=== PATIENT | female | born 1980 | race Caucasian/White ===

== ENCOUNTER 2020-05-09 15:05 | Emergency (ER) | payer OTHER, MEDICAID, SELFPAY ==
[2020-05-09 15:58] VITALS: BP 114/49; PULSE 85; RESP 16; TEMP 36.7; O2SAT 98; BMI 26.4
--- NOTE | 2020-05-09 16:41 | ED.EYEPROB ---
HPI - Eye Problem General Chief complaint: Eye Problems Stated complaint: Stye in Eye Time Seen by Provider: 05/09/20 16:41 Source: patient Mode of arrival: ambulatory Limitations: no limitations History of Present Illness HPI Narrative: 39 y/o female with history of complicated stye infection leading to periorbital cellulitis requiring IV antibiotics 3 years ago now presenting with a lower eyelid stye. She noticed lid swelling and pain starting 2 days ago and now the redness is slightly below her eyelid. She is concerned about worsening infection. She denies vision changes. She has been using warm soaks with worsening pain and swelling. chief complaint: eye pain Onset (ago): day(s) (2) Onset description: gradual Duration: constant Location: left eye Eye Symptoms: redness and pain Place: home Mechanism: none Severity: moderate If Pain, Quality: aching Associated symptoms: none Treatments Prior to Arrival: none Related Data Previous Rx's Medication Instructions Recorded leuprolide 11.25 mg(3 month) IM 11.25 ea IM .q3 mos 90 Days #1 ea 05/04/20 syringe-norethindrone 5 mg (90)tablets leuprolide 11.25 mg(3 month) IM 11.75 ea IM .90 days 90 Days #1 ea 05/05/20 syringe-norethindrone 5 mg (90)tablets amoxicillin 875 mg PO Q12H #14 tab 05/09/20 clindamycin HCl 300 mg PO Q8H 7 Days #21 cap 05/09/20 erythromycin 0.5 inch OPHTHALMIC (EYE) QID #3.5 05/09/20 g Allergies Allergy/AdvReac Type Severity Reaction Status Date / Time No Known Allergies Allergy Verified 05/09/20 16:24 Review of Systems Review of Systems: Constitutional: No Fever, No Chills ENT/Mouth: No sore throat, No Rhinorrhea, No Swallowing Difficulty Eyes: + Eye Pain, + Swelling, + Redness, No discharge Cardiovascular: No Chest Pain, No SOB, Respiratory: No Cough, No Sputum, No Wheezing, No dyspnea Musculoskeletal: No joint pain, No Myalgias Skin: No Skin Lesions, No rash Neuro: No Headache PMFSH Past Medical History Attestation statement: The following information was validated with the patient. Medical History Asthma Endometriosis Seasonal allergies Social History Social History Smoking Status: Never smoker Use of substances other than those prescribed or required for medical reasons: No Advance Directives: No Advance Directives Information Provided: Yes Physical Exam Vital Signs: Vital Signs: Last Vital Signs Temp 98.1 F 05/09/20 15:58 Pulse 85 05/09/20 15:58 Resp 16 05/09/20 15:58 BP 114/49 L 05/09/20 15:58 Pulse Ox 98 05/09/20 15:58 Body Mass Index 26.4 Appearance: Alert. Oriented X3. No acute distress. HEENT: left lower eyelid swelling with erythema extending beyond lower lid. eversion shows pustule inside lower lid. no conjunctival injection, PERRLA. EOMI. No periorbital tenderness Respiratory: No respiratory distress. Skin: Skin warm and dry. Normal skin color. Normal skin turgor. No rashes. Extremities: no LE edema. Neuro: Oriented X 3. No motor deficit. No sensory deficit. Course Course Course Narrative: 39 y/o presenting with left eye stye with slight erythema beyond the lower lid. No systemic signs of infection. Will empirically treat for evolving periorbital cellulitis given her history. Will give topical ointment as well. Patient instructed to return if facial redness worsens despite abx or if she develops vision changes. Stable for discharge. MDM - Eye Problem MDM Narrative Medical decision making narrative: internal or external hordeolum Differential Diagnosis Differential diagnosis: Likely corneal abrasion, conjunctivitis and periorbital cellulitis Critical Care Time Critical Care Time Critical Care Time: No Discharge Plan Discharge Clinical Impression: Internal hordeolum of left eye Qualifiers: Eyelid: lower Qualified Code(s): H00.025 - Hordeolum internum left lower eyelid Patient Disposition: Home, Self-Care Instructions: Stye (ED) Additional Instructions: Use warm compresses to the eye several times per day for 10-15 minutes at a time. Use the topical ointment 4-6 x per day. If the redness and swelling continues start on the two oral antibiotics right away and follow up with your doctor. If the redness spreads to your face, if you have fevers, chills, changes in vision or other signs of systemic infection call 911 or come back to the ER for further evaluation. Prescriptions: New erythromycin 5 mg/gram (0.5 %) ointment 0.5 inch ophthalmic (eye) QID Qty: 3.5 RF: 0 clindamycin HCl 300 mg capsule 300 mg PO Q8H 7 Days Qty: 21 RF: 0 amoxicillin 875 mg tablet 875 mg PO Q12H Qty: 14 RF: 0 No Action [place] Pack (3 month) 11.25 mg -5 mg (90) kit. syringe and tablet 11.25 ea IM .q3 mos 90 Days Qty: 1 RF: 2 [place] Pack (3 month) 11.25 mg -5 mg (90) kit. syringe and tablet 11.75 ea IM .90 days 90 Days Qty: 1 RF: 3 Discharge Date/Time: 05/09/20 17:03
== END 2020-05-09 17:03 | disposition home or self-care (01) ==
PROVIDERS: Emergency Provider Emergency Medicine; PCP Family Medicine
DX: H00.025 Hordeolum internum left lower eyelid (principal); H57.12 Ocular pain, left eye; Z79.899 Other long term (current) drug therapy
CPT/HCPCS: 99283

== ENCOUNTER → 2020-06-07 13:50 | Outpatient (BNVA) | payer OTHER, MEDICAID, SELFPAY | PROVIDERS: Visit Provider Obstetrics & Gynecology | DX: Z76.89 Persons encountering health services in other specified circumstances (principal) ==

== ENCOUNTER 2020-06-08 14:00 | Outpatient (RCR) | payer OTHER, MEDICAID, SELFPAY | END 2020-09-03 09:00 | disposition other institution (70) | LOC: HO.PT 14:00 | PROVIDERS: Visit Provider Family Medicine | DX: M54.2 Cervicalgia (principal); S09.90XS Unspecified injury of head, sequela | CPT/HCPCS: 97012; 97110; 97112; 97140; 97162 ==

== ENCOUNTER → 2020-07-13 15:33 | Outpatient (BNVA) | payer OTHER, MEDICAID, SELFPAY | PROVIDERS: PCP Family Medicine; Visit Provider Obstetrics & Gynecology ==

== ENCOUNTER 2020-07-13 15:45 | Emergency (ER) | payer OTHER, MEDICAID, SELFPAY ==
[2020-07-13 16:35] VITALS: BP 120/64; PULSE 65; RESP 18; TEMP 37.3; O2SAT 99; BMI 26.6
--- NOTE | 2020-07-13 17:53 | ED.GENADULT ---
HPI - General Adult General Chief complaint: General Medical Stated complaint: fever,neck pain Time Seen by Provider: 07/13/20 17:53 Source: patient Mode of arrival: ambulatory Limitations: no limitations History of Present Illness HPI narrative: 40-year-old female who presents to the emergency department for evaluation chest pain, fever and neck pain. Patient states that she had slight right-sided lateral rib pain on Sunday, 5 days prior to evaluation, which got worse last night. She states that around 9:00 p.m., she was sitting at her computer and she developed severe cramping of her right lateral chest. The pain traveled to her mid sternum into her right neck. She states that the right neck feels swollen. She states that the pain has been constant and is 7 to 8/10 at its worst. She had a fever at home of 100.8? F. She felt slightly short of breath. She complains of a headache, intermittent blurred vision, lightheadedness. She denied difficulty swallowing or cough. She denied dyspnea on exertion. She states that her abdomen feels bloated and she had 1 soft stool today. She had nausea with no vomiting. She denied myalgias, arthralgias, loss of sense of taste or smell. She states that she has been working at home and does not believe that she has had any primary COVID-19 exposures. Related Data Previous Rx's Medication Instructions Recorded amoxicillin 875 mg PO Q12H #14 tab 05/09/20 clindamycin HCl 300 mg PO Q8H 7 Days #21 cap 05/09/20 erythromycin 0.5 inch OPHTHALMIC (EYE) QID #3.5 05/09/20 g leuprolide 11.25 mg(3 month) IM 11.25 ea IM .q3 mos 90 Days #1 ea 05/31/20 syringe-norethindrone 5 mg (90)tablets leuprolide 11.25 mg(3 month) IM 11.75 ea IM .90 days 90 Days #1 ea 05/31/20 syringe-norethindrone 5 mg (90)tablets cyclobenzaprine 20 mg PO Q8H PRN #15 tab 07/13/20 Allergies Allergy/AdvReac Type Severity Reaction Status Date / Time No Known Allergies Allergy Verified 07/13/20 15:34 Review of Systems Review of Systems: Yes all other systems are reviewed and are negative Neurologic: Reports Abnormal speech present [facility] Past Medical History [facility] Narrative: The patient denies tobacco, alcohol and drug use. Medical History Asthma Endometriosis Seasonal allergies Social History Social History Smoking Status: Never smoker Advance Directives: No Advance Directives Information Provided: Yes Physical Exam Vital Signs: Vital Signs: Last Vital Signs Temp 98.6 F 07/13/20 18:25 Pulse 61 07/13/20 18:25 Resp 16 07/13/20 18:25 BP 128/73 07/13/20 18:25 Pulse Ox 98 07/13/20 18:25 Body Mass Index 26.6 Const: General: cooperative and healthy appearing Orientation/consciousness: oriented to person and oriented to place Limitations: no limitations HENMT: Head: Yes normal to inspection, Yes normocephalic and Yes atraumatic Ears: external ears normal General nose exam: Normal external nose present Face and sinus: Yes normal facial exam Mouth: Normal oral and palatal mucosa present Throat: Yes posterior oropharynx normal Eyes: Periorbital: periorbital findings normal Eyelids: Yes eyelids normal Conjunctivae: conjunctivae normal Sclerae: sclerae normal Corneas: corneas normal Pupils: Equal, round and reactive pupils present Direct Ophthalmoscopy: normal light reflex Neck: Neck: Yes full ROM, Yes no lymphadenopathy, Yes no meningeal signs, Yes trachea midline, Yes supple and No anterior neck swelling (No crepitus, tenderness right trapezius/sternocleidomastoid) Chest: Chest palpation & inspection: normal inspection of the chest, no crepitus, tenderness (Right lateral and right anterior) and No rash Resp: Effort & Inspection: normal respiratory effort and able to speak in complete sentences Auscultation: clear to auscultation bilaterally Cardio: Rate: regular rate Rhythm: regular rhythm Heart sounds: S1 normal heart sound present, S2 normal heart sound present and no murmurs GI: Inspection: Yes normal to inspection Palpation (GI): Soft to palpation, nontender, no guarding, not rigid and No hepatosplenomegaly present : General: Yes no CVA tenderness Back/Spine/Pelvis: Back: no CVA tenderness Cervical Spine: normal cervical lordosis Thoracic/Lumbar Spine: thoracic and lumbar spine normal to inspection Skin: Lesions: no lesions Rashes: no rashes Wounds: no wounds Neuro: General: oriented to person, oriented to place and no meningeal signs Cranial nerves: Yes CN's II-XII intact bilaterally and Yes Equal, round and reactive pupils present Cognition (Neuro): normal cognition Speech: Abnormal speech present Motor exam (neuro): 5/5 motor strength present throughout Extrem: General: Yes normal to inspection and Yes full ROM Psych: Appearance: well kempt Mental Status: mental status grossly normal Speech and movement: Normal speech and movement present Affect: normal affect Attitude: cooperative Thought process: Normal thought process present Thought content: Normal thought content present Course Course Course Narrative: 40-year-old female who presents emergency department for evaluation of right lateral chest pain x5 days with increased chest pain starting last night at 9:00 p.m., pain radiates to her right neck and associated with shortness of breath and nausea. Chills reported a fever at home of 100.8, headache, occasional blurred vision and lightheadedness. Physical examination did reveal right neck muscle tenderness but no crepitus, right-sided chest wall tenderness with no crepitus, rashes or lesions noted, normal breath sounds vital signs in the emergency department revealed a temperature of 99.1?, respiratory rate 18 and pulse of 65 with an O2 saturation of 99%. The differential includes but not limited to costochondritis, coronary disease, PE, pneumothorax, pneumonia, COVID-19. I did order a laboratory workup, EKG and chest x-ray. The patient will be tested for COVID-19 as well. She was ordered to get Toradol 30 mg IV, Zofran 4 mg IV normal saline x1 L. 2002: The patient's laboratory evaluation was unremarkable including non elevated troponin and non elevated D-dimer. Chest x-ray revealed no evidence of pneumonia or pneumothorax. COVID-19 was negative. EKG was unremarkable. The patient did get some slight improvement with the IV Toradol. The patient's presentation is most likely secondary to chest wall inflammation. I did discuss the possibility of shingles with the patient as well. 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 She was advised to take Tylenol and she was given a prescription for Flexeril as well. Medical Decision Making Lab Data Result diagrams: 07/13/20 18:40 07/13/20 18:40 Labs: Lab Results 07/13/20 07/13/20 07/13/20 Range/Units 18:32 18:35 18:40 WBC 12.6 H (4.8-10.8) X10*3/uL RBC 4.82 (4.20-5.50) X10*6/uL Hgb 13.9 (12.0-16.0) g/dl Hct 41.5 (37-47) % MCV 86.1 (80-98) fL MCH 28.8 (27.0-33.0) pg MCHC 33.5 (31.0-35.0) g/dl RDW 12.5 (11.0-16.0) % Plt Count 226 (160-400) X10*3/uL MPV 9.4 (9.4-12.3) fL Immature Gran % (Auto) 0.2 (0.0-0.4) % Neut % (Auto) 63.9 (45-73) % Lymph % (Auto) 24.6 (20-40) % [place] % (Auto) 6.7 (2-11) % Eos % (Auto) 4.3 H (0-4) % Baso % (Auto) 0.3 (0-2) % Lymph # (Auto) 3.1 (1.2-4.9) X10*3/uL [place] # (Auto) 0.8 (0.1-1.2) X10*3/uL Eos # (Auto) 0.5 H (0.0-0.4) X10*3/uL Baso # (Auto) 0.0 (0.0-0.2) X10*3/uL Abs Immat Gran (auto) 0.03 (0.00-0.03) X10*3/uL Absolute Neuts (auto) 8.1 (2.0-8.3) X10*3/uL Absolute Nucleated RBC 0.000 (0.0-0.012) X10*3/uL Nucleated RBC % (auto) 0.0 (0.0-0.2) /100WBC PT (10.8-13.0) SEC INR (0.9-1.1) APTT (24.1-38.0) SEC D-Dimer NG/ML Sodium (135-145) mmol/L Potassium (3.3-5.1) mmol/l Chloride (96-108) mmol/L Carbon Dioxide (22-29) mmol/L Anion Gap (12-20) BUN (9-16) mg/dL Creatinine (0.5-1.4) mg/dL Estim Creat Clear Calc Estimated GFR Random Glucose (60-115) mg/dL Calcium (8.4-10.2) mg/dL Total Bilirubin (0.0-1.0) mg/dL AST (5-31) U/L ALT (0-31) U/L Alkaline Phosphatase (39-117) U/L Troponin I High Sens (<3.5-17.0) ng/L Total Protein (6.5-8.0) g/dL Albumin (3.5-5.0) g/dL Urine Color YELLOW Urine Appearance CLEAR Urine pH 7.0 (5.0-8.0) Ur Specific [place] 1.020 (1.005-1.025) Urine Protein NEG (NEG-TRACE) MG/DL Urine Glucose (UA) NEG (NEG) MG/DL Urine Ketones NEG (NEG) MG/DL Urine Blood NEG (NEG) Urine Nitrite NEG (NEG) Ur Leukocyte Esterase NEG (NEG) Urine Test NEGATIVE (NEGATIVE) COVID-19 ([facility]) Negative (Negative) COVID-19 Clin Com See Note 07/13/20 07/13/20 07/13/20 Range/Units 18:40 18:40 18:40 WBC (4.8-10.8) X10*3/uL RBC (4.20-5.50) X10*6/uL Hgb (12.0-16.0) g/dl Hct (37-47) % MCV (80-98) fL MCH (27.0-33.0) pg MCHC (31.0-35.0) g/dl RDW (11.0-16.0) % Plt Count (160-400) X10*3/uL MPV (9.4-12.3) fL Immature Gran % (Auto) (0.0-0.4) % Neut % (Auto) (45-73) % Lymph % (Auto) (20-40) % [place] % (Auto) (2-11) % Eos % (Auto) (0-4) % Baso % (Auto) (0-2) % Lymph # (Auto) (1.2-4.9) X10*3/uL [place] # (Auto) (0.1-1.2) X10*3/uL Eos # (Auto) (0.0-0.4) X10*3/uL Baso # (Auto) (0.0-0.2) X10*3/uL Abs Immat Gran (auto) (0.00-0.03) X10*3/uL Absolute Neuts (auto) (2.0-8.3) X10*3/uL Absolute Nucleated RBC (0.0-0.012) X10*3/uL Nucleated RBC % (auto) (0.0-0.2) /100WBC PT 11.7 (10.8-13.0) SEC INR 1.0 (0.9-1.1) APTT 40.3 H (24.1-38.0) SEC D-Dimer < 200 NG/ML Sodium 140 (135-145) mmol/L Potassium 4.2 (3.3-5.1) mmol/l Chloride 101 (96-108) mmol/L Carbon Dioxide 29 (22-29) mmol/L Anion Gap 14 (12-20) BUN 16 (9-16) mg/dL Creatinine 0.80 (0.5-1.4) mg/dL Estim Creat Clear Calc 88.1 Estimated GFR > 60 Random Glucose 92 (60-115) mg/dL Calcium 9.0 (8.4-10.2) mg/dL Total Bilirubin 0.3 (0.0-1.0) mg/dL AST 17 (5-31) U/L ALT 18 (0-31) U/L Alkaline Phosphatase 78 (39-117) U/L Troponin I High Sens < 3.5 (<3.5-17.0) ng/L Total Protein 7.5 (6.5-8.0) g/dL Albumin 4.7 (3.5-5.0) g/dL Urine Color Urine Appearance Urine pH (5.0-8.0) Ur Specific [place] (1.005-1.025) Urine Protein (NEG-TRACE) MG/DL Urine Glucose (UA) (NEG) MG/DL Urine Ketones (NEG) MG/DL Urine Blood (NEG) Urine Nitrite (NEG) Ur Leukocyte Esterase (NEG) Urine Test (NEGATIVE) COVID-19 ([facility]) (Negative) COVID-19 Clin Com ECG Data Attestation: I personally reviewed and interpreted this ECG as follows: Interpretation: 1823: Normal sinus rhythm with sinus arrhythmia, normal [place], QRS and QTC intervals, inverted T-wave in V1, no ST segment elevation, no ST segment depression, this is a normal EKG. There is no old EKG for comparison. Discharge Plan Discharge Clinical Impression: Acute neck pain Chest pain Qualifiers: Chest pain type: other chest pain Qualified Code(s): R07.89 - Other chest pain Patient Disposition: Home, Self-Care Instructions: Chest Pain (ED) Additional Instructions: Your chest x-ray was normal, with no evidence for pneumonia or a popped lung (pneumothorax). Your blood work was all normal suggesting that this is not your heart for a blood clot causing your pain. Your EKG was normal. Your COVID-19 test was negative. At this time, I suspect that your pain is due to inflammation of your chest wall and neck. As discussed you should consider shingles as the cause of your pain if you develop a rash on the right side of your body. If you think this is shingles, call your doctor or return to the emergency department for evaluation. Take Tylenol (acetaminophen) 500 mg pills, 2 pills every 4 to 6 hours as needed for pain. Take Flexeril (cyclobenzaprine) 10 mg pills, 1 pill every 8 hours as needed for pain or spasm. Follow-up with your doctor in 2 days. Please return to the emergency department if your symptoms get worse or if you develop any symptoms that are concerning to you. Prescriptions: New cyclobenzaprine 10 mg tablet 20 mg PO Q8H PRN (Reason: muscle pain or spasm) Qty: 15 RF: 0 No Action [place] Pack (3 month) 11.25 mg -5 mg (90) kit. syringe and tablet 11.25 ea IM .q3 mos 90 Days Qty: 1 RF: 2 [place] Pack (3 month) 11.25 mg -5 mg (90) kit. syringe and tablet 11.75 ea IM .90 days 90 Days Qty: 1 RF: 3 erythromycin 5 mg/gram (0.5 %) ointment 0.5 inch ophthalmic (eye) QID Qty: 3.5 RF: 0 clindamycin HCl 300 mg capsule 300 mg PO Q8H 7 Days Qty: 21 RF: 0 amoxicillin 875 mg tablet 875 mg PO Q12H Qty: 14 RF: 0
--- NOTE | 2020-07-13 18:13 | XR_ITS ---
EXAMINATION: XR CHEST CLINICAL INFORMATION: Fever and shortness of breath. Neck pain. COMPARISON: 11/14/2019 TECHNIQUE: Frontal view of the chest was obtained. FINDINGS: Cardiac leads overlie the chest. The lungs are well expanded. There is no focal consolidation, edema, or effusion. No pneumothorax. The cardiomediastinal silhouette is within normal limits. No acute osseous abnormality. XR/XR chest 1V IMPRESSION: Clear lungs.
--- NOTE | 2020-07-13 18:13 | ECG_ITS ---
Test Reason : CHEST PAIN Blood Pressure : / mmHG Vent. Rate : 067 BPM Atrial Rate : 067 BPM P-R Int : 170 ms QRS Dur : 088 ms QT Int : 426 ms P-R-T Axes : 054 065 032 degrees QTc Int : 450 ms Normal sinus rhythm with sinus arrhythmia Normal ECG When compared with ECG of 05-JUN-2019 17:03, No significant change was found Referred By: Erik Champion Electronically Signed By:BART OSPINA
[2020-07-13 18:25] VITALS: BP 128/73; PULSE 61; RESP 16; TEMP 37; O2SAT 98
[2020-07-13] MEDS: 0.9 % Sodium Chloride 1,000 ML 999 ML IV (18:41)
[2020-07-13] MEDS: Ketorolac Tromethamine 30 MG/ML VIAL IVPUSH (18:42)
[2020-07-13] MEDS: ondansetron HCL 4 MG/2 ML VIAL IVPUSH (18:42)
[2020-07-13 18:45] LABS: MANUAL DIFF FLAG NO
[2020-07-13 18:46] LABS: Basophils Percent Auto 0.3 % (0-2); Eosinophils Absolute Auto 0.5 X10*3/uL (0.0-0.4); Eosinophils Percent Auto 4.3 % (0-4); Hematocrit 41.5 % (37-47); Hemoglobin 13.9 g/dl (12.0-16.0); Imm Gran Abs Auto 0.03 X10*3/uL (0.00-0.03); Imm Gran Pct Auto 0.2 % (0.0-0.4); Lymphocytes Absolute Auto 3.1 X10*3/uL (1.2-4.9); Lymphocytes Percent Auto 24.6 % (20-40); Mean Corpuscular HGB Conc 33.5 g/dl (31.0-35.0); Mean Corpuscular Hemoglobin 28.8 pg (27.0-33.0); Mean Corpuscular Volume 86.1 fL (80-98); Mean Platelet Volume 9.4 fL (9.4-12.3); Monocytes Absolute Auto 0.8 X10*3/uL (0.1-1.2); Monocytes Percent Auto 6.7 % (2-11); Neutrophils Absolute Auto 8.1 X10*3/uL (2.0-8.3); Neutrophils Percent Auto 63.9 % (45-73); Platelet Count 226 X10*3/uL (160-400); Red Blood Count 4.82 X10*6/uL (4.20-5.50); Red Cell Distribution Width 12.5 % (11.0-16.0); White Blood Count 12.6 X10*3/uL (4.8-10.8)
[2020-07-13 18:49] LABS: Appearance Urine CLEAR; Color Urine YELLOW; Glucose Urine UA NEG (NEG); Leukocyte Esterase Urine NEG (NEG); Nitrite Urine NEG (NEG); Urine Blood NEG (NEG); Urine Ketones NEG (NEG); Urine Protein NEG (NEG-TRACE)
[2020-07-13 18:51] LABS: UPreg QC Valid YES; Urine Pregnancy NEGATIVE (NEGATIVE)
[2020-07-13 18:55] LABS: Prothrombin Time 11.7 SEC (10.8-13.0)
[2020-07-13 18:57] LABS: Partial Thromboplastin Time 40.3 SEC (24.1-38.0)
[2020-07-13 19:01] LABS: D Dimer < 200 NG/ML
[2020-07-13 19:03] LABS: COVID-19 Test Negative (Negative); IDNOW Serial# 9DD0AD1C
[2020-07-13 19:16] LABS: Alanine Aminotransferase 18 U/L (0-31); Albumin Level 4.7 g/dL (3.5-5.0); Alkaline Phosphatase 78 U/L (39-117); Anion Gap 14 (12-20); Aspartate Amino Transferase 17 U/L (5-31); Bilirubin Total 0.3 mg/dL (0.0-1.0); Blood Urea Nitrogen 16 mg/dL (9-16); Carbon Dioxide 29 mmol/L (22-29); Chloride 101 mmol/L (96-108); Creatinine Clr Calc Pharmacy 88.1; Estimated Glomerular Filt Rate > 60; Glucose Random 92 mg/dL (60-115); Potassium 4.2 mmol/l (3.3-5.1); Sodium 140 mmol/L (135-145); Total Protein 7.5 g/dL (6.5-8.0)
[2020-07-13 19:22] LABS: Troponin-I High Sensitivity < 3.5 ng/L (<3.5-17.0)
[2020-07-13 20:24] VITALS: BP 125/69; PULSE 84; RESP 20; O2SAT 95
== END 2020-07-13 20:26 | disposition home or self-care (01) ==
PROVIDERS: Emergency Provider Emergency Medicine Emergency Medical Services
DX: R07.89 Other chest pain (principal); M54.2 Cervicalgia; Z20.822 Contact with and (suspected) exposure to COVID-19
CPT/HCPCS: 36415; 71045; 80053; 81003; 81025; 84484; 85025; 85379; 85610; 85730; 87635; 93005; 96361; 96374; 96375; 99284; J1885; J2405

== ENCOUNTER 2020-07-14 12:20 | Outpatient (REF) | payer OTHER, MEDICAID, SELFPAY ==
--- NOTE | 2020-07-14 12:25 | XR_ITS ---
EXAMINATION: XR CERVICAL SPINE CLINICAL INFORMATION: Neck pain. COMPARISON: None TECHNIQUE: 6 views of the cervical spine, inclusive of flexion and extension views, were obtained. FINDINGS: There is mild straightening of cervical lordosis. The vertebral heights, alignment and disc heights are normal. The neural foramina are patent bilaterally. No acute fracture, dislocation or subluxation seen. The prevertebral soft tissues are normal. XR/XR cervical spine 5V IMPRESSION: Moderate straightening of cervical lordosis likely spasm. No visible acute fracture or dislocation seen.
== END 2020-07-14 12:21 | disposition home or self-care (01) ==
LOC: HO.XRAY 12:20
PROVIDERS: Visit Provider Family Medicine
DX: M54.2 Cervicalgia (principal)
CPT/HCPCS: 72050

== ENCOUNTER → 2020-07-29 14:58 | Outpatient (BNVA) | payer OTHER, MEDICAID, SELFPAY | PROVIDERS: Visit Provider Advanced Practice Midwife ==

== ENCOUNTER 2020-08-06 15:25 | Outpatient (REF) | payer OTHER, MEDICAID, SELFPAY ==
--- NOTE | ~2020-08-06 | MM_ITS ---
EXAMINATION: MM SCREENING DIGITAL BREAST TOMOSYNTHESIS, BILATERAL CLINICAL INFORMATION: Screening. Asymptomatic. The lifetime risk of breast cancer based on the Tyrer-Cuzick Model is 10%. COMPARISON: Mammography: 06/22/2018 (baseline) TECHNIQUE: Digital breast tomosynthesis is performed in both the craniocaudal and mediolateral oblique views along with computer-aided detection (CAD). Synthesized 2D images are generated from the tomosynthesis. FINDINGS: There are scattered areas of fibroglandular density (ACR BI-RADS breast composition Category b). There are no significant masses, abnormal calcifications, or other abnormalities. Parenchymal pattern is similar to prior studies. The axilla are unremarkable. No significant changes. MM/MM tomosynthesis screening BI IMPRESSION: No mammographic evidence of malignancy. ASSESSMENT: BI-RADS 1: Negative RECOMMENDATION: Routine annual mammography screening. This patient's information was entered into a reminder system with a target due date for their next mammogram.
== END 2020-08-06 15:26 | disposition home or self-care (01) ==
LOC: HO.MAMMO 15:25
PROVIDERS: PCP Family Medicine; Visit Provider Family Medicine
DX: Z12.31 Encounter for screening mammogram for malignant neoplasm of breast (principal)
CPT/HCPCS: 77063; 77067

== ENCOUNTER → 2020-08-24 14:48 | Outpatient (BNVA) | payer OTHER, MEDICAID, SELFPAY | PROVIDERS: Visit Provider Obstetrics & Gynecology ==

== ENCOUNTER → 2020-09-01 14:10 | Outpatient (BNVA) | payer OTHER, MEDICAID, SELFPAY | PROVIDERS: Visit Provider Internal Medicine Gastroenterology ==

== ENCOUNTER → 2020-10-04 08:08 | Outpatient (BNVA) | payer OTHER, MEDICAID, SELFPAY | PROVIDERS: PCP Family Medicine; Visit Provider Internal Medicine Gastroenterology ==

== ENCOUNTER 2020-10-17 10:08 | Emergency (ER) | payer OTHER, MEDICAID, SELFPAY ==
[2020-10-17 10:18] VITALS: BP 111/77; PULSE 90; RESP 16; TEMP 36.8; O2SAT 98; BMI 25.7
--- NOTE | 2020-10-17 11:09 | ED.EYEPROB ---
HPI - Eye Problem General Chief complaint: Eye Problems Stated complaint: eye issues Time Seen by Provider: 10/17/20 11:04 Source: patient Mode of arrival: ambulatory Limitations: no limitations History of Present Illness HPI Narrative: Patient presents to ED for left upper eyelid swelling and redness. Patient states this has been occurring for the past 3 days. Patient denies any blurry vision, watery discharge, green/pus collection from the eyelids, headache, dizziness, fever, or chills. Patient states history of stye and recently has been on topical antibiotic ointment as treatment with no improvment. Patient denies any recent trauma to the eye. Patient states history of stye. Related Data Previous Rx's Medication Instructions Recorded erythromycin 0.5 inch OPHTHALMIC (EYE) QID #3.5 05/09/20 g leuprolide 11.25 mg(3 month) IM 11.25 ea IM .q3 mos 90 Days #1 ea 05/31/20 syringe-norethindrone 5 mg (90)tablets leuprolide 11.25 mg(3 month) IM 11.75 ea IM .90 days 90 Days #1 ea 05/31/20 syringe-norethindrone 5 mg (90)tablets cyclobenzaprine 20 mg PO Q8H PRN #15 tab 07/13/20 leuprolide (3 month) 11.25 mg (3 11.25 mg IM [id number] 90 Days #1 ea 07/14/20 month) intramuscular syringe kit cefpodoxime 400 mg PO Q12H 7 Days #28 tab 10/17/20 doxycycline hyclate 100 mg PO BID #20 tab 10/17/20 Allergies Allergy/AdvReac Type Severity Reaction Status Date / Time Seasonal Allergies Allergy Mild unknown Verified 10/04/20 08:17 Review of Systems Review of Systems: Yes all other systems are reviewed and are negative Constitutional: Constitutional: Reports as per HPI and Reports no additional constitutional complaints Eyes: Eyes: Reports as per HPI and Reports no additional eye complaints Comments: Left upper eyelid is swollen and tender ENT: Reports system reviewed and no additional complaints, except as documented and Reports as per HPI Cardiovascular: Cardiovascular: Reports as per HPI and Reports no additional cardiovascular complaints Respiratory: Respiratory: Reports as per HPI and Reports no additional respiratory complaints Gastrointestinal: Gastrointestinal: Reports as per HPI and Reports no additional gastrointestinal complaints Genitourinary: Genitourinary: Reports no additional female genitourinary complaints and Reports as per HPI Musculoskeletal: Musculoskeletal: Reports no additional musculoskeletal complaints and Reports as per HPI Neurologic: Reports system reviewed and no additional complaints, except as documented and Reports as per HPI Psychiatric: Psychiatric: Reports no additional psychiatric complaints and Reports as per HPI [facility] Past Medical History Medical History (Updated 10/17/20 @ 11:32 by TATI Narvaez) Abdominal pain Asthma Carpal tunnel syndrome Endometriosis GERD (gastroesophageal reflux disease) Seasonal allergies Surgical History H/O eye surgery H/O gastric bypass H/O tubal ligation History of esophagogastroduodenoscopy (EGD) Hx of cholecystectomy Social History Social History Household Members: Spouse and Children Alcohol intake: never Smoking Status: Never smoker Smoked in Last 30 Days: No Use of substances other than those prescribed or required for medical reasons: No Advance Directives: No Advance Directives Information Provided: No Physical Exam Vital Signs: Vital Signs: Last Vital Signs Temp 98.3 F 10/17/20 10:18 Pulse 90 10/17/20 10:18 Resp 16 10/17/20 10:18 BP 111/77 10/17/20 10:18 Pulse Ox 98 10/17/20 10:18 Body Mass Index 25.7 Const: General: cooperative, healthy appearing, comfortable, no acute distress, well developed, alert and awake Orientation/consciousness: patient oriented x3 HENMT: Head: Yes normal to inspection, Yes No palpable skull fracture present, Yes normocephalic, Yes atraumatic, No abrasion, No Tompkins's sign, No contusion, No hematoma, No laceration, No occipital foramen tenderness, No palpable skull fracture, No raccoon eyes, No scalp lesion, No scalp tenderness, No Temporal artery tenderness present and No periorbital ecchymosis Eyes: Other: Left eye: Left upper eyelid swollen and slightly erythematous. Negative for any external stye or obvious internal stye. Neck: Neck: Yes normal visual inspection, Yes full ROM, Yes no lymphadenopathy, Yes no meningeal signs, Yes trachea midline, Yes supple and No tender Chest: Chest palpation & inspection: normal inspection of the chest and normal palpation of entire chest wall Resp: Effort & Inspection: normal respiratory effort and able to speak in complete sentences Cardio: Jugular venous distension: no JVD Heart sounds: S1 normal heart sound present and S2 normal heart sound present GI: Inspection: Yes normal to inspection and No abdominal wall ecchymosis Palpation (GI): Soft to palpation, not firm, nontender, no guarding and not rigid : General: No CVA tenderness and Yes no CVA tenderness Back/Spine/Pelvis: Back: no CVA tenderness, No CVA tenderness and No back tenderness Skin: General skin exam: no rashes or lesions noted and elasticity normal Neuro: General: patient oriented x3 and no meningeal signs Cranial nerves: Yes CN's II-XII intact bilaterally Extrem: General: Yes normal to inspection and Yes full ROM Psych: Appearance: grossly normal, well kempt and not disheveled Course Course Course Narrative: Differenital prespetal cellulitis vs stye Patient may have small developing internal stye that is not obvious on visual inspection Reevaluation(s) Reevaluation #1: Discharged with oral antibiotics. Patient given number of loin trimmer for outpatient follow-up. Discharge Plan Discharge Clinical Impression: Hordeolum, Periorbital cellulitis Patient Disposition: Home, Self-Care Instructions: Stye (ED), Periorbital Cellulitis in Adults (ED) Additional Instructions: Return to the ED for worsening eye pain, eye swelling, yellow discharge, redness of conjunctiva, fever, chills, change in vision, headache, dizziness, or any other concerning symptoms. Recommend warm compress 4 times a day for 15 minutes. Prescriptions: New cefpodoxime 200 mg tablet 400 mg PO Q12H 7 Days Qty: 28 RF: 0 doxycycline hyclate 100 mg tablet 100 mg PO BID Qty: 20 RF: 0 No Action [place] Pack (3 month) 11.25 mg -5 mg (90) kit. syringe and tablet 11.25 ea IM .q3 mos 90 Days Qty: 1 RF: 2 [place] Pack (3 month) 11.25 mg -5 mg (90) kit. syringe and tablet 11.75 ea IM .90 days 90 Days Qty: 1 RF: 3 erythromycin 5 mg/gram (0.5 %) ointment 0.5 inch ophthalmic (eye) QID Qty: 3.5 RF: 0 cyclobenzaprine 10 mg tablet 20 mg PO Q8H PRN (Reason: muscle pain or spasm) Qty: 15 RF: 0 Lupron Depot (3 month) 11.25 mg syringe kit 11.25 mg IM [id number] 90 Days Qty: 1 RF: 2 Referrals: Red Alexander [Physician] - 2 days (Chronic stye vs periorbital cellulitis.) Stand Alone Forms: Work/School Release Interventions: ED Discharge Assessment Last Done: 10/17/20 11:48 Discharge Date/Time: 10/17/20 11:48 Print Language: [place]ican
== END 2020-10-17 11:48 | disposition home or self-care (01) ==
PROVIDERS: Emergency Provider Emergency Medicine; PCP Family Medicine
DX: H00.024 Hordeolum internum left upper eyelid (principal); L03.213 Periorbital cellulitis
CPT/HCPCS: 99283; 99284

== ENCOUNTER → 2020-10-27 08:51 | Outpatient (BNVA) | payer OTHER, MEDICAID, SELFPAY | PROVIDERS: PCP Family Medicine; Visit Provider Obstetrics & Gynecology ==

== ENCOUNTER 2020-12-11 00:07 | Emergency (ER) | payer OTHER, MEDICAID, SELFPAY ==
--- NOTE | ~2020-12-11 | XR_ITS ---
EXAMINATION: XR CHEST CLINICAL INFORMATION: Cough COMPARISON: 07/13/2020 TECHNIQUE: 2 views of the chest were obtained. FINDINGS: No significant abnormality is noted involving the heart, lungs, mediastinum, bony thorax or soft tissues. XR/XR chest 2V IMPRESSION: Unremarkable examination.
[2020-12-11 00:11] VITALS: BP 133/68; PULSE 61; RESP 18; TEMP 36.7; O2SAT 99; BMI 26.4
--- NOTE | 2020-12-11 01:47 | ED_ITS ---
HPI - General Adult General Chief complaint: General Medical Stated complaint: abdominal pain Time Seen by Provider: 12/11/20 01:47 Source: patient Mode of arrival: ambulatory History of Present Illness HPI narrative: Patient with history of asthma presents with complaints of right- sided, atraumatic, chest ?fullness? without associated fever, chills, shortness of breath, chest pain/palpitations, nausea, vomiting, diarrhea. In addition, patient denies any recent travel or calf swelling/pain. She reports increase mucus production. Related Data Home Medications Medication Instructions Recorded Confirmed Zyrtec 10 mg PO DAILY 12/11/20 12/11/20 fluticasone propionate [Flonase] INTRANASAL 12/11/20 Previous Rx's Medication Instructions Recorded leuprolide (3 month) 11.25 mg (3 11.25 mg IM [id number] 90 Days #1 ea 07/14/20 month) intramuscular syringe kit Allergies Allergy/AdvReac Type Severity Reaction Status Date / Time Seasonal Allergies Allergy Mild unknown Verified 10/04/20 08:17 Review of Systems Review of Systems: Pertinent positives and negatives as stated in HPI 10 point review of systems is otherwise negative. PMFSH Past Medical History Source: nursing notes reviewed Medical History Abdominal pain Asthma Carpal tunnel syndrome Endometriosis GERD (gastroesophageal reflux disease) Seasonal allergies Surgical History H/O eye surgery H/O gastric bypass H/O tubal ligation History of esophagogastroduodenoscopy (EGD) Hx of cholecystectomy Social History Social History Household Members: Spouse and Children Alcohol intake: never Advance Directives: No Advance Directives Information Provided: No Patient : No Physical Exam Vital Signs: Vital Signs: Last Vital Signs Temp 98.0 F 12/11/20 02:19 Pulse 57 12/11/20 02:19 Resp 17 12/11/20 02:19 BP 153/81 H 12/11/20 02:19 Pulse Ox 100 12/11/20 02:19 Body Mass Index 26.4 VITAL SIGNS: Reviewed. GENERAL: Well developed, well nourished, in no acute distress. HEAD: Normocephalic/atraumatic EYES: PERRLA, EOMI OROPHARYNX: no oral lesions noted, posterior pharynx clear NECK: Supple, no adenopathy LUNGS: Normal breath sounds. No adventitious sounds or accessory muscle use. SpO2<99> CARDIOVASCULAR: Regular rate and rhythm without noted murmurs, no JVD or lower extremity edema. ABDOMEN: Soft, non-tender, non-distended with bowel sounds. Course Course Course Narrative: 40-year-old female with history and clinical presentation suggestive of possible bronchitis and seasonal allergies as there is no evidence of infection without fever, chills, nausea, vomiting. Low clinical suspicion for hepatobiliary etiologies or gastritis and doubt PE. Will obtain urinalysis but review of chest x-ray is negative for any acute findings. Review of urinalysis is negative for any acute findings and presentation is inconsistent with gallbladder or pancreatic etiologies. Medical Decision Making Lab Data Labs: Lab Results 12/11/20 12/11/20 Range/Units 02:22 02:22 Urine Color YELLOW Urine Appearance CLEAR Urine pH 5.5 (5.0-8.0) Ur Specific [place] >= 1.030 H (1.005-1.025) Urine Protein NEG (NEG-TRACE) MG/DL Urine Glucose (UA) NEG (NEG) MG/DL Urine Ketones NEG (NEG) MG/DL Urine Blood NEG (NEG) Urine Nitrite NEG (NEG) Ur Leukocyte Esterase NEG (NEG) Urine Test NEGATIVE (NEGATIVE) Discharge Plan Discharge Clinical Impression: Bronchitis Patient Disposition: Home, Self-Care Instructions: Allergies (ED), Acute Bronchitis (ED) Additional Instructions: 1. Resume all home medications as prescribed. 2. Recommend consistent use of allergy medication as well as use of your albuterol inhaler (would recommend that you increase the use of your albuterol inhaler for the next 24 hours). 3. Please follow-up with your primary care provider in the next 2-3 days for re- evaluation and further outpatient management. Return to the ER for any acute worsening of your symptoms. Prescriptions: No Action Zyrtec 10 mg PO DAILY RF: 0 fluticasone propionate [Flonase] 50 mcg/actuation [place],Suspension INTRANASAL RF: 0 Lupron Depot (3 month) 11.25 mg syringe kit 11.25 mg IM [id number] 90 Days Qty: 1 RF: 2 Referrals: Clementine Cobos MD [Primary Care Provider] - 2 days (Re-evaluation)
[2020-12-11 02:19] VITALS: BP 153/81; PULSE 57; RESP 17; TEMP 36.7; O2SAT 100
[2020-12-11 02:30] LABS: Glucose Urine UA NEG (NEG); Leukocyte Esterase Urine NEG (NEG); Nitrite Urine NEG (NEG); PH 5.5 (5.0-8.0); Specific Gravity - Urine >= 1.030 (1.005-1.025); Urine Blood NEG (NEG); Urine Ketones NEG (NEG); Urine Protein NEG (NEG-TRACE)
[2020-12-11 02:36] LABS: Appearance Urine CLEAR; Color Urine YELLOW
[2020-12-11 02:37] LABS: UPreg QC Valid YES; Urine Pregnancy NEGATIVE (NEGATIVE)
== END 2020-12-11 03:01 | disposition home or self-care (01) ==
PROVIDERS: Emergency Provider Student in an Organized Health Care Education/Training Program; PCP Family Medicine
DX: J40 Bronchitis, not specified as acute or chronic (principal); J45.909 Unspecified asthma, uncomplicated; Z79.899 Other long term (current) drug therapy
CPT/HCPCS: 71046; 81003; 81025; 99283; 99284

== ENCOUNTER 2021-01-26 08:30 | Outpatient (REF) | payer OTHER, MEDICAID, SELFPAY ==
--- NOTE | ~2021-01-26 | US_ITS ---
EXAMINATION: US ABDOMEN COMPLETE CLINICAL INFORMATION: Unspecified abdominal pain. COMPARISON: CT abdomen and pelvis with intravenous contrast only dated 01/21/2017 TECHNIQUE: Real-time imaging of the abdominal viscera. FINDINGS: PANCREAS: Normal. ABDOMINAL AORTA: The proximal, mid, and distal segments are normal in caliber. INFERIOR VENA CAVA: Visualized portions are normal. LIVER: Normal. The liver is normal in size. The liver contour is normal. Parenchymal echogenicity is normal. No focal hepatic lesion. There is no intrahepatic biliary duct dilatation seen. GALLBLADDER: Surgically absent. COMMON BILE DUCT: Normal in caliber measuring 0.49 cm in diameter. RIGHT KIDNEY: Normal. No hydronephrosis. No renal calculi or focal parenchymal lesions. The kidney measures 11.1 cm in maximum dimension. LEFT KIDNEY: There is mild hydronephrosis. No echogenic renal calculi or focal parenchymal lesions. The kidney measures 11.2 cm in maximum dimension. SPLEEN: 10.0 The spleen measures 10.0 cm in maximum dimension. There is a small accessory splenule measuring 2.2 x 1.9 x 2.1 cm. FREE FLUID: No free fluid seen. US/US abdomen complete IMPRESSION: Mild left hydronephrosis. No echogenic renal calculi. The rest of the abdominal ultrasound is unremarkable.
== END 2021-01-26 08:31 | disposition home or self-care (01) ==
LOC: HO.HMGCX 08:30
PROVIDERS: Visit Provider Internal Medicine Gastroenterology
DX: R10.9 Unspecified abdominal pain (principal)
CPT/HCPCS: 76700

== ENCOUNTER → 2021-02-03 08:40 | Outpatient (BNVA) | payer OTHER, SELFPAY | PROVIDERS: PCP Family Medicine; Visit Provider Internal Medicine | DX: M25.511 Pain in right shoulder (principal) | CPT/HCPCS: 99214 ==

== ENCOUNTER → 2021-02-08 13:02 | Outpatient (BNVA) | payer OTHER, SELFPAY | PROVIDERS: PCP Family Medicine; Visit Provider Internal Medicine | DX: M54.9 Dorsalgia, unspecified (principal); M25.511 Pain in right shoulder; M54.2 Cervicalgia | CPT/HCPCS: 99213 ==

== ENCOUNTER 2021-02-17 12:35 | Outpatient (REF) | payer OTHER, MEDICAID, SELFPAY ==
--- NOTE | ~2021-02-17 | XR_ITS ---
EXAMINATION: XR THORACIC SPINE CLINICAL INFORMATION: Back pain COMPARISON: None TECHNIQUE: 3 views of the thoracic spine were obtained. FINDINGS: Bone alignment is normal. No fracture or dislocation is seen. There is mild degenerative spondylosis and disc space narrowing of the mid thoracic spine. Paraspinal soft tissues are normal. XR/XR thoracic spine 3V IMPRESSION: No fracture seen. Mild degenerative changes.
--- NOTE | ~2021-02-17 | XR_ITS ---
EXAMINATION: XR CERVICAL SPINE CLINICAL INFORMATION: Neck pain COMPARISON: Previous cervical spine x-rays most recent June 2020 TECHNIQUE: 6 views of the cervical spine, inclusive of bilateral oblique views, were obtained. FINDINGS: Bone alignment is normal. No fracture or dislocation is seen. There is degenerative spondylosis at C5-C6. There is mild bilateral neuroforaminal narrowing from bony osteophyte at C3-C4, C4-C5 and C5-C6. Prevertebral soft tissues are normal. XR/XR cervical spine min 6V IMPRESSION: Degenerative changes.
== END 2021-02-17 12:36 | disposition home or self-care (01) ==
LOC: HO.XRAY 12:35
PROVIDERS: PCP Family Medicine; Visit Provider Family Medicine
DX: M54.2 Cervicalgia (principal); M54.6 Pain in thoracic spine
CPT/HCPCS: 72052; 72072

== ENCOUNTER → 2021-02-22 08:22 | Outpatient (BNVA) | payer OTHER, SELFPAY | PROVIDERS: PCP Family Medicine; Visit Provider Internal Medicine | DX: M79.601 Pain in right arm (principal); M54.2 Cervicalgia; R07.9 Chest pain, unspecified | CPT/HCPCS: 99213 ==

== ENCOUNTER 2021-02-24 07:55 | Day surgery (SDC) | payer OTHER, SELFPAY ==
[2021-02-18 13:01] VITALS: BMI 26.6
--- NOTE | 2021-02-23 09:48 | HO.ANESPROP2 ---
Documented by User: Stephie Jean NP 02/23/21 09:50 HPI - Anesthesia Eval Consult details Narrative: 40yo F for Upper Endoscopy PONV with GA PMFSH Active Problems Active Problems: All Active Problems (Updated 02/18/21 @ 13:00 by Luann Brito RN) Endometriosis (Acute) Well woman exam (Acute) Abdominal pain (Acute) GERD (gastroesophageal reflux disease) (Acute) Past Medical History Medical History Abdominal pain Asthma Carpal tunnel syndrome Endometriosis GERD (gastroesophageal reflux disease) Pain PONV (postoperative nausea and vomiting) Seasonal allergies Surgical History Surgical History H/O eye surgery H/O gastric bypass H/O tubal ligation History of carpal tunnel surgery of right wrist History of esophagogastroduodenoscopy (EGD) Hx of cholecystectomy Social History Social History Household Members: Spouse and Children Alcohol intake: never Patient Tobacco Use Status: Never used Tobacco Use of substances other than those prescribed or required for medical reasons: No Are you DNR?: No Advance Directives: No Advance Directives Information Provided: No Advance Directives on File: No Patient : No FDLMP: 08/2020 : No Poor oral hygiene: No Meds Allergies Allergy/AdvReac Type Severity Reaction Status Date / Time Seasonal Allergies Allergy Intermediate Nasal Verified 02/18/21 12:55 congestion, asthma Home Medications Medication Instructions Recorded Confirmed Last Taken Type fluticasone propionate 50 1 spray INTRANASAL DAILY 12/11/20 02/18/21 Unknown History mcg/actuation nasal spray,suspension cetirizine 10 mg tablet 10 mg PO DAILY PRN 02/18/21 02/18/21 Unknown History omeprazole magnesium 20 mg 20 mg PO DAILY 02/18/21 02/18/21 Unknown History tablet,delayed release (Prilosec OTC) tramadol 50 mg tablet 50 mg PO BEDTIME PRN 02/18/21 02/18/21 Unknown History Exam Exam Date and Time: February 23, 2021 0949 Height,Weight and Vital Signs: Height 5 ft 4 in Weight 70.307 kg Narrative Narrative: EKG 06/2020 Vent. Rate : 067 BPM ? ? Atrial Rate : 067 BPM ?? P-R Int : 170 ms? QRS Dur : 088 ms ? ? QT Int : 426 ms ? ? ? P-R-T Axes : 054 065 032 degrees ?? QTc Int : 450 ms ? Normal sinus rhythm with sinus arrhythmia Normal ECG When compared with ECG of 05-JUN-2019 17:03, No significant change was found Assessment and Plan Assessment Anesthesia Assessment: Chart Reviewed Documented by User: Kell Nobles MD 02/24/21 08:40 PMFSH Past Medical History Medical History Abdominal pain Asthma Carpal tunnel syndrome Endometriosis GERD (gastroesophageal reflux disease) Pain PONV (postoperative nausea and vomiting) Seasonal allergies Surgical History Surgical History H/O eye surgery H/O gastric bypass H/O tubal ligation History of carpal tunnel surgery of right wrist History of esophagogastroduodenoscopy (EGD) Hx of cholecystectomy History of Problems with Anesthesia: No Social History Social History Household Members: Spouse and Children Alcohol intake: never Patient Tobacco Use Status: Never used Tobacco Use of substances other than those prescribed or required for medical reasons: No Are you DNR?: No Advance Directives: No Advance Directives Information Provided: No Advance Directives on File: No Patient : No FDLMP: 08/2020 : No Poor oral hygiene: No Meds Allergies Allergy/AdvReac Type Severity Reaction Status Date / Time Seasonal Allergies Allergy Intermediate Nasal Verified 02/18/21 12:55 congestion, asthma Home Medications Medication Instructions Recorded Confirmed Last Taken Type fluticasone propionate 50 1 spray INTRANASAL DAILY 12/11/20 02/18/21 Unknown History mcg/actuation nasal spray,suspension cetirizine 10 mg tablet 10 mg PO DAILY PRN 02/18/21 02/18/21 Unknown History omeprazole magnesium 20 mg 20 mg PO DAILY 02/18/21 02/18/21 Unknown History tablet,delayed release (Prilosec OTC) tramadol 50 mg tablet 50 mg PO BEDTIME PRN 02/18/21 02/18/21 Unknown History Exam Airway Mallampati Class: I TM Dist: >3cm Neck ROM: Full Loose/Missing/Broken Teeth: No Heart: RRR Lungs: CTA Assessment and Plan Assessment Anesthesia Assessment: Anesthesia Plan Discussed Final Anesthetic Review History of Problems with Anesthesia: No NPO: Yes ASA Class: II Final Preanesthetic Review: Meds/Allgs Chart Reviewed, Consent Obtained/Reviewed and Anes Risks/Benef Reviewed Patient Risk: Low Procedure Risk: Intermediate Anesthetic Plan Anesthetic Plan: MAC: Disposition: Standard PACU
[2021-02-24 08:14] VITALS: BP 104/61; PULSE 56; RESP 16; TEMP 35.9; O2SAT 97
[2021-02-24] MEDS: Lactated Ringers 1,000 ML 100 ML IVCONT (08:22)
--- NOTE | 2021-02-24 09:37 | MHC.SHP ---
Pre-Procedural Eval Section A Date of Service: 02/24/21 Section B Chief Complaint: Abdominal Pain Relevant Family History (Specify if Yes): No Relevant Social History: None Present Medications: see Short Stay Collaborative assessment Medical History: Significant History (Abdominal pain Asthma Carpal tunnel syndrome Endometriosis GERD (gastroesophageal reflux disease) Pain PONV (postoperative nausea and vomiting) Seasonal allergies) History of Previous Operations: Relevant previous surgery/procedure and date(s) (H/O eye surgery H/O gastric bypass H/O tubal ligation History of carpal tunnel surgery of right wrist History of esophagogastroduodenoscopy (EGD) Hx of cholecystectomy) Allergies: Allergies Allergy/AdvReac Type Severity Reaction Status Date / Time Seasonal Allergies Allergy Intermediate Nasal Verified 02/18/21 12:55 congestion, asthma Review of Systems Sugical H&P ROS: Negative: Constitution, Cardiovascular, Respiratory, Neurological, Psychiatric, Hem-Onc, Allergic/Immunologic, Gastrointestinal, Genitourinary, Musculoskeletal, Integumentary, Endocrine and Eyes/Ears/Nose/Throat Exam Surgical H&P Exam: Normal: HEENT, Normal: Heart, Normal: Lungs, Normal: Extremities, Normal: Abdomen, Normal: Skin and Normal: Neurological Plan Diagnosis/Plan: Unchanged I have reviewed the history and physical and performed a pertinent physical examination on my patient. No changes have occurred unless specified.
--- NOTE | 2021-02-24 09:45 | P.BOP_ITS ---
Brief Operative Note Date of Service: 02/24/21 Pre-op diagnosis: abdominal pain Post-op diagnosis: same Procedure: see op note Surgeon: Xavi Villafuerte MD Anesthesia: MAC Was an Network Security Consultant used for this Procedure?: No Estimated blood loss (mL): 0 Condition: stable Disposition: PACU
--- NOTE | 2021-02-24 09:45 | W.PM.OPN ---
Operative Note Operative Note Date of Service: 02/24/21 Narrative: Procedure Description: EGD FLEXIBLE TRANSORAL UPPER GASTROINTESTINAL ENDOSCOPY UPPER ENDOSCOPY Consent: Indications for the procedure and potential complications of bleeding, perforation, reaction to medications and missed diagnosis were discussed with the patient and informed consent was obtained. Instrument: Olympus GIF H 190 J mid size upper endoscope Monitoring: Vital signs and clinical assessment, continuous EKG monitoring, Pulse oximetry, Carbon Dioxide monitoring and blood pressure monitoring were done throughout the procedure. Procedure: The patient was placed in the left lateral decubitis position and pre-procedure medications were administered and a bite block was placed. The endoscope was inserted into the mouth and advanced under direct vision to the third part of duodenum. A careful inspection was made as the upper endoscope was withdrawn including a retroflexed examination of the proximal stomach; Findings and interventions are described below. Hx of sleeve gastrectomy, post surgical changes noted Findings: Larynx:normal Esophagus: GE junction at 37 cm, diaphragm hiatus at 37 cm, LA grade C esophagitis-bx taken from GEJ and random esophagus Stomach: Patchy nodularity sami distal stomach. Biopsies were obtained. Grade 2 flap valve on retroflexed examination of the cardia. Duodenum: Normal bulb and descending duodenum, bx taken Intervention: Biopsies as noted above Impression/Findings: erosive esophagitis PLAN: await bx change PPI to pantoprazole 40 mg BID for 3 months then titrate down thereafter may need repeat EGDt o document healing and exclude underlying barretts
[2021-02-24 10:05] VITALS: BP 99/53; PULSE 62; RESP 16; TEMP 36.2; O2SAT 100
[2021-02-24 10:20] VITALS: BP 121/58; PULSE 70; RESP 18; O2SAT 98
[2021-02-24 10:46] VITALS: BP 119/53; PULSE 57; RESP 18; TEMP 36.1; O2SAT 99
== END 2021-02-24 11:20 | disposition home or self-care (01) ==
PROVIDERS: PCP Family Medicine; Visit Provider Internal Medicine Gastroenterology
PROC: 0DJ08ZZ Inspection of Upper Intestinal Tract, Via Natural or Artificial Opening Endoscopic (ICD-10-PCS; CPT 43235; principal; 2021-02-24 09:20)
DX: R10.9 Unspecified abdominal pain (principal); K21.00 Gastro-esophageal reflux disease with esophagitis, without bleeding; A04.8 Other specified bacterial intestinal infections; Z98.84 Bariatric surgery status
CPT/HCPCS: 43239; 88305; 88342

== ENCOUNTER 2021-03-03 07:47 | Outpatient (REF) | payer OTHER, SELFPAY ==
--- NOTE | ~2021-03-03 | MM_ITS ---
EXAMINATION: MM DIAGNOSTIC DIGITAL BREAST TOMOSYNTHESIS, RIGHT US DIAGNOSTIC ULTRASOUND BREAST, RIGHT CLINICAL INFORMATION: Right retroareolar pain and palpable areas noted by patient upper posterior right breast for approximately 2 weeks. No discharge. No known family history breast cancer. TC score 9%. COMPARISON: Mammography: 06/13/2021, 06/22/2018 (baseline). TECHNIQUE: Digital breast tomosynthesis is performed in both the craniocaudal and mediolateral oblique views along with computer-aided detection (CAD). Synthesized 2D images are generated from the tomosynthesis. Additional right CC view is provided. Ultrasound right breast is targeted to the areas of clinical concern. Patient is able to point to the areas of concern at time of imaging. Grayscale imaging and color Doppler are performed without and with harmonics. FINDINGS: There are scattered areas of fibroglandular density (ACR BI-RADS breast composition Category b). There are no significant masses, abnormal calcifications, or other abnormalities. There is no developing density or interval mass or architectural abnormality. No interval duct ectasia or skin thickening or coarsening of the Matt's ligaments. The axilla is unremarkable. No significant changes from prior studies. Ultrasound demonstrates no cystic or solid mass, architectural abnormality, or focal duct ectasia. There is no skin thickening or edema tracking in soft tissue planes. Results are discussed with the patient at time of visit. MM/MM tomosynthesis diagnostic RT IMPRESSION: No mammographic evidence of malignancy or inflammatory changes. Unremarkable targeted right breast ultrasound. ASSESSMENT: BI-RADS 1: Negative RECOMMENDATION: 1. Patient should be managed based on the clinical impression. If clinically indicated, further evaluation may be considered with surgical consult. Decision to proceed with biopsy should be based on clinical grounds and degree of clinical concern. 2. Otherwise, routine annual screening mammography This patient's information was entered into a reminder system with a target due date for their next mammogram.
== END 2021-03-03 07:48 | disposition home or self-care (01) ==
LOC: HO.MAMMO 07:47
PROVIDERS: Visit Provider Family Medicine
DX: N64.4 Mastodynia (principal); N63.11 Unspecified lump in the right breast, upper outer quadrant
CPT/HCPCS: 76642; 77061; 77065

== ENCOUNTER → 2021-04-01 13:58 | Outpatient (BNVA) | payer OTHER, SELFPAY | PROVIDERS: PCP Family Medicine; Visit Provider Internal Medicine | DX: M25.511 Pain in right shoulder (principal); M54.2 Cervicalgia | CPT/HCPCS: 99213 ==

== ENCOUNTER → 2021-04-06 14:12 | Outpatient (BNVA) | payer OTHER, SELFPAY | PROVIDERS: PCP Family Medicine; Visit Provider Obstetrics & Gynecology ==

== ENCOUNTER 2021-04-15 11:21 | Outpatient (REF) | payer OTHER, MEDICAID, SELFPAY ==
--- NOTE | ~2021-04-15 | XR_ITS ---
EXAMINATION: XR KNEE, LEFT CLINICAL INFORMATION: Pain COMPARISON: Previous x-ray July 2011 TECHNIQUE: Four views of the left knee. FINDINGS: Bone alignment is normal. No fracture or dislocation is seen. The femoral tibial joints are normal. There are small osteophytes at the patellofemoral joint. There are small osteophytes at the quadriceps tendon insertion to the patella and patellar tendon origin. There is no joint effusion. There are small soft tissue ossifications seen projecting over the posterior knee joint/posterior tibial plateau. XR/XR knee LT 4V IMPRESSION: Mild degenerative changes.
== END 2021-04-15 11:22 | disposition home or self-care (01) ==
LOC: HO.XRAY 11:21
PROVIDERS: Absent Provider Family Medicine; PCP Family Medicine; Visit Provider General Practice
DX: M25.562 Pain in left knee (principal)
CPT/HCPCS: 73564

== ENCOUNTER → 2021-05-17 15:14 | Outpatient (BNVA) | payer OTHER, SELFPAY | PROVIDERS: PCP Family Medicine; Visit Provider Internal Medicine | DX: M25.511 Pain in right shoulder (principal); M54.2 Cervicalgia | CPT/HCPCS: 99213 ==

== ENCOUNTER → 2021-07-01 13:33 | Outpatient (BNVA) | payer OTHER, SELFPAY | PROVIDERS: PCP Family Medicine; Visit Provider Internal Medicine | DX: M54.2 Cervicalgia (principal); M25.511 Pain in right shoulder | CPT/HCPCS: 99213 ==

== ENCOUNTER 2021-08-08 09:01 | Outpatient (REF) | payer OTHER, SELFPAY | END 2021-08-08 09:02 | disposition home or self-care (01) | LOC: HO.LAB 09:01 | PROVIDERS: PCP Family Medicine | DX: N39.0 Urinary tract infection, site not specified (principal) | CPT/HCPCS: 51798; 87086 ==

== ENCOUNTER → 2021-08-11 14:11 | Outpatient (BNVA) | payer OTHER, SELFPAY | PROVIDERS: PCP Family Medicine; Visit Provider Internal Medicine | DX: M54.2 Cervicalgia (principal); R51.9 Headache, unspecified | CPT/HCPCS: 99213 ==

== ENCOUNTER → 2021-08-30 14:07 | Outpatient (BNVA) | payer OTHER, SELFPAY | PROVIDERS: PCP Family Medicine; Visit Provider Internal Medicine | DX: M79.18 Myalgia, other site (principal) | CPT/HCPCS: 99213 ==

== ENCOUNTER 2021-08-30 15:00 | Outpatient (RCR) | payer OTHER, SELFPAY ==
--- NOTE | 2021-07-05 14:02 | MHC.PT.EP ---
[facility] [place] Office [place] [address] Rohan Parra [address] [phone] F: [phone] F: [phone] F: [phone] F: [phone] Physical Therapy Plan of Care Date of Evaluation: Date of Surgery: Diagnosis: Neck pain RTC tendonosis Assessment: 41 y/o RHD female referred to PT with neck pain and RTC tendonosis. 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 Her injury was gradual but she attributes it to the computer work. She had a R shoulder cortisone injection that has helped ease her shoulder pain, but her neck still hurts. 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 Currently reports pain and difficulty with carrying things with R hand, looking down for long periods, lifting, rotating neck to the R, computer work, and sleeping Examination shows decreased cervical AROM, decreased R shoulder AROM, decreased scapular strength, and impaired postural awareness. Recommend PT 2x/week for 4 weeks to address impairments, implement HEP, and optimize functional mobility. Frequency and Duration: The patient will be seen 2x/week for 4 weeks Short Term Goals: 2 weeks 1. I with HEP 2. Improve R cervical rotation to 70 degrees with pain < 3/10 to faciliate driving 3. I with use of lumbar roll Mcc Goals: 4 weeks 1. I with HEP and self management of sx 2. Pt will be able to sit at desk and perform computer work with appropriate posture and pain < 3/10 3. Improve R scapular strength by one MMT grade to faciliate prolonged sitting. Treatment Plan: Modalities to reduce pain, spasms and effusion. Manual therapy to restore motion and function. Therapeutic exercise to improve strength and flexibility. Neuromuscular re-education for posture and balance. Therapeutic activities to return to functional activities of daily living. Electronically signed by: Saige Vela PT Please sign and return to therapist. Thank you for your referral.
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
== END 2021-09-15 13:56 | disposition home or self-care (01) ==
LOC: HO.PT 15:00
PROVIDERS: PCP Family Medicine; Visit Provider Internal Medicine
DX: M75.101 Unspecified rotator cuff tear or rupture of right shoulder, not specified as traumatic (principal)
CPT/HCPCS: 97012; 97110; 97140; 97161

== ENCOUNTER 2021-09-16 08:44 | Emergency (ER) | payer OTHER, SELFPAY ==
[2021-09-16 09:04] VITALS: BP 116/62; PULSE 55; RESP 16; TEMP 36.1; O2SAT 99; BMI 27.4
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
--- NOTE | 2021-09-16 10:13 | PC.NURSE ---
PT AWAKE, ALERT AND ORIENTED X 3. SKIN WARM AND DRY. RESP UNLABORED. NEUROS INTACT. BILLY FREELY. PT EVALUATED BY PROVIDER.
== END 2021-09-16 10:25 | disposition home or self-care (01) ==
PROVIDERS: Emergency Provider Emergency Medicine; PCP Family Medicine
DX: S16.1XXA Strain of muscle, fascia and tendon at neck level, initial encounter (principal); S29.012A Strain of muscle and tendon of back wall of thorax, initial encounter; S39.012A Strain of muscle, fascia and tendon of lower back, initial encounter; S46.912A Strain of unspecified muscle, fascia and tendon at shoulder and upper arm level, left arm, initial encounter; S46.911A Strain of unspecified muscle, fascia and tendon at shoulder and upper arm level, right arm, initial encounter; V43.52XA Car driver injured in collision with other type car in traffic accident, initial encounter; Y93.89 Activity, other specified; Y92.411 Interstate highway as the place of occurrence of the external cause; Y99.9 Unspecified external cause status
CPT/HCPCS: 99283

== ENCOUNTER → 2021-09-30 14:56 | Outpatient (BNVA) | payer OTHER, SELFPAY | PROVIDERS: PCP Family Medicine; Visit Provider Internal Medicine | DX: M54.2 Cervicalgia (principal) | CPT/HCPCS: 99213 ==

== ENCOUNTER 2021-10-11 15:20 | Outpatient (REF) | payer OTHER, MEDICAID, SELFPAY ==
--- NOTE | ~2021-10-11 | US_ITS ---
EXAMINATION: US RETROPERITONEAL LIMITED (RENAL ONLY) CLINICAL INFORMATION: Urinary tract infection, site not specified. COMPARISON: CT abdomen and pelvis 07/12/2021. Ultrasound abdomen complete 01/26/2021. TECHNIQUE: Real-time imaging of the kidneys. FINDINGS: RIGHT KIDNEY: 10.4 x 5.8 x 6.7 cm (SAG x AP x TRV). The kidney is normal in size, contour, and echogenicity. Renal cortical thickness is normal. No calculi or focal parenchymal lesions. No hydronephrosis. LEFT KIDNEY: 11.5 x 5.9 x 5.4 cm (SAG x AP x TRV). The kidney is normal in size, contour, and echogenicity. Renal cortical thickness is normal. There is mild left hydronephrosis. This is similar to previous exams. No calculi or focal parenchymal lesions. US/US renal BI IMPRESSION: Mild hydronephrosis similar to previous exams. Normal right kidney.
== END 2021-10-11 15:21 | disposition home or self-care (01) ==
LOC: HO.US 15:20
PROVIDERS: PCP Family Medicine
DX: N39.0 Urinary tract infection, site not specified (principal)
CPT/HCPCS: 76775

== ENCOUNTER 2021-10-24 13:41 | Outpatient (REF) | payer OTHER, MEDICAID, SELFPAY ==
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
== END 2021-10-24 13:42 | disposition home or self-care (01) ==
LOC: HO.XRAY 13:41
PROVIDERS: Absent Provider Family Medicine; PCP Family Medicine; Visit Provider Internal Medicine
DX: S13.9XXD Sprain of joints and ligaments of unspecified parts of neck, subsequent encounter (principal)
CPT/HCPCS: 72052

== ENCOUNTER → 2021-10-31 09:11 | Outpatient (BNVA) | payer OTHER, SELFPAY | PROVIDERS: PCP Family Medicine | DX: R32 Unspecified urinary incontinence (principal); N20.0 Calculus of kidney | CPT/HCPCS: 51798 ==

== ENCOUNTER 2022-03-10 07:55 | Outpatient (REF) | payer OTHER, SELFPAY ==
--- NOTE | ~2022-03-10 | MM_ITS ---
EXAMINATION: MM SCREENING DIGITAL BREAST TOMOSYNTHESIS, BILATERAL CLINICAL INFORMATION: Screening. Asymptomatic. The lifetime risk of breast cancer based on the Tyrer-Cuzick Model is 9%. COMPARISON: Mammography: 03/03/2021, 08/06/2020, 06/22/2018 (baseline). TECHNIQUE: Digital breast tomosynthesis is performed in both the craniocaudal and mediolateral oblique views along with computer-aided detection (CAD). Synthesized 2D images are generated from the tomosynthesis. FINDINGS: There are scattered areas of fibroglandular density (ACR BI-RADS breast composition Category b). There are no significant masses, abnormal calcifications, or other abnormalities. Parenchymal pattern is similar to prior studies. There is no developing density or architectural abnormality. The axilla and skin contours are unremarkable. No significant changes. MM/MM tomosynthesis screening BI IMPRESSION: No mammographic evidence of malignancy. ASSESSMENT: BI-RADS 1: Negative RECOMMENDATION: Routine annual mammography screening. This patient's information was entered into a reminder system with a target due date for their next mammogram.
== END 2022-03-10 07:56 | disposition home or self-care (01) ==
LOC: HO.MAMMO 07:55
PROVIDERS: PCP Family Medicine; Visit Provider Family Medicine
DX: Z12.31 Encounter for screening mammogram for malignant neoplasm of breast (principal)
CPT/HCPCS: 77063; 77067

== ENCOUNTER 2022-06-09 10:59 | Outpatient (REF) | payer OTHER, SELFPAY ==
--- NOTE | ~2022-06-09 | US_ITS ---
EXAMINATION: US RETROPERITONEAL LIMITED (RENAL ONLY) CLINICAL INFORMATION: Calculus of kidney. COMPARISON: Renal ultrasound 10/11/2021. CT abdomen and pelvis 07/12/2021. Ultrasound abdomen complete 01/26/2021. TECHNIQUE: Real-time imaging of the kidneys. Limited visualization due to bowel gas and body habitus. FINDINGS: RIGHT KIDNEY: 11.1 x 5.8 x 4.5 cm (SAG x AP x TRV). Tiny punctate echogenic foci characteristic of nonobstructive calculi. No hydronephrosis. LEFT KIDNEY: 11.5 x 5.5 x 4.4 cm (SAG x AP x TRV). Redemonstration of mild left hydronephrosis. No obstructing renal calculi identified. US/US renal BI IMPRESSION: Redemonstration of mild left hydronephrosis. No obstructing renal calculi identified.
== END 2022-06-09 11:00 | disposition home or self-care (01) ==
LOC: HO.US 10:59
DX: N20.0 Calculus of kidney (principal)
CPT/HCPCS: 76775

== ENCOUNTER → 2022-06-21 11:36 | Outpatient (BNVA) | payer OTHER, SELFPAY | PROVIDERS: PCP Family Medicine; Visit Provider Urology | DX: N13.30 Unspecified hydronephrosis (principal); N39.3 Stress incontinence (female) (male); R33.9 Retention of urine, unspecified; R10.9 Unspecified abdominal pain | CPT/HCPCS: 51798 ==

== ENCOUNTER 2022-06-27 07:50 | Emergency (ER) | payer OTHER, MEDICAID, SELFPAY ==
[2022-06-27 08:25] VITALS: BP 117/58; PULSE 57; RESP 18; TEMP 36.3; O2SAT 100; BMI 28.8
--- NOTE | 2022-06-27 08:29 | ECG_ITS ---
Test Reason : Dizziness Blood Pressure : / mmHG Vent. Rate : 048 BPM Atrial Rate : 048 BPM P-R Int : 160 ms QRS Dur : 088 ms QT Int : 478 ms P-R-T Axes : 057 062 037 degrees QTc Int : 427 ms Sinus bradycardia Otherwise normal ECG When compared with ECG of 13-JUL-2020 18:23, No significant change was found Referred By: Generic ED Physician Electronically Signed By:BART OSPINA
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
[2022-06-27] MEDS: Lactated Ringers 1,000 ML 999 ML IV (09:31)
[2022-06-27] MEDS: ondansetron HCL 4 MG/2 ML VIAL IVPUSH (09:32)
[2022-06-27 09:35] LABS: MANUAL DIFF FLAG NO
--- NOTE | 2022-06-27 09:35 | PC.NURSE ---
pt a&ox3, denies pain, iv inserted, labs drawn, ekg performed, vss, pt aware we need urine, call horner within reach, will continue to monitor
[2022-06-27 09:36] VITALS: BP 104/59; PULSE 51; RESP 16; TEMP 36.9; O2SAT 99
[2022-06-27 09:38] LABS: Basophils Percent Auto 0.5 % (0-2); Eosinophils Absolute Auto 0.1 X10*3/uL (0.0-0.4); Eosinophils Percent Auto 1.7 % (0-4); Hematocrit 40.5 % (37.0-47.0); Hemoglobin 13.3 g/dl (12.0-16.0); Imm Gran Abs Auto 0.03 X10*3/uL (0.00-0.03); Imm Gran Pct Auto 0.4 % (0.0-0.4); Lymphocytes Absolute Auto 1.7 X10*3/uL (1.2-4.9); Mean Corpuscular HGB Conc 32.8 g/dl (31.0-35.0); Mean Corpuscular Hemoglobin 27.4 pg (27.0-33.0); Mean Corpuscular Volume 83.5 fL (80.0-98.0); Mean Platelet Volume 9.5 fL (9.4-12.3); Monocytes Absolute Auto 0.5 X10*3/uL (0.1-1.2); Monocytes Percent Auto 6.5 % (2-11); Neutrophils Absolute Auto 5.8 x10*3/uL (2.0-8.3); Neutrophils Percent Auto 69.9 % (45-73); Platelet Count 241 X10*3/uL (160-400); Red Blood Count 4.85 X10*6/uL (4.20-5.50); Red Cell Distribution Width 13.1 % (11.0-16.0); White Blood Count 8.2 X10*3/uL (4.8-10.8)
[2022-06-27 09:56] LABS: Appearance Urine Clear; Color Urine Yellow; Glucose Urine UA Negative (Negative); Leukocyte Esterase Urine Negative (Negative); Nitrite Urine Negative (Negative); UPreg QC Valid YES; Urine Blood Negative (Negative); Urine Ketones Negative (Negative); Urine Pregnancy NEGATIVE (NEGATIVE); Urine Protein Negative (Neg-Trace)
[2022-06-27 10:08] LABS: Alanine Aminotransferase 20 U/L (0-31); Albumin Level 4.4 g/dL (3.5-5.0); Alkaline Phosphatase 52 U/L (39-117); Anion Gap 12 (12-20); Aspartate Amino Transferase 21 U/L (5-31); Bilirubin Direct 0.2 mg/dL (0.0-0.5); Bilirubin Total 0.4 mg/dL (0.0-1.0); Blood Urea Nitrogen 18 mg/dL (9-16); Calcium 9.2 mg/dL (8.4-10.2); Carbon Dioxide 27 mmol/L (22-29); Chloride 103 mmol/L (96-108); Creatinine Clr Calc Pharmacy 88.6; Estimated Glomerular Filt Rate > 60; Glucose Random 88 mg/dL (60-115); Lipase 45 U/L (8-78); Potassium 4.4 mmol/L (3.3-5.1); Sodium 138 mmol/L (135-145); Total Protein 7.1 g/dL (6.5-8.0)
[2022-06-27 10:17] LABS: Influenza A PCR NEGATIVE (Negative); Influenza B PCR NEGATIVE (Negative); Resp Syncy Virus RNA Qual PCR NEGATIVE (Negative); SARS COV2 PCR INHOUSE NEGATIVE (Negative)
[2022-06-27 11:17] VITALS: BP 102/54; PULSE 47; RESP 10; O2SAT 99
== END 2022-06-27 11:42 | disposition home or self-care (01) ==
PROVIDERS: Emergency Provider Emergency Medicine; PCP Family Medicine
DX: R55 Syncope and collapse (principal); Z20.828 Contact with and (suspected) exposure to other viral communicable diseases
CPT/HCPCS: 0241U; 80048; 80076; 81003; 81025; 83690; 85025; 93005; 96361; 96374; 99284; 99285; J2405

== ENCOUNTER 2022-06-28 12:24 | Outpatient (REF) | payer OTHER, MEDICAID, SELFPAY ==
[2022-06-28 13:38] LABS: Blood Urea Nitrogen 17 mg/dL (9-16); Estimated Glomerular Filt Rate > 60
== END 2022-06-28 12:25 | disposition home or self-care (01) ==
LOC: HO.LAB 12:24
PROVIDERS: PCP Family Medicine; Visit Provider Urology
DX: N13.30 Unspecified hydronephrosis (principal)
CPT/HCPCS: 36415; 82565; 84520

== ENCOUNTER 2022-06-29 07:46 | Outpatient (REF) | payer OTHER, MEDICAID, SELFPAY ==
--- NOTE | ~2022-06-29 | CT_ITS ---
EXAMINATION: CT ABDOMEN AND PELVIS WITHOUT AND WITH CONTRAST CLINICAL INFORMATION: Abdominal pain. COMPARISON: None. TECHNIQUE: Noncontrast CT of the abdomen and pelvis is performed followed by split bolus contrast-enhanced images using 85 mL Omnipaque 350 contrast.? Postcontrast imaging is performed during the combined nephrogram and excretion phase. Sagittal and coronal reformatted images were obtained on the technologist's workstation for both the precontrast and postcontrast phases. This CT examination was performed using dose optimization techniques as appropriate, variously including the following: *Automated exposure control *Adjustment of mA and/or kV according to patient size (this includes techniques or standardized protocols for targeted exams where dose is matched to indication/reason for exam; i.e. extremities or head) *Use of iterative reconstruction technique DLP: 595 mGy-cm FINDINGS: LUNG BASES: The visualized lung bases are unremarkable. LIVER, GALLBLADDER, AND BILIARY TREE: The liver is normal in size, shape, and and decreased hypoattenuation. No focal hepatic lesion or biliary ductal dilatation is present. The gallbladder has been surgically removed. PANCREAS: Unremarkable. SPLEEN: Unremarkable. ADRENAL GLANDS: Unremarkable. KIDNEYS AND URETERS: The kidneys are normal in size, shape, and attenuation. There are no radiopaque renal calculi. Postcontrast there is normal bilateral symmetrical nephrograms without enhancing lesion or cyst. There is peripelvic left renal cyst. The right kidney measures 10.1 cm in length and the left kidney measures 10.0 cm. There is opacifying bilateral kidney pelvises and ureters which are normal caliber. BLADDER: Unremarkable. GASTROINTESTINAL TRACT: There is scattered stool and gas seen throughout the colon without distention. The small bowel loops are normal caliber. Appendix is not visualized. There is gastric sleeve surgical changes visualized. ABDOMINAL WALL: No significant hernia is appreciated. LYMPH NODES: Normal. VASCULAR: Unremarkable. PELVIC VISCERA: The uterus is anteverted and appears unremarkable. OSSEUS STRUCTURES: No aggressive lytic or sclerotic process seen. CT/CT urogram IMPRESSION: No radiopaque urolith or hydroureteronephrosis. Left peripelvic renal cyst. Mild constipation.
[2022-06-29] MEDS: iohexoL 350 MG/ML 100 ML INFUS..BTL 85 ML IV (08:21)
== END 2022-06-29 07:47 | disposition home or self-care (01) ==
LOC: HO.CT 07:46
PROVIDERS: Visit Provider Urology
DX: R10.9 Unspecified abdominal pain (principal); N13.30 Unspecified hydronephrosis
CPT/HCPCS: 74178; Q9967

== ENCOUNTER 2022-07-08 10:55 | Emergency (ER) | payer OTHER, MEDICAID, SELFPAY ==
--- NOTE | ~2022-07-08 | XR_ITS ---
EXAMINATION: XR CHEST CLINICAL INFORMATION: SOB COMPARISON: None TECHNIQUE: Frontal view of the chest was obtained. FINDINGS: No significant abnormality is noted involving the heart, lungs, mediastinum, bony thorax or soft tissues. XR/XR chest 1V IMPRESSION: Unremarkable chest examination.
[2022-07-08 10:56] VITALS: BP 119/47; PULSE 66; RESP 18; TEMP 36.1; O2SAT 99; BMI 27.1
--- NOTE | 2022-07-08 11:11 | ED.GENADULT ---
HPI - General Adult General Chief complaint: Headache Stated complaint: difficulty breathing, out of inhaler Time Seen by Provider: 07/08/22 11:11 Source: patient Mode of arrival: ambulatory History of Present Illness HPI narrative: 42-year-old female with a past medical history of asthma, GERD, renal stones, presenting to the ED complaining nonproductive myalgias, body aches, sore throat x x3 days. Reports tested positive for COVID-19 two weeks ago. Reports mild SOB. States drainage over inhalers years ago. Denies chest pain, ear pain, pedal edema, recent travel, abdominal pain Onset (ago): day(s) Related Data Home Medications Medication Instructions Recorded Confirmed fluticasone propionate 50 1 spray intranasal DAILY 12/11/20 06/21/22 mcg/actuation nasal spray,suspension cetirizine 10 mg tablet 10 mg PO DAILY PRN Allergy Symptoms 02/18/21 06/21/22 tramadol 50 mg tablet 50 mg PO BEDTIME PRN Pain 02/18/21 06/21/22 polyethylene glycol 3350 17 g PO 08/08/21 06/21/22 gram/dose oral powder (Purelax) Previous Rx's Medication Instructions Recorded pantoprazole 40 mg tablet,delayed 40 mg PO BID #90 tabs 02/24/21 release cyclobenzaprine 5 mg tablet 5 mg PO TID PRN muscle spasm #14 09/16/21 tabs ondansetron 4 mg disintegrating 4 mg PO Q8H PRN nausea and 06/27/22 tablet vomiting #20 tabs Allergies Allergy/AdvReac Type Severity Reaction Status Date / Time Seasonal Allergies Allergy Intermediate Nasal Verified 06/21/22 11:38 congestion, asthma Review of Systems Review of Systems: Constitutional: No Weight loss, No Fever, No Chills ENT/Mouth: No Ear Pain, + Nasal Congestion, No Sinus Pain, No Hoarseness, No sore throat, + Rhinorrhea, No Swallowing Difficulty Cardiovascular: No Chest Pain, + SOB Respiratory: +Cough, No Sputum, No Wheezing Gastrointestinal: No Nausea, No Vomiting, No Diarrhea, No Constipation, No Abdominal pain Genitourinary: No Dysuria, No Urinary Frequency, No Hematuria, No Flank Pain Musculoskeletal: No joint pain, No Myalgias, No Joint Swelling Skin: No Skin Lesions, No rash Neuro: No Weakness, No Numbness Yes all other systems are reviewed and are negative Constitutional: Constitutional: Reports as per [facility] Past Medical History Attestation statement: The following information was validated with the patient. Medical History Abdominal pain Asthma Carpal tunnel syndrome Endometriosis GERD (gastroesophageal reflux disease) Pain PONV (postoperative nausea and vomiting) Renal calculi Seasonal allergies Urinary incontinence UTI (urinary tract infection) Surgical History H/O eye surgery H/O gastric bypass H/O tubal ligation History of carpal tunnel surgery of right wrist History of esophagogastroduodenoscopy (EGD) Hx of cholecystectomy Social History Social History Household Members: Spouse and Children Alcohol intake: current Alcohol intake frequency: holidays/special occasions only Patient Tobacco Use Status: Never used Tobacco Advance Directives: No Advance Directives Information Provided: Yes Physical Exam ED Vital Signs: Vital Signs - 24 hr 07/08/22 10:56 Temperature 97.0 F Pulse Rate 66 Respiratory Rate 18 Blood Pressure 119/47 L Pulse Oximetry 99 Oxygen Delivery Method Room Air BMI result Body Mass Index 27.1 Const General: cooperative, healthy appearing, comfortable and no acute distress Orientation/consciousness: patient oriented x3 Limitations: no limitations HENMT Head: Yes normal to inspection and Yes atraumatic Ears: hearing grossly normal bilaterally, external ears normal, TM's normal bilaterally and mastoids normal General nose exam: Normal external nose present Face and sinus: Yes normal facial exam Mouth: Normal oral and palatal mucosa present Throat: Yes posterior oropharynx normal, Yes tonsils normal, Yes uvula midline, No peritonsillar mass, No uvula laterally displaced and No uvular edema Eyes General: appearance normal, both eyes and all related structures EOM: EOMs intact bilaterally Neck Neck: Yes normal visual inspection, Yes no meningeal signs and No anterior neck swelling Resp Effort & Inspection: normal respiratory effort, no respiratory distress and no stridor Auscultation: clear to auscultation bilaterally, no crackles, no rales, no rhonchi and no wheezes Cardio Rate: regular rate Heart sounds: S1 normal heart sound present and S2 normal heart sound present Skin Rashes: no rashes Wounds: no wounds Neuro General: patient oriented x3, tone normal and no meningeal signs Gait exam (Neuro): Normal gait present Extrem General: Yes normal to inspection Course Course Course Narrative: -COVID-19 positive -pt was supplied with albuterol inhaler in the ED Results discussed with patient including worrisome signs and symptoms and strict return precautions, and when to return to the emergency department. They verbalized understanding and feel safe for discharge at this time. Medications Administered Discontinued Medications Generic Name Dose Route Start Last Admin Trade Name Judie PRN Reason Stop Dose Admin Albuterol Sulfate 2 puff 07/08/22 11:29 07/08/22 12:12 Albuterol Sulfate 90 Mcg 8 Gm Inhaler INHALE 07/08/22 11:30 2 puff ONCE ONE Administration Medical Decision Making Medical Decision Making [facility] Narrative: 42-year-old female with a past medical history of asthma, GERD, renal stones, presenting to the ED complaining nonproductive myalgias, body aches, sore throat x x3 days. On exam VSS, NAD, nontoxic appearing, lungs CTA, exam otherwise nonfocal. Concern for viral illness vs bronchitis vs asthma exacerbation. Low suspicion for pneumonia/ACS or PE Plan: COVID-19/influenza/RSV, rapid strep, CXR, albuterol inhaler Please refer to course for remaining clinical decision making, interpretation of labs/imaging results, and discussions with consultants and/or family members. Differential Diagnosis Differential Diagnoses: The differential diagnosis associated with the presentation includes as above Lab Data Labs: Lab Results 07/08/22 07/08/22 Range/Units 11:03 11:17 Influenza Type A (PCR) NEGATIVE (Negative) Influenza Type B (PCR) NEGATIVE (Negative) RSV RNA Qual (PCR) NEGATIVE (Negative) SARS-CoV-2 RNA (RT-PCR) POSITIVE A (Negative) S. pyogenes GrpA COURTNEY Negative (Negative) Independent Interpretation I performed an independent interpretation of an: Plain X-Ray Interpretation: My interpreted of the chest x-ray is unremarkable, no appreciable pneumonia Radiology Impression Discussion of test interpretation with radiology: I have reviewed the radiologist's reading. External Record Review External record reviewed: Office record and Outpatient record Prescription Management I considered prescription management with: Antiviral and Antibiotic Discharge Plan Discharge Clinical Impression: COVID-19 Patient Disposition: Home, Self-Care Instructions: COVID-19 (Coronavirus Disease 2019) (ED) Additional Instructions: At this time you will be okay for discharge. Please self isolate for 5-10 days. Do not expose yourself to others. You may not go to work or school. Please continue to follow cold instructions and wash your hands frequently. You may take Tylenol / Motrin as directed on the bottle for pain or fever. If you have constant or persistent shortness of breath, fever unresolved with medications, chest pain, or your unable to eat or drink please return to the ED CDC Guidelines for home isolation: - Stay away from others - WEAR A MASK if you are sick AND STAY HOME - Cover your mouth and nose with a tissue when you cough or sneeze. Dispose of tissues in a lined trash can and wash your hands immediately with soap and water for at least 20 seconds. 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 - Clean your hands often with soap and water for at least 20 seconds - Avoid touching your eyes, nose and mouth with unwashed hands - Do not share dishes, drinking glasses, cups, eating utensils, towels, or bedding with other people in your home. After using these items, wash them thoroughly with soap and water or put in the mold closer helper. - Clean high-touch surfaces in your isolation area ( sick room and bathroom) every day; let a caregiver clean and disinfect high-touch surfaces in other areas of the home. Clean the area or item with soap and water or another detergent if it is dirty. Then, use a household disinfectant. - Limit contact with pets and animals: If you must care for a pet, wash your hands before and after interacting with them) Prescriptions: No Action fluticasone propionate [Flonase] 50 mcg/actuation [place],Suspension 1 spray INTRANASAL DAILY cetirizine 10 mg Tablet 10 mg PO DAILY PRN (Reason: Allergy Symptoms) tramadol 50 mg Tablet 50 mg PO BEDTIME PRN (Reason: Pain) pantoprazole 40 mg tablet,delayed release (DR/EC) 40 mg PO BID Qty: 90 1RF cyclobenzaprine 5 mg tablet 5 mg PO TID PRN (Reason: muscle spasm) Qty: 14 0RF Rx Instructions: This medication may cause drowsiness no driving for 8 hours after taking ondansetron 4 mg tablet,disintegrating 4 mg PO Q8H PRN (Reason: nausea and vomiting) Qty: 20 0RF polyethylene glycol 3350 [Purelax] 17 gram/dose powder PO Referrals: Clementine Cobos MD [Primary Care Provider] - 5 days
[2022-07-08 11:41] LABS: Strep A Nucleic Acid Negative (Negative)
[2022-07-08 11:50] LABS: Influenza A PCR NEGATIVE (Negative); Influenza B PCR NEGATIVE (Negative); Resp Syncy Virus RNA Qual PCR NEGATIVE (Negative); SARS COV2 PCR INHOUSE POSITIVE (Negative)
[2022-07-08] MEDS: Albuterol Sulfate 90 MCG 8 GM INHALER 2 PUFF INHALE (12:12)
--- NOTE | 2022-07-08 12:13 | PC.NURSE ---
pt a&ox3, swab performed, pt medicated per order, pt awaiting cxr, call horner within reach, will continue to monitor
[2022-07-08 12:46] VITALS: BP 121/52; PULSE 68; RESP 18; TEMP 36.2; O2SAT 99
== END 2022-07-08 12:48 | disposition home or self-care (01) ==
PROVIDERS: Physician Assistant; Emergency Provider Emergency Medicine; PCP Family Medicine
DX: U07.1 COVID-19 (principal); J45.909 Unspecified asthma, uncomplicated
CPT/HCPCS: 0241U; 36415; 71045; 87651; 99284

== ENCOUNTER → 2022-08-16 11:08 | Outpatient (BNVA) | payer OTHER, MEDICAID, SELFPAY | PROVIDERS: PCP Family Medicine; Visit Provider Urology | DX: Z13.89 Encounter for screening for other disorder (principal) ==

== ENCOUNTER 2023-01-10 18:23 | Emergency (ER) | payer OTHER, MEDICAID, SELFPAY ==
--- NOTE | ~2023-01-10 | XR_ITS ---
EXAMINATION: XR CHEST CLINICAL INFORMATION: Right-sided pain. COMPARISON: Chest radiograph 07/08/2022. TECHNIQUE: Frontal view of the chest was obtained. FINDINGS: Normal appearance of the cardiomediastinal silhouette. Stable mild asymmetric elevation of the right hemidiaphragm. No focal airspace opacity, pleural effusion or pneumothorax. Right upper quadrant surgical clips. No acute osseous findings. XR/XR chest 1V IMPRESSION: No acute cardiopulmonary findings.
[2023-01-10 18:51] VITALS: BP 126/80; PULSE 69; RESP 19; TEMP 36.9; O2SAT 98; BMI 25.7
--- NOTE | 2023-01-10 18:53 | ED_ITS ---
HPI - Abdominal Pain General Chief Complaint: Abdominal Pain Stated Complaint: t-1 upper back pain wrapping to front Time Seen by Provider: 01/10/23 22:48 Related Data Home Medications Medication Instructions Recorded Confirmed fluticasone propionate 50 1 spray intranasal DAILY 12/11/20 08/16/22 mcg/actuation nasal spray,suspension cetirizine 10 mg tablet 10 mg PO DAILY PRN Allergy Symptoms 02/18/21 08/16/22 albuterol sulfate 90 mcg/actuation 0 mcg inhalation 08/16/22 08/16/22 aerosol inhaler cyclobenzaprine 10 mg tablet 10 mg PO BEDTIME 08/16/22 08/16/22 montelukast 10 mg tablet 10 mg PO DAILY 08/16/22 08/16/22 prednisone 20 mg tablet 20 mg PO BID 08/16/22 08/16/22 Previous Rx's Medication Instructions Recorded pantoprazole 40 mg tablet,delayed 40 mg PO BID #90 tabs 02/24/21 release ondansetron 4 mg disintegrating 4 mg PO Q8H PRN nausea and 06/27/22 tablet vomiting #20 tabs omeprazole 40 mg capsule,delayed 40 mg PO DAILY #90 caps 01/11/23 release sucralfate 1 gram tablet 1 g PO TID #90 tabs 01/11/23 Allergies Allergy/AdvReac Type Severity Reaction Status Date / Time Seasonal Allergies Allergy Intermediate Nasal Verified 08/16/22 11:09 congestion, asthma PMFSH Past Medical History Medical History Abdominal pain Asthma Carpal tunnel syndrome Endometriosis GERD (gastroesophageal reflux disease) Pain PONV (postoperative nausea and vomiting) Renal calculi Seasonal allergies Urinary incontinence UTI (urinary tract infection) Surgical History H/O eye surgery H/O gastric bypass H/O tubal ligation History of carpal tunnel surgery of right wrist History of esophagogastroduodenoscopy (EGD) Hx of cholecystectomy Social History Social History Household Members: Spouse and Children Alcohol intake: current Alcohol intake frequency: holidays/special occasions only Patient Tobacco Use Status: Never used Tobacco Smoked in Last 30 Days: No Use of substances other than those prescribed or required for medical reasons: No Advance Directives: No Advance Directives Information Provided: Yes Physical Exam ED Vital Signs: BMI result Body Mass Index 25.7 Course Course Course Narrative: RME - 42 yo female s/p cholecystectomy, kidney stones, GERD who presents to the ER for evaluation of constant, 8/10 RUQ pain radiating to her back that started last night and has gotten worse. +RUQ tenderness on exam. Plan: lab workup, assess for abnormal LFTs Reevaluation(s) Reevaluation #1: see Dr. Niño's note for full assessment and plan Medical Decision Making Lab Data 01/10/23 20:03 01/10/23 20:03 Labs: Lab Results 01/10/23 01/10/23 01/10/23 Range/Units 20:03 20:03 20:03 WBC 7.9 (4.8-10.8) X10*3/uL RBC 4.63 (4.20-5.50) X10*6/uL Hgb 12.6 (12.0-16.0) g/dl Hct 39.3 (37.0-47.0) % MCV 84.9 (80.0-98.0) fL MCH 27.2 (27.0-33.0) pg MCHC 32.1 (31.0-35.0) g/dl RDW 13.2 (11.0-16.0) % Plt Count 273 (160-400) X10*3/uL MPV 9.5 (9.4-12.3) fL Immature Gran % (Auto) 0.1 (0.0-0.4) % Neut % (Auto) 52.2 (45-73) % Lymph % (Auto) 36.3 (20-40) % [place] % (Auto) 7.1 (2-11) % Eos % (Auto) 3.7 (0-4) % Baso % (Auto) 0.6 (0-2) % Lymph # (Auto) 2.9 (1.2-4.9) X10*3/uL [place] # (Auto) 0.6 (0.1-1.2) X10*3/uL Eos # (Auto) 0.3 (0.0-0.4) X10*3/uL Baso # (Auto) 0.1 (0.0-0.2) X10*3/uL Abs Immat Gran (auto) 0.01 (0.00-0.03) X10*3/uL Absolute Neuts (auto) 4.2 (2.0-8.3) x10*3/uL Absolute Nucleated RBC 0.000 (0.0-0.012) X10*3/uL Nucleated RBC % (auto) 0.0 (0.0-0.2) /100WBC Sodium 141 (135-145) mmol/L Potassium 4.3 (3.3-5.1) mmol/L Chloride 108 (96-108) mmol/L Carbon Dioxide 24 (22-29) mmol/L Anion Gap TNP BUN 22 H (9-16) mg/dL Creatinine 0.76 (0.5-1.4) mg/dL Estim Creat Clear Calc 89.5 Estimated GFR > 60 Random Glucose 76 (60-115) mg/dL Calcium 8.9 (8.4-10.2) mg/dL Magnesium 2.2 (1.6-2.6) mg/dL Total Bilirubin 0.2 (0.0-1.0) mg/dL Direct Bilirubin < 0.2 (0.0-0.5) mg/dL AST 17 (5-31) U/L ALT 16 (0-31) U/L Alkaline Phosphatase 54 (39-117) U/L Total Protein 7.1 (6.5-8.0) g/dL Albumin 4.1 (3.5-5.0) g/dL Lipase 49 (8-78) U/L Urine Color Yellow Urine Appearance Clear Urine pH 5.5 (5.0-9.0) Ur Specific [place] 1.025 (1.005-1.025) Urine Protein Negative (Neg-Trace) mg/dL Urine Glucose (UA) Negative (Negative) mg/dL Urine Ketones Trace (Negative) mg/dL Urine Blood Negative (Negative) Urine Nitrite Negative (Negative) Ur Leukocyte Esterase Negative (Negative) Medications Administered Discontinued Medications Generic Name Dose Route Start Last Admin Trade Name Freq PRN Reason Stop Dose Admin Al Hydroxide/Mg Hydroxide 30 ml 01/10/23 23:10 01/10/23 23:45 Magnesium Hydrox/Alum Hydrox 30 Ml Oral.Susp PO 01/10/23 23:11 30 ml ONCE ONE Administration Omeprazole 40 mg 01/10/23 23:10 01/10/23 23:45 Omeprazole 40 Mg Capsule.Dr PO 01/10/23 23:11 40 mg ONCE ONE Administration Discharge Plan Discharge Clinical Impression: Acute gastritis Patient Disposition: Home, Self-Care Instructions: Gastritis (ED) Additional Instructions: Avoid fried and spicy food Take Prilosec and start taking sucralfate and 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 Prescriptions: New omeprazole 40 mg capsule,delayed release(DR/EC) 40 mg PO DAILY Qty: 90 0RF sucralfate 1 gram tablet 1 g PO TID Qty: 90 0RF No Action fluticasone propionate [Flonase] 50 mcg/actuation [place],Suspension 1 spray INTRANASAL DAILY cetirizine 10 mg Tablet 10 mg PO DAILY PRN (Reason: Allergy Symptoms) pantoprazole 40 mg tablet,delayed release (DR/EC) 40 mg PO BID Qty: 90 1RF ondansetron 4 mg tablet,disintegrating 4 mg PO Q8H PRN (Reason: nausea and vomiting) Qty: 20 0RF montelukast 10 mg tablet 10 mg PO DAILY cyclobenzaprine 10 mg tablet 10 mg PO BEDTIME albuterol sulfate 90 mcg/actuation HFA aerosol inhaler 0 mcg inhalation prednisone 20 mg tablet 20 mg PO BID Referrals: Xavi Villafuerte MD [Physician] - 2 weeks Interventions: ED Discharge Assessment Last Done: 01/11/23 01:23 Discharge Date/Time: 01/11/23 01:23
--- NOTE | 2023-01-10 20:04 | MHC.EDTECH ---
Patient was brought into triage are,labs and urine obtained and sent to lab.
[2023-01-10 20:16] LABS: MANUAL DIFF FLAG NO
[2023-01-10 20:18] LABS: Appearance Urine Clear; Basophils Absolute Auto 0.1 X10*3/uL (0.0-0.2); Basophils Percent Auto 0.6 % (0-2); Color Urine Yellow; Eosinophils Absolute Auto 0.3 X10*3/uL (0.0-0.4); Eosinophils Percent Auto 3.7 % (0-4); Glucose Urine UA Negative (Negative); Hematocrit 39.3 % (37.0-47.0); Hemoglobin 12.6 g/dl (12.0-16.0); Imm Gran Abs Auto 0.01 X10*3/uL (0.00-0.03); Imm Gran Pct Auto 0.1 % (0.0-0.4); Leukocyte Esterase Urine Negative (Negative); Lymphocytes Absolute Auto 2.9 X10*3/uL (1.2-4.9); Lymphocytes Percent Auto 36.3 % (20-40); Mean Corpuscular HGB Conc 32.1 g/dl (31.0-35.0); Mean Corpuscular Hemoglobin 27.2 pg (27.0-33.0); Mean Corpuscular Volume 84.9 fL (80.0-98.0); Mean Platelet Volume 9.5 fL (9.4-12.3); Monocytes Absolute Auto 0.6 X10*3/uL (0.1-1.2); Monocytes Percent Auto 7.1 % (2-11); Neutrophils Absolute Auto 4.2 x10*3/uL (2.0-8.3); Neutrophils Percent Auto 52.2 % (45-73); Nitrite Urine Negative (Negative); PH 5.5 (5.0-9.0); Platelet Count 273 X10*3/uL (160-400); Red Blood Count 4.63 X10*6/uL (4.20-5.50); Red Cell Distribution Width 13.2 % (11.0-16.0); Specific Gravity - Urine 1.025 (1.005-1.025); Urine Blood Negative (Negative); Urine Ketones Trace mg/dL (Negative); Urine Protein Negative (Neg-Trace); White Blood Count 7.9 X10*3/uL (4.8-10.8)
[2023-01-10 20:58] LABS: Alanine Aminotransferase 16 U/L (0-31); Albumin Level 4.1 g/dL (3.5-5.0); Alkaline Phosphatase 54 U/L (39-117); Aspartate Amino Transferase 17 U/L (5-31); Bilirubin Direct < 0.2 mg/dL (0.0-0.5); Bilirubin Total 0.2 mg/dL (0.0-1.0); Blood Urea Nitrogen 22 mg/dL (9-16); Calcium 8.9 mg/dL (8.4-10.2); Chloride 108 mmol/L (96-108); Creatinine Clr Calc Pharmacy 89.5; Estimated Glomerular Filt Rate > 60; Glucose Random 76 mg/dL (60-115); Lipase 49 U/L (8-78); Magnesium 2.2 mg/dL (1.6-2.6); Potassium 4.3 mmol/L (3.3-5.1); Sodium 141 mmol/L (135-145); Total Protein 7.1 g/dL (6.5-8.0)
[2023-01-10 21:41] LABS: Carbon Dioxide 24 mmol/L (22-29)
[2023-01-10 21:51] VITALS: BP 122/71; PULSE 52; RESP 18; TEMP 36.7; O2SAT 100
[2023-01-10 23:00] VITALS: BP 127/80; PULSE 49; RESP 16; TEMP 36.7; O2SAT 100
[2023-01-10 23:43] VITALS: BP 126/71; PULSE 48; RESP 16; TEMP 36.7; O2SAT 98
[2023-01-10] MEDS: Omeprazole 40 MG CAPSULE.DR PO (23:45)
[2023-01-10] MEDS: Magnesium Hydrox/Alum Hydrox 30 ML ORAL.SUSP PO (23:45)
--- NOTE | 2023-01-11 00:56 | ED.ABDPAIN ---
HPI - Abdominal Pain General Chief Complaint: Abdominal Pain Stated Complaint: t-1 upper back pain wrapping to front Time Seen by Provider: 01/10/23 22:48 Source: patient Mode of arrival: ambulatory Limitations: no limitations History of Present Illness HPI narrative: Patient status post cholecystectomy complaining of pain in the right upper abdomen since yesterday with nausea no vomiting no fever no chills no urine symptoms pain radiates to the back to the right flank area patient does have a history of gastritis used to be on Protonix which she is not taking for some time no nausea no vomiting Related Data Home Medications Medication Instructions Recorded Confirmed fluticasone propionate 50 1 spray intranasal DAILY 12/11/20 08/16/22 mcg/actuation nasal spray,suspension cetirizine 10 mg tablet 10 mg PO DAILY PRN Allergy Symptoms 02/18/21 08/16/22 albuterol sulfate 90 mcg/actuation 0 mcg inhalation 08/16/22 08/16/22 aerosol inhaler cyclobenzaprine 10 mg tablet 10 mg PO BEDTIME 08/16/22 08/16/22 montelukast 10 mg tablet 10 mg PO DAILY 08/16/22 08/16/22 prednisone 20 mg tablet 20 mg PO BID 08/16/22 08/16/22 Previous Rx's Medication Instructions Recorded pantoprazole 40 mg tablet,delayed 40 mg PO BID #90 tabs 02/24/21 release ondansetron 4 mg disintegrating 4 mg PO Q8H PRN nausea and 06/27/22 tablet vomiting #20 tabs omeprazole 40 mg capsule,delayed 40 mg PO DAILY #90 caps 01/11/23 release sucralfate 1 gram tablet 1 g PO TID #90 tabs 01/11/23 Allergies Allergy/AdvReac Type Severity Reaction Status Date / Time Seasonal Allergies Allergy Intermediate Nasal Verified 08/16/22 11:09 congestion, asthma Review of Systems Review of Systems Yes all other systems are reviewed and are negative [facility] Past Medical History Medical History Abdominal pain Asthma Carpal tunnel syndrome Endometriosis GERD (gastroesophageal reflux disease) Pain PONV (postoperative nausea and vomiting) Renal calculi Seasonal allergies Urinary incontinence UTI (urinary tract infection) Surgical History H/O eye surgery H/O gastric bypass H/O tubal ligation History of carpal tunnel surgery of right wrist History of esophagogastroduodenoscopy (EGD) Hx of cholecystectomy Social History Social History Household Members: Spouse and Children Alcohol intake: current Alcohol intake frequency: holidays/special occasions only Patient Tobacco Use Status: Never used Tobacco Smoked in Last 30 Days: No Use of substances other than those prescribed or required for medical reasons: No Advance Directives: No Advance Directives Information Provided: Yes Physical Exam ED Vital Signs: Vital Signs - 24 hr 01/10/23 18:51 01/10/23 21:51 01/10/23 23:00 Temperature 98.4 F 98.1 F 98.1 F Pulse Rate 69 52 49 L Respiratory Rate 19 18 16 Blood Pressure 126/80 122/71 127/80 Pulse Oximetry 98 100 100 Oxygen Delivery Method Room Air Room Air Room Air 01/10/23 23:43 Temperature 98.0 F Pulse Rate 48 L Respiratory Rate 16 Blood Pressure 126/71 Pulse Oximetry 98 Oxygen Delivery Method Room Air BMI result Body Mass Index 25.7 Appearance: Alert. Oriented X3. No acute distress. Eyes: No pallor or icterus ENT: Pharynx normal. Oral Mucosa moist Neck: Normal inspection. Neck supple. CVS: Normal heart rate and rhythm. Pulses normal. Respiratory: No respiratory distress. Equal air entry bilateral, no wheezing/rales/rhonchi Abdomen: Soft tender in epigastric area no rebound tenderness or guarding Bowel sounds are present, no mass palpable, no CVA tenderness Skin: Skin warm and dry. Normal skin color. Normal skin turgor. Extremities: No lower extremity edema. No calf tenderness Neuro: Oriented X 3. No motor deficit. Medical Decision Making Medical Decision Making MDM Narrative: Patient with epigastric right upper quadrant pain with workup negative likely gastritis with history of same will discharge patient home on sucralfate and Prilosec Differential Diagnosis Differential Diagnoses: The differential diagnosis associated with the presentation includes Gastritis/CBD stone/musculoskeletal Lab Data [facility] Lab Attestation statement: I reviewed the patient's lab results. 01/10/23 20:03 01/10/23 20:03 Labs: Lab Results 01/10/23 01/10/23 01/10/23 Range/Units 20:03 20:03 20:03 WBC 7.9 (4.8-10.8) X10*3/uL RBC 4.63 (4.20-5.50) X10*6/uL Hgb 12.6 (12.0-16.0) g/dl Hct 39.3 (37.0-47.0) % MCV 84.9 (80.0-98.0) fL MCH 27.2 (27.0-33.0) pg MCHC 32.1 (31.0-35.0) g/dl RDW 13.2 (11.0-16.0) % Plt Count 273 (160-400) X10*3/uL MPV 9.5 (9.4-12.3) fL Immature Gran % (Auto) 0.1 (0.0-0.4) % Neut % (Auto) 52.2 (45-73) % Lymph % (Auto) 36.3 (20-40) % [place] % (Auto) 7.1 (2-11) % Eos % (Auto) 3.7 (0-4) % Baso % (Auto) 0.6 (0-2) % Lymph # (Auto) 2.9 (1.2-4.9) X10*3/uL [place] # (Auto) 0.6 (0.1-1.2) X10*3/uL Eos # (Auto) 0.3 (0.0-0.4) X10*3/uL Baso # (Auto) 0.1 (0.0-0.2) X10*3/uL Abs Immat Gran (auto) 0.01 (0.00-0.03) X10*3/uL Absolute Neuts (auto) 4.2 (2.0-8.3) x10*3/uL Absolute Nucleated RBC 0.000 (0.0-0.012) X10*3/uL Nucleated RBC % (auto) 0.0 (0.0-0.2) /100WBC Sodium 141 (135-145) mmol/L Potassium 4.3 (3.3-5.1) mmol/L Chloride 108 (96-108) mmol/L Carbon Dioxide 24 (22-29) mmol/L Anion Gap TNP BUN 22 H (9-16) mg/dL Creatinine 0.76 (0.5-1.4) mg/dL Estim Creat Clear Calc 89.5 Estimated GFR > 60 Random Glucose 76 (60-115) mg/dL Calcium 8.9 (8.4-10.2) mg/dL Magnesium 2.2 (1.6-2.6) mg/dL Total Bilirubin 0.2 (0.0-1.0) mg/dL Direct Bilirubin < 0.2 (0.0-0.5) mg/dL AST 17 (5-31) U/L ALT 16 (0-31) U/L Alkaline Phosphatase 54 (39-117) U/L Total Protein 7.1 (6.5-8.0) g/dL Albumin 4.1 (3.5-5.0) g/dL Lipase 49 (8-78) U/L Urine Color Yellow Urine Appearance Clear Urine pH 5.5 (5.0-9.0) Ur Specific [place] 1.025 (1.005-1.025) Urine Protein Negative (Neg-Trace) mg/dL Urine Glucose (UA) Negative (Negative) mg/dL Urine Ketones Trace (Negative) mg/dL Urine Blood Negative (Negative) Urine Nitrite Negative (Negative) Ur Leukocyte Esterase Negative (Negative) Medications Administered Discontinued Medications Generic Name Dose Route Start Last Admin Trade Name Judie PRN Reason Stop Dose Admin Al Hydroxide/Mg Hydroxide 30 ml 01/10/23 23:10 01/10/23 23:45 Magnesium Hydrox/Alum Hydrox 30 Ml Oral.Susp PO 01/10/23 23:11 30 ml ONCE ONE Administration Omeprazole 40 mg 01/10/23 23:10 01/10/23 23:45 Omeprazole 40 Mg Capsule.Dr PO 01/10/23 23:11 40 mg ONCE ONE Administration Discharge Plan Discharge Clinical Impression: Acute gastritis Patient Disposition: Home, Self-Care Instructions: Gastritis (ED) Additional Instructions: Avoid fried and spicy food Take Prilosec and start taking sucralfate and 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 Prescriptions: New omeprazole 40 mg capsule,delayed release(DR/EC) 40 mg PO DAILY Qty: 90 0RF sucralfate 1 gram tablet 1 g PO TID Qty: 90 0RF No Action fluticasone propionate [Flonase] 50 mcg/actuation [place],Suspension 1 spray INTRANASAL DAILY cetirizine 10 mg Tablet 10 mg PO DAILY PRN (Reason: Allergy Symptoms) pantoprazole 40 mg tablet,delayed release (DR/EC) 40 mg PO BID Qty: 90 1RF ondansetron 4 mg tablet,disintegrating 4 mg PO Q8H PRN (Reason: nausea and vomiting) Qty: 20 0RF montelukast 10 mg tablet 10 mg PO DAILY cyclobenzaprine 10 mg tablet 10 mg PO BEDTIME albuterol sulfate 90 mcg/actuation HFA aerosol inhaler 0 mcg inhalation prednisone 20 mg tablet 20 mg PO BID Referrals: Xavi Villafuerte MD [Physician] - 2 weeks Interventions: ED Discharge Assessment Last Done: 01/11/23 01:23 Discharge Date/Time: 01/11/23 01:23
== END 2023-01-11 01:23 | disposition home or self-care (01) ==
PROVIDERS: Physician Assistant; Emergency Provider Internal Medicine; PCP Family Medicine
DX: K29.00 Acute gastritis without bleeding (principal); R10.11 Right upper quadrant pain
CPT/HCPCS: 36415; 71045; 80048; 80076; 81003; 83690; 83735; 85025; 99283; 99284

== ENCOUNTER 2023-02-15 11:03 | Outpatient (REF) | payer OTHER, MEDICAID, SELFPAY ==
--- NOTE | ~2023-02-15 | XR_ITS ---
EXAMINATION: XR RIBS, RIGHT CLINICAL INFORMATION: Pleura tiny, pain right ribs COMPARISON: Chest 01/10/2019 TECHNIQUE: 4 views of the right ribs. FINDINGS: There is no gross pneumothorax. Heart size is normal. Surgical clips in the upper abdomen. No significant pleural effusion appreciated. No displaced right rib fracture identified. Degenerative changes in the thoracic spine. XR/XR ribs RT min 3V w CXR1V IMPRESSION: No displaced right rib fracture identified.
== END 2023-02-15 11:04 | disposition home or self-care (01) ==
LOC: HO.XRAY 11:03
PROVIDERS: PCP Family Medicine; Visit Provider Nurse Practitioner Family
DX: R07.81 Pleurodynia (principal); G58.8 Other specified mononeuropathies; Z86.16 Personal history of COVID-19; Z79.899 Other long term (current) drug therapy
CPT/HCPCS: 71101

== ENCOUNTER 2023-02-15 11:03 | Outpatient (AMB) | payer OTHER, MEDICAID, SELFPAY ==
--- NOTE | 2023-02-15 11:06 | MHC.OFFVIS ---
Intake Vital Signs 02/15/23 11:12 Height 5 ft 4 in Weight 153 lb 6 oz BMI 26.3 BP 120/83 Blood Pressure Location Lt brachial Position Sitting Respiration 16 Pulse 54 Pulse Source Pulse Oximeter Pulse Oximetry (%) 99 Oxygen Delivery Method Room Air Intake Visit Reasons: Rib pain on right side Allergies Seasonal Allergies Allergy (Intermediate, Verified 02/15/23 11:08) Nasal congestion, asthma Medication List - Last Reconciled 02/15/23 by ESVIN Justice albuterol sulfate 90 mcg/actuation 0 mcg inhalation cetirizine 10 mg PO DAILY PRN cyclobenzaprine 10 mg PO BEDTIME fluticasone propionate 50 mcg/actuation 1 spray intranasal DAILY montelukast 10 mg PO DAILY ondansetron 4 mg PO Q8H PRN pantoprazole 40 mg PO BID HPI Rib pain on right side HPI Details Patient is a pleasant 42 years old female with history of cholecystecomy, GERD, gastric bypass, asthma, seasonal allergies, recent gastritis symptoms with ER visit on 12/2022 presents today with right upper quadrant under the rib pain with radiations to her mid back. Pain started since COVID illness in October 2021. Patient denies abdominal pain and states it is her rib radiating to her back which increases with inspiration or expiration but cleaning her throat will slightly alleviate her symptoms. She has yet to follow up with GI provider. Pain is constant and rated 6-7/10 on average for the past month. There is a localized tenderness to palpation along the ribs in the T4-T5 distribution. 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 Patient denies any fever, malaise, unintentional weight loss, dizziness, hemoptysis, shortness of breath, chest pain, chest wall pain, abdominal or low back pain, weakness, bowel or bladder incontinence or saddle anesthesia. Location RUQ under the rib radiating to the back Duration Pain since COVID illness 10/2019 Characteristics of symptom or complaint Numbness (back), dull,stabbing, sharp, tingling Aggravating or associated factors Stress, turning, lifting right arm, breathing Relieving factors Massage (helpful), Biofreeze, Flexeril, Tylenol, lidocaine patches Treatment PT for rib cage pain 2021-no improvement [facility] Medical History Abdominal pain Asthma Carpal tunnel syndrome Endometriosis GERD (gastroesophageal reflux disease) Pain PONV (postoperative nausea and vomiting) Renal calculi Seasonal allergies Urinary incontinence UTI (urinary tract infection) Surgical History H/O eye surgery H/O gastric bypass H/O tubal ligation History of carpal tunnel surgery of right wrist History of esophagogastroduodenoscopy (EGD) Hx of cholecystectomy Social History Household Members: Spouse and Children Alcohol intake: current Alcohol intake frequency: holidays/special occasions only Patient Tobacco Use Status: Never used Tobacco Review of Systems Const All systems reviewed & are unremarkable except as noted in HPI and below Card Reports as per HPI, Denies chest pain, Denies chest pain with activity, Denies palpitations and Denies dyspnea on exertion Resp Reports as per HPI, Denies change in phlegm color, Denies cough, Denies hemoptysis, Reports pain on inspiration, Denies dyspnea on exertion, Denies stridor and Denies wheezing Endo Denies palpitations Aller/Immun Denies wheezing Physical Exam Vital Signs: Last Vital Signs Pulse 54 02/15/23 11:12 Resp 16 02/15/23 11:12 BP 120/83 02/15/23 11:12 Pulse Ox 99 02/15/23 11:12 Oxygen Delivery Method Room Air 02/15/23 11:12 BMI result Body Mass Index 26.3 General: Appears afebrile. Alert and oriented. Mood and affect appropriate. Follows and participates in conversation appropriately. Respiratory effort is unlabored. No cough. No nasal discharge. Able to transition from sit to stand unassisted. Ambulates with bilaterally normal heel strike and toe off. Chest Chest palpation & inspection: normal inspection of the chest, normal palpation of entire chest wall, no crepitus, tenderness (TTP with numbness and tingling in mid axillary to mid back in T4-T5 ) rib mid-axillary, posterior-axillary line and costal cartilage mid-axillary line involving the 4th-5th rib and No rash Chest/axillae images: 1. Anterior rib pain radiates to mid back Resp Other: Patient states intermittent forceful coughing with expiration alleviates symptoms for short term Effort & Inspection: normal respiratory effort, able to speak in complete sentences, no audible wheezes, no cough, no retractions and symmetric chest movement GI Inspection: Yes normal to inspection, No abdominal wall ecchymosis, No distended and Yes obesity Palpation (GI): Soft to palpation, nontender and no guarding Back/Spine/Pelvis Back/spine/pelvis image: 1. Radiating pain Results Reviewed Results Reviewed: XR CHEST 01/10/23 CLINICAL INFORMATION: Right-sided pain. COMPARISON: Chest radiograph 07/08/2022. FINDINGS: Normal appearance of the cardiomediastinal silhouette. Stable mild asymmetric elevation of the right hemidiaphragm. No focal airspace opacity, pleural effusion or pneumothorax. Right upper quadrant surgical clips. No acute osseous findings. IMPRESSION: No acute cardiopulmonary findings. XR THORACIC SPINE 02/17/21 CLINICAL INFORMATION: Back pain FINDINGS: Bone alignment is normal. No fracture or dislocation is seen. There is mild degenerative spondylosis and disc space narrowing of the mid thoracic spine. Paraspinal soft tissues are normal. IMPRESSION: No fracture seen. Mild degenerative changes. 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 Will obtain right ribs xray with one view chest xray to follow up on localized tenderness in distribution of T4-T5. 2. Continue Biofreeze or lidocaine patches to the sensitive areas of the skin. Will start on low dose gabapentin at bedtime. Side effects and precautions were discussed with patient. 3. Schedule for Right Diagnostic T4-T5 Intercostal Nerve Block with local and fluoroscopy. Expectations, risks and benefits were reviewed. Patient is aware he will be contacted to schedule this procedure. All questions were answered and the patient is in agreement of plan. Follow-up after injections and sooner as needed. Orders: Orders XR ribs RT min 3V w CXR1V 02/15/23 G58.8 - Other specified mononeuropathies, R07.81 - Pleurodynia, Z86.16 - Personal history of COVID-19 Medications: New gabapentin 300 mg PO BEDTIME 30 days 30 caps 0RF pain G58.8 - Other specified mononeuropathies Coding Level of Care Code New Pt Level 4 (55097) Diagnoses Rib pain on right side R07.81 History of COVID-19 Z86.16 Intercostal neuralgia G58.8
[2023-02-15 11:12] VITALS: BP 120/83; PULSE 54; RESP 16; O2SAT 99; BMI 26.3
== END 2023-02-15 11:34 | disposition home or self-care (01) ==
PROVIDERS: PCP Family Medicine; Visit Provider Nurse Practitioner Family
DX: R07.81 Pleurodynia (principal); Z86.16 Personal history of COVID-19; G58.8 Other specified mononeuropathies
CPT/HCPCS: 99204

== ENCOUNTER 2023-03-17 07:23 | Outpatient (REF) | payer OTHER, MEDICAID, SELFPAY | END 2023-03-17 07:24 | disposition home or self-care (01) | LOC: HO.MAMMO 07:23 | PROVIDERS: PCP Family Medicine; Visit Provider Family Medicine | DX: Z12.31 Encounter for screening mammogram for malignant neoplasm of breast (principal) | CPT/HCPCS: 77063; 77067 ==

== ENCOUNTER → 2023-03-17 07:30 | Outpatient (BNV) | payer OTHER, MEDICAID, SELFPAY | PROVIDERS: PCP Family Medicine; Visit Provider Radiology Diagnostic Radiology | DX: Z12.31 Encounter for screening mammogram for malignant neoplasm of breast (principal) | CPT/HCPCS: 77063; 77067 ==

== ENCOUNTER 2023-04-20 10:12 | Outpatient (AMB) | payer OTHER, MEDICAID, SELFPAY ==
[2023-04-20 10:22] VITALS: PULSE 61; RESP 12; O2SAT 99; BMI 26.8
--- NOTE | 2023-04-20 10:22 | MHC.OFFVIS ---
Intake Vital Signs 04/20/23 10:22 Height 5 ft 4 in Weight 156 lb BMI 26.8 Blood Pressure Location Lt brachial Position Sitting Respiration 12 Pulse 61 Pulse Source Pulse Oximeter Pulse Oximetry (%) 99 Oxygen Delivery Method Room Air Intake Visit Reasons: Right Dx T4-T5 intercostal NB/confirmed Allergies Seasonal Allergies Allergy (Intermediate, Verified 04/20/23 10:23) Nasal congestion, asthma Medication List - Last Reconciled 04/20/23 by Kathy Hopkins LPN albuterol sulfate 90 mcg/actuation 0 mcg inhalation amoxicillin 500 mg PO BID cetirizine 10 mg PO DAILY PRN cyclobenzaprine 10 mg PO BEDTIME fluticasone propionate 50 mcg/actuation 1 spray intranasal DAILY gabapentin 300 mg PO BEDTIME 30 days montelukast 10 mg PO DAILY neomycin-polymyxin B-dexameth 3.5mg/mL-10,000 unit/mL-0.1 % drps ophthalmic (eye) ondansetron 4 mg PO Q8H PRN pantoprazole 40 mg PO BID HPI Right Dx T4-T5 intercostal NB/confirmed HPI Details 42-year-old female who presents today to the office for a right diagnostic T4-T5 intercostal nerve block. Denies any recent cough, cold, infection, fever or other significant changes in medical history since last office visit. She has ongoing right upper quadrant under the rib pain with radiations to her mid back. She states that her pain started since COVID-19 illness in 10/2019. 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 FOR[facility]LY [facility], [facility] Medical History Abdominal pain Asthma Carpal tunnel syndrome Endometriosis GERD (gastroesophageal reflux disease) Pain PONV (postoperative nausea and vomiting) Renal calculi Seasonal allergies Urinary incontinence UTI (urinary tract infection) Surgical History H/O eye surgery H/O gastric bypass H/O tubal ligation History of carpal tunnel surgery of right wrist History of esophagogastroduodenoscopy (EGD) Hx of cholecystectomy Social History Household Members: Spouse and Children Alcohol intake: current Alcohol intake frequency: holidays/special occasions only Patient Tobacco Use Status: Never used Tobacco Review of Systems Const All systems reviewed & are unremarkable except as noted in HPI and below Physical Exam Vital Signs: Last Vital Signs Pulse 61 04/20/23 10:22 Resp 12 04/20/23 10:22 Pulse Ox 99 04/20/23 10:22 Oxygen Delivery Method Room Air 04/20/23 10:22 BMI result Body Mass Index 26.8 General: Appears afebrile. Alert and oriented. Mood and affect appropriate. Follows and participates in conversation appropriately. Respiratory effort is unlabored. Able to transition from sit to stand unassisted. Ambulates with bilaterally normal heel strike and toe off. Office Procedures Nerve Block Details: Right T4-T5 intercostal nerve blocks, US guided. After obtaining written consent, pre-procedure time-out was completed. The patient was placed in prone position. The relevant levels of the intercostal nerves were physically palpated corresponding to the patient's pain and marked. Using ultrasound, the appropriate landmarks including the rib, intercostal muscles and pleura were identified. The skin was anesthetized with 1% lidocaine. A 21-gauge 80 mm echostim needle was advanced under sonographic guidance in proximity to each of the intercostal nerves. Aspiration was negative for heme and air. 2 cc of ropivacaine 0.5% mixed with 20 mg Kenalog was injected around each of the targeted nerves. The needle was removed, skin cleansed and a sterile bandage was applied. The patient tolerated the procedure well and no complications were encountered. Following the procedure, the patient's vital signs and respiration were stable. The patient was discharged home in good condition with post-procedural instructions. Time Out: Immediately prior to the procedure, the following was verbally confirmed that there is a signed consent form and that the correct patient, planned procedure, site and side are consistent with documentation and that necessary equipment and/or blood products are available prior to the start of the case. Complications: none EBL: <1 cc Note: An ultrasound image of the injection was taken and stored in the permanent record. Procedure code (CPT) selection complete Results Reviewed Results Reviewed: No imaging is available for review. 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 Patient tolerated procedure well and was discharged home in stable condition with discharge instructions. All questions were answered. We will follow-up in two weeks via telephone or in clinic to assess response to therapy. A follow-up appointment was made during today's visit. Scribed for Dr. Brown by Donald Worley, medical superintendent, on 04/20/2023. I, Dr. Brown, have personally reviewed and agree with the information entered by the scribe. Coding Level of Care Code Procedure Only Diagnoses Intercostal neuralgia G58.8
== END 2023-04-20 11:23 | disposition home or self-care (01) ==
PROVIDERS: PCP Family Medicine; Visit Provider Internal Medicine
DX: G58.8 Other specified mononeuropathies (principal)
CPT/HCPCS: 64420; 76942

== ENCOUNTER → 2023-04-20 10:12 | Outpatient (BNVA) | payer OTHER, MEDICAID, SELFPAY | PROVIDERS: PCP Family Medicine; Visit Provider Internal Medicine | DX: G58.8 Other specified mononeuropathies (principal) | CPT/HCPCS: 64420; J3301 ==

== ENCOUNTER 2023-04-25 08:11 | Outpatient (REF) | payer OTHER, MEDICAID, SELFPAY ==
[2023-04-25 11:42] LABS: MANUAL DIFF FLAG NO
[2023-04-25 11:47] LABS: Basophils Absolute Auto 0.1 X10*3/uL (0.0-0.2); Basophils Percent Auto 0.7 % (0-2); Eosinophils Absolute Auto 0.1 X10*3/uL (0.0-0.4); Eosinophils Percent Auto 0.8 % (0-4); Hematocrit 42.6 % (37.0-47.0); Hemoglobin 13.6 g/dl (12.0-16.0); Imm Gran Abs Auto 0.03 X10*3/uL (0.00-0.03); Imm Gran Pct Auto 0.3 % (0.0-0.4); Lymphocytes Absolute Auto 2.9 X10*3/uL (1.2-4.9); Lymphocytes Percent Auto 33.4 % (20-40); Mean Corpuscular HGB Conc 31.9 g/dl (31.0-35.0); Mean Corpuscular Hemoglobin 26.5 pg (27.0-33.0); Monocytes Absolute Auto 0.8 X10*3/uL (0.1-1.2); Monocytes Percent Auto 8.6 % (2-11); Neutrophils Absolute Auto 4.9 x10*3/uL (2.0-8.3); Neutrophils Percent Auto 56.2 % (45-73); Platelet Count 290 X10*3/uL (160-400); Red Blood Count 5.13 X10*6/uL (4.20-5.50); Red Cell Distribution Width 13.4 % (11.0-16.0); White Blood Count 8.8 X10*3/uL (4.8-10.8)
[2023-04-25 12:03] LABS: Alanine Aminotransferase 17 U/L (0-31); Albumin Level 4.7 g/dL (3.5-5.0); Alkaline Phosphatase 57 U/L (39-117); Anion Gap 14 (12-20); Aspartate Amino Transferase 18 U/L (5-31); Bilirubin Direct 0.2 mg/dL (0.0-0.5); Bilirubin Total 0.5 mg/dL (0.0-1.0); Blood Urea Nitrogen 14 mg/dL (9-16); Calcium 9.7 mg/dL (8.4-10.2); Carbon Dioxide 26 mmol/L (22-29); Chloride 105 mmol/L (96-108); Cholesterol 252 mg/dL (<200); Estimated Glomerular Filt Rate > 60; Glucose Random 73 mg/dL (60-115); HDL Cholesterol 72 mg/dL (>40); LDL Cholesterol Calculated 156 mg/dL (<100); Magnesium 2.5 mg/dL (1.6-2.6); Potassium 4.4 mmol/L (3.3-5.1); Sodium 141 mmol/L (135-145); Total Protein 8.1 g/dL (6.5-8.0); Triglycerides 122 mg/dL (<150)
[2023-04-25 12:21] LABS: HIV AB/AG Nonreactive (Nonreactive); HIV Num 1 0.13 S/CO (0.00-0.99); ~HepC Num1 0.08 S/CO (0.00-0.79); ~Hepatitis C Antibody Nonreactive (Nonreactive)
[2023-04-25 12:22] LABS: Vitamin B12 1176 pg/mL (200-900)
[2023-04-25 12:23] LABS: Vitamin D 25-OH Total 74.9 ng/mL (>30)
[2023-04-25 14:07] LABS: CT PCR NOT DETECTED (Not Detect.); NG PCR NOT DETECTED (Not Detect.)
[2023-04-27 08:47] LABS: RPR Rapid Plasma Reagin NON-REACTIVE (NON-REACTIVE)
== END 2023-04-25 08:12 | disposition home or self-care (01) ==
LOC: HO.HHCL 08:11
PROVIDERS: Visit Provider Family Medicine
DX: Z11.4 Encounter for screening for human immunodeficiency virus [HIV] (principal); E55.9 Vitamin D deficiency, unspecified; R74.8 Abnormal levels of other serum enzymes; Z98.84 Bariatric surgery status; Z20.2 Contact with and (suspected) exposure to infections with a predominantly sexual mode of transmission; Z13.29 Encounter for screening for other suspected endocrine disorder
CPT/HCPCS: 0353U; 80048; 80061; 80076; 82306; 82607; 83735; 84443; 85025; 86592; 86803; 87389

== ENCOUNTER 2023-04-26 10:05 | Outpatient (AMB) | payer OTHER, MEDICAID, SELFPAY ==
--- NOTE | 2023-04-26 10:09 | MHC.OFFVIS ---
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 Brown for intercostal neuralgia. Patient reports 100% ongoing pain relief of anterior right upper abdomen and posterior right mid back pain, but continues to have sharp, stabbing pain in small area in the projection of right posterior axillary and scapular line. Pain is rated at 5/10 and can be easily aggravated in higher intensities with inspiration, lifting, pulling or turning. Massaging area helps. She has not tried gabapentin as she recalls significant depression with gabapentin use in the past. Flexeril at bedtime for moderate to severe pain and spasms has been helpful. Patient is interested to undergo chiropractic adjustment and baclofen trial. If no relief, we will consider trigger point injection in the next follow up visit as patient recently received steroid injection last week. Denies any recent cough, cold, infection, fever, shortness of breath, dyspnea, chest pain, abdominal pain or other significant changes in medical history since last office visit. Past Procedures: 04/20/23: Right diagnostic/therapeutic T4-T5 intercostal nerve blocks, US guided-100% pain relief, except as noted above PRIOR: Patient is a pleasant 42 years old female with history of cholecystecomy, GERD, gastric bypass, asthma, seasonal allergies, recent gastritis symptoms with ER visit on 12/2022 presents today with right upper quadrant under the rib pain with radiations to her mid back. Pain started since COVID illness in October 2021. Patient denies abdominal pain and states it is her rib radiating to her back which increases with inspiration or expiration but cleaning her throat will slightly alleviate her symptoms. She has yet to follow up with GI provider. Pain is constant and rated 6-7/10 on average for the past month. There is a localized tenderness to palpation along the ribs in the T4-T5 distribution. 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 Patient denies any fever, malaise, unintentional weight loss, dizziness, hemoptysis, shortness of breath, chest pain, chest wall pain, abdominal or low back pain, weakness, bowel or bladder incontinence or saddle anesthesia. Location RUQ under the rib radiating to the back Duration Pain since COVID illness 10/2019 Characteristics of symptom or complaint Numbness (back), dull,stabbing, sharp, tingling Aggravating or associated factors Stress, turning, lifting right arm, breathing Relieving factors Massage (helpful), Biofreeze, Flexeril, Tylenol, lidocaine patches Treatment PT for rib cage pain 2021-no improvement PFSH Medical History Renal calculi Urinary incontinence UTI (urinary tract infection) Pain PONV (postoperative nausea and vomiting) Abdominal pain GERD (gastroesophageal reflux disease) Carpal tunnel syndrome Endometriosis Seasonal allergies Asthma Surgical History History of carpal tunnel surgery of right wrist History of esophagogastroduodenoscopy (EGD) H/O gastric bypass Hx of cholecystectomy H/O tubal ligation H/O eye surgery Social History Household Members: Spouse and Children Alcohol intake: current Alcohol intake frequency: holidays/special occasions only Patient Tobacco Use Status: Never used Tobacco Review of Systems Const All systems reviewed & are unremarkable except as noted in HPI and below Physical Exam Vital Signs: Last Vital Signs Pulse 61 04/26/23 10:13 BP 143/67 H 04/26/23 10:13 Pulse Ox 99 04/26/23 10:13 Oxygen Delivery Method Room Air 04/26/23 10:13 BMI result Body Mass Index 26.1 General: Appears afebrile. Alert and oriented. Mood and affect appropriate. Follows and participates in conversation appropriately. Respiratory effort is unlabored. Able to transition from sit to stand unassisted. Ambulates with bilaterally normal heel strike and toe off. Chest Chest palpation & inspection: normal inspection of the chest, normal palpation of entire chest wall, no crepitus and tenderness rib right posterior-axillary line involving the 4th rib and involving the 5th rib Resp Effort & Inspection: normal respiratory effort, no audible wheezes, no cough, no respiratory distress, no retractions and symmetric chest movement Results Reviewed Results Reviewed: XR CHEST 01/10/23 CLINICAL INFORMATION: Right-sided pain. COMPARISON: Chest radiograph 07/08/2022. FINDINGS: Normal appearance of the cardiomediastinal silhouette. Stable mild asymmetric elevation of the right hemidiaphragm. No focal airspace opacity, pleural effusion or pneumothorax. Right upper quadrant surgical clips. No acute osseous findings. IMPRESSION: No acute cardiopulmonary findings. XR THORACIC SPINE 02/17/21 CLINICAL INFORMATION: Back pain FINDINGS: Bone alignment is normal. No fracture or dislocation is seen. There is mild degenerative spondylosis and disc space narrowing of the mid thoracic spine. Paraspinal soft tissues are normal. IMPRESSION: No fracture seen. Mild degenerative changes. 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 However, she continues to experience sharp, stabbing with occasional spasming sensation in the projection of right posterior axillary and mid scapular lines. We will proceed with Baclofen trial and chiropractic adjustments. Side effects were discussed with the patient and instruction provided to avoid taking Baclofen and Flexeril simultaneously. Patient counseled about side effects of abrupt cessation of Baclofen and advised to always have a script on hand during traveling. All questions were answered and the patient is in agreement of plan. Follow-up after chiropractic therapy/medication review and sooner as needed. Orders: Referrals Chiropractic Referral G58.8 - Other specified mononeuropathies, R07.81 - Pleurodynia Medications: New baclofen 10 mg PO TID 30 days 90 tabs 0RF muscle spasms G58.8 - Other specified mononeuropathies, R07.81 - Pleurodynia Discontinued gabapentin Discontinued Reason: Patient no longer taking 300 mg PO BEDTIME 30 days 30 caps 0RF pain G58.8 - Other specified mononeuropathies Coding Level of Care Code Est Pt Level 3 (33423) Diagnoses Intercostal neuralgia G58.8 Rib pain on right side R07.81
[2023-04-26 10:13] VITALS: BP 143/67; PULSE 61; O2SAT 99; BMI 26.1
== END 2023-04-26 10:26 | disposition home or self-care (01) ==
PROVIDERS: PCP Family Medicine; Visit Provider Nurse Practitioner Family
DX: G58.8 Other specified mononeuropathies (principal); R07.81 Pleurodynia
CPT/HCPCS: 99213

== ENCOUNTER → 2023-04-26 10:05 | Outpatient (BNVA) | payer OTHER, MEDICAID, SELFPAY | PROVIDERS: PCP Family Medicine; Visit Provider Nurse Practitioner Family ==

== ENCOUNTER 2023-06-15 10:54 | Outpatient (REF) | payer OTHER, MEDICAID, SELFPAY ==
--- NOTE | ~2023-06-15 | US_ITS ---
EXAMINATION: US PELVIS CLINICAL INFORMATION: Abnormal uterine and vaginal bleeding. LMP 05/13/2023. COMPARISON: 08/18/2019 TECHNIQUE: Ultrasound of the pelvis is performed using both transabdominal and transvaginal transducers along with Doppler. Transvaginal imaging is performed due to inadequate visualization transabdominally. FINDINGS: Uterus: The uterus is anteverted. The uterus measures 7.8 x 4.1 x 4.9 cm. Uterine echotexture is heterogeneous. Endometrial stripe measures 0.8 cm in thickness. Fundal fibroid measures 1.2 x 1.3 x 1.5 cm. Fundal fibroid measures 1.1 x 1.1 x 1.1 cm. Cervical nabothian cysts. Adnexa: Both ovaries are visualized. There is normal color flow to the adnexa. Right ovary measures 3.5 x 1.8 x 1.6 cm. Left ovary measures 2.6 x 1.3 x 1.9 cm. US/US pelvic and transvaginal IMPRESSION: Uterine fibroids.
== END 2023-06-15 10:55 | disposition home or self-care (01) ==
LOC: HO.US 10:54
PROVIDERS: PCP Family Medicine; Visit Provider Advanced Practice Midwife
DX: N93.9 Abnormal uterine and vaginal bleeding, unspecified (principal)
CPT/HCPCS: 76830; 76856

== ENCOUNTER 2023-06-21 08:31 | Outpatient (REF) | payer OTHER, MEDICAID, SELFPAY ==
[2023-06-21 11:20] LABS: MANUAL DIFF FLAG NO
[2023-06-21 11:34] LABS: Basophils Percent Auto 0.5 % (0-2); Eosinophils Absolute Auto 0.3 X10*3/uL (0.0-0.4); Eosinophils Percent Auto 3.5 % (0-4); Hemoglobin 12.4 g/dl (12.0-16.0); Imm Gran Abs Auto 0.02 X10*3/uL (0.00-0.03); Imm Gran Pct Auto 0.3 % (0.0-0.4); Lymphocytes Percent Auto 27.2 % (20-40); Mean Corpuscular HGB Conc 32.6 g/dl (31.0-35.0); Mean Corpuscular Hemoglobin 26.8 pg (27.0-33.0); Mean Corpuscular Volume 82.1 fL (80.0-98.0); Mean Platelet Volume 9.6 fL (9.4-12.3); Monocytes Absolute Auto 0.5 X10*3/uL (0.1-1.2); Monocytes Percent Auto 6.6 % (2-11); Neutrophils Absolute Auto 4.6 x10*3/uL (2.0-8.3); Neutrophils Percent Auto 61.9 % (45-73); Platelet Count 250 X10*3/uL (160-400); Red Blood Count 4.63 X10*6/uL (4.20-5.50); Red Cell Distribution Width 13.7 % (11.0-16.0); White Blood Count 7.4 X10*3/uL (4.8-10.8)
[2023-06-21 12:12] LABS: Alanine Aminotransferase 20 U/L (0-31); Alkaline Phosphatase 54 U/L (39-117); Anion Gap 11 (12-20); Aspartate Amino Transferase 23 U/L (5-31); Bilirubin Direct 0.1 mg/dL (0.0-0.5); Bilirubin Total 0.5 mg/dL (0.0-1.0); Blood Urea Nitrogen 10 mg/dL (9-16); Calcium 9.1 mg/dL (8.4-10.2); Carbon Dioxide 25 mmol/L (22-29); Chloride 107 mmol/L (96-108); Estimated Glomerular Filt Rate > 60; Glucose Random 78 mg/dL (60-115); Iron 74 mcg/dL (30-160); Percent Iron Saturation 20 % (15-50); Potassium 4.2 mmol/L (3.3-5.1); Sodium 139 mmol/L (135-145); Total Iron Binding Capacity 361 mcg/dL (228-428); Unsaturated Iron Binding 287 ug/dL
[2023-06-21 12:22] LABS: Folate 9.9 ng/mL (> or = 4.0)
[2023-06-21 12:28] LABS: Ferritin 12 ng/mL (10-250); TSH reflex Free T4 1.17 uIU/mL (0.32-4.0)
[2023-06-21 12:41] LABS: Creatinine Urine 298.91 mg/dL
[2023-06-21 15:01] LABS: Vitamin B12 902 pg/mL (200-900)
== END 2023-06-21 08:32 | disposition home or self-care (01) ==
LOC: HO.HHCL 08:31
PROVIDERS: Visit Provider Family Medicine
DX: R60.1 Generalized edema (principal); N93.9 Abnormal uterine and vaginal bleeding, unspecified
CPT/HCPCS: 36415; 80048; 80076; 82043; 82570; 82607; 82728; 82746; 83540; 84443; 85025

== ENCOUNTER 2023-08-15 08:52 | Outpatient (AMB) | payer OTHER, MEDICAID, SELFPAY ==
--- NOTE | 2023-08-15 09:00 | A.OFFVIS_ITS ---
Intake Intake Visit Reasons: urodynamics Intake Note: Patient presents today for a URODYNAMIC Procedure: Meds: None Allergies to Antibiotic: No Known Allergies Blood Thinner: None Loan Specialist Required: No Accompanied by: Self / Same As Patient Allergies Seasonal Allergies Allergy (Intermediate, Verified 08/15/23 09:12) Nasal congestion, asthma HPI HPI Comments History of Present Illness Details Carmine is a 43 year old female with h/o of 5 vaginal births She states that she has a sensation of urgency and if she has to hold the urine in her bladder longer she will have a crampy sensation and when she voids she does feel like she empties all of the urine and will push to get more urine out. CMG parameters detailed below. Interpretation: During the filling phase sensory urgency was noted, strong desire was noted at 196 mL without significant detrusor contractions noted bladder capacity was less than average, the patient felt that she was at capacity at 200 mL and voided 312 mL. Leakage was not observed during cough or valsalva. Findings consistent with less than average functional bladder capacity, detrusor overactivity was not objectively seen on graph during the test. There was an intermittent stream during the voiding phase. EMG- Appropriate changes in the waveforms were noted through out the study. I have discussed treatment options to include anticholinergic therapy, Botox bladder injection and neuromodulation. I have discussed neuromodulation - Medtronic interstim therapy- 27 minutes in discussion regarding stage I lead placement into the sacral 3 foramen with a trial period to monitor urinary symptoms and if greater than 50% improvement she would be a candidate for stage II pacemaker placement. She was informed that the Medtronic InterStim system is now MRI compatible. I have discussed risks of Botox bladder injection to include but not limited to hematuria, UTI, urinary retention, need to repeat procedure for sustained efficacy. The patient wants to hold on any procedures for now and is agreeable to trial medication. 25 minutes in discussion regarding plan of care. Detrol LA 4 mg daily sent to pharm/ FU in 6 weeks [facility] Medical History Renal calculi Urinary incontinence UTI (urinary tract infection) Pain PONV (postoperative nausea and vomiting) Abdominal pain GERD (gastroesophageal reflux disease) Carpal tunnel syndrome Endometriosis Seasonal allergies Asthma Surgical History History of carpal tunnel surgery of right wrist History of esophagogastroduodenoscopy (EGD) H/O gastric bypass Hx of cholecystectomy H/O tubal ligation H/O eye surgery Social History Household Members: Spouse and Children Alcohol intake: current Alcohol intake frequency: holidays/special occasions only Patient Tobacco Use Status: Never used Tobacco Review of Systems Const All systems reviewed & are unremarkable except as noted in HPI and below Reports no additional complaints Eyes Reports no additional complaints ENT Reports no additional complaints Card Denies dyspnea Resp Denies cough and Denies dyspnea GI Reports no additional complaints Reports no additional complaints Musc Reports no additional complaints Skin/Breast Denies rash and Denies unusual bruising Neuro Reports no additional complaints Psych Reports no additional complaints Endo Reports no additional complaints Moisés/Lymph Reports no additional complaints Aller/Immun Reports no additional complaints Office Procedures Urodynamic Studies Consent Discussed risk and benefit or proposed procedure with the patient. Information consent for procedure given to the patient. Discussed technical aspects, risks, benefits and alternatives in full. Addressed all of the patient's questions and concerns regarding the procedure. The patient demonstrated knowledge and understanding. They wish to proceed with this procedure. Preparation The patient was prepped in the usual manner. A application integrator was present and in the room. Genitalia was prepped with betadine solution in a sterile manner. Procedure Complex Uroflow Complex uroflow performed by: Alison Frederick Maximum urinary flow rate (mL/second): 15 mL/s Voiding time (seconds): 7.0 s Voided volume (mL): 75 mL Residual urine (mL): 100 mL Cystometrogram Void Pressure Vaginal/rectal catheter type: rectal First sensation at (mL): 29 mL First desire at (mL): 75 mL Strong desire to void occured at (mL): 196 mL Strong desire detrussor pressure (cm H2O): 18 Maximum fill (mL): 201 mL Voided with max detrussor pressure of (cm H2O): 119 Maximum flow rate (mL/second): 11 mL/s 27977-Cxqbktleadpjah w/ PERSONNEL GENERALIST MANAGER 27256-Ewufhro-Lukzgqnhjuzz First 68109-Qmdh/Urinary Muscle Study 19671-Tmlep-Dacaxnvqn Pressure Test Procedure code (CPT) selection complete Office Meds nitrofurantoin monohydrate/macrocrystals 100 mg capsule Performing Provider: Alison Frederick MD [facility] Administered by: Samuel Barone LPN on 08/15/23 11:38 Dose Route Admin Location Dispensed Lot Number Expiration Date NDC International Operations Manager 100 mg PO 1 cap Assessment & Plan Assessment & Plan (1) Urinary urgency: Code(s): R39.15 - Urgency of urination (2) Voiding dysfunction: Code(s): N39.8 - Other specified disorders of urinary system Plan Detrol 4 mg LA daily Orders: Orders AMB Urodynamics Studies 08/15/23 N39.3 - Stress incontinence (female) (male), R32 - Unspecified urinary incontinence, R33.9 - Retention of urine, unspecified Medications: New tolterodine ER 4 mg PO DAILY 30 caps 1RF Coding Level of Care Code Est Pt Level 3 (77685) Diagnoses Urinary urgency R39.15 Voiding dysfunction N39.8 CPT Codes Urodynamic Studies - CPT: 44580-Rxbdiuu-Vllvulmtnufs First ([id number]) Urodynamic Studies - CPT: 44728-Uzkc/Urinary Muscle Study ([id number]) Urodynamic Studies - CPT: 27920-Vmdfr-Hfyydjvgo Pressure Test ([id number]) Urodynamic Studies - CPT: 01490-Qubkpyognaoaqv w/ PERSONNEL GENERALIST MANAGER ([id number]) Time Spent (min) 25 Comment Time spent in discussion regarding plan of care
== END 2023-08-15 10:19 | disposition home or self-care (01) ==
PROVIDERS: PCP Family Medicine; Visit Provider Urology
DX: R33.9 Retention of urine, unspecified (principal); N39.3 Stress incontinence (female) (male)
CPT/HCPCS: 51728; 51741; 51784; 51797; 99213

== ENCOUNTER → 2023-08-15 08:52 | Outpatient (BNVA) | payer OTHER, MEDICAID, SELFPAY | PROVIDERS: PCP Family Medicine; Visit Provider Urology | DX: R39.15 Urgency of urination (principal); N39.8 Other specified disorders of urinary system; N39.3 Stress incontinence (female) (male); R33.9 Retention of urine, unspecified | CPT/HCPCS: 51728; 51741; 51784; 51797 ==

== ENCOUNTER 2023-08-23 13:12 | Outpatient (REF) | payer OTHER, MEDICAID, SELFPAY | END 2023-08-23 13:13 | disposition home or self-care (01) | LOC: HO.LNP 13:12 | PROVIDERS: PCP Family Medicine; Visit Provider Obstetrics & Gynecology | DX: N93.9 Abnormal uterine and vaginal bleeding, unspecified (principal); D25.9 Leiomyoma of uterus, unspecified | CPT/HCPCS: 58100; 81025; 88305 ==

== ENCOUNTER 2023-08-23 13:12 | Outpatient (AMB) | payer OTHER, MEDICAID, SELFPAY ==
[2023-08-23 13:21] VITALS: BP 115/68; BMI 27.5
--- NOTE | 2023-08-23 13:21 | MHC.OFFVIS ---
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 it started few months ago and is getting worse no other associated symptoms. The following workup has been done so far: H&H 12., TSH within normal GC/CT negative 03/17 mammogram BI-RADS 1 07/14 Pap smear= ascus/ HPV negative 06/16 pelvic ultrasound showed the following: Uterus: The uterus is anteverted. The uterus measures 7.8 x 4.1 x 4.9 cm. Uterine echotexture is heterogeneous. Endometrial stripe measures 0.8 cm in thickness. Fundal fibroid measures 1.2 x 1.3 x 1.5 cm. Fundal fibroid measures 1.1 x 1.1 x 1.1 cm. Cervical nabothian cysts. Adnexa: Both ovaries are visualized. There is normal color flow to the adnexa. Right ovary measures 3.5 x 1.8 x 1.6 cm. Left ovary measures 2.6 x 1.3 x 1.9 cm. [facility] Medical History Renal calculi Urinary incontinence UTI (urinary tract infection) Pain PONV (postoperative nausea and vomiting) Abdominal pain GERD (gastroesophageal reflux disease) Carpal tunnel syndrome Endometriosis Seasonal allergies Asthma Surgical History History of carpal tunnel surgery of right wrist History of esophagogastroduodenoscopy (EGD) H/O gastric bypass Hx of cholecystectomy H/O tubal ligation H/O eye surgery Social History Household Members: Children Alcohol intake: current Alcohol intake frequency: holidays/special occasions only Patient Tobacco Use Status: Never used Tobacco Patient : No Female Reproductive History Menstrual Age of Menarche: 8 Duration of menses: 3-5 days Date of last menstrual period: 08/07/23 Review of Systems Const All systems reviewed & are unremarkable except as noted in HPI and below Card Reports as per HPI Resp Reports as per HPI GI Reports as per HPI and Reports no additional complaints Reports as per HPI Physical Exam Vital Signs: Last Vital Signs BP 115/68 08/23/23 13:21 BMI result Body Mass Index 27.5 Const General: cooperative, healthy appearing and comfortable Chest Chest palpation & inspection: normal inspection of the chest and normal palpation of entire chest wall Breast/axilla inspection: normal inspection of the breasts and normal inspection of the axillae Breast/axilla palpation: normal palpation of the breasts, normal palpation of the axillae and no axillary lymphadenopathy Resp Effort & Inspection: normal respiratory effort Auscultation: clear to auscultation bilaterally Percussion: percussion normal Cardio Palpation: normal PMI Rate: regular rate Rhythm: regular rhythm Heart sounds: no murmurs and no rubs Peripheral pulses: Peripheral pulses 2+ throughout GI Inspection: Yes normal to inspection Palpation (GI): Soft to palpation, nontender, no guarding, not rigid and No hepatosplenomegaly present Percussion: Yes normal to percussion Auscultation: normal bowel sounds Rectal Exam - Female: deferred General: Yes bladder normal to palpation External Female Exam: No lesion Speculum Exam - Vagina: normal appearance of the vagina, normal palpation, normal vaginal discharge and not erythematous Speculum Exam - Cervix: normal appearance of the cervix and normal palpation Bimanual exam- vagina & uterus: normal bimanual exam, normal palpation, uterine size normal, bladder normal to palpation, consistency normal and normal palpation Bimanual Exam- Adnexa, other: normal adnexae, no masses and no tenderness Office Procedures Endometrial Biopsy Details: The patient was counseled regarding the indication and benefits of endometrial sampling to rule out endometrial pathology including not limited to endometrial hyperplasia or endometrial cancer and others; The alternatives (Either do nothing vs. hysteroscopy D&C) & the risks were discussed with the patient including but not limited: pain, uterine perforation, bleeding, infection, possible injury to bladder, bowel, ureter, possible need for blood transfusion with all its possible risks. The patient verbalized understanding all questions answered and signed consent. Urine test done in the office was negative The patient was placed into the dorsal lithotomy position; a speculum was inserted in the vagina. Using aseptic technique for the procedure, the cervix was cleansed with Betadine. The anterior lip of the cervix was grasped with a single tooth tenaculum. The uterus was sounded to 7 cm with a 4 mm Pipelle was used. Tissues samples were obtained and placed in formalin, in a patient labeled container and sent to the pathology department. At the end of the procedure, there was minimal bleeding noted The patient tolerated the procedure well and was discharged in good condition with the following instructions: Nothing in the vagina until the bleeding stops. No sex until the bleeding stops, to call if any of the following occurs: fever (>100.4), flu-like symptoms, abdominal pain, heavy bleeding, four smelling vaginal discharge. The patient was instructed to schedule a Follow up appointment in 2 weeks to discuss pathology results of the biopsy and treatment options. This note was generated with a voice recognition program. Some errors may have been overlooked during the review of this note. Sometimes these errors may affect the content or meaning of a given sentence. 03220-Zqmjujtqblv Biopsy Results AMB Test Urine AMB Test Urine Negative Last Edit by Lashell Thakur MA on 08/23/23 13:30 Results Reviewed Results Reviewed: Laboratory Last Values Tst Clinic Negative 08/23/23 13:30 Assessment & Plan Assessment & Plan (1) Abnormal uterine bleeding (AUB): Code(s): N93.9 - Abnormal uterine and vaginal bleeding, unspecified Plan: Discussed with the patient the different causes of abnormal bleeding including thyroid disorders, uterine and ovarian pathology, endometrial hyperplasia, carcinoma and other potential causes. Discussed with the patient the work up ordered including CBC (to r/o anemia), prolactin, TSH, pelvic Ultrasound, recommended endometrial biopsy to r/o endometrial pathology. EMB done, see procedure note. All questions answered and the patient verbalized understanding. Instructed the patient to schedule an appointment for an endometrial biopsy in 2 weeks. (2) Uterine myoma: Code(s): D25.9 - Leiomyoma of uterus, unspecified Plan: Discussed with the patient the results of the ultrasound and the size of the myomas. Discussed with the patient risk of myosarcoma and symptoms that are caused by myomas including but not limited to pelvic pain, pressure symptoms, abnormal uterine bleeding. In addition discussed with the patient options of treatment for myomas including: Serial ultrasounds periodically to follow-up on the size of the myoma while targeting the treatment against fibroids related symptoms ( control pills, Mirena IUD, progesterone treatment, GnRH agonist/antagonist, uterine artery embolization or endometrial ablation) versus surgical treatment including hysterectomy and or myomectomy. All pros and cons, risks and benefits of all options were discussed with the patient. The patient understands that delay in surgical treatment in case of myosarcoma can affect her prognosis, after further discussion, the patient decided to think about it and get back to us next visit Orders: Orders TSH reflex Free T4 Today N93.9 - Abnormal uterine and vaginal bleeding, unspecified HCG Quantitative Today N93.9 - Abnormal uterine and vaginal bleeding, unspecified Complete Blood Count no Diff Today N93.9 - Abnormal uterine and vaginal bleeding, unspecified Lutenizing Hormone Today N93.9 - Abnormal uterine and vaginal bleeding, unspecified Follicle Stimulating Hormone Today N93.9 - Abnormal uterine and vaginal bleeding, unspecified AMB Endometrial Biopsy Today N93.9 - Abnormal uterine and vaginal bleeding, unspecified AMB HCG Urine Test Today Z32.02 - Encounter for test, result negative Prolactin Today N93.9 - Abnormal uterine and vaginal bleeding, unspecified Coding Level of Care Code Est Pt Level 3 (14407) Diagnoses Abnormal uterine bleeding (AUB) N93.9 Uterine myoma D25.9 CPT Codes Endometrial Biopsy - CPT: 27222-Akqjxehpoha Biopsy ([id number])
== END 2023-08-23 13:52 | disposition home or self-care (01) ==
PROVIDERS: PCP Family Medicine; Visit Provider Obstetrics & Gynecology
DX: N93.9 Abnormal uterine and vaginal bleeding, unspecified (principal); D25.9 Leiomyoma of uterus, unspecified; Z32.02 Encounter for pregnancy test, result negative
CPT/HCPCS: 58100; 99213

== ENCOUNTER 2023-09-24 14:08 | Outpatient (REF) | payer OTHER, MEDICAID, SELFPAY ==
[2023-09-24 16:22] LABS: Hematocrit 36.8 % (37.0-47.0); Hemoglobin 11.9 g/dl (12.0-16.0); Mean Corpuscular HGB Conc 32.3 g/dl (31.0-35.0); Mean Corpuscular Hemoglobin 25.9 pg (27.0-33.0); Mean Platelet Volume 10.2 fL (9.4-12.3); Platelet Count 242 X10*3/uL (160-400); Red Cell Distribution Width 13.6 % (11.0-16.0); White Blood Count 7.7 X10*3/uL (4.8-10.8)
[2023-09-24 16:57] LABS: HCG Quantitative < 2 mIU/mL; TSH reflex Free T4 1.14 uIU/mL (0.32-4.0)
[2023-09-25 21:53] LABS: Follicle Stimulating Hormone 7.8 mIU/mL; Lutenizing Hormone 7.3 mIU/mL; Prolactin 6.6 ng/mL
== END 2023-09-24 14:09 | disposition home or self-care (01) ==
LOC: HO.HHCL 14:08
PROVIDERS: Visit Provider Obstetrics & Gynecology
DX: N93.9 Abnormal uterine and vaginal bleeding, unspecified (principal)
CPT/HCPCS: 36415; 83001; 83002; 84146; 84443; 84702; 85027

== ENCOUNTER 2023-09-24 14:17 | Outpatient (REF) | payer OTHER, MEDICAID, SELFPAY ==
[2023-09-24 16:59] LABS: Appearance Urine Clear; Color Urine Yellow; Glucose Urine UA Negative (Negative); Leukocyte Esterase Urine Negative (Negative); Nitrite Urine Negative (Negative); Specific Gravity - Urine 1.015 (1.005-1.025); Urine Blood Negative (Negative); Urine Ketones Negative (Negative); Urine Protein Negative (Neg-Trace)
[2023-09-24 17:03] LABS: Bacteria Urine None Seen (None Seen); Hyaline Casts Urine 0-2 /LPF (0-2); RBC Urine 0-2 /HPF (0-2); Squamous Epithelial Cell Urine 0-2 /HPF (0-2); WBC Urine 0-5 /HPF (0-5)
== END 2023-09-24 14:18 | disposition home or self-care (01) ==
LOC: HO.HHCL 14:17
PROVIDERS: Visit Provider Urology
DX: R33.9 Retention of urine, unspecified (principal); N39.0 Urinary tract infection, site not specified
CPT/HCPCS: 81001; 87086

== ENCOUNTER 2023-09-27 13:47 | Outpatient (AMB) | payer OTHER, MEDICAID, SELFPAY ==
[2023-09-27 13:55] VITALS: BP 102/60; BMI 27.5
--- NOTE | 2023-09-27 13:55 | MHC.OFFVIS ---
Intake Vital Signs 09/27/23 13:55 Height 5 ft 4 in Weight 160 lb BMI 27.5 BP 102/60 Blood Pressure Location Lt brachial Position Sitting Intake Visit Reasons: EMB results Information Clerk Cashier Required: No Information Interpreted: non-clinical & clinical Manager Transport: Manager Transport Present Accompanied by: Self / Same As Patient Allergies Seasonal Allergies Allergy (Intermediate, Verified 09/27/23 13:56) Nasal congestion, asthma HPI HPI Comments History of Present Illness Details The patient is presenting for follow-up to discuss the results of her abnormal uterine bleeding workup and options of treatment. The following workup was done.: H&H= 11.9/36.8 TSH, prolactin, hCG, GC and chlamydia were negative. FSH/LH in the premenopausal range Endometrial biopsy pathology showed benign proliferative endometrium with no evidence of hyperplasia and/or malignancy. Co testing was done in 07/14 was ascus/HPV negative Mammogram in 03/17 was BI-RADS 1 Pelvic ultrasound showed the following: Uterus: The uterus is anteverted. The uterus measures 7.8 x 4.1 x 4.9 cm. Uterine echotexture is heterogeneous. Endometrial stripe measures 0.8 cm in thickness. Fundal fibroid measures 1.2 x 1.3 x 1.5 cm. Fundal fibroid measures 1.1 x 1.1 x 1.1 cm. Cervical nabothian cysts. Adnexa: Both ovaries are visualized. There is normal color flow to the adnexa. Right ovary measures 3.5 x 1.8 x 1.6 cm. Left ovary measures 2.6 x 1.3 x 1.9 cm. [facility] Medical History Renal calculi Urinary incontinence UTI (urinary tract infection) Pain PONV (postoperative nausea and vomiting) Abdominal pain GERD (gastroesophageal reflux disease) Carpal tunnel syndrome Endometriosis Seasonal allergies Asthma Surgical History History of carpal tunnel surgery of right wrist History of esophagogastroduodenoscopy (EGD) H/O gastric bypass Hx of cholecystectomy H/O tubal ligation H/O eye surgery Social History Household Members: Children Alcohol intake: current Alcohol intake frequency: holidays/special occasions only Patient Tobacco Use Status: Never used Tobacco Female Reproductive History Menstrual Age of Menarche: 8 Review of Systems Const All systems reviewed & are unremarkable except as noted in HPI and below Reports as per HPI and Reports no additional complaints GI Reports no additional complaints Reports no additional complaints Physical Exam Vital Signs: Last Vital Signs BP 102/60 09/27/23 13:55 BMI result Body Mass Index 27.5 Assessment & Plan Assessment & Plan (1) Abnormal uterine bleeding (AUB): Code(s): N93.9 - Abnormal uterine and vaginal bleeding, unspecified Plan: Discussed with the patient the results of the work up done and options of treatment including Lysteda, control pills, Mirena IUD, endometrial ablation and hysterectomy. All pros, cons, risks and benefits if each option was discussed with the patient and the patient decided to go ahead with Mirena IUD so a more detailed discussion about it was conducted including mechanism of action, risks (uterine perforation, infection, injury to bladder, bowel, displacement, and others) benefits (hypo menorrhea, amenorrhea, ...). GC/CT were taken and the patient was instructed to schedule Mirena IUD insertion on day 1-5 of next cycle . All questions answered, the patient verbalized understanding (2) Uterine myoma: Code(s): D25.9 - Leiomyoma of uterus, unspecified Plan: Discussed with the patient the findings on pelvic ultrasound & the risk of myosarcoma; discussed with the patient the options of treatment including expectant management versus hysterectomy; the pros and cons, risks benefits of each approach were discussed with the patient including the fact that in cases of myosarcoma, surgical treatment can lead to early diagnosis and positively affects the prognosis; after further discussion, the patient decided to proceed with expectant management. Will repeat pelvic ultrasound periodically. Instructions given to patient to call in case any of the following occurs: pressure symptoms, abnormal uterine bleeding, pelvic pain; and to schedule a six-month Ana ultrasound and a follow-up appointment. All questions answered, the patient verbalized understanding and agreed with the plan . Coding Level of Care Code Est Pt Level 3 (48685) Diagnoses Abnormal uterine bleeding (AUB) N93.9 Uterine myoma D25.9
== END 2023-09-27 14:21 | disposition home or self-care (01) ==
PROVIDERS: PCP Family Medicine; Visit Provider Obstetrics & Gynecology
DX: N93.9 Abnormal uterine and vaginal bleeding, unspecified (principal); D25.9 Leiomyoma of uterus, unspecified
CPT/HCPCS: 99213

== ENCOUNTER → 2023-09-27 13:47 | Outpatient (BNVA) | payer OTHER, MEDICAID, SELFPAY | PROVIDERS: PCP Family Medicine; Visit Provider Obstetrics & Gynecology ==

== ENCOUNTER 2023-12-24 11:37 | Outpatient (REF) | payer OTHER, MEDICAID, SELFPAY ==
[2023-12-24 13:16] LABS: MANUAL DIFF FLAG NO
[2023-12-24 13:50] LABS: Basophils Absolute Auto 0.1 X10*3/uL (0.0-0.2); Basophils Percent Auto 0.7 % (0-2); Eosinophils Absolute Auto 0.4 X10*3/uL (0.0-0.4); Eosinophils Percent Auto 5.2 % (0-4); Hemoglobin 12.1 g/dl (12.0-16.0); Imm Gran Abs Auto 0.02 X10*3/uL (0.00-0.03); Imm Gran Pct Auto 0.3 % (0.0-0.4); Lymphocytes Absolute Auto 2.6 X10*3/uL (1.2-4.9); Lymphocytes Percent Auto 37.8 % (20-40); Mean Corpuscular Hemoglobin 24.7 pg (27.0-33.0); Mean Corpuscular Volume 79.6 fL (80.0-98.0); Mean Platelet Volume 9.7 fL (9.4-12.3); Monocytes Absolute Auto 0.6 X10*3/uL (0.1-1.2); Monocytes Percent Auto 8.3 % (2-11); Neutrophils Absolute Auto 3.3 x10*3/uL (2.0-8.3); Neutrophils Percent Auto 47.7 % (45-73); Platelet Count 282 X10*3/uL (160-400); Red Cell Distribution Width 14.7 % (11.0-16.0)
[2023-12-24 14:09] LABS: Rheumatoid Factor < 13.0 IU/mL (<15.0)
[2023-12-24 14:21] LABS: C Reactive Protein 0.23 mg/dL (< or = 0.50); Cholesterol 252 mg/dL (<200); Ferritin 9 ng/mL (10-250); HDL Cholesterol 76 mg/dL (>40); Iron 40 mcg/dL (30-160); LDL Cholesterol Calculated 144 mg/dL (<100); Percent Iron Saturation 10 % (15-50); Total Iron Binding Capacity 417 mcg/dL (228-428); Triglycerides 160 mg/dL (<150); Unsaturated Iron Binding 377 ug/dL; Vitamin D 25-OH Total 41.2 ng/mL (>30)
[2023-12-24 14:33] LABS: Erythrocyte Sedimentation Rate 12 MM/HR (0-20)
[2023-12-24 14:39] LABS: Folate 13.7 ng/mL (> or = 4.0); Vitamin B12 1100 pg/mL (200-900)
[2023-12-25 21:09] LABS: Anti DNA DS Antibody 1 IU/mL
[2023-12-31 15:12] LABS: Anti Nuclear Antibody Screen NEGATIVE (NEGATIVE)
== END 2023-12-24 11:38 | disposition home or self-care (01) ==
LOC: HO.HHCL 11:37
PROVIDERS: Visit Provider Family Medicine
DX: E55.9 Vitamin D deficiency, unspecified (principal); R52 Pain, unspecified; D64.9 Anemia, unspecified; Z98.84 Bariatric surgery status; E66.9 Obesity, unspecified
CPT/HCPCS: 36415; 80061; 82306; 82607; 82728; 82746; 83540; 84443; 85025; 85652; 86038; 86140; 86225; 86431

== ENCOUNTER 2024-01-01 10:56 | Outpatient (AMB) | payer OTHER, MEDICAID, SELFPAY ==
--- NOTE | 2024-01-01 10:57 | A.OFFVIS_ITS ---
Vital Signs 01/01/24 11:04 Height 5 ft 4 in Weight 160 lb BMI 27.5 BP 148/64 H Blood Pressure Location Rt brachial Position Sitting Pulse 70 Intake Visit Reasons: Ventral hernia Intake Note: Patient referred by PCP Dr. Cobos for ventral hernia. First noticed about 1m ago after experienced pain 1m ago. Patient c/o: pain when bending and when pressing down on it. 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 She did not recall any specific incident that brought this on. She has had several prior surgeries but this is not near any of her incisions. Patient has had bariatric laparoscopic surgery as well as laparoscopic cholecystectomy. Patient is otherwise tolerating her diet, she is regular bowel habits. No other GI issues or complaints. Hernia becomes symptomatic with strenuous activities and excessive bending. Chart was reviewed and patient evaluated [facility] Medical History Renal calculi Urinary incontinence UTI (urinary tract infection) Pain PONV (postoperative nausea and vomiting) Abdominal pain GERD (gastroesophageal reflux disease) Carpal tunnel syndrome Endometriosis Seasonal allergies Asthma Surgical History History of carpal tunnel surgery of right wrist History of esophagogastroduodenoscopy (EGD) H/O gastric bypass Hx of cholecystectomy H/O tubal ligation H/O eye surgery Social History Household Members: Children Alcohol intake: current Alcohol intake frequency: holidays/special occasions only Patient Tobacco Use Status: Never used Tobacco Female Reproductive History Menstrual Age of Menarche: 8 Physical Exam Vital Signs: Last Vital Signs Pulse 70 01/01/24 11:04 BP 148/64 H 01/01/24 11:04 BMI result Body Mass Index 27.5 Chest Other: Chest breath sounds bilaterally, HS 1 in 2 GI Other: Patient was examined both supine and standing with Valsalva. Several cm above the umbilicus is a reducible roughly 3 cm ventral hernia. Assessment & Plan Assessment & Plan (1) Ventral hernia: Code(s): K43.9 - Ventral hernia without obstruction or gangrene Category: Surgical Plan Risks, benefits, alternatives of supraumbilical ventral hernia repair with mesh were reviewed with the patient included but not limited to bleeding, infection, recurrence, numbness, pain, scarring and the patient wishes to proceed. All questions answered. I also stressed the patient needs 4-6 weeks post procedure for convalescence. All questions answered. Coding Level of Care Code New Pt Level 5 (00406) Diagnoses Ventral hernia K43.9
[2024-01-01 11:04] VITALS: BP 148/64; PULSE 70; BMI 27.5
== END 2024-01-01 11:17 | disposition home or self-care (01) ==
PROVIDERS: PCP Family Medicine; Referring Provider Family Medicine; Visit Provider Surgery
DX: K43.9 Ventral hernia without obstruction or gangrene (principal)
CPT/HCPCS: 99204

== ENCOUNTER → 2024-01-01 10:56 | Outpatient (BNVA) | payer OTHER, MEDICAID, SELFPAY | PROVIDERS: PCP Family Medicine; Referring Provider Family Medicine; Visit Provider Surgery ==

== ENCOUNTER 2024-02-29 11:29 | Outpatient (REF) | payer OTHER, MEDICAID, SELFPAY ==
--- NOTE | ~2024-02-29 | US_ITS ---
EXAMINATION: US PELVIS CLINICAL INFORMATION: Uterine fibroid COMPARISON: Pelvic ultrasound June 15, 2023 TECHNIQUE: Ultrasound of the pelvis is performed using both transabdominal and transvaginal transducers along with Doppler. Transvaginal imaging is performed due to inadequate visualization transabdominally. FINDINGS: Uterus: The uterus is anteverted and measures 9.6 x 4 x 4.6 cm. The double wall endometrial thickness is 11 mm. The uterus is smooth in contour and has normal myometrial echogenicity. No visible fibroid. Adnexa: Both ovaries are visualized. There is normal color flow to the adnexa. There is no ovarian torsion. There is no pelvic ascites or fluid collection. Right ovary measures 2.8 x 2 x 2.5 cm. Volume is 7.2 cm. Simple cyst measuring 1.6 x 1.3 x 1.6 cm, almost certainly benign. Left ovary measures 2.4 x 0.7 x 1 cm. Volume is 0.8 mL. US/US pelvic and transvaginal IMPRESSION: Uterine fibroid measuring 1.3 x 0.8 x 1.1 cm, previously 1.2 x 1.3 x 1.5 cm. The previously noted second fibroid was not appreciated on today's exam. Electronically signed by: Alejandro Conde MD 03/06/2024 11:24 AM EDT
== END 2024-02-29 11:30 | disposition home or self-care (01) ==
LOC: HO.US 11:29
PROVIDERS: PCP Family Medicine; Visit Provider Obstetrics & Gynecology
DX: D25.9 Leiomyoma of uterus, unspecified (principal)
CPT/HCPCS: 76830; 76856

== ENCOUNTER 2024-03-06 08:08 | Day surgery (SDC) | payer OTHER, MEDICAID, SELFPAY ==
[2024-03-04 10:01] VITALS: BMI 27.5
--- NOTE | 2024-03-05 10:13 | HO.ANESPROP2 ---
HPI - Anesthesia Eval Consult details Narrative: 43yo F for Hernia SupraUmbilical ventral Reducible with mesh PMFSH Active Problems Active Problems: All Active Problems Ventral hernia (Acute) Uterine myoma (Acute) Abnormal uterine bleeding (AUB) (Acute) Voiding dysfunction (Acute) Urinary urgency (Acute) Intercostal neuralgia (Acute) History of COVID-19 (Acute) Rib pain on right side (Acute) COVID-19 (Acute) Hydronephrosis (Acute) Flank pain (Acute) BETZY (stress urinary incontinence, female) (Acute) Incomplete bladder emptying (Acute) Renal calculi (Acute) Urinary incontinence (Acute) UTI (urinary tract infection) (Acute) Endometriosis (Acute) Well woman exam (Acute) Abdominal pain (Acute) GERD (gastroesophageal reflux disease) (Acute) Past Medical History Medical History Renal calculi Urinary incontinence UTI (urinary tract infection) Pain PONV (postoperative nausea and vomiting) Abdominal pain GERD (gastroesophageal reflux disease) Carpal tunnel syndrome Endometriosis Seasonal allergies Asthma Surgical History Surgical History History of carpal tunnel surgery of right wrist History of esophagogastroduodenoscopy (EGD) H/O gastric bypass Hx of cholecystectomy H/O tubal ligation H/O eye surgery History of Problems with Anesthesia: No Social History Social History Household Members: Children Alcohol intake: current Alcohol intake frequency: holidays/special occasions only Patient Tobacco Use Status: Never used Tobacco Meds Allergies Allergy/AdvReac Type Severity Reaction Status Date / Time Seasonal Allergies Allergy Intermediate Nasal Verified 01/01/24 11:02 congestion, asthma Home Medications ?Medication ?Instructions ?Recorded ?Confirmed ?Last Taken ?Type fluticasone propionate 50 1 spray intranasal DAILY 12/11/20 01/01/24 Unknown History mcg/actuation nasal spray,suspension cetirizine 10 mg tablet 10 mg PO DAILY PRN Allergy Symptoms 02/18/21 01/01/24 Unknown History albuterol sulfate 90 mcg/actuation 0 mcg inhalation 08/16/22 01/01/24 Unknown History aerosol inhaler montelukast 10 mg tablet 10 mg PO DAILY 08/16/22 01/01/24 Unknown History Exam Height,Weight and Vital Signs: Height 5 ft 4 in Weight 72.575 kg Pertinent Lab Results Pertinent Lab Results: Laboratory Tests 12/24/23 11:40 WBC 7.0 Hgb 12.1 Hct 39.0 Plt Count 282 Assessment and Plan Assessment Anesthesia Assessment: Chart Reviewed Final Anesthetic Review History of Problems with Anesthesia: No
--- NOTE | 2024-03-05 20:21 | P.HPSUR_ITS ---
Pre-Procedural Eval Section A - 24 Hr Update-Section A only Date of Service: 03/06/24 The patient is an INPATIENT: No Changes since office visit: No Cold of Flu in the past 2 weeks, No New Medical Problems, No Changes in Medication and No Patient answered all questions Section B - Complete if H&P > 30 days Chief Complaint: Ventral hernia without obstruction or gangrene Allergies: Allergies Allergy/AdvReac Type Severity Reaction Status Date / Time Seasonal Allergies Allergy Intermediate Nasal Verified 01/01/24 11:02 congestion, asthma Review of Systems Sugical H&P ROS: Negative: Constitution, Cardiovascular, Respiratory, Neurological, Psychiatric, Hem-Onc, Allergic/Immunologic, Gastrointestinal, Genitourinary, Musculoskeletal, Integumentary, Endocrine and Eyes/Ears/Nose/Throat Exam Surgical H&P Exam: Normal: HEENT, Normal: Heart, Normal: Lungs, Normal: Extremit ies, Normal: Abdomen, Normal: Skin and Normal: Neurological Plan I have reviewed the history and physical and performed a pertinent physical examination on my patient. No changes have occurred unless specified. Time Spent With Patient Time: Total time managing care of this patient today ____ minutes.
[2024-03-06] VITALS (8 sets, daily range): BP systolic 102–131; BP diastolic 51–67; PULSE 43–67; RESP 16; TEMP 36.1–36.4; O2SAT 96–100; BMI 28.0
[2024-03-06] MEDS: Scopolamine 1.5 MG PATCH.TD.3 TRANSDERMA (09:41)
[2024-03-06] MEDS: Lactated Ringers 1,000 ML 100 ML IVCONT (10:12)
--- NOTE | 2024-03-06 11:09 | P.CONAN_ITS ---
[facility] Active Problems Active Problems: All Active Problems Ventral hernia (Acute) Uterine myoma (Acute) Abnormal uterine bleeding (AUB) (Acute) Voiding dysfunction (Acute) Urinary urgency (Acute) Intercostal neuralgia (Acute) History of COVID-19 (Acute) Rib pain on right side (Acute) COVID-19 (Acute) Hydronephrosis (Acute) Flank pain (Acute) BETZY (stress urinary incontinence, female) (Acute) Incomplete bladder emptying (Acute) Well woman exam (Acute) Endometriosis (Acute) Renal calculi (Acute) Urinary incontinence (Acute) UTI (urinary tract infection) (Acute) Abdominal pain (Acute) GERD (gastroesophageal reflux disease) (Acute) Past Medical History Medical History Renal calculi Urinary incontinence UTI (urinary tract infection) Pain PONV (postoperative nausea and vomiting) Abdominal pain GERD (gastroesophageal reflux disease) Carpal tunnel syndrome Endometriosis Seasonal allergies Asthma Functional capacity: independent ambulation Patient : No Family History Family history of problems with anesthesia: No Surgical History Surgical History H/O abdominal surgery History of carpal tunnel surgery of right wrist History of esophagogastroduodenoscopy (EGD) H/O gastric bypass Hx of cholecystectomy H/O tubal ligation H/O eye surgery History of Problems with Anesthesia: No Social History Social History Household Members: Children Are you a primary child care specialist to a significant other at home: No Do you presently have visiting nurse or other home services: No Alcohol intake: current Alcohol intake frequency: does not drink Patient Tobacco Use Status: Never used Tobacco Use of substances other than those prescribed or required for medical reasons: No Have you been hit, kicked, punched, or otherwise hurt by someone within the past year? If so, by whom?: No Are you DNR?: No Advance Directives: No Advance Directives Information Provided: Yes Recently lost weight without trying: No How much weight loss: Not applicable Eating poorly because of decreased appetite: No Nutrition screen score: 0 Nutrition Risks: No Nutritional Risk Patient : No : No Poor oral hygiene: No Meds Allergies Allergy/AdvReac Type Severity Reaction Status Date / Time No Known Allergies Allergy Verified 03/06/24 09:16 Active Medications: Current Medications Albuterol Sulfate (Albuterol Sulfate (0.083%) 2.5 Mg/3 Ml Vial.Neb) 2.5 mg INHALE ONCE PRN PRN Reason: Shortness of Breath/Wheezing Lactated Ringer's (Lr) 1,000 mls @ 100 mls/hr IVCONT .Q10H KRISHAN Last Admin: 03/06/24 10:12 Dose: 100 mls/hr Home Medications ?Medication ?Instructions ?Recorded ?Confirmed ?Last Taken ?Type fluticasone propionate 50 1 spray intranasal DAILY 12/11/20 03/06/24 Unknown History mcg/actuation nasal spray,suspension cetirizine 10 mg tablet 10 mg PO DAILY PRN Allergy Symptoms 02/18/21 03/06/24 Unknown History albuterol sulfate 90 mcg/actuation 0 mcg inhalation NEEDED PRN 08/16/22 03/06/24 Unknown History aerosol inhaler asthma montelukast 10 mg tablet 10 mg PO DAILY 08/16/22 03/06/24 Unknown History Exam Height,Weight and Vital Signs: Height 5 ft 4 in Weight 74.026 kg Last Vital Signs Temp 97.3 F 03/06/24 09:22 Pulse 46 L 03/06/24 09:22 Resp 16 03/06/24 09:22 BP 131/67 03/06/24 09:22 Pulse Ox 100 03/06/24 09:22 O2 Del Method Room Air 03/06/24 09:22 Airway Mallampati Class: II TM Dist: >3cm Neck ROM: Full Heart: RRR Lungs: CTA Assessment and Plan Assessment Anesthesia Assessment: Anesthesia Plan Discussed and Chart Reviewed Final Anesthetic Review Family History of Problems with Anesthesia: No History of Problems with Anesthesia: No NPO: Yes ASA Class: II Final Preanesthetic Review: Meds/Allgs Chart Reviewed, Consent Obtained/Reviewed and Anes Risks/Benef Reviewed Patient Risk: Intermediate Procedure Risk: Low Anesthetic Plan Anesthetic Plan: GA Disposition: Standard PACU
--- NOTE | 2024-03-06 13:09 | PC.NURSE ---
Patient in preop. SB on monitor. At rest, mid 40's. Last EKG also SB. Per patient I see cardiology yearly for bradycardia, nothing else is wrong with my heart, we just monitor it . Dr. Motley at bedside and made aware.
--- NOTE | 2024-03-06 13:48 | P.OP_ITS ---
Operative Note Operative Note Date of Service: 03/06/24 Narrative: Preoperative diagnosis: [] Supraumbilical ventral hernia Postop diagnosis: [] Supraumbilical large lipoma Procedure [] excision supraumbilical abdominal wall lipoma Surgeon: [] [employer] Specialist: [] Juan Diego Type of Anesthesia: [] General Indication for surgery: [] Very corpulent abdomen. Supraumbilical mass clinically felt to be a ventral hernia. Intraoperative findings demonstrated a large lipomatous mass measuring approximately 5 x 3 cm. Findings: [] Patient brought to the operating room, placed on operative table supine position, after an adequate level of general anesthesia was induced, the patient's abdomen was prepped and draped in usual sterile fashion using a transverse incision over the mass in question, this carried down through skin, subcutaneous tissue, were large lobulated lipoma was identified uneventfully excised. Exploration of the fascia demonstrated no hernia defects. Specimen sent to pathology. Wound was irrigated, secured hemostasis, and closed using interrupted inverted dermal 3-0 Vicryl sutures followed by Steri-Strips and sterile dressings. Wound was infiltrated at the beginning at the end with 0.5% Marcaine. Sponge, needle, and instrument counts reported correct. Patient tolerated the procedure well and emerged from anesthesia stable condition. EBL minimal
--- NOTE | 2024-03-06 14:07 | HO.POSTANES ---
Post Anesthesia Evaluation Post Anesthesia Evaluation Date of Service: 03/06/24 Vital Signs: Vital Signs Temp Pulse Resp BP Pulse Ox O2 Del Method 03/06/24 09:22 97.3 F 46 L 16 131/67 100 Room Air Anesthesia: General LMA Mental Status: Awake Pain Control: Satisfactory Nausea/Vomiting: None Hydration: Adequate Anesthesia-Related Issues: No Anes. Related Issues
[2024-03-06] MEDS: Acetaminophen 1,000 MG/100 ML PIGGYBACK 400 MG IV (14:33)
== END 2024-03-06 15:27 | disposition home or self-care (01) ==
PROVIDERS: PCP Family Medicine; Visit Provider Surgery
PROC: (CPT 22903; principal; 2024-03-06 12:00)
DX: D17.5 Benign lipomatous neoplasm of intra-abdominal organs (principal); E65 Localized adiposity; Z98.84 Bariatric surgery status; J45.909 Unspecified asthma, uncomplicated; K21.9 Gastro-esophageal reflux disease without esophagitis; N20.0 Calculus of kidney; N80.9 Endometriosis, unspecified; Z79.51 Long term (current) use of inhaled steroids; Z79.899 Other long term (current) drug therapy; Z98.890 Other specified postprocedural states
CPT/HCPCS: 22903; 88304; J0131; J0690; J1100; J2250; J2405; J2704; J2795; J3010

== ENCOUNTER → 2024-03-06 08:08 | Outpatient (BNV) | payer OTHER, MEDICAID, SELFPAY | PROVIDERS: PCP Family Medicine; Visit Provider Surgery | DX: D17.1 Benign lipomatous neoplasm of skin and subcutaneous tissue of trunk (principal) | CPT/HCPCS: 22903 ==

== ENCOUNTER 2024-03-17 10:03 | Outpatient (AMB) | payer OTHER, MEDICAID, SELFPAY ==
--- NOTE | 2024-03-17 10:05 | MHC.OFFVIS ---
Intake Visit Reasons: S/P repair supraumbilical ventral hernia w/mesh Intake Note: Patient c/o: Patient here s/p repair supraumbilical ventral hernia w/mesh. Reports incisions healing well. Patient c/o: tender to touch along incision on abdomen. Never took rx pain meds. 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 He is doing quite well. Starting a diet. Having regular bowel habits. She has minimal incisional discomfort. Pathology was consistent with a large lipoma. [facility] Medical History Renal calculi Urinary incontinence UTI (urinary tract infection) Pain PONV (postoperative nausea and vomiting) Abdominal pain GERD (gastroesophageal reflux disease) Carpal tunnel syndrome Endometriosis Seasonal allergies Asthma Surgical History (Updated 03/17/24 @ 10:19 by Eric Benjamin MD) Ventral hernia (03/06/24) H/O abdominal surgery History of carpal tunnel surgery of right wrist History of esophagogastroduodenoscopy (EGD) H/O gastric bypass Hx of cholecystectomy H/O tubal ligation H/O eye surgery Social History Household Members: Children Are you a primary progressive care nurse to a significant other at home: No Do you presently have visiting nurse or other home services: No Alcohol intake: current Alcohol intake frequency: does not drink Patient Tobacco Use Status: Never used Tobacco Female Reproductive History Menstrual Age of Menarche: 8 Physical Exam GI Other: Abdomen is soft. Wound clean dry and intact. Assessment & Plan Assessment & Plan (1) Lipoma of abdominal wall: Code(s): D17.1 - Benign lipomatous neoplasm of skin and subcutaneous tissue of trunk Category: Surgical (2) Postop check: Code(s): Z09 - Encounter for follow-up examination after completed treatment for conditions other than malignant neoplasm Category: Surgical Plan Patient was given local instructions, and will otherwise follow-up p.r.n.. All questions answered. Coding Level of Care Code Global (29663) Diagnoses Lipoma of abdominal wall D17.1 Postop check Z09
== END 2024-03-17 10:21 | disposition home or self-care (01) ==
PROVIDERS: PCP Family Medicine; Visit Provider Surgery
DX: D17.1 Benign lipomatous neoplasm of skin and subcutaneous tissue of trunk (principal); Z09 Encounter for follow-up examination after completed treatment for conditions other than malignant neoplasm
CPT/HCPCS: 99024

== ENCOUNTER → 2024-03-17 10:03 | Outpatient (BNVA) | payer OTHER, MEDICAID, SELFPAY | PROVIDERS: PCP Family Medicine; Visit Provider Surgery ==

== ENCOUNTER 2024-03-19 18:40 | Emergency (ER) | payer OTHER, MEDICAID, SELFPAY ==
[2024-03-19 19:11] VITALS: BP 130/68; PULSE 62; RESP 16; TEMP 36.2; O2SAT 98; BMI 27.5
--- NOTE | 2024-03-19 19:17 | ED_ITS ---
HPI - Skin/Abscess/Foreign Bdy General Chief complaint: Skin/Abscess/Foreign Body Stated complaint: ?incision site infected Time Seen by Provider: 03/19/24 22:11 Source: patient and old records reviewed Mode of arrival: ambulatory Limitations: no limitations History of Present Illness ED Provider: GALINA MARY narrative: 43 yo female with PMH of GERD and asthma here with c/o redness and drainage to incision site of lipoma s/p treatment on 03/06 at this time possible subjective fevers. She states she saw some yellow drainage. She denies prior infection. She notes no new dressings or any other issues to cause infection it has been doing well. MD complaint: rash Onset (ago): day(s) (1) Tetanus up to date: yes Location: generalized (abdominal incision) Severity: mild Quality: aching Pain Consistency: intermittent Relieving factors: none Exacerbating factors: palpation Context: other (recent surgery ) Associated symptoms: fever (unsure subjective) Related Data Home Medications ?Medication ?Instructions ?Recorded ?Confirmed fluticasone propionate 50 1 spray intranasal DAILY 12/11/20 03/17/24 mcg/actuation nasal spray,suspension cetirizine 10 mg tablet 10 mg PO DAILY PRN Allergy Symptoms 02/18/21 03/17/24 albuterol sulfate 90 mcg/actuation 0 mcg inhalation NEEDED PRN 08/16/22 03/17/24 aerosol inhaler asthma montelukast 10 mg tablet 10 mg PO DAILY 08/16/22 03/17/24 Previous Rx's ?Medication ?Instructions ?Recorded baclofen 10 mg tablet 10 mg PO TID PRN for muscle spasm 06/28/23 #90 tabs ibuprofen 800 mg tablet 800 mg PO Q8H PRN pain #30 tabs 03/06/24 cephalexin 500 mg capsule 500 mg PO QID 7 days #28 caps 03/19/24 doxycycline hyclate 100 mg capsule 100 mg PO BID 7 days #14 caps 03/19/24 Allergies Allergy/AdvReac Type Severity Reaction Status Date / Time No Known Allergies Allergy Verified 03/19/24 19:20 Review of Systems 2 Review of Systems: Constitutional : No Fever, No Chills ENT/Mouth : No sore throat, No Rhinorrhea Eyes: No Eye Pain, No Swelling, No Redness Cardiovascular : No Chest Pain, No SOB Respiratory : No Cough, No Sputum Gastrointestinal : No Nausea, No Vomiting, No Diarrhea, No abdominal Pain Genitourinary : No Dysuria, No Hematuria Musculoskeletal : No joint pain, No Myalgias, No Joint Swelling Skin : No Skin Lesions, positive skin rash Neuro : No Weakness, No Numbness, No Headache Psych : No Anxiety, No Depression Heme/Lymph: No Bruising, No Bleeding,No Lymphadenopathy Endocrine : No Polyuria, No Polydipsia All other systems reviewed and are negative [facility] Past Medical History Attestation statement: The following information was validated with the patient. Source: old records reviewed Medical History Renal calculi Urinary incontinence UTI (urinary tract infection) Pain PONV (postoperative nausea and vomiting) Abdominal pain GERD (gastroesophageal reflux disease) Carpal tunnel syndrome Endometriosis Seasonal allergies Asthma Surgical History Ventral hernia (03/06/24) H/O abdominal surgery History of carpal tunnel surgery of right wrist History of esophagogastroduodenoscopy (EGD) H/O gastric bypass Hx of cholecystectomy H/O tubal ligation H/O eye surgery Social History Social History Household Members: Children Are you a primary career specialist to a significant other at home: No Do you presently have visiting nurse or other home services: No Alcohol intake: current Alcohol intake frequency: does not drink Patient Tobacco Use Status: Never used Tobacco Advance Directives: No Advance Directives Information Provided: No Do you have a plan to hurt others: No Plan Physical Exam 2 Vital Signs: Vital Signs: Last Vital Signs Temp 98.7 F 03/19/24 22:07 Pulse 66 03/19/24 22:07 Resp 18 03/19/24 22:07 BP 142/56 H 03/19/24 22:07 Pulse Ox 100 03/19/24 22:07 O2 Del Method Room Air 03/19/24 22:07 BMI result Body Mass Index 27.5 Appearance: Alert. Oriented X3. No acute distress. Eyes: Pupils equal, round and reactive to light. ENT: Pharynx normal. Neck: Normal inspection. Neck supple. CVS: Normal heart rate and rhythm. Pulses normal. Respiratory: No respiratory distress. Breath sounds normal. Abdomen: Soft and incision is mildly red with surrounding area of pink and heat around it I did squeeze the incision but no purulence came out. mildly tender no fluctuance Skin: Skin warm and dry. Normal skin color. Normal skin turgor. Extremities: No lower extremity edema. No calf ttp Neuro: Oriented X 3. No motor deficit. No sensory deficit. Course Course Course Narrative: This is a Rapid Medical Exam performed in triage by Agnieszka Brothers PA-C. Full HPI, ROS and PE to be performed by primary ED provider. 43 yo F w/PMHx asthma, GERD, Endometriosis, renal calculi, S/P repair supraumbilical ventral hernia w/mesh by Dr. Benjamin on 03/06 presenting to the ED c/o surgical site erythema, pain, and pus drainage x yesterday PE: +surgical site with surrounding erythema/warmth and crusting. No induration or active drainage appreciated Plan: Labs, CT Medical Decision Making Medical Decision Making [facility] Narrative: 43 yo female with PMH of GERD here with c/o redness to incision site that started yesterday possible subjective fevers - at this time no obvious abscess it is mild I cannot express purulence but there is cellulitis will start on dual antibiotics I did discuss imaging but she declines wants oral abx and to follow up with surgeon in office in the AM Differential Diagnosis Differential Diagnoses: The differential diagnosis associated with the presentation includes cellulitis, seroma Admission/Observation Consideration of admission/observation: Escalation of care including admission/observation considered labs reassuring, VS stable, able to tolerate PO patient asking to go home declines imagins wants to try oral abx and call surgeon in AM Lab Data [facility] Lab Attestation statement: I reviewed the patient's lab results. 03/19/24 19:49 03/19/24 19:49 Labs: Lab Results 03/19/24 Range/Units 19:49 WBC 9.8 (4.8-10.8) X10*3/uL RBC 4.57 (4.20-5.50) X10*6/uL Hgb 11.6 L (12.0-16.0) g/dl Hct 35.6 L (37.0-47.0) % MCV 77.9 L (80.0-98.0) fL MCH 25.4 L (27.0-33.0) pg MCHC 32.6 (31.0-35.0) g/dl RDW 15.4 (11.0-16.0) % Plt Count 307 (160-400) X10*3/uL MPV 9.4 (9.4-12.3) fL Immature Gran % (Auto) 0.2 (0.0-0.4) % Neut % (Auto) 61.9 (45-73) % Lymph % (Auto) 25.6 (20-40) % [place] % (Auto) 5.6 (2-11) % Eos % (Auto) 5.8 H (0-4) % Baso % (Auto) 0.9 (0-2) % Lymph # (Auto) 2.5 (1.2-4.9) X10*3/uL [place] # (Auto) 0.6 (0.1-1.2) X10*3/uL Eos # (Auto) 0.6 H (0.0-0.4) X10*3/uL Baso # (Auto) 0.1 (0.0-0.2) X10*3/uL Abs Immat Gran (auto) 0.02 (0.00-0.03) X10*3/uL Absolute Neuts (auto) 6.1 (2.0-8.3) x10*3/uL Absolute Nucleated RBC 0.000 (0.0-0.012) X10*3/uL Nucleated RBC % (auto) 0.0 (0.0-0.2) /100WBC Sodium 142 (135-145) mmol/L Potassium 4.6 (3.3-5.1) mmol/L Chloride 107 (96-108) mmol/L Carbon Dioxide 25 (22-29) mmol/L Anion Gap 15 (12-20) BUN 12 (9-16) mg/dL Creatinine 0.95 (0.5-1.4) mg/dL Estim Creat Clear Calc 73.0 Estimated GFR > 60 Random Glucose 101 (60-115) mg/dL Calcium 8.9 (8.4-10.2) mg/dL Magnesium 2.3 (1.6-2.6) mg/dL Total Bilirubin 0.2 (0.0-1.0) mg/dL Direct Bilirubin < 0.2 (0.0-0.5) mg/dL AST 17 (5-31) U/L ALT 17 (0-31) U/L Alkaline Phosphatase 65 (39-117) U/L Total Protein 7.5 (6.5-8.0) g/dL Albumin 4.1 (3.5-5.0) g/dL Lipase 35 (8-78) U/L Beta HCG, Quant < 2 mIU/mL External Record Review External record reviewed: Inpatient record Tests considered The following testing was considered but not selected: CT scan for abscess Prescription Management I considered prescription management with: Antibiotic Discharge Plan Discharge Clinical Impression: Cellulitis Qualifiers: Site of cellulitis: trunk Site of cellulitis of trunk: abdominal wall Qualified Code(s): L03.311 - Cellulitis of abdominal wall Patient Disposition: Home, Self-Care Instructions: Cellulitis (ED) Additional Instructions: you have to call Dr. Benjamin in the morning. please return for any worsening symptoms or concerns as we did discuss CT scan for an fluid collection return for any worsening symptoms or concerns On doxycycline, do not take pills immediately before going to bed and swallow pills with plenty of water. Avoid direct sunlight, iron, antacids, and Pepto Bismol. Call your provider if you develop new ringing in your ears, new problems hearing, dizziness, difficulty swallowing, rash, abdominal discomfort, nausea, or diarrhea.? On a cephalosporin?antibiotic, softer bowel movements are to be expected. Call your provider if you move your bowels more than 4 times a day, your bowel movements are almost all liquid, or you get a rash.?? Prescriptions: New doxycycline hyclate 100 mg capsule 100 mg PO BID 7 Days Qty: 14 0RF cephalexin 500 mg capsule 500 mg PO QID 7 Days Qty: 28 0RF No Action baclofen 10 mg tablet 10 mg PO TID PRN (Reason: for muscle spasm) Qty: 90 0RF fluticasone propionate [Flonase] 50 mcg/actuation [place],Suspension 1 spray INTRANASAL DAILY cetirizine 10 mg Tablet 10 mg PO DAILY PRN (Reason: Allergy Symptoms) ibuprofen 800 mg tablet 800 mg PO Q8H PRN (Reason: pain) Qty: 30 0RF montelukast 10 mg tablet 10 mg PO DAILY albuterol sulfate 90 mcg/actuation HFA aerosol inhaler 0 mcg inhalation NEEDED PRN (Reason: asthma) Stand Alone Forms: Work/School Release Print Language: Sammarinese
--- NOTE | 2024-03-19 19:53 | MHC.EDTECH ---
Patient brought into triage area,labs drawn and sent to lab.
[2024-03-19 19:54] LABS: MANUAL DIFF FLAG NO
[2024-03-19 19:58] LABS: Basophils Absolute Auto 0.1 X10*3/uL (0.0-0.2); Basophils Percent Auto 0.9 % (0-2); Eosinophils Absolute Auto 0.6 X10*3/uL (0.0-0.4); Eosinophils Percent Auto 5.8 % (0-4); Hematocrit 35.6 % (37.0-47.0); Hemoglobin 11.6 g/dl (12.0-16.0); Imm Gran Abs Auto 0.02 X10*3/uL (0.00-0.03); Imm Gran Pct Auto 0.2 % (0.0-0.4); Lymphocytes Absolute Auto 2.5 X10*3/uL (1.2-4.9); Lymphocytes Percent Auto 25.6 % (20-40); Mean Corpuscular HGB Conc 32.6 g/dl (31.0-35.0); Mean Corpuscular Hemoglobin 25.4 pg (27.0-33.0); Mean Corpuscular Volume 77.9 fL (80.0-98.0); Mean Platelet Volume 9.4 fL (9.4-12.3); Monocytes Absolute Auto 0.6 X10*3/uL (0.1-1.2); Monocytes Percent Auto 5.6 % (2-11); Neutrophils Absolute Auto 6.1 x10*3/uL (2.0-8.3); Neutrophils Percent Auto 61.9 % (45-73); Platelet Count 307 X10*3/uL (160-400); Red Blood Count 4.57 X10*6/uL (4.20-5.50); Red Cell Distribution Width 15.4 % (11.0-16.0); White Blood Count 9.8 X10*3/uL (4.8-10.8)
[2024-03-19 20:20] LABS: Alanine Aminotransferase 17 U/L (0-31); Albumin Level 4.1 g/dL (3.5-5.0); Alkaline Phosphatase 65 U/L (39-117); Anion Gap 15 (12-20); Aspartate Amino Transferase 17 U/L (5-31); Bilirubin Direct < 0.2 mg/dL (0.0-0.5); Bilirubin Total 0.2 mg/dL (0.0-1.0); Blood Urea Nitrogen 12 mg/dL (9-16); Calcium 8.9 mg/dL (8.4-10.2); Carbon Dioxide 25 mmol/L (22-29); Chloride 107 mmol/L (96-108); Estimated Glomerular Filt Rate > 60; Glucose Random 101 mg/dL (60-115); Lipase 35 U/L (8-78); Magnesium 2.3 mg/dL (1.6-2.6); Potassium 4.6 mmol/L (3.3-5.1); Sodium 142 mmol/L (135-145); Total Protein 7.5 g/dL (6.5-8.0)
[2024-03-19 20:25] LABS: HCG Quantitative < 2 mIU/mL
[2024-03-19 22:07] VITALS: BP 142/56; PULSE 66; RESP 18; TEMP 37.1; O2SAT 100
[2024-03-19] MEDS: Doxycycline Monohydrate 100 MG CAPSULE PO (22:42)
[2024-03-19] MEDS: cephALEXin 500 MG CAPSULE PO (22:42)
[2024-03-19 22:46] VITALS: BP 142/56; PULSE 66; RESP 18; TEMP 37.1; O2SAT 100
== END 2024-03-19 22:46 | disposition home or self-care (01) ==
PROVIDERS: Physician Assistant; Emergency Provider Emergency Medicine; PCP Family Medicine
DX: L03.311 Cellulitis of abdominal wall (principal); R21 Rash and other nonspecific skin eruption
CPT/HCPCS: 36415; 80048; 80076; 83690; 83735; 84702; 85025; 99283; 99284

== ENCOUNTER → 2024-03-20 13:30 | Outpatient (BNVA) | payer OTHER, MEDICAID, SELFPAY | PROVIDERS: PCP Family Medicine; Visit Provider Surgery | DX: Z48.89 Encounter for other specified surgical aftercare (principal) | CPT/HCPCS: 99211 ==

== ENCOUNTER 2024-04-17 13:17 | Outpatient (AMB) | payer OTHER, MEDICAID, SELFPAY ==
[2024-04-17 13:28] VITALS: BP 128/68; PULSE 72
--- NOTE | 2024-04-17 13:28 | MHC.OFFVIS ---
Vital Signs 04/17/24 13:28 Weight 160 lb BP 128/68 Blood Pressure Location Rt brachial Position Sitting Pulse 72 Intake Visit Reasons: Wound check supraumbilical hernia Intake Note: Patient here for wound check on abdomen. Hx of hernia supraumbilical ventral hernia repair on 03-06-24. Worried because will be leaving on vacation to [facility] on Sunday04-18-24. Patient c/o: redness, inflammation. Applied bacitracin ointment which helped. Clinical Data Management Director Required: No Accompanied by: Self / Same As Patient Allergies No Known Allergies Allergy (Verified 04/17/24 13:30) HPI Comments Details: Patient presents for evaluation of her incision. At the central portion of her incision she has had some drainage. She presents here were further input. [facility] Medical History Renal calculi Urinary incontinence UTI (urinary tract infection) Pain PONV (postoperative nausea and vomiting) Abdominal pain GERD (gastroesophageal reflux disease) Carpal tunnel syndrome Endometriosis Seasonal allergies Asthma Surgical History Ventral hernia (03/06/24) H/O abdominal surgery History of carpal tunnel surgery of right wrist History of esophagogastroduodenoscopy (EGD) H/O gastric bypass Hx of cholecystectomy H/O tubal ligation H/O eye surgery Social History Household Members: Children Are you a primary field care coordinator to a significant other at home: No Do you presently have visiting nurse or other home services: No Alcohol intake: never Patient Tobacco Use Status: Never used Tobacco Female Reproductive History Menstrual Age of Menarche: 8 Physical Exam Vital Signs: Last Vital Signs Pulse 72 04/17/24 13:28 BP 128/68 04/17/24 13:28 GI Other: Abdomen corpulent, soft, benign. Central part of the incision is extruding a suture. This was uneventfully removed. Bacitracin and dressing applied. Patient tolerated procedure well. Assessment & Plan Assessment & Plan (1) Postoperative stitch abscess: Code(s): T81.41XA - Infection following a procedure, superficial incisional surgical site, initial encounter Category: Surgical Plan Patient was been given local instructions including bacitracin each day after showering and a Band-Aid and will otherwise follow-up p.r.n.. Should she have any recurrence of symptoms, patient was instructed to call the office. Coding Level of Care Code Global (47752) Diagnoses Postoperative stitch abscess T81.41XA
== END 2024-04-17 14:06 | disposition home or self-care (01) ==
PROVIDERS: PCP Family Medicine; Visit Provider Surgery
DX: T81.41XA Infection following a procedure, superficial incisional surgical site, initial encounter (principal)
CPT/HCPCS: 99024

== ENCOUNTER → 2024-04-17 13:17 | Outpatient (BNVA) | payer OTHER, MEDICAID, SELFPAY | PROVIDERS: PCP Family Medicine; Visit Provider Surgery ==

== ENCOUNTER 2024-06-30 13:15 | Outpatient (REF) | payer OTHER, MEDICAID, SELFPAY | END 2024-06-30 13:16 | disposition home or self-care (01) | LOC: HO.HHCLNP 13:15 | PROVIDERS: Visit Provider Emergency Medicine | DX: Z20.818 Contact with and (suspected) exposure to other bacterial communicable diseases (principal) | CPT/HCPCS: 87070 ==

== ENCOUNTER 2024-07-02 18:14 | Emergency (ER) | payer OTHER, MEDICAID, SELFPAY ==
--- NOTE | ~2024-07-02 | XR_ITS ---
CLINICAL HISTORY: cough, sob 2 views of the chest. Comparison 01/10/2023. Findings: Heart size is normal. There is no consolidation. No pleural effusion is seen. Impression: No consolidation. This document has been electronically signed by: Jaycob Frank MD on 07/02/2024 20:17:58
[2024-07-02 19:31] VITALS: BP 135/76; PULSE 109; RESP 18; TEMP 39.3; O2SAT 98; BMI 27.5
--- NOTE | 2024-07-02 19:31 | ED_ITS ---
HPI - URI/Sore Throat General Chief Complaint: Upper Respiratory Symptoms Stated Complaint: chest congestion Time Seen by Provider: 07/02/24 22:54 Source: patient Mode of arrival: ambulatory Limitations: no limitations History of Present Illness ED Provider: DR. Bethea HPI Narrative: 44-year-old female came in for evaluation of 2 days of runny nose, congestion, coughing, generalized body ache, subjective fever. No sick contacts. Related Data Home Medications ?Medication ?Instructions ?Recorded ?Confirmed fluticasone propionate 50 1 spray intranasal DAILY 12/11/20 03/17/24 mcg/actuation nasal spray,suspension cetirizine 10 mg tablet 10 mg PO DAILY PRN Allergy Symptoms 02/18/21 03/17/24 albuterol sulfate 90 mcg/actuation 0 mcg inhalation NEEDED PRN 08/16/22 03/17/24 aerosol inhaler asthma montelukast 10 mg tablet 10 mg PO DAILY 08/16/22 03/17/24 Previous Rx's ?Medication ?Instructions ?Recorded baclofen 10 mg tablet 10 mg PO TID PRN for muscle spasm 06/28/23 #90 tabs ibuprofen 800 mg tablet 800 mg PO Q8H PRN pain #30 tabs 03/06/24 oseltamivir 75 mg capsule (Tamiflu) 75 mg PO Q12H 5 days #10 caps 07/02/24 Allergies Allergy/AdvReac Type Severity Reaction Status Date / Time No Known Allergies Allergy Verified 07/02/24 19:33 Review of Systems 2 Review of Systems: All other systems are reviewed and are negative Constitutional: Reports as per HPI and Reports no additional constitutional complaints Eyes: Reports as per HPI and Reports no additional eye complaints Reports system reviewed and no additional complaints, except as documented Cardiovascular: Reports as per HPI and Reports no additional cardiovascular complaints Respiratory: Reports as per HPI and Reports no additional respiratory complaints Gastrointestinal: Reports as per HPI and Reports no additional gastrointestinal complaints Genitourinary: Reports no additional female genitourinary complaints Musculoskeletal: Reports no additional musculoskeletal complaints Skin/Breast: Reports system reviewed and no additional complaints, except as docu Psychiatric: Reports no additional psychiatric complaints Endocrine: Reports no additional endocrine complaints Hematologic/Lymphatic: Reports no additional hematologic/lymphatic complaints Allergic/Immunologic: Reports no additional allergic/immunologic complaints Reports system reviewed and no additional complaints, except as documented and Reports Abnormal speech present [facility] Past Medical History Medical History Renal calculi Urinary incontinence UTI (urinary tract infection) Pain PONV (postoperative nausea and vomiting) Abdominal pain GERD (gastroesophageal reflux disease) Carpal tunnel syndrome Endometriosis Seasonal allergies Asthma Surgical History Ventral hernia (03/06/24) H/O abdominal surgery History of carpal tunnel surgery of right wrist History of esophagogastroduodenoscopy (EGD) H/O gastric bypass Hx of cholecystectomy H/O tubal ligation H/O eye surgery Social History Social History Household Members: Children Are you a primary care manager to a significant other at home: No Do you presently have visiting nurse or other home services: No Alcohol intake: never Patient Tobacco Use Status: Never used Tobacco Advance Directives: No Advance Directives Information Provided: No Do you have a plan to hurt others: No Plan Physical Exam 2 Vital Signs: Vital Signs: Last Vital Signs Temp 98.6 F 07/02/24 22:48 Pulse 97 07/02/24 22:48 Resp 18 07/02/24 22:48 BP 119/69 07/02/24 22:48 Pulse Ox 98 07/02/24 22:48 O2 Del Method Room Air 07/02/24 22:48 BMI result Body Mass Index 27.5 Vital signs have been reviewed and appear to be correct. Blood pressure elevated. Heart rate normal. Respiratory rate normal. Temperature normal. Oxygen saturation normal. Appearance: Alert. Oriented X3. No acute distress. Head: Normal external exam. Normocephalic. Atraumatic. No [place] signs noted. No raccoon eyes noted Eyes: PERRLA. EOMI. Conjunctiva and sclera normal. Eyelids normal. ENT: TM's Normal. Pharynx normal. Uvula midline. Moist mucous membranes. No trismus noted. No drooling noted. No muffled voice noted. Neck: Normal inspection. Neck supple. FROM. No adenopathy. Thyroid Normal. No meningeal signs. No neck mass noted. CVS: Normal heart rate and rhythm. Heart sound normal. No murmurs noted. Pulses normal throughout. Respiratory: No respiratory distress. Painless inspiration. Breath sounds normal. No wheezes/rales/rhonchi noted. Chest nontender. No accessory muscle usage noted or decreased air movement noted. Abdomen: Soft and nontender. Bowel sounds normal in all 4 quadrants. No distention noted. No organomegaly noted. No visible injury noted. Back: No CVA tenderness. Full range of motion noted. Skin: Skin warm and dry. Normal skin color. Normal skin turgor. No rashes/lesions/lacerations noted. Extremities: No lower extremity edema. Extremities exhibit normal range of motion. Extremities nontender. Neuro: Oriented X 3. Cranial nerve exam: II-XII are grossly intact No motor deficit. No sensory deficit. Reflexes normal. Course Course Course Narrative: This is a Rapid Medical Exam performed in triage by Agnieszka Brothers PA-C. Full HPI, ROS and PE to be performed by primary ED provider. 44yo F w/pmhx AUB, asthma presenting to the ED c/o N/V x 2 days, seen at yesterday & Dx w/virus (Rx Prednisone which she has not started). Admits today with fever, chills, nausea, vomiting, diarrhea, cough, SOB & R lung pain. Last took Motrin this AM (states it didnt stay down) PE: febrile 102.8, lungs CTA, dry cough appreciated Plan: EKG, labs, CXR, viral testing, rapid strep Reevaluation(s) Reevaluation #1: 44-year-old female with upper respiratory symptoms presented with cough, was body ache, patient is positive for influenza A, chest x-ray is showing no acute infiltration, VSS, O2 sat is 99% on room air. Time: 23:01 Medications Administered Discontinued Medications Generic Name Dose Route Start Last Admin Trade Name Freq PRN Reason Stop Dose Admin Acetaminophen 650 mg 07/02/24 19:34 07/02/24 19:37 Acetaminophen 325 Mg Tablet PO 07/02/24 19:35 650 mg ONCE ONE Administration Medical Decision Making Differential Diagnosis Differential Diagnoses: The differential diagnosis associated with the presentation includes (Pneumonia, pneumothorax, pleural effusion, influenza, COVID-19 infection, RSV.) Admission/Observation Consideration of admission/observation: Escalation of care including admission/observation considered Lab Data [facility] Lab Attestation statement: I reviewed the patient's lab results. 07/02/24 20:04 07/02/24 20:04 Labs: Lab Results 07/02/24 Range/Units 20:04 WBC 4.8 (4.8-10.8) X10*3/uL RBC 4.74 (4.20-5.50) X10*6/uL Hgb 11.5 L (12.0-16.0) g/dl Hct 35.8 L (37.0-47.0) % MCV 75.5 L (80.0-98.0) fL MCH 24.3 L (27.0-33.0) pg MCHC 32.1 (31.0-35.0) g/dl RDW 15.0 (11.0-16.0) % Plt Count 235 (160-400) X10*3/uL MPV 8.8 L (9.4-12.3) fL Immature Gran % (Auto) 0.2 (0.0-0.4) % Neut % (Auto) 66.3 (45-73) % Lymph % (Auto) 15.9 L (20-40) % [place] % (Auto) 15.7 H (2-11) % Eos % (Auto) 1.5 (0-4) % Baso % (Auto) 0.4 (0-2) % Lymph # (Auto) 0.8 L (1.2-4.9) X10*3/uL [place] # (Auto) 0.8 (0.1-1.2) X10*3/uL Eos # (Auto) 0.1 (0.0-0.4) X10*3/uL Baso # (Auto) 0.0 (0.0-0.2) X10*3/uL Abs Immat Gran (auto) 0.01 (0.00-0.03) X10*3/uL Absolute Neuts (auto) 3.2 (2.0-8.3) x10*3/uL Absolute Nucleated RBC 0.000 (0.0-0.012) X10*3/uL Nucleated RBC % (auto) 0.0 (0.0-0.2) /100WBC Sodium 141 (135-145) mmol/L Potassium 4.3 (3.3-5.1) mmol/L Chloride 106 (96-108) mmol/L Carbon Dioxide 24 (22-29) mmol/L Anion Gap 15 (12-20) BUN 11 (9-16) mg/dL Creatinine 0.85 (0.5-1.4) mg/dL Estim Creat Clear Calc 80.7 Estimated GFR > 60 Random Glucose 107 (60-115) mg/dL Calcium 8.9 (8.4-10.2) mg/dL Magnesium 2.1 (1.6-2.6) mg/dL Total Bilirubin 0.3 (0.0-1.0) mg/dL Direct Bilirubin 0.1 (0.0-0.5) mg/dL AST 31 (5-31) U/L ALT 26 (0-31) U/L Alkaline Phosphatase 60 (39-117) U/L Total Protein 7.6 (6.5-8.0) g/dL Albumin 4.3 (3.5-5.0) g/dL Influenza Type A (PCR) POSITIVE A (Negative) Influenza Type B (PCR) NEGATIVE (Negative) RSV RNA Qual (PCR) NEGATIVE (Negative) SARS-CoV-2 RNA (RT-PCR) NEGATIVE (Negative) S. pyogenes GrpA COURTNEY Negative (Negative) Independent Interpretation I performed an independent interpretation of an: Plain X-Ray (Chest: No acute pathology.) Radiology Impression Discussion of test interpretation with radiology: I have reviewed the radiologist's reading. Discharge Plan Discharge Clinical Impression: Influenza A Patient Disposition: Home, Self-Care Instructions: Influenza (ED) Additional Instructions: Wear a face mask at all times, frequent hand washing, keep social distancing, drink plenty of fluids. Prescriptions: New oseltamivir [Tamiflu] 75 mg capsule 75 mg PO Q12H 5 Days Qty: 10 0RF No Action baclofen 10 mg tablet 10 mg PO TID PRN (Reason: for muscle spasm) Qty: 90 0RF fluticasone propionate [Flonase] 50 mcg/actuation [place],Suspension 1 spray INTRANASAL DAILY cetirizine 10 mg Tablet 10 mg PO DAILY PRN (Reason: Allergy Symptoms) ibuprofen 800 mg tablet 800 mg PO Q8H PRN (Reason: pain) Qty: 30 0RF montelukast 10 mg tablet 10 mg PO DAILY albuterol sulfate 90 mcg/actuation HFA aerosol inhaler 0 mcg inhalation NEEDED PRN (Reason: asthma) Referrals: Clementine Cobos MD [Primary Care Provider] - Stand Alone Forms: Work/School Release Print Language: Serbian
[2024-07-02] MEDS: Acetaminophen 325 MG TABLET 650 MG PO (19:37)
[2024-07-02 20:10] LABS: Basophils Percent Auto 0.4 % (0-2); Eosinophils Absolute Auto 0.1 X10*3/uL (0.0-0.4); Eosinophils Percent Auto 1.5 % (0-4); Hematocrit 35.8 % (37.0-47.0); Hemoglobin 11.5 g/dl (12.0-16.0); Imm Gran Abs Auto 0.01 X10*3/uL (0.00-0.03); Imm Gran Pct Auto 0.2 % (0.0-0.4); Lymphocytes Absolute Auto 0.8 X10*3/uL (1.2-4.9); Lymphocytes Percent Auto 15.9 % (20-40); MANUAL DIFF FLAG NO; Mean Corpuscular HGB Conc 32.1 g/dl (31.0-35.0); Mean Corpuscular Hemoglobin 24.3 pg (27.0-33.0); Mean Corpuscular Volume 75.5 fL (80.0-98.0); Mean Platelet Volume 8.8 fL (9.4-12.3); Monocytes Absolute Auto 0.8 X10*3/uL (0.1-1.2); Monocytes Percent Auto 15.7 % (2-11); Neutrophils Absolute Auto 3.2 x10*3/uL (2.0-8.3); Neutrophils Percent Auto 66.3 % (45-73); Platelet Count 235 X10*3/uL (160-400); Red Blood Count 4.74 X10*6/uL (4.20-5.50); White Blood Count 4.8 X10*3/uL (4.8-10.8)
[2024-07-02 20:17] LABS: IDNOW Serial# 58CA691E; Strep A Nucleic Acid Negative (Negative)
[2024-07-02 20:24] LABS: Alanine Aminotransferase 26 U/L (0-31); Albumin Level 4.3 g/dL (3.5-5.0); Alkaline Phosphatase 60 U/L (39-117); Anion Gap 15 (12-20); Aspartate Amino Transferase 31 U/L (5-31); Bilirubin Direct 0.1 mg/dL (0.0-0.5); Bilirubin Total 0.3 mg/dL (0.0-1.0); Blood Urea Nitrogen 11 mg/dL (9-16); Calcium 8.9 mg/dL (8.4-10.2); Carbon Dioxide 24 mmol/L (22-29); Chloride 106 mmol/L (96-108); Creatinine Clr Calc Pharmacy 80.7; Estimated Glomerular Filt Rate > 60; Glucose Random 107 mg/dL (60-115); Magnesium 2.1 mg/dL (1.6-2.6); Potassium 4.3 mmol/L (3.3-5.1); Sodium 141 mmol/L (135-145); Total Protein 7.6 g/dL (6.5-8.0)
[2024-07-02 20:47] LABS: Influenza A PCR POSITIVE (Negative); Influenza B PCR NEGATIVE (Negative); Resp Syncy Virus RNA Qual PCR NEGATIVE (Negative); SARS COV2 PCR INHOUSE NEGATIVE (Negative)
[2024-07-02 22:48] VITALS: BP 119/69; PULSE 97; RESP 18; TEMP 37; O2SAT 98
[2024-07-02 23:15] VITALS: BP 119/69; PULSE 97; RESP 18; TEMP 37; O2SAT 98
--- NOTE | 2024-07-02 23:15 | PC.NURSE ---
Pt eval by provider in triage, cleared for dc home with script.
== END 2024-07-02 23:16 | disposition home or self-care (01) ==
PROVIDERS: Physician Assistant; Emergency Provider Emergency Medicine; PCP Family Medicine
DX: J10.1 Influenza due to other identified influenza virus with other respiratory manifestations (principal); R09.89 Other specified symptoms and signs involving the circulatory and respiratory systems; R05.9 Cough, unspecified; M79.10 Myalgia, unspecified site; R50.9 Fever, unspecified; Z03.818 Encounter for observation for suspected exposure to other biological agents ruled out
CPT/HCPCS: 0241U; 71046; 80048; 80076; 83735; 85025; 87651; 99283

== ENCOUNTER → 2024-07-02 19:34 | Outpatient (BNV) | payer OTHER, MEDICAID, SELFPAY | PROVIDERS: PCP Family Medicine; Visit Provider Radiology Diagnostic Radiology | DX: R06.02 Shortness of breath (principal); R05.9 Cough, unspecified | CPT/HCPCS: 71046 ==

== ENCOUNTER 2024-07-21 15:23 | Outpatient (AMB) | payer OTHER, MEDICAID, SELFPAY ==
--- NOTE | 2024-07-21 15:25 | MHC.OFFVIS ---
Intake Visit Reasons: US follow up/DO NOT RS Truck Dock Material Mover: Truck Dock Material Mover Present (Sangeetha) Accompanied by: Self / Same As Patient Allergies No Known Allergies Allergy (Verified 07/21/24 15:25) HPI Comments Details: Presenting for ultrasound follow-up done in 03/18. Doing well with no complaints. Pelvic ultrasound showed the following: IMPRESSION: Uterine fibroid measuring 1.3 x 0.8 x 1.1 cm, previously 1.2 x 1.3 x 1.5 cm. The previously noted second fibroid was not appreciated on today's exam. [facility] Medical History Renal calculi Urinary incontinence UTI (urinary tract infection) Pain PONV (postoperative nausea and vomiting) Abdominal pain GERD (gastroesophageal reflux disease) Carpal tunnel syndrome Endometriosis Seasonal allergies Asthma Surgical History Ventral hernia (03/06/24) H/O abdominal surgery History of carpal tunnel surgery of right wrist History of esophagogastroduodenoscopy (EGD) H/O gastric bypass Hx of cholecystectomy H/O tubal ligation H/O eye surgery Social History Household Members: Children Are you a primary reservoir caretaker to a significant other at home: No Do you presently have visiting nurse or other home services: No Alcohol intake: never Patient Tobacco Use Status: Never used Tobacco Female Reproductive History Menstrual Age of Menarche: 8 Review of Systems Const All systems reviewed & are unremarkable except as noted in HPI and below Reports as per HPI and Reports no additional complaints GI Reports no additional complaints Reports no additional complaints Assessment & Plan Assessment & Plan (1) Uterine myoma: Code(s): D25.9 - Leiomyoma of uterus, unspecified Category: Medical Plan: Discussed with the patient the findings on pelvic ultrasound & the risk of myosarcoma; discussed with the patient the options of treatment including expectant management versus hysterectomy; the pros and cons, risks benefits of each approach were discussed with the patient including the fact that in cases of myosarcoma, surgical treatment can lead to early diagnosis and positively affects the prognosis; after further discussion, the patient decided to proceed with expectant management. Will repeat pelvic ultrasound periodically. Instructions given to patient to call in case any of the following occurs: pressure symptoms, abnormal uterine bleeding, pelvic pain; and to schedule a 12 months pelvic ultrasound (order placed) and a follow-up appointment . All questions answered, the patient verbalized understanding and agreed with the plan . Orders: Orders US pelvic and transvaginal 1 Year D25.9 - Leiomyoma of uterus, unspecified Coding Level of Care Code Est Pt Level 3 (66745) Diagnoses Uterine myoma D25.9
--- OUTSIDE RECORDS SUMMARY | 2024-07-21 19:27 | XMS_ITS | Encounter Summary ---
Author Organization [employer] [facility] Address [address] 7t [place] [address] Care Team Providers Care Architect Naval Name Role Phone Clementine Cobos MD Primary Care Provider [phone]- [phone] Encounter Details Date Type Department Care Team (Latest Contact Info) Description 09/23/2018 Abstract [facility] CONVERSIONS Dental, Provider, DDS Social History Tobacco Use Types Packs/Day Years Used Date Smoking Tobacco: Never Assessed Comments Unknown Sex and Gender Information Value Date Recorded Sex Assigned at Female 04/24/2022 10:16 AM EDT Legal Sex Female 10:16 AM EDT Gender Identity Female 04/24/2022 10:16 AM EDT Sexual Orientation Straight 04/24/2022 10 :16 AM EDT documented as of this encounter Plan of Treatment Upcoming Encounters Date Type Department Care Team (Late st Contact Info) Description 09/16/2024 7:45 AM EDT Office Visit [facility] ADULT DENTAL [address] [place] [address] [address] [place] [address] documented as of this encounter Visit Diagnoses Not on filedocumented in this encounter Care Teams Architect Naval Relationship Specialty Start Date End Date Clementine Cobos MD [address] [place], [place] [phone] PCP - General Family Medicine 06/25/18 documented as of this encounter
--- OUTSIDE RECORDS SUMMARY | 2024-07-21 19:27 | XMS_ITS | Encounter Summary ---
Author Organization [employer] Address [address] [facility] 7t [place] [address] Care Team Providers Care Cable Installer Repairer Name Role Phone Clementine Cobos MD Primary Care Provider +1- [phone] Encounter Details Date Type Department Care Team (Late st Contact Info) Description 07/02/2024 Orders Only GENERIC EXTERNAL DATA DEPARTMENT Provider, Generic External Data Social History Tobacco Use Types Packs/Day Years Used Date Smoking Tobacco: Never Passive Smoke Exposure: Never Smokeless Tobacco: Never Alcohol Use Standard Drinks/Week Comments Yes 0 (1 standard drink = 0.6 oz pur e alcohol) occasional drinking Depression Answer Date Recorded Patient Health Questionnaire-9 Score 0 12/24/2023 Patient Health Questionnaire-9 Score 0 12/24/2023 Last PHQ-9: Questionnaire Data Not on file 0 12/24/2023 Housing Stability Answer Date Recorded What is your housing situation today? I have chica collins 12/24/[address] you li ve. Do you have problems with any of the following? None of the above 12/24/2023 Food Insecurity Answer Date Recorded Within the past 12 months, y ou worried that your food would run out before you got money to buy more: Never True 12/24/2023 Within the past 12 months,th e food you bought just didn't last and you didn't have enough money to get more: Never True 06/2023 Transportation Answer Date Recorded In the past 12 months, has l ack of transportation kept you from medical appts, meetings, work or from getting things needed for daily living? No 12/24/2023 Utilities Answer Date Recorded In the past 12 months, has t he electric, gas, oil or water company threatened to shut off services in your home? No 12/24/2023 Depression Answer Date Recorded Patient Health Questionnaire-2 Score 0 12/24/2023 Internet Access Answer Date Recorded Internet Access Q1 No 02/25/2024 Internet Access Q2 I do not want or need it 07/2023 Comments No Sex and Gender Information Value Date Recorded Sex Assigned at Female 04/24/2022 10:16 AM EDT Legal Sex Female 10:16 AM EDT Gender Identity Female 04/24/2022 10:16 AM EDT Sexual Orientation Straight 04/24/2022 10 :16 AM EDT documented as of this encounter Plan of Treatment Upcoming Encounters Date Type Department Care Team (Late st Contact Info) Description 09/16/2024 7:45 AM EDT Office Visit [facility] [address] [place], [place] [phone] [place], [facility] [address] [place] [address] documented as of this encounter Procedures Procedure Name Priority Date/Time Associated Diagnosis Comments XR CHEST 2 VIEWS Routine 07/02/2024 8:17 PM EST STREP A NUCLEIC ACID Routine 07/02/2024 8:04 PM EST SARS COV2/INFLUENZA A/B AND RSV RNA QL NAAT Routine 07/02/2024 8:04 PM EST CBC WITH AUTO DIFFERENTIAL Routine 07/02/2024 8:04 PM EST MAGNESIUM Routine 07/02/2024 8:04 PM EST HEPATIC FUNCTION PANEL Routine 07/02/2024 8:04 PM EST BASIC METABOLIC PANEL Routine 07/02/2024 8:04 PM EST documented in this encounter Results * XR Chest 2 Views (07/02/2024 8:17 PM EST) Anatomical Region Laterality Modality Chest Radiographic Beth ging 07/02/2024 8:17 PM EST Narrative 07/02/2024 8:20 PM EST ? [facility] ?[address] ?[place] [address] ?XRay Report ? Signed ? Patient: Herrera,Dacasty D ?MR#: [id number] ?? 11 ? : 1980 ?Acct:[id number] ? Age/Sex: 44 / F ?ADM Date: 07/02/24 ? Loc: HO.ED ? Attending Dr: ? Ordering Physician: Agnieszka Brothers ?? Date of Service: 07/02/24 ?? Procedure(s): XR chest 2V ?? Accession Number(s): [id number] ? cc: Clementine Cobos MD; Agnieszka Brothers ? CLINICAL HISTORY: cough, sob ? 2 views of the chest. ? Comparison 01/10/2023. ? Findings: ?? Heart size is normal. There is no consolidation. No pleural effusion is ?? seen. ? Impression: ?? No consolidation. ? This document has been electronically signed by: Jaycob Frank MD on ?? 07/02/2024 20:17:58 ? Dictated By: ?Triston Jonas MD ? Signed By: ?<Electronically signed by Triston Jonas MD in OV> ?07/02/24 2020 ? DD/ 2017 ? TD/TT: 07/02/24 2017 ? Medical Or Surgical Instrument Maker: ? Procedure Note Gabby, Image - 07/02/2024 [place] [address] XRay Report Signed Patient: Carmine Herrera DMR#: [id number] 11 : 1980Acct:[id number] Age/Sex: 44 / FADM Date: 07/02/24 Loc: HO.ED Attending Dr: Ordering Physician: Agnieszka Brothers Date of Service: 07/02/24 Procedure(s): XR chest 2V Accession Number(s): [id number] cc: Clementine Cobos MD; Agnieszka Brothers CLINICAL HISTORY: cough, sob 2 views of the chest. Comparison 01/10/2023. Findings: Heart size is normal. There is no consolidation. No pleural effusion is seen. Impression: No consolidation. This document has been electronically signed by: Jaycob Frank MD on 07/02/2024 20:17:58 Dictated By: Triston Jonas MD Signed By: <Electronically signed by Triston Jonas MD in OV> 07/02/242019 DD/ 16 TD/TT: 07/02/242016 Medical Or Surgical Instrument Maker: [facility] External Provider IMG XR PROCEDURES Edited Result - Final * (ABNORMAL) SARS-CoV-2 RNA, Influenza A/B, and RSV RNA, Ql NAAT (07/02/2024 8:04 PM EST) Influenza A PCR POSITIVE(A) Negative [facility] Influenza B PCR NEGATIVE Negative [facility] Resp Syncy Virus RNA Qual PCR NEGATIVE Negative [facility] SARS COV2 PCR NEGATIVE Negative [facility] Comment:All test results mus t be correlated with clinical findings.Negative results do not preclude SARS-CoV2, influenza Avirus, influenza B virus and/or RSV infectionand should not be used as the sole basis for treatment orother patient management decisions. Negative results must becombined with clinical observations, patient history, andepidemiological information.This test has not been evaluated for monitoring treatment ofinfection.This test has been authorized by the FDA under an EmergencyUse Authorization (EUA) for use by authorized laboratories.Testing performed on the [employer] GeneXpert utilizingreal-time RT-PCR.All SARS CoV2 and positive influenza A/B results arereported to [facility]. 07/02/2024 8:04 PM EST 07/02/2024 8:08 PM EST Generic External Data Provider LAB MICROBIOLOGY - GENERAL ORDERABLES Final Result [facility] [address] [place] [phone] * Magnesium (07/02/2024 8:04 PM EST) Magnesium 2.1 1.6 - 2.6 mg/dL [facility] 07/02/2024 8:04 PM EST 07/02/2024 8:08 PM EST us Generic External Data Provider LAB BLOOD ORDERAB LES Final Result Performing Organization Address City/[facility]/ZIP Co de Phone Number [facility] [address] [place] [address] [phone] * Basic Metabolic Panel (07/02/2024 8:04 PM EST) Sodium 141 135 - 145 mmol/L [facility] Potassium 4.3 3.3 - 5.1 mmol/L [facility] Chloride 106 96 - 108 mmol/L [facility] Carbon Dioxide 24 22 - 29 mmol/L [facility] Anion Gap 15 12 - 20 [facility] Urea Nitrogen (BUN) 11 9 - 16 mg/dL [facility] Creatinine, Serum 0.85 0.5 - 1.4 mg/dL [facility] Creatinine Clr Calc Pharmacy 80.7 [facility] Comment:Provided height and weight: 162.56 cm,72.575 kg.eGFR (calculated from the MDRD study equation) and eCrCl(calculated from the Cockcroft-Gault equation) are based ondifferent parameters and may not yield comparable results.If eCrCl result is absurd, please check patient'sheight/weight. Estimated Glomerular Filt Rate >60 [facility] Comment:Chronic Kidney Disea se: Estimated GFR < 60 mL/min/1.96b1Pqchtp Kidney Disease: Estimated GFR < 15 mL/min/1.73m2 Glucose 107 60 - 115 mg/dL [facility] Calcium 8.9 8.4 - 10.2 mg/dL [facility] 07/02/2024 8:04 PM EST 07/02/2024 8:08 PM EST us Generic External Data Provider LAB BLOOD ORDERAB LES Final Result Performing Organization Address City/[facility]/ZIP Co de Phone Number [facility] [address] [place] [phone] * Hepatic Function Panel (07/02/2024 8:04 PM EST) Bilirubin, Total 0.3 0.0 - 1.0 mg/dL [facility] Bilirubin, Direct 0.1 0.0 - 0.5 mg/dL [facility] Aspartate Amino Transferase 31 5 - 31 U/L [facility] Alanine Aminotransferase 26 0 - 31 U/L [facility] Total Protein 7.6 6.5 - 8.0 g/dL [facility] Albumin Level 4.3 3.5 - 5.0 g/dL [facility] Alkaline Phosphatase 60 39 - 117 U/L [facility] 07/02/2024 8:04 PM EST 07/02/2024 8:08 PM EST Generic External Data Provider LAB BLOOD ORDERAB LES Final Result Performing Organization Address [facility] de Phone Number [facility] [address] [place] [phone] * Strep A Nucleic Acid (07/02/2024 8:04 PM EST) Pathologist [facility] IDNOW SERIAL# [id number] [facility] Strep A Nucleic Acid Negative Negative [facility] Comment:All test results mus t be correlated with clinical findings.This test has not been evaluated for monitoring treatment ofinfection.Additional follow-up testing using the culture method isrequired if the result is negative and clinical symptomspersist, or in the event of an acute rheumatic feveroutbreak. 07/02/2024 8:04 PM EST 07/02/2024 8:08 PM EST us Generic External Data Provider LAB MICROBIOLOGY - GENERAL ORDERABLES Final Result Performing Organization Address [facility] de Phone Number [facility] [address] [place] [phone] * (ABNORMAL) CBC auto differential (07/02/2024 8:04 PM EST) Pathologist [facility] White Blood Count 4.8 4.8 - 10.8 X10*3/uL [facility] Red Blood Count 4.74 4.20 - 5.50 X10*6/uL [facility] Hemoglobin 11.5(L) 12.0 - 16.0 g/dl [facility] Hematocrit 35.8(L) 37.0 - 47.0 % [facility] Mean Corpuscular Volume 75.5(L) 80.0 - 98.0 fL [facility] Mean Corpuscular Hemoglobin 24.3(L) 27.0 - 33.0 pg [facility] Mean Corpuscular HGB Conc 32.1 31.0 - 35.0 g/dl [facility] Red Cell Distribution Width 15.0 11.0 - 16.0 % [facility] Platelet Count 235 160 - 400 X10*3/uL [facility] Mean Platelet Volume 8.8(L) 9.4 - 12.3 fL [facility] Neutrophils Percent Auto 66.3 45 - 73 % [facility] Imm Gran Pct Auto 0.2 0.0 - 0.4 % [facility] Lymphocytes Percent Auto 15.9(L) 20 - 40 % [facility] Monocytes Percent Auto 15.7(H) 2 - 11 % [facility] Eosinophils Percent Auto 1.5 0 - 4 % [facility] Basophils Percent Auto 0.4 0 - 2 % [facility] NRBC Pct Auto 0.0 0.0 - 0.2 /100WBC [facility] Neutrophils Absolute Auto 3.2 2.0 - 8.3 x10*3/uL [facility] Imm Gran Abs Auto 0.01 0.00 - 0.03 X10*3/uL [facility] Lymphocytes Absolute Auto 0.8(L) 1.2 - 4.9 X10*3/uL [facility] Monocytes Absolute Auto 0.8 0.1 - 1.2 X10*3/uL [facility] Eosinophils Absolute Auto 0.1 0.0 - 0.4 X10*3/uL [facility] Basophils Absolute Auto 0.0 0.0 - 0.2 X10*3/uL [facility] NRBC Abs Auto 0.000 0.0 - 0.012 X10*3/uL [facility] 07/02/2024 8:04 PM EST 07/02/2024 8:08 PM EST us Generic External Data Provider LAB BLOOD ORDERAB LES Final Result Performing Organization Address City/State/[facility] Co de Phone Number [facility] [address] [place] [phone] documented in this encounter Visit Diagnoses Not on filedocumented in this encounter Additional Health Concerns Assessment Noted Time PHQ-9 Depression Total Score: 0 12/24/19 24 11:02 AM EDT documented as of this encounter Care Teams Cable Installer Repairer Relationship Specialty Start Date End Date Clementine Cobos MD [address] [place] [phone] PCP - General Family Medicine 06/25/18 documented as of this encounter
--- OUTSIDE RECORDS SUMMARY | 2024-07-21 19:27 | XMS_ITS | Encounter Summary ---
Author Organization [email or web address] Address [address] [facility] [address]t [place] [address] Care Team Providers Care Network Security Officer Name Role Phone Clementine Cobos MD Primary Care Provider +1- [phone] Encounter Details Date Type Department Care Team (Late st Contact Info) Description 03/07/2023 Orders Only [facility] [address] [place] [address] Clementine Cobos MD [address] [place] [address] Social History Tobacco Use Types Packs/Day Years Used Date Smoking Tobacco: Never Passive Smoke Exposure: Never Smokeless Tobacco: Never Depression Answer Date Recorded Patient Health Questionnaire-9 Score 0 09/11/2022 Depression Answer Date Recorded Patient Health Questionnaire-2 Score 0 09/11/2022 Comments Unknown Sex and Gender Information Value [...] Description 09/16/2024 7:45 AM EDT Office Visit [facility] ADULT DENTAL [address] [place] [address] [address] [place] [place] [address] documented as of this encounter Procedures Procedure Name Priority Date/Time Associated Diagnosis Comments BI MAMMOGRAM SCREENING TOMOSYNTHESIS BILATERAL Routine 03/17/2023 7:45 AM EDT documented in this encounter Results * BI Mammogram Screening Tomosynthesis Bilateral (03/17/2023 7:45 AM EDT) Anatomical Region Laterality Modality Breast Bilateral Mammography 03/17/2023 7:45 AM EDT Narrative 03/24/2023 9:33 PM EDT ? [facility] ? [address] ?[place] [address] ? Mammography Report ? Signed ? Patient: Herrera,Dacasty D ?MR#: [id number] ?? 11 ? : 1980 ?Acct:[id number] ? Age/Sex: 42 / F ?ADM Date: 03/17/23 ? Loc: HO.MAMMO ? Attending Dr: Clementine Cobos MD ? Ordering Physician: Clementine Cobos MD ?Results: 1N ?? egative ? Date of Service: 03/17/23 ?Follow Up: 1 Year From Orig ?? inal Mammogram ? Procedure(s): MM tomosynthesis screening BI ?? Accession Number(s): [id number] ? cc: Clementine Cobos MD ? EXAMINATION: ?? MM SCREENING DIGITAL BREAST TOMOSYNTHESIS, BILATERAL ? CLINICAL INFORMATION: ? Screening. Asymptomatic. ? COMPARISON: ?? Mammography: This study is compared with prior exams dating back to ?? 2018. ? TECHNIQUE: ?? Digital breast tomosynthesis is performed in both the craniocaudal and ?? mediolateral oblique views along with computer-aided detection (CAD). ?? Synthesized 2D images are generated from the tomosynthesis. ? FINDINGS: ?? There are scattered areas of fibroglandular density (ACR BI-RADS breast ?? composition Category b). ? There are no significant masses, abnormal calcifications, or other ?? abnormalities. ? MM/MM tomosynthesis screening BI ?? IMPRESSION: ?? No mammographic evidence of malignancy. ? ASSESSMENT: ? BI-RADS BI-RADS 1 - Negative ? RECOMMENDATION: ?? Routine annual mammography screening. ? 1 year F/U ? This examination should not preclude the clinical evaluation of a ?? suspicious palpable abnormality. ? This patient's information was entered into a reminder system with a ?? target due date for their next mammogram. ? Dictated By: ?Sabra Castillo MD ? Signed By: ?<Electronically signed by Sabra Catsillo MD in OV> ? 03/24/232128 ? DD/ 0745 ? TD/TT: ? Continuity Director: ? Procedure Note [facility] - 03/24/2023 [facility] [address] [place] [address] Mammography Report Signed Patient: Carmine Herrera DMR#: [id number] 11 : 1980Acct:[id number] Age/Sex: 42 / FADM Date: 03/17/23 Loc: HO.MAMMO Attending Dr: Clementine Cobos MD Ordering Physician: Clementine Cobos MDResults: 1N egative Date of Service: 03/17/23Follow Up: 1 Year From Orig inal Mammogram Procedure(s): MM tomosynthesis screening BI Accession Number(s): [id number] cc: Clementine Cobos MD EXAMINATION: MM SCREENING DIGITAL BREAST TOMOSYNTHESIS, BILATERAL CLINICAL INFORMATION: Screening. Asymptomatic. COMPARISON: Mammography: This study is compared with prior exams dating back to 2018. TECHNIQUE: Digital breast tomosynthesis is performed in both the craniocaudal and mediolateral oblique views along with computer-aided detection (CAD). Synthesized 2D images are generated from the tomosynthesis. FINDINGS: There are scattered areas of fibroglandular density (ACR BI-RADS breast composition Category b). There are no significant masses, abnormal calcifications, or other abnormalities. MM/MM tomosynthesis screening BI IMPRESSION: No mammographic evidence of malignancy. ASSESSMENT: BI-RADS BI-RADS 1 - Negative RECOMMENDATION: Routine annual mammography screening. 1 year F/U This examination should not preclude the clinical evaluation of a suspicious palpable abnormality. This patient's information was entered into a reminder system with a target due date for their next mammogram. Dictated By: Sabra Castillo MD Signed By: <Electronically signed by Sabra Castillo MD in OV> 03/24/232128 DD/ TD/TT: Continuity Director: us Clementine Cobos MD IM BI PROCEDURES Edited R esult - Final documented in this encounter Visit Diagnoses Not on filedocumented in this encounter Additional Health Concerns Assessment Noted Time PHQ-9 Depression Total Score: 0 09/12/19 23 10:19 AM EDT documented as of this encounter Care Teams Network Security Officer Relationship Specialty Start Date End Date Clementine Cobos MD [address] [place] [phone] PCP - General Family Medicine 06/25/18 documented as of this encounter
--- OUTSIDE RECORDS SUMMARY | 2024-07-21 19:27 | XMS_ITS | Encounter Summary ---
Author Organization [employer] Address [address] [facility] 7[address] [place] [address] Care Team Providers Care Supervisor Anodizing Name Role Phone Clementine Cobos MD Primary Care Provider +1- [phone] Encounter Details Date Type Department Care Team ([facility] st Contact Info) Description 07/01/2024 Telephone [facility] [address] [place], [place] [phone] Rhett Alvarado MD [address] [place] [address] Social History Tobacco Use Types Packs/Day Years [...] AM EDT documented as of this encounter Miscellaneous Notes * Telephone Encounter - Rhett Alvarado MD - 07/01/2024 3:18 PM EST I notified Dacasty of neg TC results, done yesterday. States that she started having productive cough, Some SOB, no definite wheezing, using albuterol HFA q4h. I sent Rx for prednisone 40 mg every day for 5 days to her pharmacy, and advised returning toWIC if not improving. documented in this encounter Plan of Treatment Upcoming Encounters Date Type Department Care Team (Late st Contact Info) Description 09/16/2024 7:45 AM EDT Office Visit [facility] [address] [place] [address] [facility] [place] [address] [place] [address] documented as of this encounter Visit Diagnoses Not on filedocumented in this encounter Additional Health Concerns Assessment Noted Time PHQ-9 Depression Total Score: 0 12/24/19 24 11:02 AM EDT documented as of this encounter Care Teams Supervisor Anodizing Relationship Specialty Start Date End Date Clementine Cobos MD [address] [place] [address] PCP - General Family Medicine 06/25/18 documented as of this encounter
--- OUTSIDE RECORDS SUMMARY | 2024-07-21 19:27 | XMS_ITS | Encounter Summary ---
Author Organization [employer] Address 75 [facility] 7t [place] [address] Care Team Providers Care Laser Beam Color Scanner Operator Name Role Phone Clementine Cobos MD Primary Care Provider +1- [phone] Encounter Details Date Type Department Care Team (Latest Contact Info) Description 07/16/2024 Travel Social History Tobacco Use Types Packs/Day Years [...] Description 09/16/2024 7:45 AM EDT Office Visit [facility] [address] [place] [address] Magn[facility] [place] [address] [place] [address] documented as of this encounter Visit Diagnoses Not on filedocumented in this encounter Additional Health Concerns Assessment Noted Time PHQ-9 Depression Total Score: 0 12/24/19 24 11:02 AM EDT documented as of this encounter Care Teams Laser Beam Color Scanner Operator Relationship Specialty Start Date End Date Clementine Cobos MD [address] [place] [address] PCP - General Family Medicine 06/25/18 documented as of this encounter
--- OUTSIDE RECORDS SUMMARY | 2024-07-21 19:27 | XMS_ITS | Encounter Summary ---
Author Organization [employer] Address 75 [facility] 7t [place] [address] Care Team Providers Care Gravel Inspector Name Role Phone Clementine Cobos MD Primary Care Provider +1- [phone] Encounter Details Date Type Department Care Team (Late st Contact Info) Description 11/17/2022 Abstract [facility] MED[facility] [address] [place] [address] Clementine Cobos MD [address] [place], [place] [phone] Social History Tobacco Use Types Packs/Day Years Used Date Smoking Tobacco: Never Smokeless Tobacco: Never Depression Answer Date [...] Description 09/16/2024 7:45 AM EDT Office Visit [facility] [address] [place] [address] [facility] [place] [address] [place], [place] [phone] documented as of this encounter Visit Diagnoses Not on filedocumented in this encounter Additional Health Concerns Assessment Noted Time PHQ-9 Depression Total Score: 0 09/12/19 23 10:19 AM EDT documented as of this encounter Care Teams Gravel Inspector Relationship Specialty Start Date End Date Clementine Cobos MD [address] [place] [address] PCP - General Family Medicine 06/25/18 documented as of this encounter
--- OUTSIDE RECORDS SUMMARY | 2024-07-21 19:27 | XMS_ITS | Encounter Summary ---
Author Organization [employer] [facility] Address [address] [facility] 7t [place] [address] Care Team Providers Care High School Biology Teacher Name Role Phone Clementine Cobos MD Primary Care Provider +1- [phone] Encounter Details Date Type Department Care Team (Latest Contact Info) Description 11/18/2021 Abstract [facility] CONVERSIONS Dental, Provider, DDS Social History [...] Description 09/16/2024 7:45 AM EDT Office Visit [facility] ADULT D[facility] [address] [place] [address] [facility] [place] [address] [place] [address] documented as of this encounter Visit Diagnoses Not on filedocumented in this encounter Care Teams High School Biology Teacher Relationship Specialty Start Date End Date Clementine Cobos MD [address] [place] [address] PCP - General Family Medicine 06/25/18 documented as of this encounter
--- OUTSIDE RECORDS SUMMARY | 2024-07-21 19:27 | XMS_ITS | Encounter Summary ---
Author Organization [employer] Address 75 [facility] 7t [place] [address] Care Team Providers Care Government Operations Consultant Name Role Phone Clementine Cobos MD Primary Care Provider +1- [phone] Reason for Visit * Reason Comments Follow-up Encounter Details Date Type Department Care Team ([facility] Contact Info) Description 07/16/2024 3:15 PM EST Office Visit [facility] MEDICINE [address] [place] [address] Clementine Cobos MD [address] [place] [address] Vaginal nguyen (Primary Dx); Mild intermittent asthma with acute exacerbation; Colon cancer screening; Dietary counseling; Exercise counseling; Overweight Social History Tobacco Use Types Packs/Day Years [...] AM EDT documented as of this encounter Last Filed Vital Signs Vital Sign Reading Time Taken Comments Blood Pressure 130/81 07/16/2024 3:21 PM EST Pulse 83 07/16/2024 3:21 PM EST Temperature 36.6 ??C (97.8 ??F) 07/16/2024 3:21 PM ES T Respiratory Rate 20 07/16/2024 3:21 PM EST Oxygen Saturation 98% 07/16/2024 3:21 PM EST Inhaled Oxygen Concentration - - Weight 76.5 kg (168 lb 9.6 oz) 07/16/2024 3:21 P M EST Height - - Body Mass Index 28.94 01/03/2024 11:31 AM EDT documented in this encounter Progress Notes * Clementine Cobos MD - 07/16/2024 3:15 PM EST Subjective Patient ID: Carmine Herrera is a 44 y.o. female with PMHx of gastroesophageal reflux, asthma, ureteropelvic junction, and thoracic radiculopathy who presents for Follow-up. Pt reports she thinks she has a yeast infection. She reports itching and mild white discharge for acouple days. This morning she notes she noticed redness/rash around her anus. Denies being sexuallyactive or any new partners. Review of Systems Constitutional: Negative for fever and unexpected weight change. Respiratory: Negative for shortness of breath. Cardiovascular: Negative for chest pain. Gastrointestinal: Negative for abdominal pain. Genitourinary: Positive for vaginal discharge. Negative for difficulty urinating. Skin: Positive for rash. Objective Visit Vitals BP 130/81 (BP Location: Left arm, Patient Position: Sitting, BP Cuff Size: Adult) Pulse 83 Temp 97.8 ??F (36.6 ??C) (Temporal) Resp 20 Body mass index is 28.94 kg/m??. Physical Exam Constitutional: Appearance: Normal appearance. Cardiovascular: Rate and Rhythm: Normal rate. Pulmonary: Effort: Pulmonary effort is normal. Genitourinary: Comments: Mild erythema around anus Musculoskeletal: Cervical back: Normal range of motion. Neurological: Mental Status: She is alert. Mental status is at baseline. Psychiatric: Behavior: Behavior normal. Problem List Items Addressed This Visit Vaginal nguyen - Primary Vaginal itching and mild discharge. No new partners, not sexually active. -prescribed fluconazole (Diflucan) 150 MG 07/16/24 Relevant Medications fluconazole (Diflucan) 150 MG tablet Mild intermittent asthma -Well controlled Colon cancer screening -Referral done to GI 06/22/23 -Gave pt number to call 12/24/23 -Offered ColoGuard, pt declined says she wants colonoscopy, pt agrees to call to make appt 07/16/24 Follow up in about 6 months (around 01/13/2025) for annual physical. I, Brooke Nolen, am serving as a scribe to document services personally performed by Dr. Brown, based on the patient's response to questions by provider and providers statements to me. documented in this encounter Miscellaneous Notes * Assessment & Plan Note - Brooke Nolen - 07/16/2024 3:44 PM ESTAssociated Problem(s): Mild intermittent asthma -Well controlled * Assessment & Plan Note - Brooke Nolen - 07/16/2024 3:43 PM ESTAssociated Problem(s): Vaginal nguyen Vaginal itching and mild discharge. No new partners, not sexually active. -prescribed fluconazole (Diflucan) 150 MG 07/16/24 * Assessment & Plan Note - Brooke Nolen - 07/16/2024 3:39 PM ESTAssociated Problem(s): Colon cancer screening -Referral done to GI 06/22/23 -Gave pt number to call 12/24/23 -Offered ColoGuard, pt declined says she wants colonoscopy, pt agrees to call to make appt 07/16/24 documented in this encounter Plan of Treatment Upcoming Encounters Date Type Department Care Team (Late st Contact Info) Description 09/16/2024 7:45 AM EDT Office Visit [facility] ADULT DENTAL [address] [place] [address] Ferr[place], Magn[place] [address] [place] [address] documented as of this encounter Procedures Procedure Name Priority Date/Time Associated Diagnosis Comments POCT URINALYSIS DIPSTICK Routine 07/16/2024 4:10 PM EST Vaginal nguyen documented in this encounter Results * POCT urinalysis dipstick manually resulted (07/16/2024 4:10 PM EST) Color, UA Yellow Clarity, UA Cloudy Glucose, UA Negative Bilirubin, UA Negative Ketones, UA Positive Spec Grav, UA 1.025 Blood, UA Negative Negative, None Detected pH, UA 5.5 Protein, UA Negative Urobilinogen, UA 0.2 Leukocytes, UA Negative Negative, Rare, Trace Nitrite, UA Negative Negative, None Detected Appearance, UA yellow QC Media Lot # [id number] Lot# Expiration Date [id number] Urine 07/16/2024 4:10 PM EST Clementine Cobos MD POINT OF CARE TEST ENTER/E DIT ORDERABLES Final Result documented in this encounter Visit Diagnoses Diagnosis Vaginal nguyen- Primary Candidiasis of vulva and vagina Mild intermittent asthma with acute exacerbation Colon cancer screening Special screening for malignant neoplasms, colon Dietary counseling Dietary surveillance and counseling Exercise counseling Overweight documented in this encounter Additional Health Concerns Assessment Noted Time PHQ-9 Depression Total Score: 0 12/24/19 24 11:02 AM EDT documented as of this encounter Care Teams Government Operations Consultant Relationship Specialty Start Date End Date Clementine Cobos MD [address] [place] [id number] PCP - General Family Medicine 06/25/18 documented as of this encounter
--- OUTSIDE RECORDS SUMMARY | 2024-07-21 19:27 | XMS_ITS | Encounter Summary ---
Author Organization [employer] Address 75 [facility] 7t [place] [address] Care Team Providers Care Payment Poster Name Role Phone Clementine Cobos MD Primary Care Provider +1- [phone] Reason for Referral * Imaging (Routine) - Closed Specialty Diagnoses / Procedures Referred By Nancie sullivan Referred To Contact Radiology Diagnoses Pleuritic pain Thoracic radiculopathy Procedures CT Chest w/ Contrast Clementine Cobos MD [address] [place] [address] Phone: tel: fax: [facility] [address] [place] [address] Phone: tel: fax: Referral ID Status Reason Start Date Expiration Date Visits Re quested Visits Authorized [id number] Closed 06/28/2023 06/27/2024 1 1 Encounter Details Date Type Department Care Team (Late st Contact Info) Description 06/28/2023 Orders Only [facility] [address] [place] [phone] Clementine Cobos MD [address] [place], [place] [phone] Pleuritic pain (Primary Dx); Thoracic radiculopathy Social History Tobacco Use Types Packs/Day Years Used Date Smoking Tobacco: Never Passive Smoke Exposure: Never Smokeless Tobacco: Never Alcohol Use Standard Drinks/Week Comments Yes 0 (1 standard drink = 0.6 oz pur e alcohol) occasional drinking Depression Answer Date Recorded Patient Health Questionnaire-9 Score 0 09/11/2022 Housing Stability Answer Date Recorded What is your housing situation today? I have chica collins 04/16/[address] you li ve. Do you have problems with any of the following? None of the above 04/16/2023 Food Insecurity Answer Date Recorded Within the past 12 months, y ou worried that your food would run out before you got money to buy more: Never True 04/16/2023 Within the past 12 months,th e food you bought just didn't last and you didn't have enough money to get more: Never True Transportation Answer Date Recorded In the past 12 months, has l ack of transportation kept you from medical appts, meetings, work or from getting things needed for daily living? No 04/16/2023 Utilities Answer Date Recorded In the past 12 months, has t he electric, gas, oil or water company threatened to shut off services in your home? No 04/16/2023 Depression Answer Date Recorded Patient Health Questionnaire-2 Score 0 09/11/2022 Comments No Sex and Gender Information Value [...] Description 09/16/2024 7:45 AM EDT Office Visit [facility] ADULT DENT[facility] [address] [place] [address] [facility] [place] [address] [place] [address] Scheduled Orders Name Type Priority Associated Diagnoses Orde r Schedule CT Chest w/ Contrast Imaging Routine Pleuritic pain Thoracic radiculopathy Expected: 06/28/2023, Expires: 06/28/2024 documented as of this encounter Visit Diagnoses Diagnosis Pleuritic pain- Primary Painful respiration Thoracic radiculopathy Thoracic or lumbosacral neuritis or radiculitis, unspecified documented in this encounter Additional Health Concerns Assessment Noted Time PHQ-9 Depression Total Score: 0 09/12/19 10:19 AM EDT documented as of this encounter Care Teams Payment Poster Relationship Specialty Start Date End Date Clementine Cobos MD [address] [place] [id number] PCP - General Family Medicine 06/25/18 documented as of this encounter
--- OUTSIDE RECORDS SUMMARY | 2024-07-21 19:27 | XMS_ITS | Encounter Summary ---
Author Organization [employer] Address [address] [facility] [address] 7t [place] [address] Care Team Providers Care Coal Chemist Name Role Phone Clementine Cobos MD Primary Care Provider +1- [phone] Encounter Details Date Type Department Care Team ([facility] st Contact Info) Description 06/27/2023 Orders Only [facility] [address] [place], [place] [phone] Clementine Cobos MD [address] [place] [address] Social History Tobacco Use Types Packs/Day Years Used Date Smoking Tobacco: Never Passive Smoke Exposure: Never Smokeless Tobacco: Never Alcohol Use Standard Drinks/Week Comments Yes 0 (1 standard drink = 0.6 oz pur e alcohol) occasional drinking Depression Answer Date Recorded Patient Health Questionnaire-9 Score 0 09/11/2022 Housing Stability Answer Date Recorded What is your housing situation today? I have chicawai collins 04/16/[address] you [...] Description 09/16/2024 7:45 AM EDT Office Visit [facility] ADULT DENT[facility] [address] [place] [address] [facility] [place] [address] [place] [address] documented as of this encounter Visit Diagnoses Not on filedocumented in this encounter Additional Health Concerns Assessment Noted Time PHQ-9 Depression Total Score: 0 09/12/19 23 10:19 AM EDT documented as of this encounter Care Teams Coal Chemist Relationship Specialty Start Date End Date Clementine Cobos MD [address] [place] [address] PCP - General Family Medicine 06/25/18 documented as of this encounter
--- OUTSIDE RECORDS SUMMARY | 2024-07-21 19:27 | XMS_ITS | Encounter Summary ---
Author Organization [employer] Address 75 [facility] 7t [place] [address] Care Team Providers Care Certified Marine Mechanic Name Role Phone Clementine Cobos MD Primary Care Provider +1- [phone] Reason for Visit * Reason Comments Med Change Request Encounter Details Date Type Department Care Team ([facility] st Contact Info) Description 04/28/2023 Refill [facility] MED[facility] [address] [place] [address] Kaitlin Vallejo MD [address] [place] [address] Seasonal allergies (Primary Dx) Social History Tobacco Use Types Packs/Day Years [...] Description 09/16/2024 7:45 AM EDT Office Visit [facility] ADULT DENT[facility] [address] [place] [address] [facility] [place] [address] [place] [address] documented as of this encounter Visit Diagnoses Diagnosis Seasonal allergies- Primary Allergic rhinitis, cause unspecified documented in this encounter Additional Health Concerns Assessment Noted Time PHQ-9 Depression Total Score: 0 09/12/19 23 10:19 AM EDT documented as of this encounter Care Teams Certified Marine Mechanic Relationship Specialty Start Date End Date Clementine Cobos MD [address] [place] [address] PCP - General Family Medicine 06/25/18 documented as of this encounter
--- OUTSIDE RECORDS SUMMARY | 2024-07-21 19:27 | XMS_ITS | Encounter Summary ---
Author Organization [employer] Address 75 [facility] 7t [place] [address] Care Team Providers Care Binder And Wrapper Packer Name Role Phone Clementine Cobos MD Primary Care Provider +1- [phone] Reason for Visit * Reason Comments Med Change Request Encounter Details Date Type Department Care Team ([facility] st Contact Info) Description 07/27/2023 Refill [facility] [address] [place] [address] Clementine Cobos MD [address] [place] [address] Social History Tobacco Use Types Packs/Day Years [...] Description 09/16/2024 7:45 AM EDT Office Visit [facility] ADULT DENT[facility] [address] [place] [address] Magn[facility] [place] [address] [place] [address] documented as of this encounter Visit Diagnoses Not on filedocumented in this encounter Additional Health Concerns Assessment Noted Time PHQ-9 Depression Total Score: 0 09/12/19 23 10:19 AM EDT documented as of this encounter Care Teams Binder And Wrapper Packer Relationship Specialty Start Date End Date Clementine Cobos MD [address] [place] [address] PCP - General Family Medicine 06/25/18 documented as of this encounter
--- OUTSIDE RECORDS SUMMARY | 2024-07-21 19:27 | XMS_ITS | Encounter Summary ---
Author Organization [employer] Address 75 [facility] 7t [place] [address] Care Team Providers Care Advanced Solutions Architect Name Role Phone Clementine Cobos MD Primary Care Provider +1- [phone] Reason for Visit * Reason Comments Vomiting Diarrhea Abdominal Pain Encounter Details Date Type Department Care Team (Latest Contact Info) Description 06/30/2024 9:00 AM EST Office Visit [facility] [address] [place] [phone] Rhett Alvarado MD [address] [place] [address] Nausea and vomiting, unspecified vomiting type (Primary Dx); Exposure to Streptococcal pharyngitis Social History Tobacco Use Types Packs/Day Years [...] Sign Reading Time Taken Comments Blood Pressure 127/58 06/30/2024 9:05 AM EST Pulse 72 06/30/2024 9:05 AM EST Temperature 36.5 ??C (97.7 ??F) 06/30/2024 9:05 AM ES T Respiratory Rate 17 06/30/2024 9:05 AM EST Oxygen Saturation 98% 06/30/2024 9:05 AM EST Inhaled Oxygen Concentration - - Weight 75.8 kg (167 lb) 06/30/2024 9:05 AM EST Height - - Body Mass Index 28.67 01/03/2024 11:31 AM EDT documented in this encounter Progress Notes * Rhett Alvarado MD - 06/30/2024 9:00 AM EST Subjective Patient ID: Carmine Herrera is a 44 y.o. female. HPI This AM Dacasty had onset of nausea with 4 episodes of yellow liquids preceded by mucous . + chills this AM. Had soft stool with no diarrhea yesterday. Ate crackers this AM and has not vomited since. Still has mild nausea. No abd pain, sore throat, cough, wheezing. H/o cholecystectomy, c-sections, sleeve gastrectomy. Lives with 5 children; daughter is being seen in [facility] now and tested + for strep. Son had + rapid strep 3 days ago. Daughter had onset of diarrhea yesterday. LMP=now Never smoked. Patient Active Problem List Diagnosis Thoracic radiculopathy Gastroesophageal reflux disease Mild intermittent asthma Mixed stress and urge urinary incontinence Neck pain Seasonal allergies Ureteropelvic junction (UPJ) obstruction Vitamin D deficiency Postural dizziness with presyncope Hx of gastric bypass Candidiasis of skin Low back pain with radiation, unspecified laterality Preventative health care Abnormal uterine bleeding Pleuritic pain Colon cancer screening Back muscle spasm Abdominal pannus Breast ptosis H. pylori infection Heart palpitations Intestinal malabsorption following gastrectomy Over weight Rectus diastasis Dysphagia Anemia Total body pain Ventral hernia without obstruction or gangrene The following portions of the chart were reviewed this encounter and updated as appropriate: Tobacco Allergies Meds Problems Med Hx Surg Hx Fam Hx Review of Systems Constitutional: Positive for chills. Negative for fever. Respiratory: Negative for shortness of breath. Cardiovascular: Negative for chest pain. Gastrointestinal: Positive for nausea and vomiting. Negative for abdominal pain. Skin: Negative for rash. Neurological: Negative for headaches. Objective Physical Exam Vitals and nursing note reviewed. Constitutional: Appearance: Normal appearance. HENT: Head: Normocephalic and atraumatic. Nose: Nose normal. Mouth/Throat: Pharynx: Oropharynx is clear. Uvula midline. Tonsils: No tonsillar exudate or tonsillar abscesses. Eyes: Conjunctiva/sclera: Conjunctivae normal. Pupils: Pupils are equal, round, and reactive to light. Pulmonary: Effort: Pulmonary effort is normal. Abdominal: General: Abdomen is flat. Palpations: Abdomen is soft. Tenderness: There is no abdominal tenderness. Skin: General: Skin is warm and dry. Neurological: Mental Status: She is alert. Gait: Gait is intact. Psychiatric: Mood and Affect: Mood and affect normal. Behavior: Behavior normal. Procedures Assessment/Plan Diagnoses and all orders for this visit: Nausea and vomiting, unspecified vomiting type Negative rapid Covid and Influenza tests. Covid PCR and Flu tests pending. Drink lots of liquids. rtc if not improving. - POCT Rapid COVID Ag - Influenza A (ID NOW Rapid Molecular) - Influenza B (ID NOW Rapid Molecular) Exposure to Streptococcal pharyngitis Rapid Strep test negative. TC pending. Will call pt with results. - Culture, Throat documented in this encounter Plan of Treatment Upcoming Encounters Date Type Department Care Team (Late st Contact Info) Description 09/16/2024 7:45 AM EDT Office Visit [facility] [address] [place] [address] [facility] [facility] [address] [place] [address] documented as of this encounter Procedures Procedure Name Priority Date/Time Associated Diagnosis Comments CULTURE, THROAT Routine 06/30/2024 9:44 AM EST Exposure to Streptococcal pharyngitis POCT INFLUENZA B (ID NOW RAPID MOLECULAR) Routine 06/30/2024 9:40 AM EST Nausea and vomiting, unspecified vomiting type POCT INFLUENZA A (ID NOW RAPID MOLECULAR) Routine 06/30/2024 9:40 AM EST Nausea and vomiting, unspecified vomiting type POCT RAPID COVID ANTIGEN Routine 06/30/2024 9:40 AM EST Nausea and vomiting, unspecified vomiting type documented in this encounter Results * Culture, Throat (06/30/2024 9:44 AM EST) Throat Structure of anterior portion of neck / Unknown 06/30/2024 9:44 AM EST 06/30/2024 1:16 PM EST Comment:Throat Narrative [facility] - 07/02/2024 8:46 AM EST Throat Culture No Group A Beta-hemolytic Streptococci isolated. Specimen Source: Throat Rhett Alvarado MD LAB MICROBIOLOGY - GENERAL ORDER RON Final Result [facility] [address] [place] [address] [phone] * Influenza B (ID NOW Rapid Molecular) (06/30/2024 9:40 AM EST) Influenza B Negative Negative, Indeterminate [facility] Swab 06/30/2024 9:40 AM EST us Rhett Alvraado MD POINT OF CARE TEST ENTER/EDIT OR DERABLES Final Result Performing Organization Address [facility] Co de Phone Number [facility] [address] [place] [phone] * Influenza A (ID NOW Rapid Molecular) (06/30/2024 9:40 AM EST) Influenza A Negative Negative, Indeterminate [facility] Swab 06/30/2024 9:40 AM EST us Rhett Alvarado MD POINT OF CARE TEST ENTER/EDIT OR DERABLES Final Result Performing Organization Address [facility] Co de Phone Number [facility] [address] [place] [phone] * POCT Rapid COVID Ag (06/30/2024 9:40 AM EST) Rapid COVID Ag Negative [facility] Swab 06/30/2024 9:40 AM EST us Rhett Alvarado MD POINT OF CARE TEST ENTER/EDIT OR DERABLES Final Result Performing Organization Address [facility] de Phone Number [facility] [address] [place] [phone] documented in this encounter Visit Diagnoses Diagnosis Nausea and vomiting, unspecified vomiting type- Primary Exposure to Streptococcal pharyngitis documented in this encounter Additional Health Concerns Assessment Noted Time PHQ-9 Depression Total Score: 0 12/24/19 24 11:02 AM EDT documented as of this encounter Care Teams Advanced Solutions Architect Relationship Specialty Start Date End Date Clementine Cobos MD [address] [place] [id number] PCP - General Family Medicine 06/25/18 documented as of this encounter
--- OUTSIDE RECORDS SUMMARY | 2024-07-21 19:27 | XMS_ITS | Clinical Summary ---
Author Organization [facility] Address [address] [place] [address] Care Team Providers Care Lighting Equipment Operator Name Role Phone Clementine Cobos MD Primary Care Provider [phone]- [phone] Surgical History Surgery Date Site/Laterality Comments CHOLECYSTECTOMY PROCEDURE: LAPAROSCOPY, CHOLECYSTECTOMY OTHER SURGICAL HISTORY PROCEDURE: HISTORICAL ESSURE (BILATERAL OCCLUSION FALLOPIAN TUBES-PERMA) Medical History Medical History Date Comments Heart palpitations 07/16/2012 DX:Heart palp itations Endometriosis DX:Endometriosis Family History Relation Name Status Comments Father Alive Mother Alive Social History Tobacco Use Types Packs/Day Years Used Date Smoking Tobacco: Never Smokeless Tobacco: Never Alcohol Use Standard Drinks/Week Comments Yes 0 (1 standard drink = 0.6 oz pur e alcohol) Sex and Gender Information Value Date Recorded Sex Assigned at Not on file Gender Identity Not on file Sexual Orientation Not on file Obstetrics History Last Filed Vital Signs Vital Sign Reading Time Taken Comments Blood Pressure 136/71 01/31/2023 1:08 PM EDT Pulse 57 01/31/2023 1:08 PM EDT Temperature - - Respiratory Rate - - Oxygen Saturation - - Inhaled Oxygen Concentration - - Weight 69.7 kg (153 lb 9.6 oz) 01/31/2023 1:08 P M EDT Height 161.3 cm (5' 3.5 ) 01/31/2023 1:08 PM EDT Body Mass Index 26.78 01/31/2023 1:08 PM EDT Plan of Treatment Health Maintenance Due Date Last Done Comments Breast Cancer Screening 1978 DTaP,Tdap,and Td Vaccines (1 - Tdap) 1997 Hepatitis B Vaccines (1 of 3 - 19+ 3-dose series) 1997 Cervical Cancer Screening: P ap Smear 1999 Colorectal Cancer Screening: Colonoscopy 06/03/2022 Depression Screening 06/03/2022 HIV Screening 06/03/2022 Hepatitis C Screening 06/03/2022 Social Influencers of Health Screening 06/03/2022 COVID-19 Vaccine ( - 2023-2 5 season) 2024 Influenza Vaccine (#1) 2024 HIB Vaccines Aged Out No longer eligi ble based on patient's age to complete this topic HPV Vaccines Aged Out No longer eligi ble based on patient's age to complete this topic Hepatitis A Vaccines Aged Out No long er eligible based on patient's age to complete this topic IPV Vaccines Aged Out No longer eligi ble based on patient's age to complete this topic MMR Vaccines Aged Out No longer eligi ble based on patient's age to complete this topic Meningococcal ACWY Vaccine Aged Out N o longer eligible based on patient's age to complete this topic Pneumococcal Vaccine: Pediat rics (0 to 5 Years) and At-Risk Patients (6 to 64 Years) Aged Out No longer eligible b ased on patient's age to complete this topic RSV Immunization Patients Un ching 20 months Aged Out No longer eligible b ased on patient's age to complete this topic Varicella Vaccines Aged Out No longer eligible based on patient's age to complete this topic Care Teams Lighting Equipment Operator Relationship Specialty Start Date End Date Clementine Cobos MD [address] [place] [phone] PCP - General Internal Medicine 12/18/12
--- OUTSIDE RECORDS SUMMARY | 2024-07-21 19:27 | XMS_ITS | Encounter Summary ---
Author Organization [facility] Address [address] [facility] [address] [place] [address] Care Team Providers Care Coater Carbon Paper Name Role Phone Clementine Cobos MD Primary Care Provider +1- [phone] Reason for Visit * Reason Comments Med Change Request Encounter Details Date Type Department Care Team ([facility] st Contact Info) Description 07/27/[address] [facility] [address] [place] [address] Clementine Cobos MD [address] [place] [address] Social History Tobacco Use Types Packs/Day Years [...] AM EDT Office Visit [facility] AD[facility] [address] [place] [address] [place] [address] [place] [address] documented as of this encounter Visit Diagnoses Not on filedocumented in this encounter Additional Health Concerns Assessment Noted Time PHQ-9 Depression Total Score: 0 09/12/19 23 10:19 AM EDT documented as of this encounter Care Teams Coater Carbon Paper Relationship Specialty Start Date End Date Clementine Cobos MD [address] [place] [address] PCP - General Family Medicine 06/25/18 documented as of this encounter
--- OUTSIDE RECORDS SUMMARY | 2024-07-21 19:27 | XMS_ITS | Encounter Summary ---
Author Organization [facility] [employer] Address [address] [address] [place] [address] Care Team Providers Care Agricultural Extension Specialist Name Role Phone Clementine Cobos MD Primary Care Provider +1- [phone] Encounter Details Date Type Department Care Team (Late st Contact Info) Description 07/01/2024 Orders Only [facility] [address] [place], [place] [phone] Rhett Alvarado MD [address] [place], [place] [phone] Social History Tobacco Use Types Packs/Day Years [...] Description 09/16/2024 7:45 AM EDT Office Visit [facility] [address] [place] [address] [place] [address] [place] [address] documented as of this encounter Visit Diagnoses Not on filedocumented in this encounter Additional Health Concerns Assessment Noted Time PHQ-9 Depression Total Score: 0 12/24/19 24 11:02 AM EDT documented as of this encounter Care Teams Agricultural Extension Specialist Relationship Specialty Start Date End Date Clementine Cobos MD [address] [place] [address] PCP - General Family Medicine 06/25/18 documented as of this encounter
--- OUTSIDE RECORDS SUMMARY | 2024-07-21 19:27 | XMS_ITS | Clinical Summary ---
Author Organization [employer] Address [address] [place] [address] Care Team Providers Care Tieing Machine Operator Name Role Phone Clementine Cobos MD Primary Care Provider [phone] Allergies Active Allergy Reactions Criticality Noted Date Comments Levonorgest-Eth Estrad -Day 2022 Medications albuterol 108 (90 Base) MCG/ACT inhaler Inhale 2 puffs every 6 (six) hours if needed for wheezing. 18 g 11 4 06/03/20 25 Active Mometasone Furoate (Asmanex HFA) 100 MCG/ACT aerosol Inhale 1 Act (100 mcg) Once daily. 30 Act 4 Active predniSONE (Deltasone) 20 MG tabletIndicatio ns:Viral upper respiratory tract infection with cough 2 tabs po daily for 5 days 10 tablet 5 Active benzonatate (Tessalon Perles) 100 MG capsuleIndicati ons:Viral upper respiratory tract infection with cough Take 1 capsule (100 mg) by mouth if needed in the morning, at noon, and at bedtime for cough. Do not crush or chew. 20 capsule 5 07/10/19 26 Active fluconazole (Diflucan) 150 MG tabletIndicatio ns:Vulvovaginal Candidiasis Take 1 pill po once, may repeat 1 time after 72 hours is symptomatic 2 tablet 5 Active predniSONE (Deltasone) 20 MG tablet Take 2 tablets (40 mg) by mouth Once per day for 5 days. 10 tablet 5 07/06/19 25 guaiFENesin-cod eine (Guaiatussin AC) 100-10 MG/5ML syrupIndication s:Viral upper respiratory tract infection with cough Take 5 mL by mouth if needed in the morning, at noon, in the evening, and at bedtime for cough for up to 5 days. 150 mL 5 07/15/19 25 azithromycin (Zithromax) 250 MG tabletIndicatio ns:Viral upper respiratory tract infection with cough Take 2 tablets (500 mg) by mouth Once per day for 1 day, THEN 1 tablet (250 mg) Once per day for 4 days. 6 tablet 5 07/14/19 25 Active Problems Problem Noted Date Diagnosed Date Vaginal itching 07/16/2024 Vaginal nguyen 07/16/2024 Overview (07/16/2024): Vaginal itching and mild discharge. No new partners, not sexually active. -prescribed fluconazole (Diflucan) 150 MG 07/16/24 Assessment & Plan (07/16/2024 3:43 PM EST): Vaginal itching and mild discharge. No new partners, not sexually active. -prescribed fluconazole (Diflucan) 150 MG 07/16/24 Viral upper respiratory tract infection with cou gh 07/10/2024 Assessment & Plan (07/10/2024 3:19 PM EST): Cough >1 week. Tested positive for Flu last week. Tx with TamaFlu. COVID and Flu negative today. -No evidence of respiratory distress. Symptoms mild. -No evidence of dehydration. -Prescribed Tessalon perls, Azithromycin, Prednisone and Guaifenesin-codeine syrup. -Supportive care advised. -Isolation recommendations discussed. -ER precautions discussed. -Seek medical attention for worsening symptoms. Dysphagia 12/24/2023 Overview (12/24/2023): -Episodes of dryness and trouble swallowing certain foods. -Had Barium Swallow Study done, will request records 12/24/23 -Placed ENT referral 12/24/23 Assessment & Plan (12/24/2023 11:19 AM EDT): -Episodes of dryness and trouble swallowing certain foods. -Had Barium Swallow Study done, will request records 12/24/23 -Placed ENT referral 12/24/23 Anemia 12/24/2023 Overview (12/24/2023): -Hx of decreasing HGB over 3 months starting from Jan 2023 -Ordered labs to reevaluate 12/24/23 Assessment & Plan (12/24/2023 11:23 AM EDT): -Hx of decreasing HGB over 3 months starting from Jan 2023 -Ordered labs to reevaluate 12/24/23 Total body pain 12/24/2023 Overview (12/24/2023): -Likely correlated to john paul-menopausal sxs -Ordered labs 12/24/23 -Discussed starting Estrogen supplementation after appt. with [employer] W[employer] Grower for Lindy placement. Assessment & Plan (12/24/2023 11:21 AM EDT): -Likely correlated to john paul-menopausal sxs -Ordered labs 12/24/23 -Discussed starting Estrogen supplementation after appt. with [employer] W[employer]er for Lindy placement. Ventral hernia without obstruction or gangrene 0 12/24/2023 Overview (01/01/2024): -Pt reports umbilical pain and feeling her hernia move when she bends down -Seen by Eric Benjamin MD 01/01/24, scheduled for surgery Assessment & Plan (12/24/2023 11:18 AM EDT): -Pt reports umbilical pain and feeling her hernia move when she bends down -Placed referral to [facility] 12/24/23 Back muscle spasm 10/24/2023 Overview (10/24/2023): Likely musculoskeletal. Non-focal, normal motor exam without neurological deficits. No back pain red-flags: bowel/bladder incontinence, IVDU, urinary retention, saddle anesthesia, and significant motor deficits. -Recommend ibuprofen and muscle relaxer prn. Physical therapy referral offered. -Acupuncture clinic offered. -Lifting precaution sand stretching reviewed. -ER precaution discussed. -Agree with request patient will benefit with standing desk. Refer patient to medical records to get letter. 10/24/2023 Assessment & Plan (10/24/2023 10:15 AM EDT): Likely musculoskeletal. Non-focal, normal motor exam without neurological deficits. No back pain red-flags: bowel/bladder incontinence, IVDU, urinary retention, saddle anesthesia, and significant motor deficits. -Recommend ibuprofen and muscle relaxer prn. Physical therapy referral offered. -Acupuncture clinic offered. -Lifting precaution sand stretching reviewed. -ER precaution discussed. -Agree with request patient will benefit with standing desk. Refer patient to medical records to get letter. 10/24/2023 Colon cancer screening 06/29/2023 Overview (07/16/2024): -Referral done to GI 06/22/23 -Gave pt number to call 12/24/23 -Offered ColoGuard, pt declined says she wants colonoscopy, pt agrees to call to make appt 07/16/24 Assessment & Plan (07/16/2024 3:39 PM EST): -Referral done to GI 06/22/23 -Gave pt number to call 12/24/23 -Offered ColoGuard, pt declined says she wants colonoscopy, pt agrees to call to make appt 07/16/24 Assessment & Plan (12/24/2023 11:24 AM EDT): -Referral done to GI 06/22/23 -Gave pt number to call 12/24/23 Assessment & Plan (06/29/2023 9:30 AM EST): Referral done to GI 06/22/23 Abnormal uterine bleeding 06/20/2023 Overview (03/07/2024): Acute on chronic with worsening hemoglobin over past 3 months. Hemodynamically stable. Current episode 48 hours but has been bleeding daily since Jan 2023. -US done 06/15/2023 showed small fibroids. Ordering provider advised In light of her abnormal bleeding,endometrial biopsy but pt declined due to wanting hysterectomy. -Trial of Provera 10mg TID for 10 days. Pt understands this is short term solution to active bleeding 07/05/23. -EMB with Dr. Garcia 08/24/23 Benign proliferative endometrium with focal ectatic vessels; no atypia or carcinoma. -US 03/06/[address] Garcia Uterine fibroid measuring 1.3 x 0.8 x 1.1 cm, previously 1.2 x 1.3 x 1.5 cm. The previously noted second fibroid was not appreciated on today's exam. Assessment & Plan (12/24/2023 11:17 AM EDT): Acute on chronic with worsening hemoglobin over past 3 months. Hemodynamically stable. Current episode 48 hours but has been bleeding daily since Jan 2023. -US done 06/15/2023 showed small fibroids. Ordering provider advised In light of her abnormal bleeding,endometrial biopsy but pt declined due to wanting hysterectomy. -Trial of Provera 10mg TID for 10 days. Pt understands this is short term solution to active bleeding 07/05/23. -EMB with Dr. Garcia 08/24/23 Benign proliferative endometrium with focal ectatic vessels; no atypia or carcinoma. Assessment & Plan (07/05/2023 3:10 PM EST): Acute on chronic with worsening hemoglobin over past 3 months. Hemodynamically stable. Current episode 48 hours but has been bleeding daily since Jan 2023. -US done 06/15/2023 showed small fibroids. Ordering provider advised In light of her abnormal bleeding,endometrial biopsy but pt declined due to wanting hysterectomy. -Trial of Provera 10mg TID for 10 days. Pt understands this is short term solution to active bleeding 07/05/23. -pt needs new pt appointment with Dr. Garcia as she has not been seen in several years. Referral placed. Assessment & Plan (06/28/2023 9:34 AM EST): -current present since Jan 2023, previously controlled by Lupron but discontinued by councilor due to length of use. -Referred to another councilor by Dr. Garcia but that Construction Administrative Assistant did not do hysterectomies -US done 06/15/2023 at [facility], results pending as of 06/20/23 -pt to call Dr. Garcia for referral for hysterectomy Assessment & Plan (06/20/2023 4:29 PM EST): -current present since Jan 2023, previously controlled by Lupron but discontinued by councilor due to length of use. -Referred to another councilor by Dr. Garcia but that Construction Administrative Assistant did not do hysterectomies -US done 06/15/2023 at [facility], results pending as of 06/20/23 -pt to call Dr. Garcia for referral for hysterectomy Pleuritic pain 06/20/2023 Overview (06/20/2023): -present since right after her covid infection in 2019, getting worse in 2022. Given new symptoms of waking with facial swelling, concerning for venenous congestion. -No improvement after 2 rounds of Pt. -CXR normal -Patient has have greater than 6 weeks of provider directed treatment without response. Supported treatments completed with the past three months include drugs for pain, physical therapy, and injected steroids. Despite this, upon revaluation, there is no improved symptoms. -CT chest ordered 06/20/23 Assessment & Plan (06/28/2023 9:34 AM EST): -present since right after her covid infection in 2019, getting worse in 2022. Given new symptoms of waking with facial swelling, concerning for venenous congestion. -No improvement after 2 rounds of Pt. -CXR normal -Patient has have greater than 6 weeks of provider directed treatment without response. Supported treatments completed with the past three months include drugs for pain, physical therapy, and injected steroids. Despite this, upon revaluation, there is no improved symptoms. -CT chest ordered 06/20/23 Assessment & Plan (06/20/2023 4:34 PM EST): -present since right after her covid infection in 2019, getting worse in 2022. Given new symptoms of waking with facial swelling, concerning for venenous congestion. -No improvement after 2 rounds of Pt. -CXR normal -Patient has have greater than 6 weeks of provider directed treatment without response. Supported treatments completed with the past three months include drugs for pain, physical therapy, and injected steroids. Despite this, upon revaluation, there is no improved symptoms. -CT chest ordered 06/20/23 Other specified health status 01/31/2023 Overview (07/16/2024): -next comprehensive annual evaluation due after 04/23/2024 -eye care facilitated by every 2 years -dental home is [facility] -health care proxy filed 08/18/2023 Assessment & Plan (06/28/2023 9:35 AM EST): -next physical exam due after 04/23/2024 -eye care facilitated by every 2 years -dental home is [facility] Assessment & Plan (04/23/2023 9:18 AM EDT): -next physical exam due after 04/23/2024 -eye care facilitated by every 2 years -dental home is [facility] Candidiasis of skin 09/11/2022 Assessment & Plan (09/11/2022 9:41 AM EDT): Recurrent. Being evaluated for panniculectomy. Low back pain with radiation, unspecified latera lity 09/11/2022 Overview (06/20/2023): Assessment & Plan (06/20/2023 9:53 AM EST): -No improvement after 2 rounds of Pt. -Abdominal and pelvic CT scan was normal -She has pain management scheduled in the future -Will check MRI due to radiculopathy in right leg. Assessment & Plan (04/23/2023 9:02 AM EDT): -No improvement after 2 rounds of Pt. -Abdominal and pelvic CT scan was normal -She has pain management scheduled in the future -Will check MRI due to radiculopathy in right leg. Assessment & Plan (02/01/2023 11:05 AM EDT): -No improvement after 2 rounds of Pt. -Abdominal and pelvic CT scan was normal -She has pain management scheduled in the future -Will check MRI due to radiculopathy in right leg. Assessment & Plan (09/11/2022 9:37 AM EDT): Referral to PT 09/11/22. Hx of gastric bypass 09/06/2022 Gastroesophageal reflux disease 06/29/2022 Mixed stress and urge urinary incontinence 06/29 Postural dizziness with presyncope 06/29/2022 Assessment & Plan (06/29/2022 4:02 PM EST): One episode in setting of diarrhea. Likely vaso vagal. Labs and vitals normal. Continue hydration and return prn if symptoms return. Thoracic radiculopathy 08/04/2021 Overview (06/29/2023): -present since right after her covid infection in 2019, getting worse in 2022 -No improvement after 2 rounds of Pt. -Abdominal and pelvic CT scan was normal -She has injection with pain management pain management 03/2023 that improved the pain under the breast, but not towards the back. -Patient has have greater than 6 weeks of provider directed treatment without response. Supported treatments completed with the past three months include drugs for pain, physical therapy, and injected steroids. Despite this, upon revaluation, there is no improved symptoms. -Ct scan of the chest ordered 06/20/2023 -MRI of thoracic spine ordered 06/22/23 Assessment & Plan (06/29/2023 9:29 AM EST): -present since right after her covid infection in 2019, getting worse in 2022 -No improvement after 2 rounds of Pt. -Abdominal and pelvic CT scan was normal -She has injection with pain management pain management 03/2023 that improved the pain under the breast, but not towards the back. -Patient has have greater than 6 weeks of provider directed treatment without response. Supported treatments completed with the past three months include drugs for pain, physical therapy, and injected steroids. Despite this, upon revaluation, there is no improved symptoms. -Ct scan of the chest ordered 06/20/2023 -MRI of thoracic spine ordered 06/22/23 Assessment & Plan (06/20/2023 4:27 PM EST): -present since right after her covid infection in 2019, getting worse in 2022 -No improvement after 2 rounds of Pt. -Abdominal and pelvic CT scan was normal -She has injection with pain management pain management 03/2023 that improved the pain under the breast, but not towards the back. -Patient has have greater than 6 weeks of provider directed treatment without response. Supported treatments completed with the past three months include drugs for pain, physical therapy, and injected steroids. Despite this, upon revaluation, there is no improved symptoms. Assessment & Plan (04/23/2023 10:53 AM EDT): -followed by pain mgnt for RUQ pain that radiates to the mid back, present since covid illness on 10/2021 -resolved with injection from pain management 03/2023 Assessment & Plan (06/29/2022 4:02 PM EST): Presents since covid diagnosis. Controlled with occasional cyclobenzaprine. Seasonal allergies 08/04/2021 Ureteropelvic junction (UPJ) obstruction 022 Vitamin D deficiency 08/04/2021 Abdominal pannus 04/13/2020 Breast ptosis 04/13/2020 Rectus diastasis 04/13/2020 Intestinal malabsorption following gastrectomy 0 10/17/2018 Over weight 10/17/2018 Mild intermittent asthma 09/05/2018 Overview (04/23/2023): -Well controlled Assessment & Plan (07/16/2024 3:44 PM EST): -Well controlled Assessment & Plan (12/24/2023 8:44 AM EDT): -Well controlled Assessment & Plan (06/20/2023 9:53 AM EST): -Well controlled Assessment & Plan (04/23/2023 9:09 AM EDT): -Well controlled H. pylori infection 12/19/2017 Neck pain 04/30/2013 Heart palpitations 07/16/2012 Overview (07/16/2024): 06/04 echo revealed mild LVH, normal LVSF with EF 65-70%, possible presence of intracardiac shunt which needs to be evaluated after her 06/04 Holter monitor revealed baseline NSR with no pauses, frequent isolated PAC's occasional PVC's no pt reported events Resolved Problems Problem Noted Date Diagnosed Date Resolved Date Asthma 06/29/2022 09/06/2022 Chronic pelvic pain in female 06/29/2022 04/23/2023 Dysesthesia 06/29/2022 09/06/2022 Dyspareunia in female 06/29/20222022 Increased frequency of urination 06/29/2022 09/06/2022 Rotator cuff syndrome 06/29/20222022 Urinary urgency 06/29/2022 04/23/2023 Encounters Date Type Department Care Team Description 07/16/2024 3:15 PM EST Office Visit [facility] [address] [place] [phone] Clementine Cobos MD Vaginal nguyen (Primary Dx); Mild intermittent asthma with acute exacerbation; Colon cancer screening; Dietary counseling; Exercise counseling; Overweight 07/16/2024 Travel 07/10/2024 2:20 PM EST Office Visit [facility] [address] [place] [phone] Clementine Cobos MD Viral upper respiratory tract infection with cough 07/02/2024 Orders Only GENERIC EXTERNAL DATA DEPARTMENT Provider, Generic External Data 07/01/2024 Telephone [facility] [address] [place] [phone] Rhett Alvarado MD 07/01/2024 Orders Only [facility] [address] [place] [phone] Rhett Alvarado MD 06/30/2024 9:00 AM EST Office Visit [facility] [address] [place] [phone] Rhett Alvarado MD Nausea and vomiting, unspecified vomiting type (Primary Dx); Exposure to Streptococcal pharyngitis 06/05/2024 Telephone [facility] [address] [place] [phone] Bird Love MD 06/04/2024 Telephone [facility] [address] [place] [phone] Lizet Kong RNgas booster engineer 06/03/2024 3:20 PM EST Office Visit [facility] [address] [place] [phone] Bird Love MD COVID-19 (Primary Dx); Cough in adult patient; Sore throat; Acute nonintractable headache, unspecified headache type; Mild intermittent asthma with acute exacerbation from Last 3 Months Immunizations Name Administration Dates Next Due Hep B, adult 03/10/2019, 9,11/29/1998,10/29 Influenza Injectable Quadriv alant Preservative Free IIV4 MDCK 03/15/2023,03/09/2022,03/10/2021,03/10 Influenza injectable quadriv alent preservative free 03/07/2019,05/24/2018,03/11/2015 Influenza, IIV3, injectable 03/06/2012, 1 Influenza, seasonal, injecta ble, preservative free 03/21/2024 MMR 05/08/1990,10/03/1979 Moderna Covid-19 Vaccine 12+ 05/06/2021,10/22/19 21,09/23/2020 Moderna Covid-19 Vaccine 6+ Bivalent 07/03/2022 Pneumococcal Conjugate PCV 20 02/01/2023 Pneumococcal Polysaccharide PPSV23 06/06/2014 Tdap 08/29/2022,04/08/2014,08/07/2012 Family History Medical History Relation Name Comments Diabetes Maternal Grandmother dyslipidemia Mother Relation Name Status Comments Maternal Grandmother Mother Social History Tobacco Use Types Packs/Day Years Used Date Smoking Tobacco: Never Passive Smoke Exposure: Never Smokeless Tobacco: Never Tobacco Cessation:Counseling Given: Not Answered Alcohol Use Standard Drinks/Week Comments Yes 0 [...] Orientation Straight 04/24/2022 10 :16 AM EDT Last Filed Vital Signs Vital Sign Reading [...] oz) 07/16/2024 3:21 P M EST Height 162.6 cm (5' 4 ) 01/03/2024 11:31 AM EDT Body Mass Index 28.94 01/03/2024 11:31 AM EDT Plan of Treatment Upcoming Encounters Date Type Department Care Team (Late st Contact Info) Description 09/16/2024 7:45 AM EDT Office Visit [facility] [address] [place] [phone] Ferrshantali [place] [address] [place] [address] Health Maintenance Due Date Last Done Comments CT Colonography 1978 Colonoscopy 1978 Colorectal Cancer Screening 1978 FIT DNA/Cologuard 1978 FIT 1978 FOBT 1978 Sigmoidoscopy 1978 Alcohol/Substance Use Screening 1990 Dental Oral Exam 09/11/2024 03/13/2024, 01/03/2023 Dental Prophylaxis 09/11/2024 03/13/2024, 01/03/2023 Depression Screening 12/23/2024 12/24/2023, 12/24/19 24 SDOH Screening 12/23/2024 12/24/2023 Dental X-Ray: Bitewings 03/14/2025 03/13/2024, 01/03 Mammogram 03/17/2025 03/17/2023, 02/23, 03/10/2022, Additional history exists Tobacco Screening 06/30/2025 06/30/2024 COVID-19 Vaccine ( season) 2025 07/03/2022, 05/06/2021, 10/21/2020, Additional history exists Postponed from 02/24/2024 (Patient Refused) Family Planning (PISQ) 07/16/2025 07/16/2024 Dental X-Ray: Full Mouth 01/04/2026 01/03/2023 Cervical Cancer Screening 09/09/2026 HPV/Cotest 09/09/2026 09/09/2021, 08/23, 06/26/2019 Pap Smear 09/09/2026 09/09/2021, 09/09/2021 Zoster Vaccines (1 of 2) 2028 Lipid Panel 12/23/2028 12/24/2023, 11/0 06/2022, 08/05/2021 DTaP/Tdap/Td Vaccines (4 - Td or Tdap) 08/29/2032 08/29/2022, 04/08/2014, 08/07/2012 RSV Patients and Patients Aged 60 years or older (1 - 1-dose 75+ series) 2053 Hepatitis B Vaccines Completed 03/10/2019, 04/29/1999, 11/29/1998, Additional history exists Pneumococcal Vaccine: Pediatrics (0 to 5 Years) and At-Risk Patients (6 to 64 Years) Completed 02/01/2023, 06/06/2014 HIV Screening Completed 04/25/2023, 07/26, 06/26/2019 Hepatitis C Screening Completed 04/25/2023 , 06/26/2019, 06/26/2019 Influenza Vaccine Completed 03/21/2024, , 03/09/2022, Additional history exists HIB Vaccines Aged Out No longer eligi [...] patient's age to complete this topic Meningococcal Vaccine Aged Out No edilia karely eligible based on patient's age to complete this topic RSV under 20 months Aged Out No longe r eligible based on patient's age to complete this topic Rotavirus Vaccines Aged Out No longer eligible based on patient's age to complete this topic Procedures Procedure Name Priority Date/Time Associated Diagnosis Comments POCT URINALYSIS DIPSTICK Routine 07/16/2024 4:10 PM EST Vaginal nguyen POCT INFLUENZA B (ID NOW RAPID MOLECULAR) Routine 07/10/2024 2:52 PM EST Viral upper respiratory tract infection with cough POCT INFLUENZA A (ID NOW RAPID MOLECULAR) Routine 07/10/2024 2:52 PM EST Viral upper respiratory tract infection with cough POCT RAPID COVID ANTIGEN Routine 07/10/2024 2:52 PM EST Viral upper respiratory tract infection with cough XR CHEST 2 VIEWS Routine 07/02/2024 8:17 PM EST MAGNESIUM Routine 07/02/2024 8:04 PM EST BASIC METABOLIC PANEL Routine 07/02/2024 8:04 PM EST HEPATIC FUNCTION PANEL Routine 07/02/2024 8:04 PM EST CBC WITH AUTO DIFFERENTIAL Routine 07/02/2024 8:04 PM EST SARS COV2/INFLUENZA A/B AND RSV RNA QL NAAT Routine 07/02/2024 8:04 PM EST STREP A NUCLEIC ACID Routine 07/02/2024 8:04 PM EST CULTURE, THROAT Routine 06/30/2024 9:44 AM EST [...] and vomiting, unspecified vomiting type POCT INFLUENZA B (ID NOW RAPID MOLECULAR) Routine 06/03/2024 3:21 PM EST Cough in adult patient POCT INFLUENZA A (ID NOW RAPID MOLECULAR) Routine 06/03/2024 3:20 PM EST Cough in adult patient POCT RAPID COVID ANTIGEN Routine 06/03/2024 3:20 PM EST Cough in adult patient Full PROPHYLAXIS - ADULT Routine 03/13/2024 8:00 AM EDT BITEWINGS - 4 RADIOGRAPHIC IMAGES Routine 03/13/2024 8:00 AM EDT PERIODIC ORAL EVALUATION - ESTABLISHED PATIENT Routine 03/13/2024 8:00 AM EDT LIPID PANEL, STANDARD Routine 12/24/2023 11:40 AM EDT Hx of gastric bypass Obesity, unspecified classification, unspecified obesity type, unspecified whether serious comorbidity present HEPATITIS C AB W/REFL TO HCV RNA, QN, PCR Routine 04/25/2023 8:18 AM EDT Routine screening for STI (sexually transmitted infection) HIV 1/2 ANTIGEN/ANTIBODY, FOURTH GENERATION W/RFL Routine 04/25/2023 8:18 AM EDT Routine screening for STI (sexually transmitted infection) BI MAMMOGRAM SCREENING TOMOSYNTHESIS BILATERAL Routine 03/17/2023 7:45 AM EDT DIAGNOSTIC - DIAGNOSTIC IMAGING - INTRAORAL - COMPREHENSIVE SERIES OF RADIOGRAPHIC IMAGES Routine 01/03/2023 8:00 AM EDT HPV HIGH RISK PCR Routine 09/09/2021 PAP SMEAR Routine 09/09/2021 from Last 3 Months or Most Recently Relevant to Health Maintenance Results * POCT urinalysis dipstick manually resulted [...] Media Lot # [id number] Lot# Expiration Date [id number] Urine 07/16/2024 4:10 PM EST Clementine Cobos MD POINT OF CARE TEST ENTER/E DIT ORDERABLES Final Result * Influenza B (ID NOW Rapid Molecular) (07/10/2024 2:52 PM EST) Only the most recent of3 resultswithin the time period is included. Influenza B Negative Negative, Indeterminate [facility] Swab 07/10/2024 2:52 PM EST Clementine Cobos MD POINT OF CARE TEST ENTER/E DIT ORDERABLES Final Result Performing Organization Address [facility] Co de Phone Number [facility] [address] [place] [address] [phone] * Influenza A (ID NOW Rapid Molecular) (07/10/2024 2:52 PM EST) Only the most recent of3 resultswithin the time period is included. Influenza A Negative Negative, Indeterminate [facility] Swab 07/10/2024 2:52 PM EST Clementine Cobos MD POINT OF CARE TEST ENTER/E DIT ORDERABLES Final Result Performing Organization Address [facility] de Phone Number [facility] [address] [place] [address] [phone] * POCT Rapid COVID Ag (07/10/2024 2:52 PM EST) Only the most recent of3 resultswithin the time period is included. Rapid COVID Ag Negative [facility] Swab 07/10/2024 2:52 PM EST Clementine Cobos MD POINT OF CARE TEST ENTER/E DIT ORDERABLES Final Result Performing Organization Address [facility] de Phone Number [facility] [address] [place] [address] [phone] * XR Chest 2 Views (07/02/2024 8:17 PM EST) Anatomical Region Laterality Modality Chest Radiographic Beth ging 07/02/2024 8:17 PM EST Narrative 07/02/2024 8:20 PM EST ? [facility] ?[address] ?[place] [address] ?XRay Report ? Signed ? Patient: Herrera,Dacasty D ?MR#: [id number] ?? 11 ? : 1980 ?Acct:[id number] ? Age/Sex: 44 / F ?ADM Date: 07/02/24 ? Loc: HO.ED ? Attending Dr: ? Ordering Physician: Agnieszka Brothers ?? Date of Service: 07/02/24 ?? Procedure(s): XR chest 2V ?? Accession Number(s): [id number] ? cc: Clementine Cobos MD; Agnieszka Brothers [...] signed by Triston Jonas MD in OV> ?07/02/242019 ? DD/ 16 ? TD/TT: 07/02/242016 ? Senior Rd Engineer: ? Procedure Note Gabby, Image - 07/02/2024 [place] [address] XRay Report Signed Patient: Carmine Herrera [facility]#: [id number] 11 : 1980Acct:[id number] Age/Sex: 44 / FADM Date: 07/02/24 Loc: HO.ED Attending Dr: Ordering Physician: Agnieszka Brothers Date of Service: 07/02/24 Procedure(s): XR chest 2V Accession Number(s): [id number] cc: Clementine Cobos MD; Agnieszka Brothers CLINICAL [...] in OV> 07/02/242019 DD/ 16 TD/TT: 07/02/24[address] Engineer: [facility] External Provider IMG XR PROCEDURES Edited Result - Final * Strep A Nucleic Acid (07/02/2024 8:04 PM EST) IDNOW SERIAL# [id number] [facility] Strep A Nucleic Acid Negative Negative [facility] Comment:All test results mus t [...] LAB MICROBIOLOGY - GENERAL ORDERABLES Final Result [facility] [address] [place] [address] [phone] * (ABNORMAL) SARS-CoV-2 RNA, Influenza A/B, and RSV RNA, Ql NAAT (07/02/2024 8:04 PM EST) Influenza A PCR POSITIVE(A) Negative [facility] Influenza B PCR NEGATIVE Negative [facility] Resp Syncy Virus RNA Qual PCR NEGATIVE Negative [facility] SARS COV2 PCR NEGATIVE Negative [facility] Comment:All test results mus t be [...] use by authorized laboratories.Testing performed on the [employer] GeneXpert utilizingreal-time RT-PCR.All SARS CoV2 and positive influenza A/B results arereported to [facility]. 07/02/2024 8:04 PM EST 07/02/2024 8:08 PM EST us Generic External Data Provider LAB MICROBIOLOGY - GENERAL ORDERABLES Final Result [facility] [address] [place] [phone] * (ABNORMAL) CBC auto differential (07/02/2024 8:04 PM EST) White Blood Count 4.8 4.8 - 10.8 X10*3/uL [facility] Red Blood Count 4.74 4.20 - 5.50 X10*6/uL [facility] Hemoglobin 11.5(L) 12.0 - 16.0 g/dl [facility] Hematocrit 35.8(L) 37.0 - 47.0 % [facility] Mean Corpuscular Volume 75.5(L) 80.0 - 98.0 fL [facility] Mean Corpuscular Hemoglobin 24.3(L) 27.0 - 33.0 pg [facility] Mean Corpuscular HGB Conc 32.1 31.0 - 35.0 g/dl [facility] Red Cell Distribution Width 15.0 11.0 - 16.0 % [facility] Platelet Count 235 160 - 400 X10*3/uL [facility] Mean Platelet Volume 8.8(L) 9.4 - 12.3 fL [facility] Neutrophils Percent Auto 66.3 45 - 73 % [facility] Imm Gran Pct Auto 0.2 0.0 - 0.4 % [facility] Lymphocytes Percent Auto 15.9(L) 20 - 40 % [facility] Monocytes Percent Auto 15.7(H) 2 - 11 % [facility] Eosinophils Percent Auto 1.5 0 - 4 % [facility] Basophils Percent Auto 0.4 0 - 2 % [facility] NRBC Pct Auto 0.0 0.0 - 0.2 /100WBC [facility] Neutrophils Absolute Auto 3.2 2.0 - 8.3 x10*3/uL [facility] Imm Gran Abs Auto 0.01 0.00 - 0.03 X10*3/uL [facility] Lymphocytes Absolute Auto 0.8(L) 1.2 - 4.9 X10*3/uL [facility] Monocytes Absolute Auto 0.8 0.1 - 1.2 X10*3/uL [facility] Eosinophils Absolute Auto 0.1 0.0 - 0.4 X10*3/uL [facility] Basophils Absolute Auto 0.0 0.0 - 0.2 X10*3/uL [facility] NRBC Abs Auto 0.000 0.0 - 0.012 X10*3/uL [facility] 07/02/2024 8:04 PM EST 07/02/2024 8:08 PM EST us Generic External Data Provider LAB BLOOD ORDERAB LES Final Result Performing Organization Address City/[facility]/ZIP Co de Phone Number [facility] [address] [place] [address] [phone] * Magnesium (07/02/2024 8:04 PM EST) Magnesium 2.1 1.6 - 2.6 mg/dL [facility] 07/02/2024 8:04 PM EST 07/02/2024 8:08 PM EST Generic External Data Provider LAB BLOOD ORDERAB LES Final Result Performing Organization Address [facility] Co de Phone Number [facility] [address] [place] [address] [phone] * Hepatic Function Panel (07/02/2024 8:04 PM EST) Bilirubin, Total 0.3 0.0 - 1.0 mg/dL [facility] Bilirubin, Direct 0.1 0.0 - 0.5 mg/dL [facility] Aspartate Amino Transferase 31 5 - 31 U/L [facility] Alanine Aminotransferase 26 0 - 31 U/L [facility] Total Protein 7.6 6.5 - 8.0 g/dL [facility] Albumin Level 4.3 3.5 - 5.0 g/dL [facility] Alkaline Phosphatase 60 39 - 117 U/L [facility] 07/02/2024 8:04 PM EST 07/02/2024 8:08 PM EST us Generic External Data Provider LAB BLOOD ORDERAB LES Final Result Performing Organization Address City/State/[facility] Co de Phone Number [facility] [address] [place] [address] [phone] * Basic Metabolic Panel (07/02/2024 8:04 PM EST) Pathologist [facility] Sodium 141 135 - 145 mmol/L [facility] Potassium 4.3 3.3 - 5.1 mmol/L [facility] Chloride 106 96 - 108 mmol/L [facility] Carbon Dioxide 24 22 - 29 mmol/L [facility] Anion Gap 15 12 - 20 [facility] Urea Nitrogen (BUN) 11 9 - 16 mg/dL [facility] Creatinine, Serum 0.85 0.5 - 1.4 mg/dL [facility] Creatinine Clr Calc Pharmacy 80.7 [facility] Comment:Provided height and weight: 162.56 cm,72.575 kg.eGFR (calculated from the MDRD study equation) and eCrCl(calculated from the Cockcroft-Gault equation) are based ondifferent parameters and may not yield comparable results.If eCrCl result is absurd, please check patient'sheight/weight. Estimated Glomerular Filt Rate >60 [facility] Comment:Chronic Kidney Disea se: Estimated GFR < 60 mL/min/1.66s7Ooible Kidney Disease: Estimated GFR < 15 mL/min/1.73m2 Glucose 107 60 - 115 mg/dL [facility] Calcium 8.9 8.4 - 10.2 mg/dL [facility] 07/02/2024 8:04 PM EST 07/02/2024 8:08 PM EST us Generic External Data Provider LAB BLOOD ORDERAB LES Final Result Performing Organization Address City/[facility]/ZIP Co de Phone Number [facility] [address] [place] [address] [phone] * Culture, Throat (06/30/2024 9:44 AM EST) Throat Structure of anterior portion of neck / Unknown 06/30/2024 9:44 AM EST 06/30/2024 1:16 PM EST Comment:Throat Narrative [facility] - 07/02/2024 8:46 AM EST Throat Culture No Group A Beta-hemolytic Streptococci isolated. Specimen Source: Throat Rhett Alvarado MD LAB MICROBIOLOGY - GENERAL ORDER RON Final Result Performing Organization Address City/[facility]/ZIP Co de Phone Number [facility] [address] [place] [address] [phone] * (ABNORMAL) Lipid Panel, Standard (12/24/2023 11:40 AM EDT) Triglycerides 160(H) <150 mg/dL [facility] Comment:Desirable Triglyceri de: less than 150 mg/dLBorderline High Triglyceride 150-199 mg/dLHigh Triglyceride: 200-499 mg/dLVery High Triglyceride: greater than or equal to 5OO mg/dL Cholesterol 252(H) <200 mg/dL [facility] Comment:Desirable Cholestero l: less than 200 mg/dLBorderline High Cholesterol: 200-239 mg/dLHigh Cholesterol: greater than 239 mg/dL LDL Cholesterol Calculated 144(H) <100 mg/dL [facility] Comment:Desirable LDL: less than 100 mg/dLNear Optimal/Above Optimal LDL: 110- 129 mg/dLBorderline High LDL: 130-159 mg/dLHigh LDL: 160-189 mg/dLVery High LDL: greater than or equal to 190 mg/dL HDL Cholesterol 76 >40 mg/dL [facility] Comment:Desirable HDL: great er than 40 mg/dL Note: This HDL assay may give artificially low results in patients with liver disease. Blood Venous blood specimen / Unknown 12/24/2023 11:40 AM EDT 12/24/2023 1:16 PM EDT Clementine Cobos MD LAB BLOOD ORDERABLES Final Result Performing Organization Address [facility]/ZIP Co de Phone Number [facility] [address] [place] [address] [phone] * Hepatitis C Antibody with Reflex to HCV, RNA, Quantitative, Real-Time PCR (04/25/2023 8:18 AM EDT) Hepatitis C Antibody Nonreactive Nonreactive [facility] Comment:Antibodies to HCV no t detected; does not exclude early acuteHCV infection. Blood Venous blood specimen / Unknown 04/25/2023 8:18 AM EDT 04/25/2023 11:32 AM EDT Clementine Cobos MD LAB BLOOD ORDERABLES Final Result Performing Organization Address [facility] Co de Phone Number [facility] [address] [place] [address] [phone] * HIV-1/2 Antigen and Antibodies, Fourth Generation, with Reflexes (04/25/2023 8:18 AM EDT) HIV AB/AG Nonreactive Nonreactive [facility] Comment:HIV-1 p24 Ag and/or HIV-1/HIV-2 Ab not detected.A test result that is nonreactive does not exclude thepossibility of exposure to or infection with HIV-1 and/orHIV-2. Nonreactive results in this assay for individualswith prior exposure to HIV-1 and/or HIV-2 may be due toantigen and antibody levels that are below the limit ofdetection of this assay.The [employer] HIV Ag/Ab Combo assay result andsupplemental assay results should be interpreted inconjunction with the patient's clinical presentation,history and other laboratory results. If the results areinconsistent with clinical evidence, additional testing issuggested to confirm the result. Blood Venous blood specimen / Unknown 04/25/2023 8:18 AM EDT 04/25/2023 11:32 AM EDT us Clementine Cobos MD LAB BLOOD ORDERABLES Final Result [facility] [address] [place] [phone] * BI Mammogram Screening Tomosynthesis Bilateral (03/17/2023 7:45 AM EDT) Anatomical Region Laterality Modality Breast Bilateral Mammography 03/17/2023 7:45 AM EDT Narrative 03/24/2023 9:33 PM EDT ? [facility] ? [address] ?[place] [address] ? Mammography Report ? Signed ? Patient: Herrera,Dacasty D ?MR#: [id number] ?? 11 ? : 1980 ?Acct:[id number] ? Age/Sex: 42 / F ?ADM Date: 09/23/23 ? Loc: HO.MAMMO ? Attending Dr: Clementine Cobos MD ? Ordering Physician: Clementine Cobos MD ?Results: 1N ?? egative ? Date of Service: 03/17/23 ?Follow Up: 1 Year From Orig ?? inal Mammogram ? Procedure(s): MM tomosynthesis screening BI ?? Accession Number(s): [id number] ? cc: Clementine Cobos MD ? EXAMINATION: ?? MM SCREENING DIGITAL BREAST TOMOSYNTHESIS, BILATERAL ? CLINICAL INFORMATION: ? Screening. Asymptomatic. ? COMPARISON: ?? Mammography: This study is compared with prior exams dating back to ?? 2017. ? TECHNIQUE: ?? Digital breast tomosynthesis is [...] ? Signed By: ?<Electronically signed by Sabra Castillo MD in OV> ? 03/24/232128 ? DD/ 0745 ? TD/TT: ? Senior Rd Engineer: ? Procedure Note Gabby, Image - 03/24/2023 [facility] [address] [place] [address] [place] [address] Mammography Report Signed Patient: Carmine Herrera DMR#: [id number] 11 : 1980Acct:[id number] Age/Sex: 42 / FADM Date: 03/17/23 Loc: HO.MAMMO Attending Dr: Clementine Cobos MD Ordering Physician: Clementine Cobos MDResults: 1N egative Date of Service: 03/17/23Follow Up: 1 Year From Orig inal Mammogram Procedure(s): MM tomosynthesis screening BI Accession Number(s): [id number] cc: Clementine Cobos MD EXAMINATION: MM SCREENING [...] Sabra Castillo MD in OV> 03/24/232128 DD/ 0745 TD/TT: Senior Rd Engineer: Clementine Cobos MD IMG BI PROCEDURES Edited R esult - Final * HPV High Risk PCR (09/09/2021) Swab Cervical swab / Unknown 09/09/2021 Clementine Cobos MD LAB MICROBIOLOGY - GENERAL ORDERABLES Final Result * Pap Smear (09/09/2021) Swab 09/09/2021 Clementine Cobos MD LAB CYTOLOGY ORDERABLES Fi nal Result from Last 3 Months or Most Recently Relevant to Health Maintenance Insurance [facility] , [facility] [address] [place] [address] [facility] MEDICAID STAND ADULT Advance Directives Documents on File Type Date 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
--- OUTSIDE RECORDS SUMMARY | 2024-07-21 19:27 | XMS_ITS | Encounter Summary ---
Author Organization [employer] Address [address] [facility] [address] [place] [address] Care Team Providers Care Flight Engineer Name Role Phone Clementine Cobos MD Primary Care Provider [phone] Reason for Visit * Reason Comments Cough Chest Pain Encounter Details Date Type Department Care Team ([facility] Contact Info) Description 07/10/2024 2:20 PM EST Office Visit [facility] [address], [place] [phone] Clementine Cobos MD [address] [place] [address] Viral upper respiratory tract infection with cough Social History Tobacco Use Types Packs/Day Years [...] Sign Reading Time Taken Comments Blood Pressure 127/78 07/10/2024 2:37 PM EST Pulse 88 07/10/2024 2:37 PM EST Temperature 37.4 ??C (99.4 ??F) 07/10/2024 2:37 PM ES T Respiratory Rate 21 07/10/2024 2:37 PM EST Oxygen Saturation 98% 07/10/2024 2:37 PM EST Inhaled Oxygen Concentration - - Weight 75.5 kg (166 lb 6.4 oz) 07/10/2024 2:37 P M EST Height - - Body Mass Index 28.56 01/03/2024 11:31 AM EDT documented in this encounter Progress Notes * Brooke Nolen - 07/10/2024 2:20 PM EST Subjective Patient ID: Carmine Herrera is a 44 y.o. female with PMHx of gastroesophageal reflux, asthma, ureteropelvic junction, and thoracic radiculopathy who presents to walk in clinic for Cough and Chest Pain. Pt reports she has been coughing that has especially gotten worse at nights. Repots she has been using her asthma pump, and last used it 3hrs ago. She says she had the flu last week and seemingly gotbetter Sunday but started feeling sick again yesterday. Had received TamaFlu in the ER. Pt says herchest hurts from coughing so much. Review of Systems Constitutional: Negative for fever and unexpected weight change. Respiratory: Positive for cough and chest tightness. Negative for shortness of breath. Cardiovascular: Negative for chest pain. Gastrointestinal: Negative for abdominal pain. Genitourinary: Negative for difficulty urinating. Objective Visit Vitals BP 127/78 (BP Location: Left arm, Patient Position: Sitting, BP Cuff Size: Adult) Pulse 88 Temp 99.4 ??F (37.4 ??C) (Oral) Resp 21 Body mass index is 28.56 kg/m??. Physical Exam Constitutional: Appearance: Normal appearance. Cardiovascular: Rate and Rhythm: Normal rate and regular rhythm. Heart sounds: Normal heart sounds. Pulmonary: Effort: Pulmonary effort is normal. Breath sounds: Normal breath sounds. Comments: Coughing during exam. Musculoskeletal: Cervical back: Normal range of motion. Neurological: General: No focal deficit present. Mental Status: She is alert. Psychiatric: Behavior: Behavior normal. Problem List Items Addressed This Visit Viral upper respiratory tract infection with cough Cough >1 week. Tested positive for Flu last week. Tx with TamaFlu. COVID and Flu negative today. -No evidence of respiratory distress. Symptoms mild. -No evidence of dehydration. -Prescribed Tessalon perls, Azithromycin, Prednisone and Guaf -Supportive care advised. -Isolation recommendations discussed. -ER precautions discussed. -Seek medical attention for worsening symptoms. Relevant Medications guaiFENesin-codeine (Guaiatussin AC) 100-10 MG/5ML syrup predniSONE (Deltasone) 20 MG tablet azithromycin (Zithromax) 250 MG tablet benzonatate (Tessalon Perles) 100 MG capsule Other Relevant Orders POCT Rapid COVID Ag (Completed) Influenza A (ID NOW Rapid Molecular) (Completed) Influenza B (ID NOW Rapid Molecular) (Completed) -No evidence of acute disease process. Suspect likely viral URI after recent Flu infection. Symptoms mild. -Will treat with cough suppressants, antibiotics, and steroids. -ER precautions discussed. -Seek medical attention for worsening symptoms. I, Brooke Nolen, am serving as a scribe to document services personally performed by Dr. Brown, based on the patient's response to questions by provider and providers statements to me. documented in this encounter Miscellaneous Notes * Assessment & Plan Note - Brooke Nolen - 07/10/2024 3:15 PM ESTAssociated Problem(s): Viral upper respiratory tract infection with cough Cough >1 week. Tested positive for Flu last week. Tx with TamaFlu. COVID and Flu negative today. -No evidence of respiratory distress. Symptoms mild. -No evidence of dehydration. -Prescribed Tessalon perls, Azithromycin, Prednisone and Guaifenesin-codeine syrup. -Supportive care advised. -Isolation recommendations discussed. -ER precautions discussed. -Seek medical attention for worsening symptoms. documented in this encounter Plan of Treatment Upcoming Encounters Date Type Department Care Team (Late st Contact Info) Description 09/16/2024 7:45 AM EDT Office Visit [facility] [address] [place] [address] [facility] [address] [place] [address] documented as of this encounter Procedures Procedure Name Priority Date/Time Associated Diagnosis Comments POCT INFLUENZA B (ID NOW RAPID MOLECULAR) Routine 07/10/2024 2:52 PM EST Viral upper respiratory tract infection with cough POCT INFLUENZA A (ID NOW RAPID MOLECULAR) Routine 07/10/2024 2:52 PM EST Viral upper respiratory tract infection with cough POCT RAPID COVID ANTIGEN Routine 07/10/2024 2:52 PM EST Viral upper respiratory tract infection with cough documented in this encounter Results * Influenza B (ID NOW Rapid Molecular) (07/10/2024 2:52 PM EST) Influenza B Negative Negative, Indeterminate [facility] Swab 07/10/2024 2:52 PM EST Clementine Cobos MD POINT OF CARE TEST ENTER/E DIT ORDERABLES Final Result Performing Organization Address [facility] Co de Phone Number [facility] [address] [place] [phone] * Influenza A (ID NOW Rapid Molecular) (07/10/2024 2:52 PM EST) Influenza A Negative Negative, Indeterminate [facility] Swab 07/10/2024 2:52 PM EST Clementine Cobos MD POINT OF CARE TEST ENTER/E DIT ORDERABLES Final Result Performing Organization Address [facility] Co de Phone Number [facility] [address] [place] [address] [phone] * POCT Rapid COVID Ag (07/10/2024 2:52 PM EST) Rapid COVID Ag Negative [facility] Swab 07/10/2024 2:52 PM EST Clementine Cobos MD POINT OF CARE TEST ENTER/E DIT ORDERABLES Final Result Performing Organization Address [facility] de Phone Number [facility] [address] [place] [address] [phone] documented in this encounter Visit Diagnoses Diagnosis Viral upper respiratory tract infection with cough documented in this encounter Additional Health Concerns Assessment Noted Time PHQ-9 Depression Total Score: 0 12/24/19 24 11:02 AM EDT documented as of this encounter Care Teams Flight Engineer Relationship Specialty Start Date End Date Clementine Cobos MD [address] [place] [phone] PCP - General Family Medicine 06/25/18 documented as of this encounter
== END 2024-07-21 15:37 | disposition home or self-care (01) ==
LOC: HO.HWS 15:23
PROVIDERS: PCP Family Medicine; Visit Provider Obstetrics & Gynecology
DX: D25.9 Leiomyoma of uterus, unspecified (principal)
CPT/HCPCS: 99213

== ENCOUNTER 2024-08-29 17:17 | Outpatient (REF) | payer OTHER, MEDICAID, SELFPAY ==
--- OUTSIDE RECORDS SUMMARY | 2024-08-29 17:37 | XMS_ITS | Clinical Summary ---
Author Organization [facility] ity Address [address] [place] [address] Care Team Providers Care Preschool Director Name Role Phone Clementine Cobos MD Primary Care Provider [phone]- [phone] Surgical History Surgery Date Site/Laterality Comments CHOLECYSTECTOMY [...] drink = 0.6 oz pur e alcohol) Comments Unknown Sex and Gender Information Value Date Recorded Sex Assigned at Not on file Legal Sex Female 2:54 AM EST Gender Identity Not on file Sexual Orientation [...] patient's age to complete this topic Meningococcal B Vacine Aged Out No lo nger eligible based on patient's age to complete [...] age to complete this topic Care Teams Preschool Director Relationship Specialty Start Date End Date Clementine Cobos MD [address] [place] [phone] PCP - General Internal Medicine 12/18/12
[2024-08-31 10:42] LABS: H Pylori Breath Test Positive (Negative)
== END 2024-08-29 17:18 | disposition home or self-care (01) ==
LOC: HO.HHCLNP 17:17
PROVIDERS: Visit Provider Family Medicine
DX: K21.00 Gastro-esophageal reflux disease with esophagitis, without bleeding (principal)
CPT/HCPCS: 83013

== ENCOUNTER 2024-09-04 10:05 | Emergency (ER) | payer OTHER, MEDICAID, SELFPAY ==
--- NOTE | ~2024-09-04 | CT_ITS ---
EXAMINATION: CT ANGIOGRAM HEAD AND NECK CLINICAL INFORMATION: Dizziness. COMPARISON: None available. TECHNIQUE: Noncontrast axial imaging of the head was performed. This was followed by test bolus sequences and head and neck intravenous bolus administration 70 mL of Omnipaque 350. Helical imaging was performed in the axial plane from the aortic arch to the skull vertex. The data was processed at the nuclear cardiology technologist's workstation for generation of MIP sequences. Angled MIPs and volume rendered reformatted images were also generated at an offline 3D workstation. Stenoses are assessed in accordance with NASCET criteria unless otherwise indicated. This CT examination was performed using dose optimization techniques as appropriate, variously including the following: *Automated exposure control *Adjustment of mA and/or kV according to patient size (this includes techniques or standardized protocols for targeted exams where dose is matched to indication/reason for exam; i.e. extremities or head) *Use of iterative reconstruction technique FINDINGS: NONCONTRAST HEAD CT: There is no evidence of intracranial hemorrhage or extra-axial fluid collection. There is no mass effect, or edema. No CT evidence of acute territorial infarct. Ventricles, sulci, and cisterns are normal in size and configuration for patient age. No hydrocephalus. No midline shift. There are a few scattered foci of hemispheric white matter hypodensities in the supratentorial region, nonspecific but likely on the basis of small vessel changes. Globes and orbital contents image normally. No extracranial soft tissue abnormalities. The paranasal sinuses, mastoid air cells, and tympanic cavities are normally aerated. No suspicious bony abnormalities. NECK CTA: -AORTIC ARCH: Normal in caliber. Mild atheromatous calcification. 2-vessel branching pattern. -GREAT VESSEL ORIGINS: Widely patent. No stenosis. -RIGHT COMMON CAROTID ARTERY: Normal in course and caliber to the level of the bifurcation. -CERVICAL RIGHT INTERNAL CAROTID ARTERY: Normal opacification without focal stenosis or occlusion. -LEFT COMMON CAROTID ARTERY: Normal in course and caliber to the level of the bifurcation. -CERVICAL LEFT INTERNAL CAROTID ARTERY: Normal opacification without focal stenosis or occlusion. -CERVICAL RIGHT VERTEBRAL ARTERY: Codominant. Normal in course and caliber into the skull base. -CERVICAL LEFT VERTEBRAL ARTERY: Normal in course and caliber into the skull base. OTHER, SOFT TISSUES: -No lymphadenopathy or mass. No abnormal fluid collection or soft tissue swelling. -Normal thyroid. -Imaged superior mediastinal structures normal. -Imaged lung apices clear. CTA OF THE BRAIN: -INTRACRANIAL INTERNAL CAROTID ARTERIES: No focal stenosis or occlusion. No aneurysm. -RIGHT ANTERIOR CEREBRAL ARTERY: Normal A1 segment.. Normal arborization of the distal segments. -LEFT ANTERIOR CEREBRAL ARTERY: Normal A1 segment.. Normal arborization of the distal segments. -ANTERIOR COMMUNICATING ARTERY: Normal. -RIGHT MIDDLE CEREBRAL ARTERY: Normal M1 segment of the MCA without focal stenosis or occlusion. Normal arborization of the distal segments. -LEFT MIDDLE CEREBRAL ARTERY: Normal M1 segment of the MCA without focal stenosis or occlusion. Normal arborization of the distal segments. -RIGHT VERTEBRAL ARTERY V4: Normal in course and caliber. Normal PICA branch. -LEFT VERTEBRAL ARTERY V4: Normal in course and caliber. There is a left AICA/PICA. -BASILAR ARTERY: Normal without focal stenosis or occlusion. Normal appearance of the proximal superior cerebellar arteries. Normal basilar tip. -RIGHT POSTERIOR CEREBRAL ARTERY: Normal P1 segment. Normal opacification of the distal LATHE MACHINE OPERATOR segments. -LEFT POSTERIOR CEREBRAL ARTERY: Normal P1 segment. Normal opacification of the distal LATHE MACHINE OPERATOR segments. -POSTERIOR COMMUNICATING ARTERIES: Not well seen. Normal opacification of the superior sagittal, straight, transverse, and sigmoid sinuses. No venous thrombosis. CT/CT angio head neck IMPRESSION: NONCONTRAST HEAD CT: 1. No acute intracranial abnormality. 2. A few scattered small supratentorial deep white matter hypoattenuating foci, nonspecific but statistically most likely on the basis of mild small vessel ischemic changes. CTA NECK: 1. No evidence of significant stenosis, occlusion, or dissection involving the major cervical arterial vasculature. CTA HEAD: 1. No evidence of vascular occlusion, stenosis, aneurysm, or other abnormality. 2. Patent portal and dural venous sinuses. Electronically signed by: Fermin Campbell MD 09/04/2024 01:55 PM EDT
[2024-09-04 10:16] VITALS: BP 112/43; BP 118/96; PULSE 53; PULSE 65; RESP 18; TEMP 36.6; O2SAT 100; O2SAT 99; BMI 27.5
--- NOTE | 2024-09-04 10:54 | ECG_ITS ---
Test Reason : NAUSEA,VOMITTING,DIZZINESS Blood Pressure : */* mmHG Vent. Rate : 47 BPM Atrial Rate : 47 BPM P-R Int : 166 ms QRS Dur : 86 ms QT Int : 470 ms P-R-T Axes : 67 68 36 degrees QTcB Int : 415 ms Sinus bradycardia Otherwise normal ECG When compared with ECG of 27-Jun-2022 09:29, No significant change was found Referred By: Owen Tovar Electronically Signed By: BART OSPINA
--- NOTE | 2024-09-04 11:06 | ED.NAVMDI ---
HPI - Nausea/Vomiting/Diarrhea General Chief complaint: Nausea/Vomiting/Diarrhea Stated complaint: N/V/DIZZINESS PER EMS Time Seen by Provider: 09/04/24 10:12 Source: patient Mode of arrival: ambulatory Limitations: no limitations History of Present Illness ED Provider: Owen Tovar HPI Narrative: 44 Yold female with pmh of Asthma, anemia, ventral hernia, covid, abnormal uterine bleeding, presents to the ED for nausea and vomitting. Patient states this morning when she woke up from lying down to sitting up position at 6:00am she felt dizzy like the room was spinning. Patient states she sat down back into the bed, and when stood up again she felt like the room was spinning and she felt nauseas and started vomitting. Patient denies any slurrped speech, paralysis of extremities, or facial droop. Patient denies any syncopal episodes. patient denies ever having chest pain. Patient denies any recent long travel or recent surgery. Patient denies being on any control Related Data Home Medications ?Medication ?Instructions ?Recorded ?Confirmed fluticasone propionate 50 1 spray intranasal DAILY 12/11/20 03/17/24 mcg/actuation nasal spray,suspension cetirizine 10 mg tablet 10 mg PO DAILY PRN Allergy Symptoms 02/18/21 03/17/24 albuterol sulfate 90 mcg/actuation 0 mcg inhalation NEEDED PRN 08/16/22 03/17/24 aerosol inhaler asthma montelukast 10 mg tablet 10 mg PO DAILY 08/16/22 03/17/24 Previous Rx's ?Medication ?Instructions ?Recorded baclofen 10 mg tablet 10 mg PO TID PRN for muscle spasm 06/28/23 #90 tabs ibuprofen 800 mg tablet 800 mg PO Q8H PRN pain #30 tabs 03/06/24 oseltamivir 75 mg capsule (Tamiflu) 75 mg PO Q12H 5 days #10 caps 07/02/24 oseltamivir 75 mg capsule (Tamiflu) 75 mg PO Q12H 5 days #10 caps 07/02/24 meclizine 25 mg tablet 25 mg PO TID PRN dizziness 10 days 09/04/24 #30 tabs Allergies Allergy/AdvReac Type Severity Reaction Status Date / Time No Known Allergies Allergy Verified 09/04/24 10:17 Review of Systems Review of Systems: nuasea, vomitting, dizziness Yes all other systems are reviewed and are negative [facility] Past Medical History Medical History Renal calculi Urinary incontinence UTI (urinary tract infection) Pain PONV (postoperative nausea and vomiting) Abdominal pain GERD (gastroesophageal reflux disease) Carpal tunnel syndrome Endometriosis Seasonal allergies Asthma Surgical History Ventral hernia (03/06/24) H/O abdominal surgery History of carpal tunnel surgery of right wrist History of esophagogastroduodenoscopy (EGD) H/O gastric bypass Hx of cholecystectomy H/O tubal ligation H/O eye surgery Social History Social History Household Members: Children Are you a primary youth care specialist to a significant other at home: No Do you presently have visiting nurse or other home services: No Alcohol intake: never Patient Tobacco Use Status: Never used Tobacco Physical Exam Vital Signs: Vital Signs: Last Vital Signs Temp 98.1 F 09/04/24 16:26 Pulse 57 09/04/24 16:26 Resp 18 09/04/24 16:26 BP 132/78 09/04/24 16:26 Pulse Ox 97 09/04/24 16:26 O2 Del Method Room Air 09/04/24 16:26 BMI result Body Mass Index 27.5 Const: General: cooperative, healthy appearing, comfortable, no acute distress, well developed, alert, awake and Physically active Orientation/consciousness: patient oriented x3 HEENT: Head: Yes normal to inspection, Yes No palpable skull fracture present, Yes normocephalic and Yes atraumatic Ears: hearing grossly normal bilaterally, external ears normal, TM's normal bilaterally, TM normal on the right, TM normal on the left, EAC's normal, mastoids normal and no periauricular adenopathy Throat: Yes posterior oropharynx normal, Yes tonsils normal and Yes uvula midline Eyes: General: appearance normal, both eyes and all related structures Visual Mcdaniels: normal visual mcdaniels by confrontation Alignment and Position: alignment normal Periorbital: periorbital findings normal Eyelids: Yes eyelids normal Conjunctivae: conjunctivae normal Sclerae: sclerae normal Corneas: corneas normal Pupils: Equal, round and reactive pupils present EOM: EOMs intact bilaterally Direct Ophthalmoscopy: normal light reflex Neck: Neck: Yes normal visual inspection, Yes full ROM, Yes no lymphadenopathy, Yes no meningeal signs, Yes trachea midline, Yes supple, No anterior neck swelling and No tender Chest: Chest palpation & inspection: normal inspection of the chest and normal palpation of entire chest wall Resp: Effort & Inspection: normal respiratory effort and able to speak in complete sentences Auscultation: clear to auscultation bilaterally Cardio: Jugular venous distension: no JVD Heart sounds: S1 normal heart sound present and S2 normal heart sound present GI: Inspection: Yes normal to inspection Palpation (GI): Soft to palpation, not firm, nontender, no guarding and not rigid : General: Yes no CVA tenderness Back/Spine/Pelvis: Back: no CVA tenderness and No back tenderness Skin: General skin exam: no rashes or lesions noted, elasticity normal and turgor normal Neuro: Other: Negative pronator drift. [id number] rapid hand movement intact. Negative slurred speech. Negative facial droop. All extremities equal strength 5+. Negative Romberg. Left horizontal nystagmus General: patient oriented x3, gait normal, tone normal, moves all extremities, Normal light touch and pain sensation, no meningeal signs, no focal motor deficits, CN's II-XI intact bilaterally and normal sensation to monofilament Cranial nerves: Yes Equal, round and reactive pupils present Extrem: General: Yes normal to inspection, Yes full ROM and Yes capillary refill normal Psych: Appearance: grossly normal, well kempt and not disheveled NIH Stroke Scale Internal: Initial- Upon Arrival Level of Consciousness: Alert Level of Consciousness Questions: Answers both questions correctly Level of Consciousness Commands: Performs both tasks correctly Best Gaze: Normal Visual: No visual loss Facial Palsy: Normal Motor Arm (Right): No drift Motor Arm (Left): No drift Motor Leg (Right): No drift Motor Leg (Left): No drift Limb Ataxia: Absent Sensory: Normal Best Language: No aphasia Dysarthia: Normal Extinction and Inattention: No abnormality Score: 0 Medications Administered Discontinued Medications Generic Name Dose Route Start Last Admin Trade Name Freq PRN Reason Stop Dose Admin Sodium Chloride 1,000 mls @ 999 mls/hr 09/04/24 10:54 09/04/24 13:30 Ns IV 09/04/24 11:54 Infused .Q1H1M STA Infusion Iohexol 100 ml 03/13/25 13:26 09/04/24 13:27 Iohexol 350 Mg/Ml 100 Ml Infus..Btl IV 09/04/24 13:27 70 ml ONCE ONE Administration Meclizine HCl 50 mg 09/04/24 10:56 09/04/24 11:17 Meclizine Hcl 25 Mg Tablet PO 09/04/24 10:57 50 mg ONCE ONE Administration Medical Decision Making Medical Decision Making [facility] Narrative: 44-year-old female presents to the ED for dizziness described as the room spinning with nausea vomiting at 06:00. Patient has no neuro deficits in the ED exam. No signs for posterior cerebellar infarct. Patient denies any chest pain or shortness of breath. Cardiac workup ordered. History physical exam sounds like peripheral vertigo but was sent for CT angio of head and neck Patient has never passed out. Patient denies ever having chest pain. Orthostatics negative. Presently patient's main complaint is nause 12:20pm: Patient now states having wishing cracking sound in left ear. Ear exam negative for any signs of tympanic membrane bulging or erythema. Negative for foreign body or discharge negative for signs of mastoiditis. 3:10pm: CTA head and neck came back normal. Patient states she feels better and no longer feels dizzy. Patient walking around the room listening to music on her phone. Patient no longer has nystagmus.. Second troponin pending. Not suspecting PE. EKG shows sinus bradycardia negative for any blocks. Patient does not need any pacemaker. Not suspecting posterior cerebellar infarct. UA shows slight blood in urine but no signs of infection. Patient has no abdominal pain, or flank pain. Would not need abdominal CT scan. Not suspecting kidney stones, UTI, or pyelonephritis. Patient's Calcium is 8.0. Using Calcium Correction calculator on uptodate serum is 8.08 which is normal. Not suspecting CHF. Not suspecting posterior cerebellar stroke, stroke, or any other life-threatening etiology Differential Diagnosis Differential Diagnoses: The differential diagnosis associated with the presentation includes (Vertigo, dizziness) Lab Data 09/04/24 11:28 09/04/24 11:28 Labs: Lab Results 09/04/24 09/04/24 09/04/24 Range/Units 11:28 11:46 12:39 WBC 10.8 (4.8-10.8) X10*3/uL RBC 4.71 (4.20-5.50) X10*6/uL Hgb 11.4 L (12.0-16.0) g/dl Hct 35.5 L (37.0-47.0) % MCV 75.4 L (80.0-98.0) fL MCH 24.2 L (27.0-33.0) pg MCHC 32.1 (31.0-35.0) g/dl RDW 15.5 (11.0-16.0) % Plt Count 280 (160-400) X10*3/uL MPV 9.3 L (9.4-12.3) fL Immature Gran % (Auto) 0.5 H (0.0-0.4) % Neut % (Auto) 85.1 H (45-73) % Lymph % (Auto) 10.2 L (20-40) % Sullivan % (Auto) 3.3 (2-11) % Eos % (Auto) 0.3 (0-4) % Baso % (Auto) 0.6 (0-2) % Lymph # (Auto) 1.1 L (1.2-4.9) X10*3/uL Sullivan # (Auto) 0.4 (0.1-1.2) X10*3/uL Eos # (Auto) 0.0 (0.0-0.4) X10*3/uL Baso # (Auto) 0.1 (0.0-0.2) X10*3/uL Abs Immat Gran (auto) 0.05 H (0.00-0.03) X10*3/uL Absolute Neuts (auto) 9.2 H (2.0-8.3) x10*3/uL Absolute Nucleated RBC 0.000 (0.0-0.012) X10*3/uL Nucleated RBC % (auto) 0.0 (0.0-0.2) /100WBC PT 11.3 (10.9-12.4) SEC INR 1.0 (0.9-1.1) APTT 28.6 (26.0-36.8) SEC Sodium 138 (135-145) mmol/L Potassium 4.6 (3.3-5.1) mmol/L Chloride 110 H (96-108) mmol/L Carbon Dioxide 19 L (22-29) mmol/L Anion Gap 14 (12-20) BUN 9 (9-16) mg/dL Creatinine 0.69 (0.5-1.4) mg/dL Estim Creat Clear Calc 99.5 Estimated GFR > 60 Random Glucose 100 (60-115) mg/dL Calcium 8.0 L D (8.4-10.2) mg/dL Total Bilirubin 0.3 (0.0-1.0) mg/dL AST 33 H (5-31) U/L ALT 22 (0-31) U/L Alkaline Phosphatase 55 (39-117) U/L Troponin I High Sens < 2.7 (<3.5-17.0) ng/L Total Protein 7.4 (6.5-8.0) g/dL Albumin 3.9 (3.5-5.0) g/dL Beta HCG, Quant < 2 mIU/mL Urine Color Yellow Urine Appearance Clear Urine pH 7.5 (5.0-9.0) Ur Specific [place] <= 1.005 (1.005-1.025) Urine Protein Negative (Neg-Trace) mg/dL Urine Glucose (UA) Negative (Negative) mg/dL Urine Ketones Negative (Negative) mg/dL Urine Blood Small (1+) H (Negative) Urine Nitrite Negative (Negative) Ur Leukocyte Esterase Negative (Negative) Urine RBC 11-20 H (0-2) /HPF Urine WBC 0-5 (0-5) /HPF Ur Squamous Epith Cells 0-2 (0-2) /HPF Urine Bacteria None Seen (None Seen) Hyaline Casts 0-2 (0-2) /LPF Urine Test NEGATIVE (NEGATIVE) Influenza Type A (PCR) NEGATIVE (Negative) Influenza Type B (PCR) NEGATIVE (Negative) RSV RNA Qual (PCR) NEGATIVE (Negative) SARS-CoV-2 RNA (RT-PCR) NEGATIVE (Negative) 09/04/24 Range/Units 15:04 WBC (4.8-10.8) X10*3/uL RBC (4.20-5.50) X10*6/uL Hgb (12.0-16.0) g/dl Hct (37.0-47.0) % MCV (80.0-98.0) fL MCH (27.0-33.0) pg MCHC (31.0-35.0) g/dl RDW (11.0-16.0) % Plt Count (160-400) X10*3/uL MPV (9.4-12.3) fL Immature Gran % (Auto) (0.0-0.4) % Neut % (Auto) (45-73) % Lymph % (Auto) (20-40) % Sullivan % (Auto) (2-11) % Eos % (Auto) (0-4) % Baso % (Auto) (0-2) % Lymph # (Auto) (1.2-4.9) X10*3/uL Sullivan # (Auto) (0.1-1.2) X10*3/uL Eos # (Auto) (0.0-0.4) X10*3/uL Baso # (Auto) (0.0-0.2) X10*3/uL Abs Immat Gran (auto) (0.00-0.03) X10*3/uL Absolute Neuts (auto) (2.0-8.3) x10*3/uL Absolute Nucleated RBC (0.0-0.012) X10*3/uL Nucleated RBC % (auto) (0.0-0.2) /100WBC PT (10.9-12.4) SEC INR (0.9-1.1) APTT (26.0-36.8) SEC Sodium (135-145) mmol/L Potassium (3.3-5.1) mmol/L Chloride (96-108) mmol/L Carbon Dioxide (22-29) mmol/L Anion Gap (12-20) BUN (9-16) mg/dL Creatinine (0.5-1.4) mg/dL Estim Creat Clear Calc Estimated GFR Random Glucose (60-115) mg/dL Calcium (8.4-10.2) mg/dL Total Bilirubin (0.0-1.0) mg/dL AST (5-31) U/L ALT (0-31) U/L Alkaline Phosphatase (39-117) U/L Troponin I High Sens < 2.7 (<3.5-17.0) ng/L Total Protein (6.5-8.0) g/dL Albumin (3.5-5.0) g/dL Beta HCG, Quant mIU/mL Urine Color Urine Appearance Urine pH (5.0-9.0) Ur Specific [place] (1.005-1.025) Urine Protein (Neg-Trace) mg/dL Urine Glucose (UA) (Negative) mg/dL Urine Ketones (Negative) mg/dL Urine Blood (Negative) Urine Nitrite (Negative) Ur Leukocyte Esterase (Negative) Urine RBC (0-2) /HPF Urine WBC (0-5) /HPF Ur Squamous Epith Cells (0-2) /HPF Urine Bacteria (None Seen) Hyaline Casts (0-2) /LPF Urine Test (NEGATIVE) Influenza Type A (PCR) (Negative) Influenza Type B (PCR) (Negative) RSV RNA Qual (PCR) (Negative) SARS-CoV-2 RNA (RT-PCR) (Negative) Independent Interpretation I performed an independent interpretation of an: CT Scan Radiology Impression Discussion of test interpretation with radiology: I have reviewed the radiologist's reading. Independent Historian Clinical information obtained from an independent historian. History obtained from or confirmed by: Other Prescription Management I considered prescription management with: Other (meclizine) Discharge Plan Discharge Clinical Impression: Dizziness, Bradycardia Patient Disposition: Home, Self-Care Instructions: Vertigo (ED), Bradycardia (ED), Dizziness (ED) Additional Instructions: Your CT scan, EKG and blood work came back reassuring. Recommend follow-up with ENT specialist for your dizziness. Return to the ED immediately for any ear pain, headache, nausea, vomiting, dizziness, inability to walk, slurred speech, facial droop, paralysis of extremities, loss of vision, chest pain, shortness of breath, passing out, abdominal pain, dysuria, hematuria, flank pain, or any other concerning symptoms. FINDINGS: NONCONTRAST HEAD CT: There is no evidence of intracranial hemorrhage or extra-axial fluid collection. There is no mass effect, or edema. No CT evidence of acute territorial infarct. Ventricles, sulci, and cisterns are normal in size and configuration for patient age. No hydrocephalus. No midline shift. There are a few scattered foci of hemispheric white matter hypodensities in the supratentorial region, nonspecific but likely on the basis of small vessel changes. Globes and orbital contents image normally. No extracranial soft tissue abnormalities. The paranasal sinuses, mastoid air cells, and tympanic cavities are normally aerated. No suspicious bony abnormalities. NECK CTA: -AORTIC ARCH: Normal in caliber. Mild atheromatous calcification. 2-vessel branching pattern. -GREAT VESSEL ORIGINS: Widely patent. No stenosis. -RIGHT COMMON CAROTID ARTERY: Normal in course and caliber to the level of the bifurcation. -CERVICAL RIGHT INTERNAL CAROTID ARTERY: Normal opacification without focal stenosis or occlusion. -LEFT COMMON CAROTID ARTERY: Normal in course and caliber to the level of the bifurcation. -CERVICAL LEFT INTERNAL CAROTID ARTERY: Normal opacification without focal stenosis or occlusion. -CERVICAL RIGHT VERTEBRAL ARTERY: Codominant. Normal in course and caliber into the skull base. -CERVICAL LEFT VERTEBRAL ARTERY: Normal in course and caliber into the skull base. OTHER, SOFT TISSUES: -No lymphadenopathy or mass. No abnormal fluid collection or soft tissue swelling. -Normal thyroid. -Imaged superior mediastinal structures normal. -Imaged lung apices clear. CTA OF THE BRAIN: -INTRACRANIAL INTERNAL CAROTID ARTERIES: No focal stenosis or occlusion. No aneurysm. -RIGHT ANTERIOR CEREBRAL ARTERY: Normal A1 segment.. Normal arborization of the distal segments. -LEFT ANTERIOR CEREBRAL ARTERY: Normal A1 segment.. Normal arborization of the distal segments. -ANTERIOR COMMUNICATING ARTERY: Normal. -RIGHT MIDDLE CEREBRAL ARTERY: Normal M1 segment of the MCA without focal stenosis or occlusion. Normal arborization of the distal segments. -LEFT MIDDLE CEREBRAL ARTERY: Normal M1 segment of the MCA without focal stenosis or occlusion. Normal arborization of the distal segments. -RIGHT VERTEBRAL ARTERY V4: Normal in course and caliber. Normal PICA branch. -LEFT VERTEBRAL ARTERY V4: Normal in course and caliber. There is a left AICA/PICA. -BASILAR ARTERY: Normal without focal stenosis or occlusion. Normal appearance of the proximal superior cerebellar arteries. Normal basilar tip. -RIGHT POSTERIOR CEREBRAL ARTERY: Normal P1 segment. Normal opacification of the distal CURRICULUM SUPERVISOR segments. -LEFT POSTERIOR CEREBRAL ARTERY: Normal P1 segment. Normal opacification of the distal CURRICULUM SUPERVISOR segments. -POSTERIOR COMMUNICATING ARTERIES: Not well seen. Normal opacification of the superior sagittal, straight, transverse, and sigmoid sinuses. No venous thrombosis. CT/CT angio head neck IMPRESSION: NONCONTRAST HEAD CT: 1. No acute intracranial abnormality. 2. A few scattered small supratentorial deep white matter hypoattenuating foci, nonspecific but statistically most likely on the basis of mild small vessel ischemic changes. CTA NECK: 1. No evidence of significant stenosis, occlusion, or dissection involving the major cervical arterial vasculature. CTA HEAD: 1. No evidence of vascular occlusion, stenosis, aneurysm, or other abnormality. 2. Patent portal and dural venous sinuses. Electronically signed by: Fermin Campbell MD 09/04/2024 01:55 PM EDT Prescriptions: New meclizine 25 mg tablet 25 mg PO TID PRN (Reason: dizziness) 10 Days Qty: 30 0RF No Action baclofen 10 mg tablet 10 mg PO TID PRN (Reason: for muscle spasm) Qty: 90 0RF fluticasone propionate [Flonase] 50 mcg/actuation Sultana,Suspension 1 spray INTRANASAL DAILY cetirizine 10 mg Tablet 10 mg PO DAILY PRN (Reason: Allergy Symptoms) ibuprofen 800 mg tablet 800 mg PO Q8H PRN (Reason: pain) Qty: 30 0RF oseltamivir [Tamiflu] 75 mg capsule 75 mg PO Q12H 5 Days Qty: 10 0RF oseltamivir [Tamiflu] 75 mg capsule 75 mg PO Q12H 5 Days Qty: 10 0RF montelukast 10 mg tablet 10 mg PO DAILY albuterol sulfate 90 mcg/actuation HFA aerosol inhaler 0 mcg inhalation NEEDED PRN (Reason: asthma) Referrals: [facility] [Provider Group] (Sinus bRadycardia) Clementine Cobos MD [Primary Care Provider] - (Dizziness/vertigo) Dinora Quevedo MD [Physician] - (Dizziness) Hima Bird [Physician] - (Vertigo dizziness) Stand Alone Forms: Work/School Release Interventions: ED Discharge Assessment Last Done: 09/04/24 16:26 Discharge Date/Time: 09/04/24 16:26 Print Language: Armenian
[2024-09-04 11:17] VITALS: BP 130/70; BP 137/56; BP 139/56; PULSE 52; PULSE 55
[2024-09-04] MEDS: Meclizine HCl 25 MG TABLET 50 MG PO (11:17)
[2024-09-04] MEDS: 0.9 % Sodium Chloride 1,000 ML 999 ML IV (11:32)
[2024-09-04 11:35] LABS: MANUAL DIFF FLAG NO
[2024-09-04 11:41] LABS: Basophils Absolute Auto 0.1 X10*3/uL (0.0-0.2); Basophils Percent Auto 0.6 % (0-2); Eosinophils Percent Auto 0.3 % (0-4); Hematocrit 35.5 % (37.0-47.0); Hemoglobin 11.4 g/dl (12.0-16.0); Imm Gran Abs Auto 0.05 X10*3/uL (0.00-0.03); Imm Gran Pct Auto 0.5 % (0.0-0.4); Lymphocytes Absolute Auto 1.1 X10*3/uL (1.2-4.9); Lymphocytes Percent Auto 10.2 % (20-40); Mean Corpuscular HGB Conc 32.1 g/dl (31.0-35.0); Mean Corpuscular Hemoglobin 24.2 pg (27.0-33.0); Mean Corpuscular Volume 75.4 fL (80.0-98.0); Mean Platelet Volume 9.3 fL (9.4-12.3); Monocytes Absolute Auto 0.4 X10*3/uL (0.1-1.2); Monocytes Percent Auto 3.3 % (2-11); Neutrophils Absolute Auto 9.2 x10*3/uL (2.0-8.3); Neutrophils Percent Auto 85.1 % (45-73); Platelet Count 280 X10*3/uL (160-400); Red Blood Count 4.71 X10*6/uL (4.20-5.50); Red Cell Distribution Width 15.5 % (11.0-16.0); White Blood Count 10.8 X10*3/uL (4.8-10.8)
[2024-09-04 12:00] LABS: Alanine Aminotransferase 22 U/L (0-31); Albumin Level 3.9 g/dL (3.5-5.0); Alkaline Phosphatase 55 U/L (39-117); Anion Gap 14 (12-20); Aspartate Amino Transferase 33 U/L (5-31); Bilirubin Total 0.3 mg/dL (0.0-1.0); Blood Urea Nitrogen 9 mg/dL (9-16); Carbon Dioxide 19 mmol/L (22-29); Chloride 110 mmol/L (96-108); Creatinine Clr Calc Pharmacy 99.5; Estimated Glomerular Filt Rate > 60; Glucose Random 100 mg/dL (60-115); Potassium 4.6 mmol/L (3.3-5.1); Sodium 138 mmol/L (135-145); Total Protein 7.4 g/dL (6.5-8.0)
[2024-09-04 12:00] LABS: Prothrombin Time 11.3 SEC (10.9-12.4)
[2024-09-04 12:02] LABS: Partial Thromboplastin Time 28.6 SEC (26.0-36.8)
[2024-09-04 12:09] LABS: HCG Quantitative < 2 mIU/mL
--- NOTE | 2024-09-04 12:09 | PC.NURSE ---
pt a&ox3, iv inserted, labs drawn, pt medicated per order, ivf hung per order, call horner within reach, plan of care ongoing
[2024-09-04 12:17] LABS: Influenza A PCR NEGATIVE (Negative); Influenza B PCR NEGATIVE (Negative); Resp Syncy Virus RNA Qual PCR NEGATIVE (Negative); SARS COV2 PCR INHOUSE NEGATIVE (Negative)
[2024-09-04 12:28] LABS: Troponin-I High Sensitivity < 2.7 ng/L (<3.5-17.0)
[2024-09-04 12:49] LABS: Appearance Urine Clear; Color Urine Yellow; Glucose Urine UA Negative (Negative); Leukocyte Esterase Urine Negative (Negative); Nitrite Urine Negative (Negative); PH 7.5 (5.0-9.0); Specific Gravity - Urine <= 1.005 (1.005-1.025); UMIC TRIGGER UACC YES; Urine Blood Small (1+) (Negative); Urine Ketones Negative (Negative); Urine Protein Negative (Neg-Trace)
[2024-09-04 12:52] LABS: UPreg QC Valid YES; Urine Pregnancy NEGATIVE (NEGATIVE)
[2024-09-04 12:54] LABS: Bacteria Urine None Seen (None Seen); Hyaline Casts Urine 0-2 /LPF (0-2); Squamous Epithelial Cell Urine 0-2 /HPF (0-2); WBC Urine 0-5 /HPF (0-5)
--- OUTSIDE RECORDS SUMMARY | 2024-09-04 13:04 | XMS_ITS | Clinical Summary ---
Author Organization [facility] ity Address [address] [place] [address] Care Team Providers Care Building Energy Retrofit Technician Name Role Phone Clementine Cobos MD Primary Care Provider +1- [phone] Surgical History Surgery Date Site/Laterality Comments CHOLECYSTECTOMY [...] age to complete this topic Care Teams Building Energy Retrofit Technician Relationship Specialty Start Date End Date Clementine Cobos MD [address] [place] [phone] PCP - General Internal Medicine 12/18/12
--- OUTSIDE RECORDS SUMMARY | 2024-09-04 13:04 | XMS_ITS | Encounter Summary ---
Author Organization [email or web address] Address [address] [place] [address] 7 [place] [address] Care Team Providers Care Peeled Potato Inspector Name Role Phone Clementine Cobos MD Primary Care Provider +1- [phone] Manoj Garcia MD Unavailable Encounter Details Date Type Department Care Team (Late st Contact Info) Description 11/17/2022 Abstract [facility] [address] [place] [phone] Clementine Cobos MD [address] [place], [place] [phone] Social History Tobacco Use Types Packs/Day Years [...] Description 09/16/2024 7:45 AM EDT Office Visit [facility] [address] [place] [address] [phone] Magnolia Melton [address] [place], [place] [phone] 10/01/2024 11:30 AM EDT Office Visit [facility] [address] [place] [address] [phone] Clementine Cobos MD [address] [place] [address] documented as of this encounter Visit Diagnoses Not on filedocumented in this encounter Additional Health Concerns Assessment Noted Time PHQ-9 Depression Total Score: 0 09/12/19 23 10:19 AM EDT documented as of this encounter Care Teams Peeled Potato Inspector Relationship Specialty Start Date End Date Clementine Cobos MD [address] [place] [address] PCP - General Family Medicine 06/25/18 Manoj Garcia MD [address] [place] [phone] Obstetrics and Gynecology 07/22/24 documented as of this encounter
--- OUTSIDE RECORDS SUMMARY | 2024-09-04 13:04 | XMS_ITS | Encounter Summary ---
Author Organization [employer] Address [address] [facility] 7t [place] [address] Care Team Providers Care President & Founder Name Role Phone Chandrika, Clementine MORGAN Primary Care Provider +1- [phone] Manoj Garcia MD Unavailable Reason for Visit * Reason Comments Med Change Request Encounter Details Date Type Department Care Team ([facility] st Contact Info) Description 04/28/2023 Refill [facility] [address] [place], [place] [phone] Kaitlin Vallejo MD [address] [place], [place] [phone] Seasonal allergies (Primary Dx) Social History Tobacco [...] Description 09/16/2024 7:45 AM EDT Office Visit [facility] [address] [place] [address] Magnolia Melton [address] [place] [address] 10/01/2024 11:30 AM EDT Office Visit [facility] [address] [place] [address] Clementine Cobos MD [address] [place] [address] documented as of this encounter Visit Diagnoses Diagnosis Seasonal allergies- Primary Allergic rhinitis, cause unspecified documented in this encounter Additional Health Concerns Assessment Noted Time PHQ-9 Depression Total Score: 0 09/12/19 10:19 AM EDT documented as of this encounter Care Teams President & Founder Relationship Specialty Start Date End Date Clementine Cobos MD [address] [place] [phone] PCP - General Family Medicine 06/25/18 Manoj Garcia MD [address] [place] [address] [place] [phone] Obstetrics and Gynecology 07/22/24 documented as of this encounter
--- OUTSIDE RECORDS SUMMARY | 2024-09-04 13:04 | XMS_ITS | Encounter Summary ---
Author Organization [email or web address] Address [address] [facility] 7t [place] [address] Care Team Providers Care Quality Technician Fiberglass Name Role Phone Clementine Cobos MD Primary Care Provider +1- [phone] Manoj Garcia MD Unavailable Reason for Visit * Reason Comments Med Change Request Encounter Details Date Type Department Care Team ([facility] Contact Info) Description 09/01/2024 Refill [facility] [address] [place], [place] [phone] Clementine Cobos MD [address] [place], [place] [phone] Positive H. pylori test Social History Tobacco Use Types Packs/Day Years [...] Description 09/16/2024 7:45 AM EDT Office Visit [facility] [address] [place] [address] FerrAmando stoneler [address] [place] [address] 10/01/2024 11:30 AM EDT Office Visit [facility] [address] [place] [address] Clementine Cobos MD [address] [place] [phone] documented as of this encounter Visit Diagnoses Diagnosis Positive H. pylori test documented in this encounter Additional Health Concerns Assessment Noted Time PHQ-9 Depression Total Score: 0 12/24/19 24 11:02 AM EDT documented as of this encounter Care Teams Quality Technician Fiberglass Relationship Specialty Start Date End Date Clementine Cobos MD [address] [place] [phone] PCP - General Family Medicine 06/25/18 Manoj Garcia MD [address] [place] [phone] Obstetrics and Gynecology 07/22/24 documented as of this encounter
--- OUTSIDE RECORDS SUMMARY | 2024-09-04 13:04 | XMS_ITS | Encounter Summary ---
Author Organization [employer] Address 75 [facility] 7t [place] [address] Care Team Providers Care Work Car Operator Name Role Phone Clementine Cobos MD Primary Care Provider +1- [phone] Manoj Garcia MD Unavailable Encounter Details Date Type Department Care Team (Late st Contact Info) Description 09/01/[address] [facility] [address] [place], [place] [phone] Clementine Cobos MD [address] [place] [address] Positive H. pylori test (Primary Dx); H. pylori infection Social History Tobacco Use Types Packs/Day Years [...] Description 09/16/2024 7:45 AM EDT Office Visit [facility] [address] [place] [address] FerrAmando stoneler [address] [place] [address] 10/01/2024 11:30 AM EDT Office Visit [facility] [address] [place] [address] Clementine Cobos MD [address] [place] [address] documented as of this encounter Visit Diagnoses Diagnosis Positive H. pylori test- Primary H. pylori infection Helicobacter pylori (H. pylori) documented in this encounter Additional Health Concerns Assessment Noted Time PHQ-9 Depression Total Score: 0 12/24/19 24 11:02 AM EDT documented as of this encounter Care Teams Work Car Operator Relationship Specialty Start Date End Date Clementine Cobos MD [address] [place] [address] PCP - General Family Medicine 06/25/18 Manoj Garcia MD [address] [place] [address] [place] [phone] Obstetrics and Gynecology 07/22/24 documented as of this encounter
--- OUTSIDE RECORDS SUMMARY | 2024-09-04 13:04 | XMS_ITS | Encounter Summary ---
Author Organization [employer] Address 75 [facility] 7 [place] [address] Care Team Providers Care Ladies' Hat Trimmer Name Role Phone Clementine Cobos MD Primary Care Provider +1- [phone] Manoj Garcia MD Unavailable Reason for Referral * Imaging (Routine) - Closed Specialty Diagnoses / Procedures Referred By Contac laurie Referred To Contact Radiology Diagnoses Pleuritic pain Thoracic radiculopathy Procedures CT Chest w/ Contrast Clementine Cobos MD 230 [place] [address] Phone: tel: fax: [facility] [address] [place], [place] Phone: tel: fax: Referral ID Status Reason Start Date Expiration Date Visits Re quested Visits Authorized [id number] Closed 06/28/2023 06/27/2024 1 1 Encounter Details Date Type Department Care Team (Late st Contact Info) Description 06/28/2023 Orders Only [facility] [address] [place], [place] [phone] Clementine Cobos MD [address] [place] [address] Pleuritic pain (Primary Dx); Thoracic radiculopathy Social [...] 09/16/2024 7:45 AM EDT Office Visit [facility] [address] [place] [address] Magn[facility] Melton [address] [place] [address] 10/01/2024 11:30 AM EDT Office Visit [facility] [address] [place] [address] Clementine Cobos MD 230 [place] [address] Scheduled Orders Name Type Priority Associated Diagnoses [...] documented as of this encounter Care Teams Ladies' Hat Trimmer Relationship Specialty Start Date End Date Clementine Cobos MD [address] [place] [address] PCP - General Family Medicine 06/25/18 Manoj Garcia MD [address] [place] [phone] Obstetrics and Gynecology 07/22/24 documented as of this encounter
--- OUTSIDE RECORDS SUMMARY | 2024-09-04 13:04 | XMS_ITS | Encounter Summary ---
Author Organization [employer] Address 75 [facility] 7t [place] [address] Care Team Providers Care Truck Safety Inspector Name Role Phone Clementine Cobos MD Primary Care Provider +1- [phone] Manoj Garcia MD Unavailable Reason for Visit * Reason Comments Med Change Request Encounter Details Date Type Department Care Team ([facility] st Contact Info) Description 07/27/2023 Refill [facility] [address] [place] [address] Clementine Cobos MD [address] [place] [address] Social History Tobacco Use Types Packs/Day Years [...] Description 09/16/2024 7:45 AM EDT Office Visit [facility] [address] [place] [address] Magn[facility] Melton [address] [place] [address] 10/01/2024 11:30 AM EDT Office Visit [facility] [address] [place] [address] Clementine Cobos MD [address] [place] [address] documented as of this encounter Visit Diagnoses Not on filedocumented in this encounter Additional Health Concerns Assessment Noted Time PHQ-9 Depression Total Score: 0 09/12/19 10:19 AM EDT documented as of this encounter Care Teams Truck Safety Inspector Relationship Specialty Start Date End Date Clementine Cobos MD [address] [place] [address] PCP - General Family Medicine 06/25/18 Manoj Garcia MD [address] [place] [address] [place] [phone] Obstetrics and Gynecology 07/22/24 documented as of this encounter
--- OUTSIDE RECORDS SUMMARY | 2024-09-04 13:04 | XMS_ITS | Encounter Summary ---
Author Organization [employer] Address 75 [facility] 7t [place] [address] Care Team Providers Care Heddler Tier Name Role Phone Chandrika, Clementine MORGAN Primary Care Provider +1- [phone] Manoj Garcia MD Unavailable Encounter Details Date Type Department Care Team (Late st Contact Info) Description 09/04/2024 Orders Only GENERIC EXTERNAL DATA DEPARTMENT Provider, [...] Description 09/16/2024 7:45 AM EDT Office Visit [facility] 230 [place] [address] [facility] [place] [address] [place] [address] 10/01/2024 11:30 AM EDT Office Visit [facility] [address] [place] [address] Clementine Cobos MD [address] [place] [address] documented as of this encounter Procedures Procedure Name Priority Date/Time Associated Diagnosis Comments URINALYSIS, COMPLETE, WITH REFLEX TO CULTURE Routine 09/04/2024 12:39 PM EDT HCG, QL, URINE Routine 09/04/2024 12:39 PM EDT APTT Routine 09/04/2024 11:46 AM EDT PROTHROMBIN TIME-INR Routine 09/04/2024 11:46 AM EDT HIGH SENSITIVITY TROPONIN I Routine 09/04/2024 11:28 AM EDT SARS COV2/INFLUENZA A/B AND RSV RNA QL NAAT Routine 09/04/2024 11:28 AM EDT CBC WITH AUTO DIFFERENTIAL Routine 09/04/2024 11:28 AM EDT HCG, TOTAL, QN Routine 09/04/2024 11:28 AM EDT COMPREHENSIVE METABOLIC PANEL Routine 09/04/2024 11:28 AM EDT documented in this encounter Results * HCG, Qualitative, Urine (09/04/2024 12:39 PM EDT) Urine NEGATIVE NEGATIVE [facility] Comment:This test was develo ped to detect early . Falsenegative results may occur after the 5th - 7th week ofpregnancy when using this test method. If clinicallyindicated, consider a serum hCG. 09/04/2024 12:3 9 PM EDT 09/04/2024 12:52 PM EDT us Generic External Data Provider LAB URINE ORDERAB LES Final Result [facility] [address] [place] [phone] * (ABNORMAL) Urinalysis, Complete, with Reflex to Culture (09/04/2024 12:39 PM EDT) Color Urine Yellow [facility] Appearance Urine Clear [facility] PH 7.5 5.0 - 9.0 [facility] Glucose Urine UA Negative Negative mg/dL [facility] Urine Blood Small (1+)(A) Negative [facility] Specific [place] - Urine <=1.005 1.005 - 1.025 [facility] Urine Protein Negative Neg-Trace mg/dL [facility] Urine Ketones Negative Negative mg/dL [facility] Nitrite Urine Negative Negative [facility] Leukocyte Esterase Urine Negative Negative [facility] RBC Urine 11-20(A) 0 - 2 /HPF [facility] Urine WBC 0-5 0 - 5 /HPF [facility] Urine Squamous Epithelial Cell 0-2 0 - 2 /HPF [facility] Urine Bacteria None Seen None Seen [facility] Hyaline Casts, Urine 0-2 0 - 2 /LPF [facility] 09/04/2024 12:3 9 PM EDT 09/04/2024 12:43 PM EDT Narrative [facility] - 09/04/2024 12:57 PM EDT [id number], Clean Catch Generic External Data Provider LAB URINE ORDERAB LES Final Result Performing Organization Address City/[facility]/ZIP Co de Phone Number [facility] [address] [place] [phone] * Partial Thromboplastin Time, Activated (APTT) (09/04/2024 11:46 AM EDT) Partial Thromboplastin Time 28.6 26.0 - 36.8 SEC [facility] Comment:For information rega rding the monitoring of direct thrombininhibitors, please refer to Pharmacy. 09/04/2024 11:4 6 AM EDT 09/04/2024 11:49 AM EDT Generic External Data Provider LAB BLOOD ORDERAB LES Final Result Performing Organization Address [facility] Co de Phone Number [facility] [address] [place] [phone] * Prothrombin Time-INR (09/04/2024 11:46 AM EDT) Prothrombin Time 11.3 10.9 - 12.4 SEC [facility] INTERNATIONAL NORM RATIO 1.0 0.9 - 1.1 [facility] Comment:INTERNATIONAL NORMAL IZED RATIO (INR) REFERENCE RANGES Reference RangeFor patients not on anticoagulant therapy: 0.9 - 1.1INR ranges for oral anticoagulanttherapy:For prevention and treatment of venous thrombosis and pulmonary embolism: 2.0 - 3.0For acute myocardial infarction with aspirin therapy: 2.0 - 3.0For acute myocardial infarction without aspirin therapy: 3.0 - 4.0For patients with mechanical prosthetic heart valves: 2.5 - 3.5 09/04/2024 11:4 6 AM EDT 09/04/2024 11:49 AM EDT Generic External Data Provider LAB BLOOD ORDERAB LES Final Result Performing Organization Address [facility] Co de Phone Number [facility] [address] [place] [phone] * High Sensitivity Troponin I (09/04/2024 11:28 AM EDT) Pathologist [facility] TROPONIN I HIGH SENSITIVITY <2.7 <3.5 - 17.0 ng/L [facility] Comment:The Thomas high sens itivity Troponin-I results should beused in conjunction with other diagnostic information suchas ECG, clinical observations and information, and patientsymptoms to aid in the diagnosis of DC. 09/04/2024 11:2 8 AM EDT 09/04/2024 11:33 AM EDT Generic External Data Provider LAB BLOOD ORDERAB LES Final Result Performing Organization Address [facility] Co de Phone Number [facility] [address] [place] [phone] * SARS-CoV-2 RNA, Influenza A/B, and RSV RNA, Ql NAAT (09/04/2024 11:28 AM EDT) Pathologist [facility] Influenza A PCR NEGATIVE Negative [facility] Influenza B PCR NEGATIVE Negative [facility] Resp Syncy Virus RNA Qual PCR NEGATIVE Negative [facility] SARS COV2 PCR NEGATIVE Negative [facility] Comment:All test results mus t [...] use by authorized laboratories.Testing performed on the [employer] GeneXpert utilizingreal-time RT-PCR.All SARS CoV2 and positive influenza A/B results arereported to [facility]. 09/04/2024 11:2 8 AM EDT 09/04/2024 11:33 AM EDT Generic External Data Provider LAB MICROBIOLOGY - GENERAL ORDERABLES Final Result Performing Organization Address [facility]/ZIP Co de Phone Number [facility] [address] [place] [phone] * hCG, Total, Quantitative (09/04/2024 11:28 AM EDT) [facility] HCG Quantitative <2 mIU/mL [facility] Comment:Weeks post LMP Appr oximate hCG(Last Menstrual Period) Range (mIU/ml)3 - 4 weeks 9 - 1304 - 5 weeks 75 - 2,6005 - 6 weeks 850 - 20,8006 - 7 weeks 4000 - 100,2007 - 12 weeks 11,500 - 289,88305 - 16 weeks 18,300 - 137,40323 - 29 weeks (2nd trimester) 1,400 - 53,44151 - 41 weeks (3rd trimester) 940 - 60,000The Thomas B- hCG assay is used for the early detection ofpregnancy; it cannot be used to diagnose any conditionunrelated to . If a B-hCG level is not supportedby the clinical evidence, results should be confirmed by analternative method (qualitative urine hCG, for example). 09/04/2024 11:2 8 AM EDT 09/04/2024 11:33 AM EDT Generic External Data Provider LAB BLOOD ORDERAB LES Final Result Performing Organization Address [facility] Co de Phone Number [facility] [address] [place] [phone] * (ABNORMAL) Comprehensive Metabolic Panel (09/04/2024 11:28 AM EDT) Pathologist [facility] Sodium 138 135 - 145 mmol/L [facility] Potassium 4.6 3.3 - 5.1 mmol/L [facility] Comment:Slight Hemolysis.Int erpret result with caution. Chloride 110(H) 96 - 108 mmol/L [facility] Carbon Dioxide 19(L) 22 - 29 mmol/L [facility] Anion Gap 14 12 - 20 [facility] Urea Nitrogen (BUN) 9 9 - 16 mg/dL [facility] Creatinine, Serum 0.69 0.5 - 1.4 mg/dL [facility] Creatinine Clr Calc Pharmacy 99.5 [facility] Comment:Provided height and weight: 162.56 cm,72.575 kg.eGFR (calculated from the MDRD study equation) and eCrCl(calculated from the Cockcroft-Gault equation) are based ondifferent parameters and may not yield comparable results.If eCrCl result is absurd, please check patient'sheight/weight. Estimated Glomerular Filt Rate >60 [facility] Comment:Chronic Kidney Disea se: Estimated GFR < 60 mL/min/1.89x8Unmurq Kidney Disease: Estimated GFR < 15 mL/min/1.73m2 Glucose 100 60 - 115 mg/dL [facility] Calcium 8.0(L) 8.4 - 10.2 mg/dL [facility] Bilirubin, Total 0.3 0.0 - 1.0 mg/dL [facility] Aspartate Amino Transferase 33(H) 5 - 31 U/L [facility] Comment:Slight Hemolysis.Int erpret result with caution. Alanine Aminotransferase 22 0 - 31 U/L [facility] Total Protein 7.4 6.5 - 8.0 g/dL [facility] Albumin Level 3.9 3.5 - 5.0 g/dL [facility] Alkaline Phosphatase 55 39 - 117 U/L [facility] 09/04/2024 11:2 8 AM EDT 09/04/2024 11:33 AM EDT us Generic External Data Provider LAB BLOOD ORDERAB LES Final Result [facility] [address] [place], [place] [phone] * (ABNORMAL) CBC auto differential (09/04/2024 11:28 AM EDT) White Blood Count 10.8 4.8 - 10.8 X10*3/uL [facility] Red Blood Count 4.71 4.20 - 5.50 X10*6/uL [facility] Hemoglobin 11.4(L) 12.0 - 16.0 g/dl [facility] Hematocrit 35.5(L) 37.0 - 47.0 % [facility] Mean Corpuscular Volume 75.4(L) 80.0 - 98.0 fL [facility] Mean Corpuscular Hemoglobin 24.2(L) 27.0 - 33.0 pg [facility] Mean Corpuscular HGB Conc 32.1 31.0 - 35.0 g/dl [facility] Red Cell Distribution Width 15.5 11.0 - 16.0 % [facility] Platelet Count 280 160 - 400 X10*3/uL [facility] Mean Platelet Volume 9.3(L) 9.4 - 12.3 fL [facility] Neutrophils Percent Auto 85.1(H) 45 - 73 % [facility] Imm Gran Pct Auto 0.5(H) 0.0 - 0.4 % [facility] Lymphocytes Percent Auto 10.2(L) 20 - 40 % [facility] Monocytes Percent Auto 3.3 2 - 11 % [facility] Eosinophils Percent Auto 0.3 0 - 4 % [facility] Basophils Percent Auto 0.6 0 - 2 % [facility] NRBC Pct Auto 0.0 0.0 - 0.2 /100WBC [facility] Neutrophils Absolute Auto 9.2(H) 2.0 - 8.3 x10*3/uL [facility] Imm Gran Abs Auto 0.05(H) 0.00 - 0.03 X10*3/uL [facility] Lymphocytes Absolute Auto 1.1(L) 1.2 - 4.9 X10*3/uL [facility] Monocytes Absolute Auto 0.4 0.1 - 1.2 X10*3/uL [facility] Eosinophils Absolute Auto 0.0 0.0 - 0.4 X10*3/uL [facility] Basophils Absolute Auto 0.1 0.0 - 0.2 X10*3/uL [facility] NRBC Abs Auto 0.000 0.0 - 0.012 X10*3/uL [facility] 09/04/2024 11:2 8 AM EDT 09/04/2024 11:33 AM EDT us Generic External Data Provider LAB BLOOD ORDERAB LES Final Result [facility] [address] [place] [phone] [phone] documented in this encounter Visit Diagnoses Not on filedocumented in this encounter Additional Health Concerns Assessment Noted Time PHQ-9 Depression Total Score: 0 12/24/19 24 11:02 AM EDT documented as of this encounter Care Teams Heddler Tier Relationship Specialty Start Date End Date Clementine Cobos MD [address] [place] [phone] PCP - General Family Medicine 06/25/18 Manoj Garcia MD [address] [place] [phone] Obstetrics and Gynecology 07/22/24 documented as of this encounter
--- OUTSIDE RECORDS SUMMARY | 2024-09-04 13:04 | XMS_ITS | Encounter Summary ---
Author Organization [employer] Address 75 [facility] 7t [place] [address] Care Team Providers Care Cribber Name Role Phone Clementine Cobos MD Primary Care Provider +1- [phone] Manoj Garcia MD Unavailable Reason for Visit * Reason Comments follow up Encounter Details Date Type Department Care Team (Latest Contact Info) Description 08/29/2024 9:00 AM EST Office Visit [facility] [address] [place], [place] [phone] Clementine Cobos MD [address] [place] [address] Gastroesophageal reflux disease with esophagitis, unspecified whether hemorrhage (Primary Dx) Social History Tobacco Use Types [...] Sign Reading Time Taken Comments Blood Pressure 136/70 08/29/2024 9:15 AM EST Pulse 97 08/29/2024 9:15 AM EST Temperature 37.2 ??C (98.9 ??F) 08/29/2024 9:15 AM ES T Respiratory Rate 20 08/29/2024 9:15 AM EST Oxygen Saturation 98% 08/29/2024 9:15 AM EST Inhaled Oxygen Concentration - - Weight 77 kg (169 lb 12.8 oz) 08/29/2024 9:15 AM EST Height - - Body Mass Index 29.15 01/03/2024 11:31 AM EDT documented in this encounter Progress Notes * Clementine Cobos MD - 08/29/2024 9:00 AM EST Subjective Patient ID: Carmine Herrera is a 44 y.o. female with past medical history of gatric sleeve surgery 2019 who presents for reflux symptoms. Pt repots reflux much worse for past 3-4 months. She has a history of h.pylori infection in 2018 but did not take the medication. She drinks coffee in the am as well. No tobacco or EtOH. Review of Systems Gastrointestinal: Positive for abdominal pain, constipation, nausea and vomiting. Negative for blood in stool. Objective Visit Vitals BP 136/70 (BP Location: Left arm, Patient Position: Sitting, BP Cuff Size: Adult) Pulse 97 Temp 98.9 ??F (37.2 ??C) (Oral) Resp 20 Body mass index is 29.15 kg/m??. Physical Exam Abdominal: Tenderness: There is abdominal tenderness. Comments: Epigastric tenderness Problem List Items Addressed This Visit Gastroesophageal reflux disease - Primary -check H.pylori breath test -dietary changes discussed, sami eliminating coffee -trial of omeprazole -return 1 month Relevant Medications omeprazole OTC (PriLOSEC OTC) 20 MG EC tablet Other Relevant Orders Helicobacter pylori, Urea Breath Test (Completed) Follow up in about 4 weeks (around 09/26/2024) for follow up reflux. I, Brooke Nolen, am serving as a scribe to document services personally performed by Dr. Brown, based on the patient's response to questions by provider and providers statements to me. documented in this encounter Miscellaneous Notes * Assessment & Plan Note - Cleemntine Cobos MD - 08/29/2024 9:22 AM EST Associated Problem(s): Gastroesophageal reflux disease -check H.pylori breath test -dietary changes discussed, sami eliminating coffee -trial of omeprazole -return 1 month documented in this encounter Plan of Treatment Upcoming Encounters Date Type Department Care Team (Late st Contact Info) Description 09/16/2024 7:45 AM EDT Office Visit [facility] [address] [place] [address] FerrAmando stoneler [address] [place] [address] 10/01/2024 11:30 AM EDT Office Visit [facility] [address] [place] [address] Clementine Cobos MD [address] [place] [address] documented as of this encounter Procedures Procedure Name Priority Date/Time Associated Diagnosis Comments HELICOBACTER PYLORI, UREA BREATH TEST Routine 08/29/2024 9:50 AM EST Gastroesophageal reflux disease with esophagitis, unspecified whether hemorrhage documented in this encounter Results * Helicobacter pylori, Urea Breath Test (08/29/2024 9:50 AM EST) H. pylori Breath Test Positive Negative [facility] Comment:Antimicrobials, prot on pump inhibitors and bismuthpreparations are known to suppress H. pylori. Ingestingthese medications within two weeks prior to performing thebreath test may produce negative test results. A positiveresult is still clinically valid. Breath Oral cavity structure / Unknown 08/29/2024 9:50 AM EST 08/29/2024 5:18 PM EST us Clementine Cobos MD LAB BLOOD ORDERABLES Final Result [facility] [address] [place] [phone] documented in this encounter Visit Diagnoses Diagnosis Gastroesophageal reflux disease with esophagitis, unspecified whether hemorrhage- Primary documented in this encounter Additional Health Concerns Assessment Noted Time PHQ-9 Depression Total Score: 0 12/24/19 24 11:02 AM EDT documented as of this encounter Care Teams Cribber Relationship Specialty Start Date End Date Clementine Cobos MD [address] [place] [phone] PCP - General Family Medicine 06/25/18 Manoj Garcia MD [address] [place] [address] [place] [phone] Obstetrics and Gynecology 07/22/24 documented as of this encounter
--- OUTSIDE RECORDS SUMMARY | 2024-09-04 13:04 | XMS_ITS | Encounter Summary ---
Author Organization [employer] Address [address] [facility] [address] 7t [place] [address] Care Team Providers Care Licensed Electrician Name Role Phone Clementine Cobos MD Primary Care Provider +1- [phone] Manoj Garcia MD Unavailable Encounter Details Date Type Department Care Team (Late st Contact Info) Description 06/27/2023 Orders Only [facility] [address] [place] [address] [phone] Clementine Cobos MD [address] [place] [address] Social History Tobacco Use Types Packs/Day Years [...] Description 09/16/2024 7:45 AM EDT Office Visit [facility] [address] [place] [address] [facility] [address] [place] [address] 10/01/2024 11:30 AM EDT Office Visit [facility] [address] [place] [address] Clementine Cobos MD [address] [place] [address] documented as of this encounter Visit Diagnoses Not on filedocumented in this encounter Additional Health Concerns Assessment Noted Time PHQ-9 Depression Total Score: 0 09/12/19 23 10:19 AM EDT documented as of this encounter Care Teams Licensed Electrician Relationship Specialty Start Date End Date Clementine Cobos MD [address] [place] [phone] PCP - General Family Medicine 06/25/18 Manoj Garcia MD [address] [place] [address] [place] [phone] Obstetrics and Gynecology 07/22/24 documented as of this encounter
--- OUTSIDE RECORDS SUMMARY | 2024-09-04 13:04 | XMS_ITS | Encounter Summary ---
Author Organization [employer] Address [address] [facility] 7t [place] [address] Care Team Providers Care Consulting Sme Name Role Phone Clementine Cobos MD Primary Care Provider +1- [phone] Manoj Garcia MD Unavailable Reason for Visit * Reason Comments Med Change Request Encounter Details Date Type Department Care Team ([facility] st Contact Info) Description 07/27/2023 Refill [facility] [address] [place] [address] Clementine Cobos MD [address] [place] [address] Social History Tobacco Use Types Packs/Day Years [...] Description 09/16/2024 7:45 AM EDT Office Visit [facility] [address] [place] [address] [facility] [address] [place] [address] 10/01/2024 11:30 AM EDT Office Visit [facility] [address] [place] [address] Clementine Cobos MD [address] [place] [address] documented as of this encounter Visit Diagnoses Not on filedocumented in this encounter Additional Health Concerns Assessment Noted Time PHQ-9 Depression Total Score: 0 09/12/19 10:19 AM EDT documented as of this encounter Care Teams Consulting Sme Relationship Specialty Start Date End Date Clementine Cobos MD [address] [place] [address] PCP - General Family Medicine 06/25/18 Manoj Garcia MD [address] [place] [address] [place] [address] Obstetrics and Gynecology 07/22/24 documented as of this encounter
--- OUTSIDE RECORDS SUMMARY | 2024-09-04 13:04 | XMS_ITS | Encounter Summary ---
Author Organization [employer] Address [address] [facility] 7t [place] [address] Care Team Providers Care Pipe Line Maintenance Supervisor Name Role Phone Clementine Cobos MD Primary Care Provider +1- [phone] Manoj Garcia MD Unavailable Encounter Details Date Type Department Care Team (Late st Contact Info) Description 03/07/2023 Orders Only [facility] [address] [place] [address] [phone] Clementine Cobos MD [address] [place], [place] [phone] Social History Tobacco Use Types Packs/Day Years [...] Description 09/16/2024 7:45 AM EDT Office Visit [facility] [address] [place], [place] [phone] [facility] [address] [place] [address] 10/01/2024 11:30 AM EDT Office Visit [facility] [address] [place] [address] [phone] Clementine Cobos MD [address] [facility] [place] [address] documented as of this encounter Procedures Procedure Name Priority Date/Time Associated Diagnosis Comments BI MAMMOGRAM SCREENING TOMOSYNTHESIS BILATERAL Routine 03/17/2023 7:45 AM EDT documented in this encounter Results * BI Mammogram Screening Tomosynthesis Bilateral (03/17/2023 7:45 AM EDT) Anatomical Region Laterality Modality Breast Bilateral Mammography 03/17/2023 7:45 AM EDT Narrative 03/24/2023 9:33 PM EDT ? [facility] ? [address] ?[place] [address] ? Mammography Report ? Signed ? Patient: Herrera,Dacasty D ?MR#: [id number] ?? 11 ? : 1980 ?Acct:[id number] ? Age/Sex: 42 / F ?ADM Date: 03/17/23 ? Loc: HO.MAMMO ? Attending Dr: Clementine Cobos MD ? Ordering Physician: Clementine Cobos MD ?Results: 1N ?? egative ? Date of Service: 03/17/23 ?Follow Up: 1 Year From Orig ?? inal Mammogram ? Procedure(s): MM tomosynthesis screening BI ?? Accession Number(s): [id number] ? cc: Clementine Cobos MD ? EXAMINATION: [...] 03/24/232128 ? DD/ 0745 ? TD/TT: ? Gastroenterology Professor: ? Procedure Note [facility] - 03/24/2023 [facility] [address] [place] [address] Dr. Garcia, [place] [address] Mammography Report Signed Patient: Carmine Herrera [facility]#: [id number] 11 : 1980Acct:[id number] Age/Sex: 42 / FADM Date: 03/17/23 Loc: [facility] Attending Dr: Clementine Cobos MD Ordering Physician: Clementine Cobosesults: 1N egative Date of Service: 03/17/23Follow Up: 1 Year From Orig inal Mammogram Procedure(s): MM tomosynthesis screening BI Accession Number(s): [id number] cc: Clementine Cobos MD EXAMINATION: MM SCREENING [...] signed by Sabra Castillo MD in OV> 03/24/239 DD/ TD/TT: Gastroenterology Professor: Clementine Cobos MD IMG BI PROCEDURES Edited R esult - Final documented in this encounter Visit Diagnoses Not on filedocumented in this encounter Additional Health Concerns Assessment Noted Time PHQ-9 Depression Total Score: 0 09/12/19 10:19 AM EDT documented as of this encounter Care Teams Pipe Line Maintenance Supervisor Relationship Specialty Start Date End Date Clementine Cobos MD [address] [place] [phone] PCP - General Family Medicine 06/25/18 Manoj Garcia MD [address] [place] [address] [place] [address] Obstetrics and Gynecology 07/22/24 documented as of this encounter
--- OUTSIDE RECORDS SUMMARY | 2024-09-04 13:04 | XMS_ITS | Encounter Summary ---
Author Organization [employer] Address [address] [facility] 7t [place] [address] Care Team Providers Care Curriculum And Instruction Director Name Role Phone Chandrika, Clementine MORGAN Primary Care Provider +1- [phone] Manoj Garcia MD Unavailable Encounter Details Date Type Department Care Team (Latest Contact Info) Description 08/29/2024 Travel Social History Tobacco Use Types Packs/Day [...] Description 09/16/2024 7:45 AM EDT Office Visit [facility] [address] [place] [address] [facility] [address] [place] [address] 10/01/2024 11:30 AM EDT Office Visit [facility] [address] [place] [address] Clementine Cobos MD [address] [place] [address] documented as of this encounter Visit Diagnoses Not on filedocumented in this encounter Additional Health Concerns Assessment Noted Time PHQ-9 Depression Total Score: 0 12/24/19 24 11:02 AM EDT documented as of this encounter Care Teams Curriculum And Instruction Director Relationship Specialty Start Date End Date Clementine Cobos MD [address] [place] [address] PCP - General Family Medicine 06/25/18 Manoj Garcia MD [address] [place] [address] Obstetrics and Gynecology 07/22/24 documented as of this encounter
--- OUTSIDE RECORDS SUMMARY | 2024-09-04 13:04 | XMS_ITS | Encounter Summary ---
Author Organization [employer] [facility] Address [address] [place] [address] 7 [place] [address] Care Team Providers Care Managing Supervisor Name Role Phone Clementine Cobos MD Primary Care Provider +1- [phone] Manoj Garcia MD Unavailable Encounter Details Date Type Department Care Team (Latest Contact Info) Description 09/23/2018 Abstract [facility] CONVERSIONS Dental, Provider, DDS Social History Tobacco [...] [facility] [address] [place] [address] [facility] [address] [place] [address] 10/01/2024 11:30 AM EDT Office Visit [facility] MED[facility] [address] [place] [address] Clementine Cobos MD [address] [place], [place] [phone] documented as of this encounter Visit Diagnoses Not on filedocumented in this encounter Care Teams Managing Supervisor Relationship Specialty Start Date End Date Clementine Cobos MD [address] [place] [address] PCP - General Family Medicine 06/25/18 Manoj Garcia MD [address] [place] [address] [address] [place] [address] Obstetrics and Gynecology 07/22/24 documented as of this encounter
--- OUTSIDE RECORDS SUMMARY | 2024-09-04 13:04 | XMS_ITS | Encounter Summary ---
Author Organization [employer] [facility] Address [address] [place] [address] 7 [place] [address] Care Team Providers Care [facility] Name Role Phone Clementine Cobos MD Primary Care Provider +1- [phone] Manoj Garcia MD Unavailable Encounter Details Date Type Department Care Team (Latest Contact Info) Description 11/18/2021 Abstract [facility] CONVERSIONS Dental, Provider, DDS Social History [...] Upcoming Encounters Date Type Department Care Team ( st Contact Info) Description 09/16/2024 7:45 AM EDT Office Visit [facility] ADULT D[facility] [address] [place] [address] [facility] [address] [place] [address] 10/01/2024 11:30 AM EDT Office Visit [facility] [address] [place] [address] Clementine Cobos MD [address] [place] [address] documented as of this encounter Visit Diagnoses Not on filedocumented in this encounter Care Teams [facility] Relationship Specialty Start Date End Date Clementine Cobos MD [address] [place] [address] PCP - General Family Medicine 06/25/18 Manoj Garcia MD [address] [place] [address] [place] [address] Obstetrics and Gynecology 07/22/24 documented as of this encounter
--- OUTSIDE RECORDS SUMMARY | 2024-09-04 13:04 | XMS_ITS | Clinical Summary ---
Author Organization [employer] Address [address] [place] [address] Care Team Providers Care Slip Laster Name Role Phone Chandrika, Clementine MORGAN Primary Care Provider [phone] Manoj Garcia MD Unavailable Allergies Active Allergy Reactions Criticality Noted Date Comments Levonorgest-Eth Estrad 91-Day 2022 Medications albuterol 108 (90 Base) MCG/ACT inhaler Inhale 2 puffs every 6 (six) hours if needed for wheezing. 18 g 11 06/03/20 24 2024 Active Mometasone Furoate (Asmanex HFA) 100 MCG/ACT aerosol Inhale 1 Act (100 mcg) Once daily. 30 Act 06/04/20 24 Active predniSONE (Deltasone) 20 MG tabletIndication s:Viral upper respiratory tract infection with cough 2 tabs po daily for 5 days 10 tablet 07/10/19 25 Active benzonatate (Tessalon Perles) 100 MG capsuleIndicatio ns:Viral upper respiratory tract infection with cough Take 1 capsule (100 mg) by mouth if needed in the morning, at noon, and at bedtime for cough. Do not crush or chew. 20 capsule 07/10/19 25 2025 Active fluconazole (Diflucan) 150 MG tabletIndication s:Vulvovaginal Candidiasis Take 1 pill po once, may repeat 1 time after 72 hours is symptomatic 2 tablet 07/16/19 25 Active omeprazole OTC (PriLOSEC OTC) 20 MG EC tabletIndication s:Gastroesophage al reflux disease with esophagitis, unspecified whether hemorrhage Take 1 tablet (20 mg) by mouth before breakfast. Do not crush, chew, or split. 30 tablet 11 08/30/19 25 2025 Active bismuth subsalicylate (Pepto Bismol) 262 MG chewable tabletIndication s:Positive H. pylori test One tab po four times a day for 14 days 56 tablet 09/02/19 25 Active tetracycline 500 MG capsuleIndicatio ns:Positive H. pylori test One tab po four times a day for 14 days 56 capsule 09/02/19 25 Active metroNIDAZOLE (Flagyl) 250 MG tabletIndication s:Positive H. pylori test One tab po four times a day for 14 days 56 tablet 09/02/19 25 Active omeprazole (PriLOSEC) [address] capsuleIndicatio ns:Positive H. pylori test TAKE 1 CAPSULE BY MOUTH TWICE A DAY FOR 14 DAYS 28 capsule 09/03/19 25 Active omeprazole OTC (PriLOSEC OTC) 20 MG EC tabletIndication s:Positive H. pylori test Take 1 tab po BID for 14 days. 28 tablet 09/02/19 25 2024 Discontinued Active Problems Problem Noted Date Diagnosed Date Dysphagia 12/24/2023 Overview (12/24/2023): -Episodes of dryness and trouble swallowing certain foods. -Had Barium Swallow Study done, will request records 12/24/23 -Placed ENT referral 12/24/23 Assessment & Plan (12/24/2023 11:19 AM EDT): -Episodes of dryness and trouble swallowing certain foods. -Had Barium Swallow Study done, will request records 12/24/23 -Placed ENT referral 12/24/23 Anemia 12/24/2023 Overview (09/02/2024): -Hx of decreasing HGB over 3 months starting from Jan 2023 Lab Results Component Value Date FERRITIN 9 (L) 12/24/2023 FERRITIN 12 06/21/2023 HGB 11.5 (L) 07/02/2024 HGB 11.6 (L) 03/19/2024 HGB 12.9 08/05/2021 HGB 13.3 04/15/2021 HEMATOCRIT 39.2 08/05/2021 HEMATOCRIT 39.8 04/15/2021 Assessment & Plan (12/24/2023 11:23 AM EDT): -Hx of decreasing HGB over 3 months starting from Jan 2023 -Ordered labs to reevaluate 12/24/23 Total body pain 12/24/2023 Overview (12/24/2023): -Likely correlated to john paul-menopausal sxs -Ordered labs 12/24/23 -Discussed starting Estrogen supplementation after appt. with Supervisor Of Communications for Lindy placement. Assessment & Plan (12/24/2023 11:21 AM EDT): -Likely correlated to john paul-menopausal sxs -Ordered labs 12/24/23 -Discussed starting Estrogen supplementation after appt. with Supervisor Of Communications for Lindy placement. Ventral hernia without obstruction or gangrene 0 12/24/2023 Overview (01/01/2024): -Pt reports umbilical pain and feeling her hernia move when she bends down -Seen by Eric Benjamin MD 01/01/24, scheduled for surgery Assessment & Plan (12/24/2023 11:18 AM EDT): -Pt reports umbilical pain and feeling her hernia move when she bends down -Placed referral to [facility] 12/24/23 Back muscle spasm 10/24/2023 Overview (10/24/2023): [...] GI 06/22/23 Abnormal uterine bleeding 06/20/2023 Overview (07/22/2024): Acute on chronic with worsening hemoglobin over [...] fibroid was not appreciated on today's exam. -Note from Dr. Garcia reviewed Discussed with the patient the findings on pelvic ultrasound the risk of myosarcoma; discussed with the patient the options of treatment including expectant management versus hysterectomy; the pros and cons, risks benefits of each approach were discussed with the patient including the fact that in cases of myosarcoma, surgical treatment can lead to early diagnosis and positively affects the prognosis; after further discussion, the patient decided to proceed with expectant management. Will repeat pelvic ultrasound periodically. Instructions given to patient to call in case any of the following occurs: pressure symptoms, abnormal uterine bleeding, pelvic pain; and to schedule a 12 months pelvic ultrasound (order placed) and a follow-up appointment . Assessment & Plan (12/24/2023 11:17 AM EDT): [...] previously controlled by Lupron but discontinued by websphere consultant due to length of use. -Referred to another websphere consultant by Dr. Garcia but that Enrolled Agent did not do hysterectomies -US done 06/15/2023 at [facility], results pending as of 06/20/23 -pt to call Dr. Garcia for referral for hysterectomy Assessment & Plan (06/20/2023 4:29 PM EST): -current present since Jan 2023, previously controlled by Lupron but discontinued by websphere consultant due to length of use. -Referred to another websphere consultant by Dr. Garcia but that Enrolled Agent did not do hysterectomies -US done 06/15/2023 at [facility], results pending as of 06/20/23 -pt [...] by every 2 years -dental home is [facility] -health care proxy filed 08/18/2023 Assessment & Plan (06/28/2023 9:35 AM EST): -next physical exam due after 04/23/2024 -eye care facilitated by every 2 years -dental home is [facility] Assessment & Plan (04/23/2023 9:18 AM EDT): -next physical exam due after 04/23/2024 -eye care facilitated by every 2 years -dental home is [facility] Low back pain with radiation, unspecified latera [...] gastric bypass 09/06/2022 Gastroesophageal reflux disease 06/29/2022 Overview (08/29/2024): -check H.pylori breath test -dietary changes discussed, sami eliminating coffee -trial of omeprazole -return 1 month Assessment & Plan (08/29/2024 9:22 AM EST): -check H.pylori breath test -dietary changes discussed, sami eliminating coffee -trial of omeprazole -return 1 month Mixed stress and urge urinary incontinence 06/29 Thoracic radiculopathy 08/04/2021 Overview (06/29/2023): -present since [...] (UPJ) obstruction 022 Vitamin D deficiency 08/04/2021 Rectus diastasis 04/13/2020 Mild intermittent asthma 09/05/2018 Overview (04/23/2023): -Well controlled Assessment & Plan (07/16/2024 3:44 PM EST): -Well controlled Assessment & Plan (12/24/2023 8:44 AM EDT): -Well controlled Assessment & Plan (06/20/2023 9:53 AM EST): -Well controlled Assessment & Plan (04/23/2023 9:09 AM EDT): -Well controlled H. pylori infection 12/19/2017 Overview (09/01/2024): H. Pylori stool test positive 09/01/24 Quad therapy with tetracycline, metro, pepto and omeprazole for 14 days started 09/01/24 Heart palpitations 07/16/2012 Overview (07/16/2024): 06/04 echo revealed mild LVH, normal LVSF with EF 65-70%, possible presence of intracardiac shunt which needs to be evaluated after her 06/04 Holter monitor revealed baseline NSR with no pauses, frequent isolated PAC's occasional PVC's no pt reported events Resolved Problems Problem Noted Date Diagnosed Date Resolved Date Vaginal itching 07/16/2024 09/02/2024 Vaginal nguyen 07/16/2024 09/02/2024 Overview (07/16/2024): Vaginal itching and mild discharge. No new partners, not sexually active. -prescribed fluconazole (Diflucan) 150 MG 07/16/24 Assessment & Plan (07/16/2024 3:43 PM EST): Vaginal itching and mild discharge. No new partners, not sexually active. -prescribed fluconazole (Diflucan) 150 MG 07/16/24 Viral upper respiratory trac t infection with cough 07/10/2024 09/02/2024 Assessment & Plan (07/10/2024 3:19 PM EST): Cough >1 week. Tested positive for Flu last week. Tx with TamaFlu. COVID and Flu negative today. -No evidence of respiratory distress. Symptoms mild. -No evidence of dehydration. -Prescribed Tessalon perls, Azithromycin, Prednisone and Guaifenesin-codeine syrup. -Supportive care advised. -Isolation recommendations discussed. -ER precautions discussed. -Seek medical attention for worsening symptoms. Candidiasis of skin 09/11/2022 09/03/19 Assessment & Plan (09/11/2022 9:41 AM EDT): Recurrent. Being evaluated for panniculectomy. Asthma 06/29/2022 09/06/2022 Chronic pelvic pain in female 06/29/2022 04/23/2023 Dysesthesia 06/29/2022 09/06/2022 Dyspareunia in female 06/29/20222022 Increased frequency of urination 06/29/2022 09/06/2022 Rotator cuff syndrome 06/29/20222022 Urinary urgency 06/29/2022 04/23/2023 Postural dizziness with presyncope 06/29/2022 09/02/2024 Assessment & Plan (06/29/2022 4:02 PM EST): One episode in setting of diarrhea. Likely vaso vagal. Labs and vitals normal. Continue hydration and return prn if symptoms return. Abdominal pannus 04/13/2020 09/02/2024 Breast ptosis 04/13/2020 09/02/2024 Intestinal malabsorption fol lowing gastrectomy 10/17/2018 09/02/2024 Over weight 10/17/2018 09/02/2024 Neck pain 04/30/2013 09/02/2024 Encounters Date Type Department Care Team Description 09/04/2024 Orders Only GENERIC EXTERNAL DATA DEPARTMENT Provider, Generic External Data 09/01/[address] [place] [address] Clementine Cobos MD Positive H. pylori test 09/01/2024 Orders Only [address] [place] [address] Clementine Cobos MD Positive H. pylori test (Primary Dx); H. pylori infection 08/29/2024 9:00 AM EST Office Visit [facility] [place] [address] Clementine Cobos MD Gastroesophageal reflux disease with esophagitis, unspecified whether hemorrhage (Primary Dx) 08/29/2024 Travel 07/16/2024 3:15 PM EST Office Visit [facility] [place] [address] Clementine Cobos MD Vaginal nguyen (Primary Dx); Mild intermittent asthma with acute exacerbation; Colon cancer screening; Dietary counseling; Exercise counseling; Overweight 07/16/2024 Travel 07/10/2024 2:20 PM EST Office Visit [facility] [address] [place] [phone] Clementine Cobos MD Viral upper respiratory tract infection with cough 07/02/2024 Orders Only GENERIC EXTERNAL DATA DEPARTMENT Provider, Generic External Data 07/01/2024 Telephone [facility] [address] [place] [address] Rhett Alvarado MD 07/01/2024 Orders Only [facility] [address] [address] Rhett Alvarado MD 06/30/2024 9:00 AM EST [facility] [address] [address] Rhett Alvarado MD Nausea and vomiting, unspecified vomiting type (Primary Dx); Exposure to Streptococcal pharyngitis from Last 3 Months Immunizations Name Administration [...] 12.8 oz) 08/29/2024 9:15 AM EST Height 162.6 cm (5' 4 ) 01/03/2024 11:31 AM EDT Body Mass Index 29.15 01/03/2024 11:31 AM EDT Plan of Treatment Upcoming Encounters Date Type Department Care Team (Late st Contact Info) Description 09/16/2024 7:45 AM EDT Office Visit [facility] [address] [place] [address] [place] [place] [address] [place] [address] 10/01/2024 11:30 AM EDT Office Visit [facility] [address] [place] [address] Clementine Cobos MD [address] [place] [address] Health Maintenance Due Date Last Done Comments [...] of 2) 2028 Lipid Panel 12/23/2028 12/24/2023, 06/2022, 08/05/2021 DTaP/Tdap/Td Vaccines (4 - Td or Tdap) 08/29/2032 08/29/2022, 04/08/2014, 08/07/2012 RSV Patients and Patients Aged 60 years or older (1 - 1-dose 75+ series) 2053 Hepatitis B Vaccines Completed 03/10/2019, 04/29/1999, 11/29/1998, Additional history exists Pneumococcal Vaccine: Pediatrics (0 to 5 Years) and At-Risk Patients (6 to 49) Years) Completed 02/01/2023, 06/06/2014 HIV Screening Completed [...] Procedure Name Priority Date/Time Associated Diagnosis Comments HCG, QL, URINE Routine 09/04/2024 12:39 PM EDT URINALYSIS, COMPLETE, WITH REFLEX TO CULTURE Routine 09/04/2024 12:39 PM EDT APTT Routine 09/04/2024 11:46 AM EDT PROTHROMBIN TIME-INR Routine 09/04/2024 11:46 AM EDT HIGH SENSITIVITY TROPONIN I Routine 09/04/2024 11:28 AM EDT HCG, TOTAL, QN Routine 09/04/2024 11:28 AM EDT COMPREHENSIVE METABOLIC PANEL Routine 09/04/2024 11:28 AM EDT CBC WITH AUTO DIFFERENTIAL Routine 09/04/2024 11:28 AM EDT SARS COV2/INFLUENZA A/B AND RSV RNA QL NAAT Routine 09/04/2024 11:28 AM EDT HELICOBACTER PYLORI, UREA BREATH TEST Routine 08/29/2024 9:50 AM EST Gastroesophageal reflux disease with esophagitis, unspecified whether hemorrhage POCT URINALYSIS DIPSTICK Routine 07/16/2024 4:10 PM [...] EST Nausea and vomiting, unspecified vomiting type Full PROPHYLAXIS - ADULT Routine 03/13/2024 8:00 [...] TOMOSYNTHESIS BILATERAL Routine 03/17/2023 7:45 AM EDT INTRAORAL - COMPLETE SERIES OF RADIOGRAPHIC IMAGES Routine 01/03/2023 8:00 AM EDT HPV HIGH RISK PCR Routine 09/09/2021 PAP SMEAR Routine 09/09/2021 from Last 3 Months or Most Recently Relevant to Health Maintenance Results * (ABNORMAL) Urinalysis, Complete, with Reflex to Culture (09/04/2024 12:39 PM EDT) Color Urine Yellow [facility] Appearance Urine Clear [facility] PH 7.5 5.0 - 9.0 [facility] Glucose Urine UA Negative Negative mg/dL [facility] Urine Blood Small (1+)(A) Negative [facility] Specific [place] - Urine <=1.005 1.005 - 1.025 [facility] Urine Protein Negative Neg-Trace mg/dL [facility] Urine Ketones Negative Negative mg/dL [facility] Nitrite Urine Negative Negative [facility] Leukocyte Esterase Urine Negative Negative [facility] RBC Urine 11-20(A) 0 - 2 /HPF [facility] Urine WBC 0-5 0 - 5 /HPF [facility] Urine Squamous Epithelial Cell 0-2 0 - 2 /HPF [facility] Urine Bacteria None Seen None Seen [facility] Hyaline Casts, Urine 0-2 0 - 2 /LPF [facility] 09/04/2024 12:3 9 PM EDT 09/04/2024 12:43 PM EDT Narrative [facility] - 09/04/2024 12:57 PM EDT [id number], Clean Catch us Generic External Data Provider LAB URINE ORDERAB LES Final Result [facility] [address] [place] [address] [phone] * HCG, Qualitative, Urine (09/04/2024 12:39 PM EDT) Urine NEGATIVE NEGATIVE [facility] Comment:This test was develo ped to detect early . Falsenegative results may occur after the 5th - 7th week ofpregnancy when using this test method. If clinicallyindicated, consider a serum hCG. 09/04/2024 12:3 9 PM EDT 09/04/2024 12:52 PM EDT Generic External Data Provider LAB URINE ORDERAB LES Final Result Performing Organization Address [facility] Co de Phone Number [facility] [address] [place] [address] [phone] * Partial Thromboplastin Time, Activated (APTT) (09/04/2024 11:46 AM EDT) Partial Thromboplastin Time 28.6 26.0 - 36.8 SEC [facility] Comment:For information rega rding the monitoring of direct thrombininhibitors, please refer to Pharmacy. 09/04/2024 11:4 6 AM EDT 09/04/2024 11:49 AM EDT us Generic External Data Provider LAB BLOOD ORDERAB LES Final Result Performing Organization Address City/[facility] Co de Phone Number [facility] [address] [place] [address] [phone] * Prothrombin Time-INR (09/04/2024 11:46 AM EDT) Prothrombin Time 11.3 10.9 - 12.4 SEC [facility] INTERNATIONAL NORM RATIO 1.0 0.9 - 1.1 [facility] Comment:INTERNATIONAL NORMAL IZED RATIO (INR) REFERENCE [...] ORDERAB LES Final Result Performing Organization Address [facility] Co de Phone Number [facility] [address] [place] [phone] * High Sensitivity Troponin I (09/04/2024 11:28 AM EDT) Pathologist [facility] TROPONIN I HIGH SENSITIVITY <2.7 <3.5 - 17.0 ng/L [facility] Comment:The Thomas high sens itivity Troponin-I results should beused in conjunction with other diagnostic information suchas ECG, clinical observations and information, and patientsymptoms to aid in the diagnosis of IL. 09/04/2024 11:2 8 AM EDT 09/04/2024 11:33 AM EDT [employer] External Data Provider LAB BLOOD ORDERAB LES Final Result Performing Organization Address [facility] de Phone Number [facility] [address] [place] [phone] * SARS-CoV-2 RNA, Influenza A/B, and RSV RNA, Ql NAAT (09/04/2024 11:28 AM EDT) Only the most recent of2 resultswithin the time period is included. Pathologist [facility] Influenza A PCR NEGATIVE Negative [facility] Influenza B PCR NEGATIVE Negative [facility] Resp Syncy Virus RNA Qual PCR NEGATIVE Negative [facility] SARS COV2 PCR NEGATIVE Negative [facility] Comment:All test results mus t [...] use by authorized laboratories.Testing performed on the [employer] GeneXpert utilizingreal-time RT-PCR.All SARS CoV2 and positive influenza A/B results arereported to [facility]. 09/04/2024 11:2 8 AM EDT 09/04/2024 11:33 AM EDT us Generic External Data Provider LAB MICROBIOLOGY - GENERAL ORDERABLES Final Result [facility] [address] [place] [phone] * (ABNORMAL) CBC auto differential (09/04/2024 11:28 AM EDT) Only the most recent of2 resultswithin the time period is included. White Blood Count 10.8 4.8 - 10.8 X10*3/uL [facility] Red Blood Count 4.71 4.20 - 5.50 X10*6/uL [facility] Hemoglobin 11.4(L) 12.0 - 16.0 g/dl [facility] Hematocrit 35.5(L) 37.0 - 47.0 % [facility] Mean Corpuscular Volume 75.4(L) 80.0 - 98.0 fL [facility] Mean Corpuscular Hemoglobin 24.2(L) 27.0 - 33.0 pg [facility] Mean Corpuscular HGB Conc 32.1 31.0 - 35.0 g/dl [facility] Red Cell Distribution Width 15.5 11.0 - 16.0 % [facility] Platelet Count 280 160 - 400 X10*3/uL [facility] Mean Platelet Volume 9.3(L) 9.4 - 12.3 fL [facility] Neutrophils Percent Auto 85.1(H) 45 - 73 % [facility] Imm Gran Pct Auto 0.5(H) 0.0 - 0.4 % [facility] Lymphocytes Percent Auto 10.2(L) 20 - 40 % [facility] Monocytes Percent Auto 3.3 2 - 11 % [facility] Eosinophils Percent Auto 0.3 0 - 4 % [facility] Basophils Percent Auto 0.6 0 - 2 % [facility] NRBC Pct Auto 0.0 0.0 - 0.2 /100WBC [facility] Neutrophils Absolute Auto 9.2(H) 2.0 - 8.3 x10*3/uL [facility] Imm Gran Abs Auto 0.05(H) 0.00 - 0.03 X10*3/uL [facility] Lymphocytes Absolute Auto 1.1(L) 1.2 - 4.9 X10*3/uL [facility] Monocytes Absolute Auto 0.4 0.1 - 1.2 X10*3/uL [facility] Eosinophils Absolute Auto 0.0 0.0 - 0.4 X10*3/uL [facility] Basophils Absolute Auto 0.1 0.0 - 0.2 X10*3/uL [facility] NRBC Abs Auto 0.000 0.0 - 0.012 X10*3/uL [facility] 09/04/2024 11:2 8 AM EDT 09/04/2024 11:33 AM EDT us Generic External Data Provider LAB BLOOD ORDERAB LES Final Result [facility] [address] [place] [address] [phone] * hCG, Total, Quantitative (09/04/2024 11:28 AM EDT) HCG Quantitative <2 mIU/mL [facility] Comment:Weeks post LMP Appro ximate hCG(Last Menstrual Period) Range (mIU/ml)3 - 4 weeks 9 - 1304 - 5 weeks 75 - 2,6005 - 6 weeks 850 - 20,8006 - 7 weeks 4000 - 100,2007 - 12 weeks 11,500 - 289,92454 - 16 weeks 18,300 - 137,70720 - 29 weeks (2nd trimester) 1,400 - 53,43188 - 41 weeks (3rd trimester) 940 - [...] Provider LAB BLOOD ORDERAB LES Final Result [facility] [address] [place] [phone] * (ABNORMAL) Comprehensive Metabolic Panel (09/04/2024 11:28 AM EDT) Sodium 138 135 - 145 mmol/L [facility] Potassium 4.6 3.3 - 5.1 mmol/L [facility] Comment:Slight Hemolysis.Int erpret result with caution. Chloride 110(H) 96 - 108 mmol/L [facility] Carbon Dioxide 19(L) 22 - 29 mmol/L [facility] Anion Gap 14 12 - 20 [facility] Urea Nitrogen (BUN) 9 9 - 16 mg/dL [facility] Creatinine, Serum 0.69 0.5 - 1.4 mg/dL [facility] Creatinine Clr Calc Pharmacy 99.5 [facility] Comment:Provided height and weight: 162.56 cm,72.575 kg.eGFR (calculated from the MDRD study equation) and eCrCl(calculated from the Cockcroft-Gault equation) are based ondifferent parameters and may not yield comparable results.If eCrCl result is absurd, please check patient'sheight/weight. Estimated Glomerular Filt Rate >60 [facility] Comment:Chronic Kidney Disea se: Estimated GFR < 60 mL/min/1.01p0Webfrv Kidney Disease: Estimated GFR < 15 mL/min/1.73m2 Glucose 100 60 - 115 mg/dL [facility] Calcium 8.0(L) 8.4 - 10.2 mg/dL [facility] Bilirubin, Total 0.3 0.0 - 1.0 mg/dL [facility] Aspartate Amino Transferase 33(H) 5 - 31 U/L [facility] Comment:Slight Hemolysis.Int erpret result with caution. Alanine Aminotransferase 22 0 - 31 U/L [facility] Total Protein 7.4 6.5 - 8.0 g/dL [facility] Albumin Level 3.9 3.5 - 5.0 g/dL [facility] Alkaline Phosphatase 55 39 - 117 U/L [facility] 09/04/2024 11:2 8 AM EDT 09/04/2024 11:33 AM EDT us Generic External Data Provider LAB BLOOD ORDERAB LES Final Result Performing Organization Address City/[facility]/ZIP Co de Phone Number [facility] [address] [place] [phone] * Helicobacter pylori, Urea Breath Test (08/29/2024 9:50 AM EST) H. pylori Breath Test Positive Negative [facility] Comment:Antimicrobials, prot on pump inhibitors and bismuthpreparations are known to suppress H. pylori. Ingestingthese medications within two weeks prior to performing thebreath test may produce negative test results. A positiveresult is still clinically valid. Breath Oral cavity structure / Unknown 08/29/2024 9:50 AM EST 08/29/2024 5:18 PM EST us Clementine Cobos MD LAB BLOOD ORDERABLES Final Result Performing Organization Address City/[facility]/ZIP Co de Phone Number [facility] [address] [place] [phone] * POCT urinalysis dipstick manually resulted (07/16/2024 [...] 2:52 PM EST) Only the most recent of2 resultswithin the time period is included. Influenza B Negative Negative, Indeterminate [facility] Swab 07/10/2024 2:52 PM EST us Clementine Cobos MD POINT OF CARE TEST ENTER/E DIT ORDERABLES Final Result Performing Organization Address [facility]/ZIP Co de Phone Number [facility] [address] [place] [phone] * Influenza A (ID NOW Rapid Molecular) (07/10/2024 2:52 PM EST) Only the most recent of2 resultswithin the time period is included. Influenza A Negative Negative, Indeterminate [facility] Swab 07/10/2024 2:52 PM EST us Clementine Cobos MD POINT OF CARE TEST ENTER/E DIT ORDERABLES Final Result Performing Organization Address [facility]/ZIP Co de Phone Number [facility] [address] [place] [phone] * POCT Rapid COVID Ag (07/10/2024 2:52 PM EST) Only the most recent of2 resultswithin the time period is included. Rapid COVID Ag Negative [facility] Swab 07/10/2024 2:52 PM EST Clementine Cobos MD POINT OF CARE TEST ENTER/E DIT ORDERABLES Final Result [facility] [address] [place] [address] [phone] * XR Chest 2 Views (07/02/2024 8:17 PM EST) Anatomical Region Laterality Modality Chest Radiographic Beth ging 07/02/2024 8:17 PM EST Narrative 07/02/2024 8:20 PM EST ? [facility] ?[address] ?[place] [address] ?XRay Report ? Signed ? Patient: Herrera,Dacasty D ?MR#: [id number] ?? 11 ? : 1980 ?Acct:[id number] ? Age/Sex: 44 / F ?ADM Date: 07/02/24 ? Loc: HO.ED ? Attending Dr: ? Ordering Physician: Agnieszka Brothers ?? Date of Service: 07/02/24 ?? Procedure(s): XR chest 2V ?? Accession Number(s): [id number] ? cc: Clementine Cobos MD; Agnieszka Brothers [...] DD/ 2017 ? TD/TT: 07/02/24 2017 ? Educational Sign Language Interpreter: ? Procedure Note Donotuseinterpreter, Image - 07/02/[address] [address] XRay Report Signed Patient: Carmine Herrera DMR#: [id number] 11 : 1980Acct:[id number] Age/Sex: 44 / FADM Date: 07/02/24 Loc: HO.ED Attending Dr: Ordering Physician: Agnieszka Brothers Date of Service: 07/02/24 Procedure(s): XR chest 2V Accession Number(s): [id number] cc: Clementine Cobos MD; Agnieszka Brothers CLINICAL [...] in OV> 07/02/242019 DD/ 16 TD/TT: 07/02/242016 Educational Sign Language Interpreter: [facility] External Provider IMG XR PROCEDURES Edited Result - Final * Strep A Nucleic Acid (07/02/2024 8:04 PM EST) IDNOW SERIAL# [id number] [facility] Strep A Nucleic Acid Negative Negative [facility] Comment:All test results mus t [...] GENERAL ORDERABLES Final Result Performing Organization Address City/[facility]/ZIP Co de Phone Number [facility] [address] [place] [phone] * Magnesium (07/02/2024 8:04 PM EST) Pathologist [facility] Magnesium 2.1 1.6 - 2.6 mg/dL [facility] 07/02/2024 8:04 PM EST 07/02/2024 8:08 PM EST Generic External Data Provider LAB BLOOD ORDERAB LES Final Result Performing Organization Address [facility] Co de Phone Number [facility] [address] [place] [phone] * Hepatic Function Panel (07/02/2024 8:04 PM EST) [facility] Bilirubin, Total 0.3 0.0 - 1.0 mg/dL [facility] Bilirubin, Direct 0.1 0.0 - 0.5 mg/dL [facility] Aspartate Amino Transferase 31 5 - 31 U/L [facility] Alanine Aminotransferase 26 0 - 31 U/L [facility] Total Protein 7.6 6.5 - 8.0 g/dL [facility] Albumin Level 4.3 3.5 - 5.0 g/dL [facility] Alkaline Phosphatase 60 39 - 117 U/L [facility] 07/02/2024 8:04 PM EST 07/02/2024 8:08 PM EST Generic External Data Provider LAB BLOOD ORDERAB LES Final Result Performing Organization Address [facility] Co de Phone Number [facility] [address] [place] [phone] * Basic Metabolic Panel (07/02/2024 8:04 PM EST) [facility] Sodium 141 135 - 145 mmol/L [facility] Potassium 4.3 3.3 - 5.1 mmol/L [facility] Chloride 106 96 - 108 mmol/L [facility] Carbon Dioxide 24 22 - 29 mmol/L [facility] Anion Gap 15 12 - 20 [facility] Urea Nitrogen (BUN) 11 9 - 16 mg/dL [facility] Creatinine, Serum 0.85 0.5 - 1.4 mg/dL [facility] Creatinine Clr Calc Pharmacy 80.7 [facility] Comment:Provided height and weight: 162.56 cm,72.575 kg.eGFR (calculated from the MDRD study equation) and eCrCl(calculated from the Cockcroft-Gault equation) are based ondifferent parameters and may not yield comparable results.If eCrCl result is absurd, please check patient'sheight/weight. Estimated Glomerular Filt Rate >60 [facility] Comment:Chronic Kidney Disea se: Estimated GFR < 60 mL/min/1.52z7Umyusz Kidney Disease: Estimated GFR < 15 mL/min/1.73m2 Glucose 107 60 - 115 mg/dL [facility] Calcium 8.9 8.4 - 10.2 mg/dL [facility] 07/02/2024 8:04 PM EST 07/02/2024 8:08 PM EST us Generic External Data Provider LAB BLOOD ORDERAB LES Final Result Performing Organization Address City/[facility]/ZIP Co de Phone Number [facility] [address] [place] [phone] * Culture, Throat (06/30/2024 9:44 AM EST) Throat Structure of anterior portion of neck / Unknown 06/30/2024 9:44 AM EST 06/30/2024 1:16 PM EST Comment:Throat Narrative [facility] - 07/02/2024 8:46 AM EST Throat Culture No Group A Beta-hemolytic Streptococci isolated. Specimen Source: Throat Rhett Alvarado MD LAB MICROBIOLOGY - GENERAL ORDER RON Final Result Performing Organization Address City/[facility]/ZIP Co de Phone Number [facility] [address] [place] [phone] * (ABNORMAL) Lipid Panel, Standard (12/24/2023 11:40 AM EDT) Triglycerides 160(H) <150 mg/dL [facility] Comment:Desirable Triglyceri de: less than 150 mg/dLBorderline High Triglyceride 150-199 mg/dLHigh Triglyceride: 200-499 mg/dLVery High Triglyceride: greater than or equal to 5OO mg/dL Cholesterol 252(H) <200 mg/dL [facility] Comment:Desirable Cholestero l: less than 200 mg/dLBorderline High Cholesterol: 200-239 mg/dLHigh Cholesterol: greater than 239 mg/dL LDL Cholesterol Calculated 144(H) <100 mg/dL [facility] Comment:Desirable LDL: less than 100 mg/dLNear Optimal/Above Optimal LDL: 110- 129 mg/dLBorderline High LDL: 130-159 mg/dLHigh LDL: 160-189 mg/dLVery High LDL: greater than or equal to 190 mg/dL HDL Cholesterol 76 >40 mg/dL [facility] Comment:Desirable HDL: great er than 40 mg/dL Note: This HDL assay may give artificially low results in patients with liver disease. Blood Venous blood specimen / Unknown 12/24/2023 11:40 AM EDT 12/24/2023 1:16 PM EDT Clementine Cobos MD LAB BLOOD ORDERABLES Final Result [facility] [address] [place] [phone] * Hepatitis C Antibody with Reflex to HCV, RNA, Quantitative, Real-Time PCR (04/25/2023 8:18 AM EDT) Hepatitis C Antibody Nonreactive Nonreactive [facility] Comment:Antibodies to HCV no t detected; does not exclude early acuteHCV infection. Blood Venous blood specimen / Unknown 04/25/2023 8:18 AM EDT 04/25/2023 11:32 AM EDT Clementine Cobos MD LAB BLOOD ORDERABLES Final Result Performing Organization Address [facility] de Phone Number [facility] [address] [place] [phone] * HIV-1/2 Antigen and Antibodies, Fourth Generation, with Reflexes (04/25/2023 8:18 AM EDT) [facility] Signature HIV AB/AG Nonreactive Nonreactive [facility] Comment:HIV-1 p24 Ag and/or HIV-1/HIV-2 Ab not detected.A test result that is nonreactive does not exclude thepossibility of exposure to or infection with HIV-1 and/orHIV-2. Nonreactive results in this assay for individualswith prior exposure to HIV-1 and/or HIV-2 may be due toantigen and antibody levels that are below the limit ofdetection of this assay.The [employer] HIV Ag/Ab Combo assay result andsupplemental assay results should be interpreted inconjunction with the patient's clinical presentation,history and other laboratory results. If the results areinconsistent with clinical evidence, additional testing issuggested to confirm the result. Blood Venous blood specimen / Unknown 04/25/2023 8:18 AM EDT 04/25/2023 11:32 AM EDT Clementine Cobos MD LAB BLOOD ORDERABLES Final Result Performing Organization Address [facility] Co de Phone Number [facility] [address] [place] [phone] * BI Mammogram Screening Tomosynthesis Bilateral (03/17/2023 7:45 AM EDT) Anatomical Region Laterality Modality Breast Bilateral Mammography 03/17/2023 7:45 AM EDT Narrative 03/24/2023 9:33 PM EDT ? [facility] ? [address] ?[place] [address] ? Mammography Report ? Signed ? Patient: Herrera,Dacasty D ?MR#: [id number] ?? 11 ? : 1980 ?Acct:[id number] ? Age/Sex: 42 / F ?ADM Date: 03/17/23 ? Loc: HO.MAMMO ? Attending Dr: Clementine Cobos MD ? Ordering Physician: Clementine Cobos MD ?Results: 1N ?? egative ? Date of Service: 03/17/23 ?Follow Up: 1 Year From Orig ?? inal Mammogram ? Procedure(s): MM tomosynthesis screening BI ?? Accession Number(s): [id number] ? cc: Clementine Cobos MD ? EXAMINATION: [...] 03/24/232128 ? DD/ 0745 ? TD/TT: ? Educational Sign Language Interpreter: ? Procedure Note Donotlindseyinterpreter, Image - 03/24/2023 [facility] [address] [place] [address] Mammography Report Signed Patient: Carmine Herrera DMR#: [id number] 11 : 1980Acct:[id number] Age/Sex: 42 / FADM Date: 03/17/23 Loc: HO.MAMMO Attending Dr: Clementine Cobos MD Ordering Physician: Clementine Cobos MDResults: 1N egative Date of Service: 03/17/23Follow Up: 1 Year From Orig inal Mammogram Procedure(s): MM tomosynthesis screening BI Accession Number(s): [id number] cc: Clementine Cobos MD EXAMINATION: MM SCREENING [...] Castillo MD in OV> 03/24/232128 DD/ TD/TT: Educational Sign Language Interpreter: Clementine Cobos MD IMG BI PROCEDURES Edited R esult - Final * HPV High Risk PCR (09/09/2021) Swab Cervical swab / Unknown 09/09/2021 Clementine Cobos MD LAB MICROBIOLOGY - GENERAL ORDERABLES Final Result * Pap Smear (09/09/2021) Swab 09/09/2021 Clementine Cobos MD LAB CYTOLOGY ORDERABLES Fi nal Result from Last 3 Months or Most Recently Relevant to Health Maintenance Insurance [facility] , [address] [place] [address] [facility] MEDICA[facility] STAND ADULT Advance Directives Documents on File Type Date Recorded 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
[2024-09-04] MEDS: iohexoL 350 MG/ML 100 ML INFUS..BTL IV (13:27)
[2024-09-04 15:31] LABS: Troponin-I High Sensitivity < 2.7 ng/L (<3.5-17.0)
[2024-09-04 16:18] VITALS: BP 132/78; PULSE 57; RESP 18; TEMP 36.7; O2SAT 97
[2024-09-04 16:26] VITALS: BP 132/78; PULSE 57; RESP 18; TEMP 36.7; O2SAT 97
== END 2024-09-04 16:26 | disposition home or self-care (01) ==
PROVIDERS: Physician Assistant; Emergency Provider Emergency Medicine; PCP Family Medicine
DX: R00.1 Bradycardia, unspecified (principal); R11.2 Nausea with vomiting, unspecified; R42 Dizziness and giddiness; R10.2 Pelvic and perineal pain; Z79.899 Other long term (current) drug therapy; Z03.818 Encounter for observation for suspected exposure to other biological agents ruled out
CPT/HCPCS: 0241U; 36415; 70496; 70498; 80053; 81001; 81025; 84484; 84702; 85025; 85610; 85730; 93005; 96360; 96361; 99284; 99285; Q9967

== ENCOUNTER → 2024-09-04 10:54 | Outpatient (BNV) | payer OTHER, MEDICAID, SELFPAY | PROVIDERS: Emergency Provider Emergency Medicine; PCP Family Medicine; Visit Provider Internal Medicine | DX: R00.1 Bradycardia, unspecified (principal) | CPT/HCPCS: 93010 ==

== ENCOUNTER → 2024-09-04 11:22 | Outpatient (BNV) | payer OTHER, MEDICAID, SELFPAY | PROVIDERS: Emergency Provider Emergency Medicine; PCP Family Medicine; Visit Provider Radiology Diagnostic Radiology | DX: I67.82 Cerebral ischemia (principal); R42 Dizziness and giddiness | CPT/HCPCS: 70496; 70498 ==

== ENCOUNTER 2024-10-09 08:33 | Outpatient (REF) | payer OTHER, MEDICAID, SELFPAY ==
--- OUTSIDE RECORDS SUMMARY | 2024-10-09 09:00 | XMS_ITS | Clinical Summary ---
Author Organization [employer] Address [address] [facility] [address] [place] [address] Care Team Providers Care Outside Upholsterer Name Role Phone Clementine Cobos MD Primary Care Provider [phone] Manoj Garcia MD Unavailable Emir Medina MD Unavailable [phone] Xvai Villafuerte MD Unavailable [phone] Enrike Arvizu MD Unavailable [phone] Allergies Active Allergy Reactions Criticality Noted Date Comments Levonorgest-Eth Estrad 91-Day 2022 Medications albuterol 108 (90 Base) MCG/ACT inhalerIndicatio ns:Mild intermittent asthma without complication Inhale 2 puffs every 6 (six) hours if needed for wheezing. 18 g 11 025 2025 Active omeprazole OTC (PriLOSEC OTC) 20 MG EC tabletIndication s:Gastroesophage al reflux disease with esophagitis, unspecified whether hemorrhage Take 1 tablet (20 mg) by mouth before breakfast and before evening meal. Do not crush, chew, or split. 60 tablet 11 025 2025 Active albuterol 108 (90 Base) MCG/ACT inhaler Inhale 2 puffs every 6 (six) hours if needed for wheezing. 18 g 11 024 2024 Discontinued(R eorder (will not trigger notification to Pharmacy)) Mometasone Furoate (Asmanex HFA) 100 MCG/ACT aerosol Inhale 1 Act (100 mcg) Once daily. 30 Act 024 2024 Discontinued predniSONE (Deltasone) 20 MG tabletIndication s:Viral upper respiratory tract infection with cough 2 tabs po daily for 5 days 10 tablet 025 2024 Discontinued benzonatate (Tessalon Perles) 100 MG capsuleIndicatio ns:Viral upper respiratory tract infection with cough Take 1 capsule (100 mg) by mouth if needed in the morning, at noon, and at bedtime for cough. Do not crush or chew. 20 capsule 025 2024 Discontinued fluconazole (Diflucan) 150 MG tabletIndication s:Vulvovaginal Candidiasis Take 1 pill po once, may repeat 1 time after 72 hours is symptomatic 2 tablet 025 2024 Discontinued omeprazole OTC (PriLOSEC OTC) 20 MG EC tabletIndication s:Gastroesophage al reflux disease with esophagitis, unspecified whether hemorrhage Take 1 tablet (20 mg) by mouth before breakfast. Do not crush, chew, or split. 30 tablet 11 025 2024 Discontinued(R eorder (will not trigger notification to Pharmacy)) bismuth subsalicylate (Pepto Bismol) 262 MG chewable tabletIndication s:Positive H. pylori test One tab po four times a day for 14 days 56 tablet 025 2024 Discontinued tetracycline 500 MG capsuleIndicatio ns:Positive H. pylori test One tab po four times a day for 14 days 56 capsule 025 2024 Discontinued metroNIDAZOLE (Flagyl) 250 MG tabletIndication s:Positive H. pylori test One tab po four times a day for 14 days 56 tablet 025 2024 Discontinued omeprazole (PriLOSEC) [address] capsuleIndicatio ns:Positive H. pylori test TAKE 1 CAPSULE BY MOUTH TWICE A DAY FOR 14 DAYS 28 capsule 025 2024 Discontinued Active Problems Problem Noted Date Diagnosed Date Dizziness 09/04/2024 Overview (09/04/2024): Seen in Er 09/04/24 CT/CT angio head neck NONCONTRAST HEAD CT: No acute intracranial abnormality. A few scattered small supratentorial deep white matter hypoattenuating foci, nonspecific but statistically most likely on the basis of mild small vessel ischemic changes. CTA NECK: No evidence of significant stenosis, occlusion, or dissection involving the major cervical arterial vasculature. CTA HEAD: No evidence of vascular occlusion, stenosis, aneurysm, or other abnormality. Patent portal and dural venous sinuses. Dysphagia 12/24/2023 Overview (12/24/2023): -Episodes of dryness and trouble swallowing certain foods. -Had Barium Swallow Study done, will request records 12/24/23 -Placed ENT referral 12/24/23 Assessment & Plan (12/24/2023 11:19 AM EDT): -Episodes of dryness and trouble swallowing certain foods. -Had Barium Swallow Study done, will request records 12/24/23 -Placed ENT referral 12/24/23 Anemia 12/24/2023 Overview (10/01/2024): -Hx of decreasing HGB over 3 months starting from Jan 2023 Lab Results Component Value Date FERRITIN 9 (L) 12/24/2023 FERRITIN 12 06/21/2023 HGB 11.4 (L) 09/04/2024 HGB 11.5 (L) 07/02/2024 HGB 12.9 08/05/2021 HGB 13.3 04/15/2021 HEMATOCRIT 39.2 08/05/2021 HEMATOCRIT 39.8 04/15/2021 Assessment & Plan (12/24/2023 11:23 AM EDT): -Hx of decreasing HGB over 3 months starting from Jan 2023 -Ordered labs to reevaluate 12/24/23 Total body pain 12/24/2023 Overview (12/24/2023): -Likely correlated to john paul-menopausal sxs -Ordered labs 12/24/23 -Discussed starting Estrogen supplementation after appt. with Scientific Laboratory Supervisor for Lindy placement. Assessment & Plan (12/24/2023 11:21 AM EDT): -Likely correlated to john paul-menopausal sxs -Ordered labs 12/24/23 -Discussed starting Estrogen supplementation after appt. with Scientific Laboratory Supervisor for Lindy placement. Ventral hernia without obstruction [...] previously controlled by Lupron but discontinued by multicraft operator due to length of use. -Referred to another multicraft operator by Dr. Garcia but that [facility] did not do hysterectomies -US done 06/15/2023 at [facility], results pending as of 06/20/23 -pt to call Dr. Garcia for referral for hysterectomy Assessment & Plan (06/20/2023 4:29 PM EST): -current present since Jan 2023, previously controlled by Lupron but discontinued by multicraft operator due to length of use. -Referred to another multicraft operator by Dr. Garcia but that [facility] did not do hysterectomies -US done 06/15/2023 at [facility], results pending as of 06/20/23 -pt [...] by every 2 years -dental home is [facility] -health care proxy filed 08/18/2023 Assessment & Plan (06/28/2023 9:35 AM EST): -next physical exam due after 04/23/2024 -eye care facilitated by every 2 years -dental home is [facility] Assessment & Plan (04/23/2023 9:18 AM EDT): -next physical exam due after 04/23/2024 -eye care facilitated by every 2 years -dental home is [facility] Low back pain with radiation, unspecified [...] bypass 09/06/2022 Gastroesophageal reflux disease 06/29/2022 Overview (10/08/2024): -check H.pylori breath test was positive 08/2024 and symptoms still present. She took about 10 of 14 days of treatment -hx gastric sleeve 2018 -dietary changes discussed, sami eliminating coffee -no improvement despite omeprazole 20 since 08/2024 -referral to GI placed 10/08/24 Assessment & Plan (10/08/2024 10:40 AM EDT): -check H.pylori breath test was positive 08/2024 and symptoms still present. She took about 10 of 14 days of treatment -hx gastric sleeve 2018 -dietary changes discussed, sami eliminating coffee -no improvement despite omeprazole 20 since 08/2024 -referral to GI placed 10/08/24 Assessment & Plan (08/29/2024 9:22 AM EST): [...] (UPJ) obstruction 022 Vitamin D deficiency 08/04/2021 Overview (10/08/2024): Lab Results Component Value Date [id number] 41.2 12/24/2023 [id number] 74.9 04/25/2023 Rectus diastasis 04/13/2020 Mild intermittent asthma 09/05/2018 Overview (04/23/2023): -Well controlled Assessment & Plan (10/08/2024 10:41 AM EDT): -Well controlled Assessment & Plan (07/16/2024 3:44 PM EST): -Well controlled Assessment & Plan (12/24/2023 8:44 AM EDT): -Well controlled Assessment & Plan (06/20/2023 9:53 AM EST): -Well controlled Assessment & Plan (04/23/2023 9:09 AM EDT): -Well controlled Heart palpitations 07/16/2012 Overview (07/16/2024): 06/04 echo [...] gastrectomy 10/17/2018 09/02/2024 Over weight 10/17/2018 09/02/2024 H. pylori infection 12/19/2017 10/09/19 Overview (09/01/2024): H. Pylori stool test positive 09/01/24 Quad therapy with tetracycline, metro, pepto and omeprazole for 14 days started 09/01/24 Neck pain 04/30/2013 09/02/2024 Encounters Date Type Department Care Team Description 10/08/2024 10:15 AM EDT Office Visit [facility] [address] [place] [address] Clementine Cobos MD Gastroesophageal reflux disease, unspecified whether esophagitis present (Primary Dx); Gastroesophageal reflux disease with esophagitis, unspecified whether hemorrhage; Mild intermittent asthma without complication; Vitamin D deficiency; Anemia, unspecified type; Hx of gastric bypass; Colon cancer screening; Other specified health status 10/08/2024 Refill [facility] [address] [place] [address] Clementine Cobos MD Gastroesophageal reflux disease with esophagitis, unspecified whether hemorrhage 10/08/2024 Travel 10/07/2024 Telephone [facility] [address] Clementine Cobos MD chart prep 10/01/2024 Travel 09/16/2024 7:45 AM EDT Office Visit [facility] [address] [place] [address] [place] [place] Encounter for dental examination (Primary Dx); Dental plaque; Teeth missing 09/04/2024 Orders Only GENERIC EXTERNAL DATA DEPARTMENT Provider, Generic External Data Dizziness (Primary Dx) 09/01/2024 Refill [facility] [place] [address] Clementine Cobos MD Positive H. pylori test 09/01/2024 Orders Only [facility] [place] [address] Clementine Cobos MD Positive H. pylori test (Primary Dx); H. pylori infection 08/29/2024 9:00 AM EST Office Visit [facility] [place] [address] Clementine Cobos MD Gastroesophageal reflux disease with esophagitis, unspecified whether hemorrhage (Primary Dx) 08/29/2024 Travel 07/16/2024 3:15 PM EST Office Visit [facility] [place] [address] Clementine Cobos MD Vaginal nguyen (Primary Dx); Mild intermittent asthma with acute exacerbation; Colon cancer screening; Dietary counseling; Exercise counseling; Overweight 07/16/2024 Travel from Last 3 Months Immunizations Name Administration [...] Date Recorded Patient Health Questionnaire-9 Score 0 10/08/2024 Patient Health Questionnaire-9 Score 0 10/08/2024 Last PHQ-9: Questionnaire Data Not on file 0 10/08/2024 Housing Stability Answer Date Recorded What is your housing situation today? I have ch[place] collins 12/24/[address] you [...] Date Recorded Patient Health Questionnaire-2 Score 0 10/08/2024 Internet Access Answer Date Recorded Internet Access [...] Sign Reading Time Taken Comments Blood Pressure 117/62 10/08/2024 10:28 AM EDT Pulse 68 10/08/2024 10:28 AM EDT Temperature 37.2 ??C (98.9 ??F) 10/08/2024 10:28 AM E DT Respiratory Rate 20 10/08/2024 10:28 AM EDT Oxygen Saturation 98% 10/08/2024 10:28 AM EDT Inhaled Oxygen Concentration - - Weight 75.3 kg (166 lb) 10/08/2024 10:28 AM EDT Height 162.6 cm (5' 4 ) 01/03/2024 11:31 AM EDT Body Mass Index 28.49 01/03/2024 11:31 AM EDT Plan of Treatment Upcoming Encounters Date Type Department Care Team (Late st Contact Info) Description 10/31/2024 8:00 AM EDT Office Visit [facility] [address] [place] [address] Sofia Miller, DDS [address] [place] [address] 03/26/2025 8:00 AM EDT Office Visit [facility] [address] [place] [address] Tianna Chandra Health Maintenance Due Date Last Done Comments CT Colonography 1980 Colonoscopy 1978 Colorectal Cancer Screening 1978 FIT DNA/Cologuard 1978 FIT 1978 FOBT 1980 Sigmoidoscopy 1980 Dental X-Ray: Bitewings 03/14/2025 03/13/2024, 01/03 Mammogram 03/17/2025 03/17/2023, 02/23, 03/10/2022, Additional history exists Dental Oral Exam 03/20/2025 09/16/2024, , 01/03/2023 Dental Prophylaxis 03/20/2025 09/16/2024, 0 03/13/2024, 01/03/2023 COVID-19 Vaccine ( season) 2025 07/03/2022, 05/06/2021, 10/21/2020, Additional history exists Postponed from 02/24/2024 (Patient Refused) Family Planning (PISQ) 07/16/2025 07/16/2024 Alcohol/Substance Use Screening 10/08/2025 10/08/2024 Depression Screening 10/08/2025 10/08/2024, 10/09/19 SDOH Screening 10/08/2025 10/08/2024 Tobacco Screening 10/08/2025 10/08/2024 Dental X-Ray: Full Mouth 01/04/2026 01/03/2023 Cervical Cancer Screening 09/09/2026 HPV/Cotest 09/09/2026 09/09/2021, 08/23, 06/26/2019 Pap Smear 09/09/2026 09/09/2021, 09/09/2021 Zoster Vaccines (1 of 2) 2028 Lipid Panel 12/23/2028 12/24/2023, 1106/2022, 08/05/2021 DTaP/Tdap/Td Vaccines (4 - Td or [...] Procedure Name Priority Date/Time Associated Diagnosis Comments PERIODIC ORAL EVALUATION - ESTABLISHED PATIENT Routine 09/16/2024 7:45 AM EDT Encounter for dental examination Dental plaque Teeth missing ORAL HYGIENE INSTRUCTIONS Routine 09/16/2024 7:45 AM EDT CASE PRESENTATION, DETAILED AND EXTENSIVE TREATMENT PLANNING Routine 09/16/2024 7:45 AM EDT PROPHYLAXIS - ADULT Routine 09/16/2024 7 :45 AM EDT HIGH SENSITIVITY TROPONIN I Routine 09/04/2024 3:04 PM EDT CTA HEAD NECK W AND WO CONTRAST Routine 09/04/2024 12:53 PM EDT HCG, QL, URINE Routine 09/04/2024 [...] Routine 07/16/2024 4:10 PM EST Vaginal nguyen BITEWINGS - 4 RADIOGRAPHIC IMAGES Routine 03/13/2024 8:00 AM EDT LIPID PANEL, [...] Recently Relevant to Health Maintenance Results * High Sensitivity Troponin I (09/04/2024 3:04 PM EDT) Only the most recent of2 resultswithin the time period is included. TROPONIN I HIGH SENSITIVITY <2.7 <3.5 - 17.0 ng/L [facility] Comment:The Thomas high sens itivity Troponin-I results should beused in conjunction with other diagnostic information suchas ECG, clinical observations and information, and patientsymptoms to aid in the diagnosis of [place]. 09/04/2024 3:04 PM EDT 09/04/2024 3:07 PM EDT Narrative [facility] - 09/04/2024 3:31 PM EDT QNS us Generic External Data Provider LAB BLOOD ORDERAB LES Final Result [facility] [address] [place] [address] [phone] * CTA Head Neck w/ and w/o Contrast (09/04/2024 12:53 PM EDT) Anatomical Region Laterality Modality Head, Neck Computed Tomogra phy 09/04/2024 12:5 3 PM EDT Narrative 09/04/2024 1:58 PM EDT ? [facility] ?[address] ?[place] [address] ? CT Scan Report ? Signed ? Patient: Herrera,Dacasty D ?MR#: [id number] ?? 11 ? : 1980 ?Acct:[id number] ? Age/Sex: 44 / F ?ADM Date: 09/04/24 ? Loc: HO.ED ? Attending Dr: ? Ordering Physician: Owen Tovar ?? Date of Service: 09/04/24 ?? Procedure(s): CT angio head neck ?? Accession Number(s): [id number] ? cc: Owen Tovar; Clementine Cobos MD ? Report Number: ?? [id number]: Total DLP = 1319.00 mGy-cm ?? EXAMINATION: ?? CT ANGIOGRAM HEAD AND NECK ? CLINICAL INFORMATION: ?? Dizziness. ? COMPARISON: ?? None available. ? TECHNIQUE: ?? Noncontrast axial imaging of the head was performed. This was followed ?? by test bolus sequences and head and neck intravenous bolus ?? administration 70 mL of Omnipaque 350. Helical imaging was performed in ?? the axial plane from the aortic arch to the skull vertex. The data was ?? processed at the certified ophthalmic technologist's workstation for generation of MIP ?? sequences. Angled MIPs and volume rendered reformatted images were also ?? generated at an offline 3D workstation. Stenoses are assessed in ?? accordance with NASCET criteria unless otherwise indicated. ? This CT examination was performed using dose optimization techniques as ?? appropriate, variously including the following: ?? *Automated exposure control ?? *Adjustment of mA and/or kV according to patient size (this includes ?? techniques or standardized protocols for targeted exams where dose is ?? matched to indication/reason for exam; i.e. extremities or head) ?? *Use of iterative reconstruction technique ? FINDINGS: ? NONCONTRAST HEAD CT: ?? There is no evidence of intracranial hemorrhage or extra-axial fluid ?? collection. ?? There is no mass effect, or edema. No CT evidence of acute territorial ?? infarct. ?? Ventricles, sulci, and cisterns are normal in size and configuration ?? for patient age. No hydrocephalus. No midline shift. ? There are a few scattered foci of hemispheric white matter ?? hypodensities in the supratentorial region, nonspecific but likely on ?? the basis of small vessel changes. ? Globes and orbital contents image normally. ?? No extracranial soft tissue abnormalities. ? The paranasal sinuses, mastoid air cells, and tympanic cavities are ?? normally aerated. ?? No suspicious bony abnormalities. ? NECK CTA: ?? -AORTIC ARCH: Normal in caliber. Mild atheromatous calcification. ?? 2-vessel branching pattern. ?? -GREAT VESSEL ORIGINS: Widely patent. No stenosis. ? -RIGHT COMMON CAROTID ARTERY: Normal in course and caliber to the level ?? of the bifurcation. ?? -CERVICAL RIGHT INTERNAL CAROTID ARTERY: Normal opacification without ?? focal stenosis or occlusion. ? -LEFT COMMON CAROTID ARTERY: Normal in course and caliber to the level ?? of the bifurcation. ?? -CERVICAL LEFT INTERNAL CAROTID ARTERY: Normal opacification without ?? focal stenosis or occlusion. ? -CERVICAL RIGHT VERTEBRAL ARTERY: Codominant. Normal in course and ?? caliber into the skull base. ?? -CERVICAL LEFT VERTEBRAL ARTERY: Normal in course and caliber into the ?? skull base. ? OTHER, SOFT TISSUES: ?? -No lymphadenopathy or mass. No abnormal fluid collection or soft ?? tissue swelling. ?? -Normal thyroid. ?? -Imaged superior mediastinal structures normal. ?? -Imaged lung apices clear. ? CTA OF THE BRAIN: ? -INTRACRANIAL INTERNAL CAROTID ARTERIES: No focal stenosis or ?? occlusion. No aneurysm. ? -RIGHT ANTERIOR CEREBRAL ARTERY: Normal A1 segment.. Normal ?? arborization of the distal segments. ?? -LEFT ANTERIOR CEREBRAL ARTERY: Normal A1 segment.. Normal arborization ?? of the distal segments. ?? -ANTERIOR COMMUNICATING ARTERY: Normal. ? -RIGHT MIDDLE CEREBRAL ARTERY: Normal M1 segment of the MCA without ?? focal stenosis or occlusion. Normal arborization of the distal segments. ?? -LEFT MIDDLE CEREBRAL ARTERY: Normal M1 segment of the MCA without ?? focal stenosis or occlusion. Normal arborization of the distal segments. ? -RIGHT VERTEBRAL ARTERY V4: Normal in course and caliber. Normal PICA ?? branch. ?? -LEFT VERTEBRAL ARTERY V4: Normal in course and caliber. There is a ?? left AICA/PICA. ?? -BASILAR ARTERY: Normal without focal stenosis or occlusion. Normal ?? appearance of the proximal superior cerebellar arteries. Normal basilar ?? tip. ? -RIGHT POSTERIOR CEREBRAL ARTERY: Normal P1 segment. Normal ?? opacification of the distal FRAUD MANAGER segments. ?? -LEFT POSTERIOR CEREBRAL ARTERY: Normal P1 segment. Normal ?? opacification of the distal FRAUD MANAGER segments. ?? -POSTERIOR COMMUNICATING ARTERIES: Not well seen. ? Normal opacification of the superior sagittal, straight, transverse, ?? and sigmoid sinuses. No venous thrombosis. ? CT/CT angio head neck ?? IMPRESSION: ?? NONCONTRAST HEAD CT: ?? 1. No acute intracranial abnormality. ?? 2. A few scattered small supratentorial deep white matter ?? hypoattenuating foci, nonspecific but statistically most likely on the ?? basis of mild small vessel ischemic changes. ? CTA NECK: ?? 1. No evidence of significant stenosis, occlusion, or dissection ?? involving the major cervical arterial vasculature. ? CTA HEAD: ?? 1. No evidence of vascular occlusion, stenosis, aneurysm, or other ?? abnormality. ?? 2. Patent portal and dural venous sinuses. ? Electronically signed by: ??Fermin Campbell MD ??09/04/2024 01:55 PM EDT RP ? Dictated By: ?Fermin Campbell MD ? Signed By: ?<Electronically signed by Fermin Campbell MD in OV> ?09/04/24 7975 ? DD/ 1253 ? TD/TT: 09/04/24 1315 ? Relay Operator: ? Procedure Note [facility] - 09/04/[address] [address] [address] Scan Report Signed Patient: Carmine Herrera DMR#: [id number] 11 : 1980Acct:[id number] Age/Sex: 44 / FADM Date: 09/04/24 Loc: .ED Attending Dr: Ordering Physician: Owen Tovar Date of Service: 09/04/24 Procedure(s): CT angio head neck Accession Number(s): [id number] cc: Owen Tovar; Clementine Cobos MD Report Number: [id number]: Total DLP = 1319.00 mGy-cm EXAMINATION: CT ANGIOGRAM HEAD AND NECK CLINICAL INFORMATION: Dizziness. COMPARISON: None available. TECHNIQUE: Noncontrast axial imaging of the head was performed. This was followed by test bolus sequences and head and neck intravenous bolus administration 70 mL of Omnipaque 350. Helical imaging was performed in the axial plane from the aortic arch to the skull vertex. The data was processed at the certified ophthalmic technologist's workstation for generation of MIP sequences. Angled MIPs and volume rendered reformatted images were also generated at an offline 3D workstation. Stenoses are assessed in accordance with NASCET criteria unless otherwise indicated. This CT examination was performed using dose optimization techniques as appropriate, variously including the following: *Automated exposure control *Adjustment of mA and/or kV according to patient size (this includes techniques or standardized protocols for targeted exams where dose is matched to indication/reason for exam; i.e. extremities or head) *Use of iterative reconstruction technique FINDINGS: NONCONTRAST HEAD CT: There is no evidence of intracranial hemorrhage or extra-axial fluid collection. There is no mass effect, or edema. No CT evidence of acute territorial infarct. Ventricles, sulci, and cisterns are normal in size and configuration for patient age. No hydrocephalus. No midline shift. There are a few scattered foci of hemispheric white matter hypodensities in the supratentorial region, nonspecific but likely on the basis of small vessel changes. Globes and orbital contents image normally. No extracranial soft tissue abnormalities. The paranasal sinuses, mastoid air cells, and tympanic cavities are normally aerated. No suspicious bony abnormalities. NECK CTA: -AORTIC ARCH: Normal in caliber. Mild atheromatous calcification. 2-vessel branching pattern. -GREAT VESSEL ORIGINS: Widely patent. No stenosis. -RIGHT COMMON CAROTID ARTERY: Normal in course and caliber to the level of the bifurcation. -CERVICAL RIGHT INTERNAL CAROTID ARTERY: Normal opacification without focal stenosis or occlusion. -LEFT COMMON CAROTID ARTERY: Normal in course and caliber to the level of the bifurcation. -CERVICAL LEFT INTERNAL CAROTID ARTERY: Normal opacification without focal stenosis or occlusion. -CERVICAL RIGHT VERTEBRAL ARTERY: Codominant. Normal in course and caliber into the skull base. -CERVICAL LEFT VERTEBRAL ARTERY: Normal in course and caliber into the skull base. OTHER, SOFT TISSUES: -No lymphadenopathy or mass. No abnormal fluid collection or soft tissue swelling. -Normal thyroid. -Imaged superior mediastinal structures normal. -Imaged lung apices clear. CTA OF THE BRAIN: -INTRACRANIAL INTERNAL CAROTID ARTERIES: No focal stenosis or occlusion. No aneurysm. -RIGHT ANTERIOR CEREBRAL ARTERY: Normal A1 segment.. Normal arborization of the distal segments. -LEFT ANTERIOR CEREBRAL ARTERY: Normal A1 segment.. Normal arborization of the distal segments. -ANTERIOR COMMUNICATING ARTERY: Normal. -RIGHT MIDDLE CEREBRAL ARTERY: Normal M1 segment of the MCA without focal stenosis or occlusion. Normal arborization of the distal segments. -LEFT MIDDLE CEREBRAL ARTERY: Normal M1 segment of the MCA without focal stenosis or occlusion. Normal arborization of the distal segments. -RIGHT VERTEBRAL ARTERY V4: Normal in course and caliber. Normal PICA branch. -LEFT VERTEBRAL ARTERY V4: Normal in course and caliber. There is a left AICA/PICA. -BASILAR ARTERY: Normal without focal stenosis or occlusion. Normal appearance of the proximal superior cerebellar arteries. Normal basilar tip. -RIGHT POSTERIOR CEREBRAL ARTERY: Normal P1 segment. Normal opacification of the distal FRAUD MANAGER segments. -LEFT POSTERIOR CEREBRAL ARTERY: Normal P1 segment. Normal opacification of the distal FRAUD MANAGER segments. -POSTERIOR COMMUNICATING ARTERIES: Not well seen. Normal opacification of the superior sagittal, straight, transverse, and sigmoid sinuses. No venous thrombosis. CT/CT angio head neck IMPRESSION: NONCONTRAST HEAD CT: 1. No acute intracranial abnormality. 2. A few scattered small supratentorial deep white matter hypoattenuating foci, nonspecific but statistically most likely on the basis of mild small vessel ischemic changes. CTA NECK: 1. No evidence of significant stenosis, occlusion, or dissection involving the major cervical arterial vasculature. CTA HEAD: 1. No evidence of vascular occlusion, stenosis, aneurysm, or other abnormality. 2. Patent portal and dural venous sinuses. Electronically signed by: Fermin Campbell MD 09/04/2024 01:55 PM EDT Dictated By: Fermin Campbell MD Signed By: <Electronically signed by Fermin Campbell MD in OV> 09/04/24 1355 DD/ 1253 TD/TT: 09/04/24 1315 Relay Operator: [facility] External Provider IMG CT PROCEDURES Edited Result - Final * (ABNORMAL) Urinalysis, Complete, with Reflex to Culture (09/04/2024 12:39 PM EDT) Color Urine Yellow [facility] Appearance Urine Clear [facility] PH 7.5 5.0 - 9.0 [facility] Glucose Urine UA Negative Negative mg/dL [facility] Urine Blood Small (1+)(A) Negative [facility] Specific Tracy - Urine <=1.005 1.005 - 1.025 [facility] Urine Protein Negative Neg-Trace mg/dL [facility] Urine Ketones Negative Negative mg/dL [facility] Nitrite Urine Negative Negative [facility] Leukocyte Esterase Urine Negative Negative [facility] RBC Urine 11-20(A) 0 - 2 /HPF [facility] Urine WBC 0-5 0 - 5 /HPF [facility] Urine Squamous Epithelial Cell 0-2 0 - 2 /HPF [facility] Urine Bacteria None Seen None Seen [facility] Hyaline Casts, Urine 0-2 0 - 2 /LPF [facility] 09/04/2024 12:3 9 PM EDT 09/04/2024 12:43 PM EDT Narrative [facility] - 09/04/2024 12:57 PM EDT [id number], Clean Catch us Generic External Data Provider LAB URINE ORDERAB LES Final Result Performing Organization Address [facility] Co de Phone Number [facility] [address] [place] [address] [phone] * HCG, Qualitative, Urine (09/04/2024 12:39 PM EDT) Urine NEGATIVE NEGATIVE [facility] Comment:This test was develo ped to detect early . Falsenegative results may occur after the 5th - 7th week ofpregnancy when using this test method. If clinicallyindicated, consider a serum hCG. 09/04/2024 12:3 9 PM EDT 09/04/2024 12:52 PM EDT us Generic External Data Provider LAB URINE ORDERAB LES Final Result Performing Organization Address [facility] de Phone Number [facility] [address] [place] [phone] * Partial Thromboplastin Time, Activated (APTT) (09/04/2024 11:46 AM EDT) Partial Thromboplastin Time 28.6 26.0 - 36.8 SEC [facility] Comment:For information rega rding the monitoring of direct thrombininhibitors, please refer to Pharmacy. 09/04/2024 11:4 6 AM EDT 09/04/2024 11:49 AM EDT us Generic External Data Provider LAB BLOOD ORDERAB LES Final Result Performing Organization Address [facility]/State/ZIP Co de Phone Number [facility] [address] [place] [address] [phone] * Prothrombin Time-INR (09/04/2024 11:46 AM EDT) Prothrombin Time 11.3 10.9 - 12.4 SEC [facility] INTERNATIONAL NORM RATIO 1.0 0.9 - 1.1 [facility] Comment:INTERNATIONAL NORMAL IZED RATIO (INR) [...] Provider LAB BLOOD ORDERAB LES Final Result [facility] [address] [place] [address] [phone] * SARS-CoV-2 RNA, Influenza A/B, and RSV RNA, Ql NAAT (09/04/2024 11:28 AM EDT) Influenza A PCR NEGATIVE Negative [facility] Influenza B PCR NEGATIVE Negative [facility] Resp Syncy Virus RNA Qual PCR NEGATIVE Negative [facility] SARS COV2 PCR NEGATIVE Negative [facility] Comment:All test results mus t [...] use by authorized laboratories.Testing performed on the [employer] GeneXpert utilizingreal-time RT-PCR.All SARS CoV2 and positive influenza A/B results arereported to [facility]. 09/04/2024 11:2 8 AM EDT 09/04/2024 11:33 AM EDT us Generic External Data Provider LAB MICROBIOLOGY - GENERAL ORDERABLES Final Result [facility] [address] [place] [address] [phone] * (ABNORMAL) CBC auto differential (09/04/2024 11:28 AM EDT) White Blood Count 10.8 4.8 - 10.8 X10*3/uL [facility] Red Blood Count 4.71 4.20 - 5.50 X10*6/uL [facility] Hemoglobin 11.4(L) 12.0 - 16.0 g/dl [facility] Hematocrit 35.5(L) 37.0 - 47.0 % [facility] Mean Corpuscular Volume 75.4(L) 80.0 - 98.0 fL [facility] Mean Corpuscular Hemoglobin 24.2(L) 27.0 - 33.0 pg [facility] Mean Corpuscular HGB Conc 32.1 31.0 - 35.0 g/dl [facility] Red Cell Distribution Width 15.5 11.0 - 16.0 % [facility] Platelet Count 280 160 - 400 X10*3/uL [facility] Mean Platelet Volume 9.3(L) 9.4 - 12.3 fL [facility] Neutrophils Percent Auto 85.1(H) 45 - 73 % [facility] Imm Gran Pct Auto 0.5(H) 0.0 - 0.4 % [facility] Lymphocytes Percent Auto 10.2(L) 20 - 40 % [facility] Monocytes Percent Auto 3.3 2 - 11 % [facility] Eosinophils Percent Auto 0.3 0 - 4 % [facility] Basophils Percent Auto 0.6 0 - 2 % [facility] NRBC Pct Auto 0.0 0.0 - 0.2 /100WBC [facility] Neutrophils Absolute Auto 9.2(H) 2.0 - 8.3 x10*3/uL [facility] Imm Gran Abs Auto 0.05(H) 0.00 - 0.03 X10*3/uL [facility] Lymphocytes Absolute Auto 1.1(L) 1.2 - 4.9 X10*3/uL [facility] Monocytes Absolute Auto 0.4 0.1 - 1.2 X10*3/uL [facility] Eosinophils Absolute Auto 0.0 0.0 - 0.4 X10*3/uL [facility] Basophils Absolute Auto 0.1 0.0 - 0.2 X10*3/uL [facility] NRBC Abs Auto 0.000 0.0 - 0.012 X10*3/uL [facility] 09/04/2024 11:2 8 AM EDT 09/04/2024 11:33 AM EDT us Generic External Data Provider LAB BLOOD ORDERAB LES Final Result [facility] [address] [place] [phone] * hCG, Total, Quantitative (09/04/2024 11:28 AM EDT) HCG Quantitative <2 mIU/mL [facility] Comment:Weeks post LMP Appro ximate hCG(Last Menstrual Period) Range (mIU/ml)3 - 4 weeks 9 - 1304 - 5 weeks 75 - 2,6005 - 6 weeks 850 - 20,8006 - 7 weeks 4000 - 100,2007 - 12 weeks 11,500 - 289,54464 - 16 weeks 18,300 - 137,87573 - 29 weeks (2nd trimester) 1,400 - 53,36623 - 41 weeks (3rd trimester) 940 - [...] Provider LAB BLOOD ORDERAB LES Final Result [facility] [address] [place] [address] [phone] * (ABNORMAL) Comprehensive Metabolic Panel (09/04/2024 11:28 AM EDT) Sodium 138 135 - 145 mmol/L [facility] Potassium 4.6 3.3 - 5.1 mmol/L [facility] Comment:Slight Hemolysis.Int erpret result with caution. Chloride 110(H) 96 - 108 mmol/L [facility] Carbon Dioxide 19(L) 22 - 29 mmol/L [facility] Anion Gap 14 12 - 20 [facility] Urea Nitrogen (BUN) 9 9 - 16 mg/dL [facility] Creatinine, Serum 0.69 0.5 - 1.4 mg/dL [facility] Creatinine Clr Calc Pharmacy 99.5 [facility] Comment:Provided height and weight: 162.56 cm,72.575 kg.eGFR (calculated from the MDRD study equation) and eCrCl(calculated from the Cockcroft-Gault equation) are based ondifferent parameters and may not yield comparable results.If eCrCl result is absurd, please check patient'sheight/weight. Estimated Glomerular Filt Rate >60 [facility] Comment:Chronic Kidney Disea se: Estimated GFR < 60 mL/min/1.71a5Blcrxb Kidney Disease: Estimated GFR < 15 mL/min/1.73m2 Glucose 100 60 - 115 mg/dL [facility] Calcium 8.0(L) 8.4 - 10.2 mg/dL [facility] Bilirubin, Total 0.3 0.0 - 1.0 mg/dL [facility] Aspartate Amino Transferase 33(H) 5 - 31 U/L [facility] Comment:Slight Hemolysis.Int erpret result with caution. Alanine Aminotransferase 22 0 - 31 U/L [facility] Total Protein 7.4 6.5 - 8.0 g/dL [facility] Albumin Level 3.9 3.5 - 5.0 g/dL [facility] Alkaline Phosphatase 55 39 - 117 U/L [facility] 09/04/2024 11:2 8 AM EDT 09/04/2024 11:33 AM EDT Generic External Data Provider LAB BLOOD ORDERAB LES Final Result Performing Organization Address [facility] Co de Phone Number [facility] [address] [place] [phone] * Helicobacter pylori, Urea Breath Test (08/29/2024 9:50 AM EST) H. pylori Breath Test Positive Negative [facility] Comment:Antimicrobials, prot on pump inhibitors and bismuthpreparations are known to suppress H. pylori. Ingestingthese medications within two weeks prior to performing thebreath test may produce negative test results. A positiveresult is still clinically valid. Breath Oral cavity structure / Unknown 08/29/2024 9:50 AM EST 08/29/2024 5:18 PM EST us Clementine Cobos MD LAB BLOOD ORDERABLES Final Result Performing Organization Address [facility] Co de Phone Number [facility] [address] [place] [phone] * POCT urinalysis dipstick manually resulted [...] TEST ENTER/E DIT ORDERABLES Final Result * (ABNORMAL) Lipid Panel, Standard (12/24/2023 11:40 AM EDT) Triglycerides 160(H) <150 mg/dL [facility] Comment:Desirable Triglyceri de: less than 150 mg/dLBorderline High Triglyceride 150-199 mg/dLHigh Triglyceride: 200-499 mg/dLVery High Triglyceride: greater than or equal to 5OO mg/dL Cholesterol 252(H) <200 mg/dL [facility] Comment:Desirable Cholestero l: less than 200 mg/dLBorderline High Cholesterol: 200-239 mg/dLHigh Cholesterol: greater than 239 mg/dL LDL Cholesterol Calculated 144(H) <100 mg/dL [facility] Comment:Desirable LDL: less than 100 mg/dLNear Optimal/Above Optimal LDL: 110- 129 mg/dLBorderline High LDL: 130-159 mg/dLHigh LDL: 160-189 mg/dLVery High LDL: greater than or equal to 190 mg/dL HDL Cholesterol 76 >40 mg/dL [facility] Comment:Desirable HDL: great er than 40 mg/dL Note: This HDL assay may give artificially low results in patients with liver disease. Blood Venous blood specimen / Unknown 12/24/2023 11:40 AM EDT 12/24/2023 1:16 PM EDT Clementine Cobos MD LAB BLOOD ORDERABLES Final Result [facility] [address] [place] [address] [phone] * Hepatitis C Antibody with Reflex to HCV, RNA, Quantitative, Real-Time PCR (04/25/2023 8:18 AM EDT) Hepatitis C Antibody Nonreactive Nonreactive [facility] Comment:Antibodies to HCV no t detected; does not exclude early acuteHCV infection. Blood Venous blood specimen / Unknown 04/25/2023 8:18 AM EDT 04/25/2023 11:32 AM EDT Clementine Cobos MD LAB BLOOD ORDERABLES Final Result Performing Organization Address City/[facility]/ZIP Co de Phone Number [facility] [address] [place] [phone] [phone] * HIV-1/2 Antigen and Antibodies, Fourth Generation, with Reflexes (04/25/2023 8:18 AM EDT) HIV AB/AG Nonreactive Nonreactive [facility] Comment:HIV-1 p24 Ag and/or HIV-1/HIV-2 Ab not detected.A test result that is nonreactive does not exclude thepossibility of exposure to or infection with HIV-1 and/orHIV-2. Nonreactive results in this assay for individualswith prior exposure to HIV-1 and/or HIV-2 may be due toantigen and antibody levels that are below the limit ofdetection of this assay.The [employer] HIV Ag/Ab Combo assay result andsupplemental assay results should be interpreted inconjunction with the patient's clinical presentation,history and other laboratory results. If the results areinconsistent with clinical evidence, additional testing issuggested to confirm the result. Blood Venous blood specimen / Unknown 04/25/2023 8:18 AM EDT 04/25/2023 11:32 AM EDT Clementine Cobos MD LAB BLOOD ORDERABLES Final Result Performing Organization Address [facility]/ZIP Co de Phone Number [facility] [address] [place] [phone] * BI Mammogram Screening Tomosynthesis Bilateral (03/17/2023 7:45 AM EDT) Anatomical Region Laterality Modality Breast Bilateral Mammography 03/17/2023 7:45 AM EDT Narrative 03/24/2023 9:33 PM EDT ? [facility] ? [address] ?[place], [place] [address] ? Mammography Report ? Signed ? Patient: Herrera,Dacasty D ?MR#: [id number] ?? 11 ? : 1980 ?Acct:[id number] ? Age/Sex: 42 / F ?ADM Date: 03/17/23 ? Loc: HO.MAMMO ? Attending Dr: Clementine Cobos MD ? Ordering Physician: Clementine Cobos MD ?Results: 1N ?? egative ? Date of Service: 03/17/23 ?Follow Up: 1 Year From Orig ?? inal Mammogram ? Procedure(s): MM tomosynthesis screening BI ?? Accession Number(s): [id number] ? cc: Clementine Cobos MD ? EXAMINATION: [...] 03/24/232128 ? DD/ 0745 ? TD/TT: ? Relay Operator: ? Procedure Note Tree Pierre - 03/24/2023 Radha [facility] [address] [place] [address] Mammography Report Signed Patient: Carmine Herrera DMR#: [id number] 11 : 1980Acct:[id number] Age/Sex: 42 / FADM Date: 03/17/23 Loc: HO.MAMMO Attending Dr: Clementine Cobos MD Ordering Physician: Clementine Cobos MDResults: 1N egative Date of Service: 03/17/23Follow Up: 1 Year From Orig inal Mammogram Procedure(s): MM tomosynthesis screening BI Accession Number(s): [id number] cc: Clementine Cobos MD EXAMINATION: MM SCREENING [...] Sabra Castillo MD in OV> 03/24/232128 DD/ 4 TD/TT: Relay Operator: Clementine Cobos MD IMG BI PROCEDURES Edited R esult - Final * HPV High Risk PCR (09/09/2021) Swab Cervical swab / Unknown 09/09/2021 Clementine Cobos MD LAB MICROBIOLOGY - GENERAL ORDERABLES Final Result * Pap Smear (09/09/2021) Swab 09/09/2021 Clementine Cobos MD LAB CYTOLOGY ORDERABLES Fi nal Result from Last 3 Months or Most Recently Relevant to Health Maintenance Insurance [facility] Member Subscriber Plan / Payer (Ef fective 2022-Present) Name:Carmine Herrera Relation to Subscriber:Self Name:Carmine Herrera Payer ID:Not on file Group ID:Not on file Type:Medicaid Address: [facility] [id number] [place] [address] , [address] [place] [address] [place] Advance Directives Documents on File Type Date Recorded Patient Consumer Experience Consultant Expl anation Advance Directives and Living Will 12/24/2023 Health Care Proxy 12/24/23 Care Teams Outside Upholsterer Relationship Specialty Start Date End Date Chandrika, MD Clementine [address] [place] [address] PCP - General Family Medicine 06/25/18 Manoj [place] MD [address] [place] [address] Obstetrics and Gynecology 07/22/24 Emir Medina MD 175 [facility] [address] [place] [address] Bariatrics 10/08/24 Xavi Villafuerte MD [address] [place] [address] 3rd [place] [address] Gastroenterology 10/08/24 Enrike Arvizu MD [address] [place] [address] Cardiology 10/08/24
--- OUTSIDE RECORDS SUMMARY | 2024-10-09 09:00 | XMS_ITS | Clinical Summary ---
Author Organization [facility] Address [address] [place] [address] Care Team Providers Care Shoe Ironer Name Role Phone Clementine Cobos MD Primary Care Provider [phone] Surgical History Surgery Date Site/Laterality Comments CHOLECYSTECTOMY [...] - 2023-2 5 season) 2024 Influenza Vaccine (Season Ended) 2025 HIB Vaccines Aged Out No longer eligi [...] age to complete this topic Meningococcal B Vaccine Aged Out No l onger eligible based on patient's age to complete [...] age to complete this topic Care Teams Shoe Ironer Relationship Specialty Start Date End Date Clementine Cobos MD [address] [place] [phone] PCP - General Internal Medicine 12/18/12
--- OUTSIDE RECORDS SUMMARY | 2024-10-09 09:00 | XMS_ITS | Encounter Summary ---
Author Organization [employer] Address [address] [facility] 7t [place] [address] Care Team Providers Care Cut File Clerk Name Role Phone Clementine Cobos MD Primary Care Provider [phone] Manoj Garcia MD Unavailable Emir Medina MD Unavailable [phone] Xavi Villafuerte MD Unavailable [phone] Enrike Arvizu MD Unavailable [phone] Reason for Visit * Reason Comments Med Change Request Encounter Details Date Type Department Care Team (Late st Contact Info) Description 07/27/2023 Refill [facility] [address] [place], [place] [phone] Clementine Cobos MD [address] [place], [place] [phone] Social History Tobacco Use Types Packs/Day Years [...] Description 10/31/2024 8:00 AM EDT Office Visit [facility] [address] [place] [address] Otoole-Mercado, Sofia, DDS [address] [place] [address] 03/26/2025 8:00 AM EDT Office Visit [facility] [address] [place] [address] Tianna Chandra documented as of this encounter Visit Diagnoses Not on filedocumented in this encounter Additional Health Concerns Assessment Noted Time PHQ-9 Depression Total Score: 0 09/12/19 23 10:19 AM EDT documented as of this encounter Care Teams Cut File Clerk Relationship Specialty Start Date End Date Clementine Cobos MD [address] [place] [address] PCP - General Family Medicine 06/25/18 Manoj [place] MD [address] [place] [address] [place] [address] Obstetrics and Gynecology 07/22/24 Emir Medina MD [address] [place] [address] [address] [place] [address] Bariatrics 10/08/24 Xavi Villafuerte MD [address] [place] [address] [address] [place] [address] Gastroenterology 10/08/24 Enrike Arvizu MD [address] [place] [address] Cardiology 10/08/24 documented as of this encounter
--- OUTSIDE RECORDS SUMMARY | 2024-10-09 09:00 | XMS_ITS | Encounter Summary ---
Author Organization [employer] Address [address] [facility] 7t [place] [address] Care Team Providers Care Meter Tester Primary Name Role Phone Clementine Cobos MD Primary Care Provider [phone] Manoj [place] MD Unavailable Emir Medina MD Unavailable [phone] Xavi Villafuerte MD Unavailable Enrike Arvizu MD Unavailable [phone] Reason for Visit * Reason Comments Med Change Request Encounter Details Date Type Department Care Team ([facility] st Contact Info) Description 04/28/2023 Refill [facility] [address] [place], [place] [phone] Kaitlin Vallejo MD [address] [place], [place] [phone] Seasonal allergies (Primary Dx) Social History Tobacco [...] Description 10/31/2024 8:00 AM EDT Office Visit [facility] [address] [place] [address] Otoole-Mercado, Sofia, DDS [address] [place] [address] 03/26/2025 8:00 AM EDT Office Visit [facility] [address] [place] [address] Tianna Chandra documented as of this encounter Visit Diagnoses Diagnosis Seasonal allergies- Primary Allergic rhinitis, cause unspecified documented in this encounter Additional Health Concerns Assessment Noted Time PHQ-9 Depression Total Score: 0 09/12/19 10:19 AM EDT documented as of this encounter Care Teams Meter Tester Primary Relationship Specialty Start Date End Date Clementine Cobos MD [address] [place] [address] PCP - General Family Medicine 06/25/18 Manoj [place] MD [address] [place] [address] [place] [address] Obstetrics and Gynecology 07/22/24 Emir Medina MD [address] [place] [address] [address] [place] [address] Bariatrics 10/08/24 Xavi Villafuerte MD [address] [place] [address] 3rd [place] [address] Gastroenterology 10/08/24 Enrike Arvizu MD [address] [place] [address] Cardiology 10/08/24 documented as of this encounter
--- OUTSIDE RECORDS SUMMARY | 2024-10-09 09:00 | XMS_ITS | Encounter Summary ---
Author Organization [employer] [facility] Address 75 [facility] 7t [place] [address] Care Team Providers Care Licensed Real Estate Broker Name Role Phone Clementine Cobos MD Primary Care Provider [phone] Manoj [place] MD Unavailable Emir Medina MD Unavailable [phone] Xavi Villafuerte MD Unavailable [phone] Enrike Arvizu MD Unavailable [phone] Encounter Details Date Type Department Care Team (Latest Contact Info) Description 09/23/2018 Abstract [facility] Dental, Provider, DDS Social History [...] Description 10/31/2024 8:00 AM EDT Office Visit [facility] [address] [place] [address] Sofia Miller DDS [address] [place], [place] [phone] 03/26/2025 8:00 AM EDT Office Visit [facility] [address] [place] [address] Chandra, Tianna documented as of this encounter Visit Diagnoses Not on filedocumented in this encounter Care Teams Licensed Real Estate Broker Relationship Specialty Start Date End Date Norman, MD Clementine [address] [place] [address] PCP - General Family Medicine 06/25/18 Manoj [place] MD [address] [place] [address] Obstetrics and Gynecology 07/22/24 Emir Medina MD 175 [facility] [address] [place] [address] Bariatrics 10/08/24 Xavi Villafuerte MD [address]rd [place] [address] Gastroenterology 10/08/24 Enrike Arvizu MD [address] [place] [address] Cardiology 10/08/24 documented as of this encounter
--- OUTSIDE RECORDS SUMMARY | 2024-10-09 09:00 | XMS_ITS | Encounter Summary ---
Author Organization [employer] Address 75 [facility] 7t [place] [address] Care Team Providers Care Patch Finisher Name Role Phone Clementine Cobos MD Primary Care Provider [phone] Manoj [place] MD Unavailable Emir Medina MD Unavailable [phone] Xavi Villafuerte MD Unavailable [phone] Enrike Arvizu MD Unavailable [phone] Encounter Details Date Type Department Care Team (Late st Contact Info) Description 11/17/2022 Abstract [facility] [address] [place], [place] [phone] Clementine Cobos MD [address] [place], [place] [phone] Social History Tobacco Use Types Packs/Day Years [...] Description 10/31/2024 8:00 AM EDT Office Visit [facility] [address] [place] [address] Otoole-MercadoSushantSofia, DDS [address] [place] [address] 03/26/2025 8:00 AM EDT Office Visit [facility] [address] [place] [address] Tianna Chandra documented as of this encounter Visit Diagnoses Not on filedocumented in this encounter Additional Health Concerns Assessment Noted Time PHQ-9 Depression Total Score: 0 09/12/19 23 10:19 AM EDT documented as of this encounter Care Teams Patch Finisher Relationship Specialty Start Date End Date Clementine Cobos MD [address] [place] [address] PCP - General Family Medicine 06/25/18 Manoj [place] MD [address] [place] [address] Obstetrics and Gynecology 07/22/24 Emir Medina MD [address] [place] [address] [address] [place] [address] Bariatrics 10/08/24 Xavi Villafuerte MD [address] [place] [address] Drive 3rd [place] [address] Gastroenterology 10/08/24 Enrike Arvizu MD [address] [place] [address] Cardiology 10/08/24 documented as of this encounter
--- OUTSIDE RECORDS SUMMARY | 2024-10-09 09:00 | XMS_ITS | Encounter Summary ---
Author Organization [employer] Address [address] [facility] 7t [place] [address] Care Team Providers Care Cash Surrender Calculator Name Role Phone Clementine Cobos MD Primary Care Provider +1- [phone] Manoj Garcia MD Unavailable Emir Medina MD Unavailable [phone] Xavi Villafuerte MD Unavailable [phone] Enrike Arvizu MD Unavailable [phone] Reason for Referral * Imaging (Routine) - Closed Specialty Diagnoses / Procedures Referred By Nancie sullivan Referred To Contact Radiology Diagnoses Pleuritic pain Thoracic radiculopathy Procedures CT Chest w/ Contrast Clementine Cobos MD [address] [place] [address] Phone: tel: fax: [facility] [address] [place], [place] Phone: tel: fax: Referral ID Status Reason Start Date Expiration Date Visits Re quested Visits Authorized [id number] Closed 06/28/2023 06/27/2024 1 1 Encounter Details Date Type Department Care Team (Late st Contact Info) Description 06/28/2023 Orders Only [facility] [address] [place], [place] [phone] Clementine Cobos MD [address] [place], [place] [phone] Pleuritic pain (Primary Dx); Thoracic radiculopathy Social [...] Description 10/31/2024 8:00 AM EDT Office Visit [facility] [address] [place] [address] Sofia Miller DDS [address] [place] [address] 03/26/2025 8:00 AM EDT Office Visit [facility] [address] [place] [address] Tianna Chandra Scheduled Orders Name Type Priority Associated Diagnoses [...] documented as of this encounter Care Teams Cash Surrender Calculator Relationship Specialty Start Date End Date Clementine Cobos MD [address] [place] [address] PCP - General Family Medicine 06/25/18 Manoj Garcia MD [address] [place] [address] Obstetrics and Gynecology 07/22/24 Emir Medina MD [address] [place] [address] Bariatrics 10/08/24 Xavi Villafuerte MD [address] 3rd [place] [address] Gastroenterology 10/08/24 Enrike Arvizu MD 596 [place] [address] Cardiology 10/08/24 documented as of this encounter
--- OUTSIDE RECORDS SUMMARY | 2024-10-09 09:00 | XMS_ITS | Encounter Summary ---
Author Organization [facility] Address [address] [facility] 7t [place] [address] Care Team Providers Care Banding Machine Operator Name Role Phone Clementine Cobos MD Primary Care Provider [phone]- [phone] Manoj Garcia MD Unavailable Emir Medina MD Unavailable [phone] Xavi Villafuerte MD Unavailable [phone] Enrike Arvizu MD Unavailable Encounter Details Date Type Department Care Team (Late st Contact Info) Description 03/07/2023 Orders Only [facility] [address] [place], [place] [phone] Clementine Cobos MD 230 [place], [place] [phone] Social History Tobacco Use Types Packs/Day Years [...] Description 10/31/2024 8:00 AM EDT Office Visit [facility]ULT [facility] 230 [place] [address] Otoole-Mercado, Sofia, DDS [address] [place] [address] 03/26/2025 8:00 AM EDT Office Visit [facility] [address] [place] [address] Tianna Chandra documented as of this encounter Procedures Procedure Name Priority Date/Time Associated Diagnosis Comments BI MAMMOGRAM SCREENING TOMOSYNTHESIS BILATERAL Routine 03/17/2023 7:45 AM EDT documented in this encounter Results * BI Mammogram Screening Tomosynthesis Bilateral (03/17/2023 7:45 AM EDT) Anatomical Region Laterality Modality Breast Bilateral Mammography 03/17/2023 7:45 AM EDT Narrative 03/24/2023 9:33 PM EDT ? [facility] [place] ? [address] ?[place] [address] ? Mammography Report ? Signed ? Patient: Herrera,Dacasty D ?MR#: [id number] ?? 11 ? : 1980 ?Acct:[id number] ? Age/Sex: 42 / F ?ADM Date: //23 ? Loc: HO.MAMMO ? Attending Dr: Clementine Cobos MD ? Ordering Physician: Clementine Cobos MD ?Results: 1N ?? egative ? Date of Service: 03/17/ ?Follow Up: 1 Year From Orig ?? inal Mammogram ? Procedure(s): MM tomosynthesis screening BI ?? Accession Number(s): [id number] ? cc: Clementine Cobos MD ? EXAMINATION: [...] by Sabra Castillo MD in OV> ? 03/24/23 2129 ? DD/ 0745 ? TD/TT: ? Steam Cleaner: ? Procedure Note [facility] - 03/24/2023 [facility] [address] [place] [address] Dr. Garcia, [place] [address] Mammography Report Signed Patient: Carmine Herrera DMR#: [id number] 11 : 1980Acct:[id number] Age/Sex: 42 / FADM Date: 03/17/23 Loc: HO.MAMMO Attending Dr: Clementine Cobos MD Ordering Physician: Clementine Cobos MDResults: 1N egative Date of Service: 03/17/23Follow Up: 1 Year From Orig inal Mammogram Procedure(s): MM tomosynthesis screening BI Accession Number(s): [id number] cc: Clementine Cobos MD EXAMINATION: MM SCREENING [...] MD in OV> 03/24/232128 DD/ 0745 TD/TT: Steam Cleaner: Clementine Cobos MD IMG BI PROCEDURES Edited R esult - Final documented in this encounter Visit Diagnoses Not on filedocumented in this encounter Additional Health Concerns Assessment Noted Time PHQ-9 Depression Total Score: 0 09/12/19 23 10:19 AM EDT documented as of this encounter Care Teams Banding Machine Operator Relationship Specialty Start Date End Date Clementine Cobos MD [address] [place] [address] PCP - General Family Medicine 06/25/18 Manoj Garcia MD [address] [place], [place] [address], [place] [address] Obstetrics and Gynecology 07/22/24 Emir Medina MD [address] [place] [address] Bariatrics 10/08/24 Xavi Villafuerte MD [address] [place] [address] Drive 3rd [place] [address] Gastroenterology 10/08/24 Enrike Arvizu MD 596 [place] [address] Cardiology 10/08/24 documented as of this encounter
--- OUTSIDE RECORDS SUMMARY | 2024-10-09 09:00 | XMS_ITS | Encounter Summary ---
Author Organization [employer] [facility] Address 75 [facility] 7t [place] [address] Care Team Providers Care Nuclear Fuel Processing Technician Name Role Phone Clementine Cobos MD Primary Care Provider [phone]- [phone] Manoj Garcia MD Unavailable Emir Medina MD Unavailable [phone] Xavi Villafuerte MD Unavailable [phone] Enrike Arvizu MD Unavailable [phone] Encounter Details Date Type Department Care Team (Latest Contact Info) Description 11/18/2021 Abstract [facility] CONVERSIONS Dental, Provider, DDS Social [...] Care Team ( st Contact Info) Description 10/31/2024 8:00 AM EDT Office Visit [facility] ADULT D[facility]AL 230 [place] [address] Sofia Miller DDS 230 [place], [place] [phone] 03/26/2025 8:00 AM EDT Office Visit [facility]ULT D[facility] 230 [place] [address] Tianna Chandra documented as of this encounter Visit Diagnoses Not on filedocumented in this encounter Care Teams Nuclear Fuel Processing Technician Relationship Specialty Start Date End Date Chandrika, MD Clementine 230 [place] [address] PCP - General Family Medicine 06/25/18 Manoj Garcia MD [address] [place] [address] Obstetrics and Gynecology 07/22/24 Emir Medina MD [address] [place] [address] Bariatrics 10/08/24 Xavi Villafuerte MD [address] 3rd [place] [address] Gastroenterology 10/08/24 Enrike Arvizu MD 596 [place] [address] Cardiology 10/08/24 documented as of this encounter
--- OUTSIDE RECORDS SUMMARY | 2024-10-09 09:00 | XMS_ITS | Encounter Summary ---
Author Organization [employer] Address [address] [facility] 7t [place] [address] Care Team Providers Care Drywall Contractor Name Role Phone Clementine Cobos MD Primary Care Provider [phone]- [phone] Manoj Garcia MD Unavailable Emir Medina MD Unavailable [phone] Xavi Villafuerte MD Unavailable [phone] Enrike Arvizu MD Unavailable [phone] Reason for Visit * Reason Comments Med Change Request Encounter Details Date Type Department Care Team (Late st Contact Info) Description 07/27/2023 Refill [facility] [address] [place], [place] [phone] Clementine Cobos MD [address] [place], [place] [phone] Social History Tobacco Use Types Packs/Day Years [...] Description 10/31/2024 8:00 AM EDT Office Visit [facility] 230 [place] [address] Otoole-Mercado, Sofia, DDS 230 [place] [address] 03/26/2025 8:00 AM EDT Office Visit [facility] [address] [place] [address] Tianna Chandra documented as of this encounter Visit Diagnoses Not on filedocumented in this encounter Additional Health Concerns Assessment Noted Time PHQ-9 Depression Total Score: 0 09/12/19 23 10:19 AM EDT documented as of this encounter Care Teams Drywall Contractor Relationship Specialty Start Date End Date Clementine Cobos MD [address] [place] [address] PCP - General Family Medicine 06/25/18 Manoj Garcia MD [address] [place] [address] [place] [address] Obstetrics and Gynecology 07/22/24 Emir Medina MD [address] [place] [address] [address] [place] [address] Bariatrics 10/08/24 Xavi Villafuerte MD [address] [place] [address] [address] [place] [address] Gastroenterology 10/08/24 Enrike Arvizu MD 596 [place] [address] Cardiology 10/08/24 documented as of this encounter
--- OUTSIDE RECORDS SUMMARY | 2024-10-09 09:01 | XMS_ITS | Encounter Summary ---
Author Organization [employer] Address [address] [facility] [address] 7t [place] [address] Care Team Providers Care Business Machines Teacher Name Role Phone Clementine Cobos MD Primary Care Provider [phone]- [phone] Manoj Garcia MD Unavailable Emir Medina MD Unavailable [phone] Xavi Villafuerte MD Unavailable [phone] Enrike Arvizu MD Unavailable [phone] Encounter Details Date Type Department Care Team (Late st Contact Info) Description 06/27/2023 Orders Only [facility] 230 [place], [place] [phone] Clementine Cobos MD 230 [place], [place] [phone] Social History Tobacco Use Types Packs/Day Years Used Date Smoking Tobacco: Never Passive Smoke Exposure: Never Smokeless Tobacco: Never Alcohol Use Standard Drinks/Week Comments Yes 0 (1 standard drink = 0.6 oz pur e alcohol) occasional drinking Depression Answer Date Recorded Patient Health Questionnaire-9 Score 0 09/11/2022 Housing Stability Answer Date Recorded What is your housing situation today? I have chica karina 04/16/[address] you li [...] 8:00 AM EDT Office Visit [facility] ADULT [facility] [address] [place] [address] Otoole-Sofia Mercado, DDS [address] [place] [address] 03/26/2025 8:00 AM EDT Office Visit [facility] [address] [place] [address] Tianna Chandra documented as of this encounter Visit Diagnoses Not on filedocumented in this encounter Additional Health Concerns Assessment Noted Time PHQ-9 Depression Total Score: 0 09/12/19 23 10:19 AM EDT documented as of this encounter Care Teams Business Machines Teacher Relationship Specialty Start Date End Date Clementine Cobos MD 230 [place] [address] PCP - General Family Medicine 06/25/18 Manoj Garcia MD [address] [place] [address] [place] [address] Obstetrics and Gynecology 07/22/24 Emir Medina MD [address] [place] [address] [address] [place] [address] Bariatrics 10/08/24 Xavi Villafuerte MD [address] [place] [address] 3rd [place] [address] Gastroenterology 10/08/24 Enrike Arvizu MD 5[address] [place] [address] Cardiology 10/08/24 documented as of this encounter
--- OUTSIDE RECORDS SUMMARY | 2024-10-09 09:01 | XMS_ITS | Encounter Summary ---
Author Organization [employer] [facility] Address 75 [facility] 7t [place] [address] Care Team Providers Care Ratchet Setter Name Role Phone Clementine Cobos MD Primary Care Provider [phone]- [phone] Manoj Garcia MD Unavailable Emir Medina MD Unavailable [phone] Xavi Villafuerte MD Unavailable [phone] Enrike Arvizu MD Unavailable [phone] Reason for Referral * Consultation (Routine) - Pending Review Specialty Diagnoses / Procedures Referred By Nancie sullivan Referred To Contact Gastroenterology Diagnoses Gastroesophageal reflux disease, unspecified whether esophagitis present Clementine Cobos MD 230 [place] [address] Phone: tel: fax: Referral ID Status Reason Start Date Expiration Date Visits Requested Visits Authorized [id number] Pending Review Specialty Services Required 10/08/2024 10/08/2025 1 1 Reason for Visit * Reason Comments Follow-up Encounter Details Date Type Department Care Team (Latest Contact Info) Description 10/08/2024 10:15 AM EDT Office Visit [facility] 230 [place], [place] [phone] Clementine Cobos MD [address] [place], [place] [phone] Gastroesophageal reflux disease, unspecified whether esophagitis present (Primary Dx); Gastroesophageal reflux disease with esophagitis, unspecified whether hemorrhage; Mild intermittent asthma without complication; Vitamin D deficiency; Anemia, unspecified type; Hx of gastric bypass; Colon cancer screening; Other specified health status Social History Tobacco Use Types Packs/Day Years [...] (166 lb) 10/08/2024 10:28 AM EDT Height - - Body Mass Index 28.49 01/03/2024 11:31 AM EDT documented in this encounter Progress Notes * Clementine Cobos MD - 10/08/2024 10:15 AM EDT Subjective Dacasty is a 44 y.o. female with past medical history of asthma, GERD, anemia and hx of gastric sleeve surgery 2018 who presents to the office today for chronic medical conditions and comprehensive annual evaluation. Continued GERD despite treatment for H. Pylori 08/2024. Using omeprazole daily, discussed increasingto BID and returning to GI. Social History Tobacco: denied Drugs: none Alcohol: No Sexuality: Denies current sexual activity Suicide/Depression: The patient denies any present symptoms of depression or anxiety. Review of Systems Current Outpatient Medications: albuterol 108 (90 Base) MCG/ACT inhaler, Inhale 2 puffs every 6 (six) hours if needed for wheezing., Disp: 18 g, Rfl: 11 omeprazole OTC (PriLOSEC OTC) 20 MG EC tablet, Take 1 tablet (20 mg) by mouth before breakfast and before evening meal. Do not crush, chew, or split., Disp: 60 tablet, Rfl: 11 Allergies Allergen Reactions Seasonique [Levonorgest-Eth Estrad -Day] Past Medical History: Diagnosis Date Asthma Gastroesophageal reflux disease 06/29/2022 -check H.pylori breath test -dietary changes discussed, sami eliminating coffee - trial of omeprazole-return 1 month Low back pain with radiation, unspecified laterality 09/11/2022 Mild intermittent asthma 09/05/2018 -Well controlled Past Surgical History: Procedure Laterality Date BARIATRIC SURGERY CARPAL TUNNEL RELEASE Right CHOLECYSTECTOMY LIPOMA RESECTION TUBAL LIGATION Family History Problem Relation Name Age of Onset Other (dyslipidemia) Mother Diabetes Maternal Grandmother Objective Visit Vitals BP 117/62 (BP Location: Left arm, Patient Position: Sitting, BP Cuff Size: Adult) Pulse 68 Temp 98.9 ??F (37.2 ??C) (Oral) Resp 20 Wt 166 lb (75.3 kg) SpO2 98% BMI 28.49 kg/m?? OB Status Having periods Smoking Status Never BSA 1.84 m?? Physical Exam 44 y.o. female annual evaluation. Problem List Items Addressed This Visit Gastroesophageal reflux disease - Primary -check H.pylori breath test was positive 08/2024 and symptoms still present. She took about 10 of 14days of treatment -hx gastric sleeve 2018 -dietary changes discussed, sami eliminating coffee -no improvement despite omeprazole 20 since 08/2024 -referral to GI placed 10/08/24 Relevant Medications omeprazole OTC (PriLOSEC OTC) 20 MG EC tablet Other Relevant Orders Referral to Gastroenterology Mild intermittent asthma -Well controlled Relevant Medications albuterol 108 (90 Base) MCG/ACT inhaler Vitamin D deficiency Relevant Orders Vitamin D, 25-Hydroxy, Total, Immunoassay Anemia Relevant Orders CBC auto differential Ferritin TSH with Reflex to Free T4 Iron And Total Iron Binding Capacity Vitamin B12 (Cobalamin) and Folate Panel, Serum Hx of gastric bypass Relevant Orders Lipid Panel, Standard Hepatic Function Panel Basic Metabolic Panel Colon cancer screening Other specified health status Annual Evaluation -Normal growth and development. -Anticipatory guidance discussed. -Preventative care / harm reduction discussed. Follow up in about 1 year (around 10/08/2025) for physical. IBrooke, am serving as a scribe to document services personally performed by Dr. Brown, based on the patient's response to questions by provider and providers statements to me. documented in this encounter Miscellaneous Notes * Assessment & Plan Note - Clementine Cobos MD - 10/08/2024 10:41 AM EDT Associated Problem(s): Mild intermittent asthma -Well controlled * Assessment & Plan Note - Clementine Cobos MD - 10/08/2024 10:40 AM EDT Associated Problem(s): Gastroesophageal reflux disease -check H.pylori breath test was positive 08/2024 and symptoms still present. She took about 10 of 14days of treatment -hx gastric sleeve 2018 -dietary changes discussed, sami eliminating coffee -no improvement despite omeprazole 20 since 08/2024 -referral to GI placed 10/08/24 documented in this encounter Plan of Treatment Upcoming Encounters Date Type Department Care Team (Late st Contact Info) Description 10/31/2024 8:00 AM EDT Office Visit [facility] [address] [place] [address] Otoole-Mercado, Sofia, DDS [address] [place], [place] [phone] 03/26/2025 8:00 AM EDT Office Visit [facility] [address] [place] [address] Tianna Chandar Scheduled Orders Name Type Priority Associated Diagnoses Orde r Schedule CBC auto differential Lab Routine Anemia, unspecified type Expected: 10/08/2024 (Approximate), Expires: 10/08/2025 Ferritin Lab Routine Anemia, unspecified type Expected: 10/08/2024, Expires: 10/08/2025 TSH with Reflex to Free T4 Lab Routine Anemia, unspecified type Expected: 10/08/2024 (Approximate), Expires: 10/08/2025 Iron And Total Iron Binding Capacity Lab Routine Anemia, unspecified type Expected: 10/08/2024, Expires: 10/08/2025 Vitamin B12 (Cobalamin) and Folate Panel, Serum Lab Routine Anemia, unspecified type Expected: 10/08/2024, Expires: 10/08/2025 Vitamin D, 25-Hydroxy, Total, Immunoassay Lab Routine Vitamin D deficiency Expected: 10/08/2024 (Approximate), Expires: 10/08/2025 Lipid Panel, Standard Lab Routine Hx of gastric bypass Expected: 10/08/2024 (Approximate), Expires: 10/08/2025 Hepatic Function Panel Lab Routine Hx of gastric bypass Expected: 10/08/2024 (Approximate), Expires: 10/08/2025 Basic Metabolic Panel Lab Routine Hx of gastric bypass Expected: 10/08/2024 (Approximate), Expires: 10/08/2025 Scheduled Referrals Name Type Priority Associated Diagnoses Order Schedule Referral to Gastroenterology Outpatient Referral Routine Gastroesophageal reflux disease, unspecified whether esophagitis present Expected: 10/08/2024 (Approximate), Expires: 10/08/2025 documented as of this encounter Visit Diagnoses Diagnosis Gastroesophageal reflux disease, unspecified whether esophagitis present- Primary Gastroesophageal reflux disease with esophagitis, unspecified whether hemorrhage Mild intermittent asthma without complication Vitamin D deficiency Anemia, unspecified type Hx of gastric bypass Colon cancer screening Special screening for malignant neoplasms, colon Other specified health status documented in this encounter Additional Health Concerns Assessment Noted Time PHQ-9 Depression Total Score: 0 10/09/19 10:30 AM EDT documented as of this encounter Care Teams Ratchet Setter Relationship Specialty Start Date End Date Clementine Cobos MD [address] [place] [address] PCP - General Family Medicine 06/25/18 Manoj Garcia MD [address] [place] [address] Obstetrics and Gynecology 07/22/24 Emir Medina MD [address] [place] [address] Bariatrics 10/08/24 Xavi Villafuerte MD [address] [place] [address] 3rd [place] [address] Gastroenterology 10/08/24 Enrike Arvizu MD [address] [place] [address] Cardiology 10/08/24 documented as of this encounter
--- OUTSIDE RECORDS SUMMARY | 2024-10-09 09:01 | XMS_ITS | Encounter Summary ---
Author Organization [employer] Address 75 [facility] 7t [place] [address] Care Team Providers Care School Bus Dispatcher Name Role Phone Clementine Cobos MD Primary Care Provider [phone]- [phone] Manoj Garcia MD Unavailable Reason for Visit * Reason Onset Date Comments chart prep 10/07/2024 Encounter Details Date Type Department Care Team ([facility] Contact Info) Description 10/07/2024 Telephone [facility] 230 [place], [place] [phone] Clementine Cobos MD 230 [place], [place] [phone] chart prep Social History Tobacco Use Types Packs/Day Years [...] encounter Miscellaneous Notes * Telephone Encounter - Rochelle Naavrrete [place] - 10/07/2024 9:35 AM EDT ..Chart Prep Labs: not applicable Images: not applicable Vaccines due: Updated Referrals: ENT Requested notes by Fax. Waiting for notes. Screenings: Colonoscopy Overdue care gaps: Sbirt, GAD7, Disability , and Oral Health documented in this encounter Plan of Treatment Upcoming Encounters Date Type Department Care Team (Late st Contact Info) Description 10/31/2024 8:00 AM EDT Office Visit [facility] ADULT DENTAL [address] [place] [address] Otoole-Mercado, Sofia, DDS 230 [place], [place] [phone] 03/26/2025 8:00 AM EDT Office Visit [facility] ADULT DENT[facility] [address] [place] [address] Tianna Chandra documented as of this encounter Visit Diagnoses Not on filedocumented in this encounter Additional Health Concerns Assessment Noted Time PHQ-9 Depression Total Score: 0 12/24/19 24 11:02 AM EDT documented as of this encounter Care Teams School Bus Dispatcher Relationship Specialty Start Date End Date Clementine Cobos MD [address] [place] [address] PCP - General Family Medicine 06/25/18 Manoj Garcia MD [address] [place] [address] Obstetrics and Gynecology 07/22/24 documented as of this encounter
--- OUTSIDE RECORDS SUMMARY | 2024-10-09 09:01 | XMS_ITS | Encounter Summary ---
Author Organization [employer] Address [address] [facility] [address] 7t [place] [address] Care Team Providers Care Government Affairs Specialist Name Role Phone Clementine Cobos MD Primary Care Provider [phone]- [phone] Manoj Garcia MD Unavailable Emir Medina MD Unavailable [phone] Xavi Villafuerte MD Unavailable [phone] Enrike Arvizu MD Unavailable [phone] Encounter Details Date Type Department Care Team (Latest Contact Info) Description 10/08/2024 Travel Social History Tobacco Use Types Packs/Day [...] Description 10/31/2024 8:00 AM EDT Office Visit [facility] ADULT DENT[facility] 230 [place] [address] Xiang-Sofia Mercado, DDS [address] [place] [address] 03/26/2025 8:00 AM EDT Office Visit [facility]ULT D[facility] [address] [place] [address] Tianna Chandra documented as of this encounter Visit Diagnoses Not on filedocumented in this encounter Additional Health Concerns Assessment Noted Time PHQ-9 Depression Total Score: 0 10/09/19 25 10:30 AM EDT documented as of this encounter Care Teams Government Affairs Specialist Relationship Specialty Start Date End Date Clementine Cobos MD 230 [place] [address] PCP - General Family Medicine 06/25/18 Manoj Garcia MD [address] [place] [address] [address] [place] [address] Obstetrics and Gynecology 07/22/24 Emir Medina MD [address] [place] [address] [address] [place] [address] Bariatrics 10/08/24 Xavi Villafuerte MD [address] [place] [address] 3rd [place] [address] Gastroenterology 10/08/24 Enrike Arvizu MD [address] [place] [address] Cardiology 10/08/24 documented as of this encounter
--- OUTSIDE RECORDS SUMMARY | 2024-10-09 09:01 | XMS_ITS | Encounter Summary ---
Author Organization [employer] Address 75 [facility] 7t [place] [address] Care Team Providers Care Senior Capital Markets Specialist Name Role Phone Clementine Cobos MD Primary Care Provider [phone]- [phone] Manoj Garcia MD Unavailable Emir Medina MD Unavailable [phone] Xavi Villafuerte MD Unavailable [phone] Enrike Arvizu MD Unavailable [phone] Reason for Visit * Reason Comments Med Change Request Encounter Details Date Type Department Care Team (Late st Contact Info) Description 10/08/2024 Refill [facility] [address] [place], [place] [phone] Clementine Cobos MD 230 [place], [place] [phone] Gastroesophageal reflux disease with esophagitis, unspecified whether hemorrhage Social History Tobacco Use Types Packs/Day Years [...] Description 10/31/2024 8:00 AM EDT Office Visit [facility] ADULT DENT[facility] [address] [place] [address] Sofia Miller, DDS [address] [place] [address] 03/26/2025 8:00 AM EDT Office Visit [facility] [address] [place] [address] Tianna Chandra documented as of this encounter Visit Diagnoses Diagnosis Gastroesophageal reflux disease with esophagitis, unspecified whether hemorrhage documented in this encounter Additional Health Concerns Assessment Noted Time PHQ-9 Depression Total Score: 0 10/09/19 25 10:30 AM EDT documented as of this encounter Care Teams Senior Capital Markets Specialist Relationship Specialty Start Date End Date Clementine Cobos MD [address] [place] [address] PCP - General Family Medicine 06/25/18 Manoj Garcia MD [address] [place] [address] Obstetrics and Gynecology 07/22/24 Emir Medina MD [address] [place] [address] Bariatrics 10/08/24 Xavi Villafuerte MD [address] 3rd [place] [address] Gastroenterology 10/08/24 Enrike Arvizu MD [address] [place] [address] Cardiology 10/08/24 documented as of this encounter
[2024-10-09 11:23] LABS: MANUAL DIFF FLAG NO
[2024-10-09 11:36] LABS: Basophils Absolute Auto 0.1 X10*3/uL (0.0-0.2); Basophils Percent Auto 0.8 % (0-2); Eosinophils Absolute Auto 0.5 X10*3/uL (0.0-0.4); Eosinophils Percent Auto 8.3 % (0-4); Hematocrit 35.4 % (37.0-47.0); Hemoglobin 10.8 g/dl (12.0-16.0); Imm Gran Abs Auto 0.01 X10*3/uL (0.00-0.03); Imm Gran Pct Auto 0.2 % (0.0-0.4); Lymphocytes Absolute Auto 2.1 X10*3/uL (1.2-4.9); Lymphocytes Percent Auto 34.1 % (20-40); Mean Corpuscular HGB Conc 30.5 g/dl (31.0-35.0); Mean Corpuscular Hemoglobin 23.6 pg (27.0-33.0); Mean Corpuscular Volume 77.5 fL (80.0-98.0); Monocytes Absolute Auto 0.6 X10*3/uL (0.1-1.2); Monocytes Percent Auto 9.3 % (2-11); Neutrophils Percent Auto 47.3 % (45-73); Platelet Count 294 X10*3/uL (160-400); Red Blood Count 4.57 X10*6/uL (4.20-5.50); Red Cell Distribution Width 15.2 % (11.0-16.0); White Blood Count 6.3 X10*3/uL (4.8-10.8)
[2024-10-09 12:16] LABS: Folate 9.9 ng/mL (> or = 4.0); Vitamin B12 775 pg/mL (200-900)
[2024-10-09 12:29] LABS: Alanine Aminotransferase 22 U/L (0-31); Albumin Level 4.1 g/dL (3.5-5.0); Anion Gap 9 (12-20); Aspartate Amino Transferase 27 U/L (5-31); Bilirubin Direct 0.1 mg/dL (0.0-0.5); Bilirubin Total 0.4 mg/dL (0.0-1.0); Blood Urea Nitrogen 14 mg/dL (9-16); Calcium 8.7 mg/dL (8.4-10.2); Carbon Dioxide 27 mmol/L (22-29); Chloride 107 mmol/L (96-108); Cholesterol 252 mg/dL (<200); Estimated Glomerular Filt Rate > 60; Ferritin 7 ng/mL (10-250); Glucose Random 90 mg/dL (60-115); HDL Cholesterol 61 mg/dL (>40); Iron 34 mcg/dL (30-160); LDL Cholesterol Calculated 151 mg/dL (<100); Percent Iron Saturation 9 % (15-50); Potassium 4.4 mmol/L (3.3-5.1); Sodium 139 mmol/L (135-145); TSH reflex Free T4 1.16 uIU/mL (0.32-4.0); Total Iron Binding Capacity 383 mcg/dL (228-428); Triglycerides 200 mg/dL (<150); Unsaturated Iron Binding 349 ug/dL; Vitamin D 25-OH Total 28.8 ng/mL (>30)
[2024-10-09 12:35] LABS: Alkaline Phosphatase 52 U/L (39-117)
== END 2024-10-09 08:34 | disposition home or self-care (01) ==
LOC: HO.HHCL 08:33
PROVIDERS: Visit Provider Family Medicine
DX: Z98.84 Bariatric surgery status (principal); E55.9 Vitamin D deficiency, unspecified; D64.9 Anemia, unspecified; Z13.6 Encounter for screening for cardiovascular disorders
CPT/HCPCS: 36415; 80048; 80061; 80076; 82306; 82607; 82728; 82746; 83540; 84443; 85025

== ENCOUNTER 2024-12-17 08:26 | Outpatient (REF) | payer OTHER, MEDICAID, SELFPAY ==
--- OUTSIDE RECORDS SUMMARY | 2024-12-17 08:42 | XMS_ITS | Clinical Summary ---
Author Organization [facility] ity Address [address] [place] [address] Care Team Providers Care Solvent Station Attendant Name Role Phone Clementine Cobos MD Primary Care Provider [phone]- [phone] Surgical History Surgery Date Site/Laterality Comments CHOLECYSTECTOMY [...] 01/31/2023 1:08 PM EDT Plan of Treatment Upcoming Encounters Date Type Department Care Team ([facility] st Contact Info) Description 02/17/2025 8:00 AM EDT Office Visit Bariatric Surgery - [place] [address] [facility] [address] [place] [address] Merna Anderson PA 175 [facility] 120 [place] [address] Health Maintenance Due Date Last Done Comments [...] on patient's age to complete this topic Insurance MEDICAID - [place] Care Teams Solvent Station Attendant Relationship Specialty Start Date End Date [place], MD Clementine [address] [place] [phone] PCP - General Internal Medicine 12/18/12
[2024-12-17 11:10] LABS: MANUAL DIFF FLAG NO
[2024-12-17 11:16] LABS: Basophils Absolute Auto 0.1 X10*3/uL (0.0-0.2); Basophils Percent Auto 0.6 % (0-2); Eosinophils Absolute Auto 0.2 X10*3/uL (0.0-0.4); Eosinophils Percent Auto 2.5 % (0-4); Hematocrit 36.3 % (37.0-47.0); Hemoglobin 11.5 g/dl (12.0-16.0); Imm Gran Abs Auto 0.02 X10*3/uL (0.00-0.03); Imm Gran Pct Auto 0.3 % (0.0-0.4); Lymphocytes Absolute Auto 2.6 X10*3/uL (1.2-4.9); Lymphocytes Percent Auto 32.2 % (20-40); Mean Corpuscular HGB Conc 31.7 g/dl (31.0-35.0); Mean Corpuscular Hemoglobin 24.9 pg (27.0-33.0); Mean Corpuscular Volume 78.6 fL (80.0-98.0); Mean Platelet Volume 9.9 fL (9.4-12.3); Monocytes Absolute Auto 0.6 X10*3/uL (0.1-1.2); Monocytes Percent Auto 7.4 % (2-11); Neutrophils Absolute Auto 4.5 x10*3/uL (2.0-8.3); Platelet Count 283 X10*3/uL (160-400); Red Blood Count 4.62 X10*6/uL (4.20-5.50); Red Cell Distribution Width 17.2 % (11.0-16.0)
[2024-12-17 11:46] LABS: Cholesterol 220 mg/dL (<200); HDL Cholesterol 58 mg/dL (>40); Iron 60 mcg/dL (30-160); LDL Cholesterol Calculated 118 mg/dL (<100); Percent Iron Saturation 16 % (15-50); Total Iron Binding Capacity 367 mcg/dL (228-428); Triglycerides 223 mg/dL (<150); Unsaturated Iron Binding 307 ug/dL
[2024-12-17 11:55] LABS: Ferritin 13 ng/mL (10-250)
== END 2024-12-17 08:27 | disposition home or self-care (01) ==
LOC: HO.HHCL 08:26
PROVIDERS: PCP Family Medicine; Visit Provider Family Medicine
DX: D50.9 Iron deficiency anemia, unspecified (principal); E78.5 Hyperlipidemia, unspecified; E55.9 Vitamin D deficiency, unspecified
CPT/HCPCS: 36415; 80061; 82306; 82728; 83540; 85025

== ENCOUNTER 2025-02-13 08:30 | Outpatient (REF) | payer OTHER, MEDICAID, SELFPAY ==
--- OUTSIDE RECORDS SUMMARY | 2025-02-13 08:46 | XMS_ITS | Clinical Summary ---
Author Organization [facility] ity Address [address] [place] [address] Care Team Providers Care Office Services Associate Name Role Phone Clementine Cobos MD Primary Care Provider [phone] Surgical History Surgery Date Site/Laterality Comments CHOLECYSTECTOMY [...] Care Team (Late st Contact Info) Description 02/17/2025 8:00 AM EDT Office Visit Bariatric Surgery - [address] 120 [place] [address] Merna Anderson PA 175 [facility] 120 [place] [address] Health Maintenance Due Date Last Done Comments Breast Cancer Screening 1978 DTaP,Tdap,and Td Vaccines (1 - Tdap) 1997 Hepatitis B Vaccines (1 of 3 - 19+ 3-dose series) 1997 Cervical Cancer Screening: P ap Smear 1999 Colorectal Cancer Screening: Colonoscopy 06/03/2022 HIV Screening 06/03/2022 Hepatitis C Screening 06/03/2022 Social Influencers of Health Screening 06/03/2022 COVID-19 Vaccine ( - 2023-2 5 season) 2024 Depression Screening 06/25/2024 Influenza Vaccine (#1) 2025 HIB Vaccines Aged Out No longer [...] 5 Years) and At-Risk Patients (6 to 49 Years) Aged Out No longer eligible b ased on patient's age to complete this topic RSV Immunization Patients Un ching 20 months Aged Out No longer eligible b ased on patient's age to complete this topic Varicella Vaccines Aged Out No longer eligible based on patient's age to complete this topic Insurance [place]ICAID - [place] [facility] [address] [place] [address] Care Teams Office Services Associate Relationship Specialty Start Date End Date Clementine Cobos MD [address] [place] [phone] PCP - General Internal Medicine 12/18/12
--- OUTSIDE RECORDS SUMMARY | 2025-02-13 08:46 | XMS_ITS | Encounter Summary ---
Author Organization [facility] Address [address] [place] [phone] Phone Care Team Providers Care Public Address Systems Mechanic Name Role Phone Pcp, Unknown Primary Care Provider Unavailabl e Unknown, Unknown Primary Care Provider Clementine Antonio MD Primary Care Provi ching Encounter Details Date Type Department Care Team (Latest Contact Info) Description 07/17/2017 Ancillary Orders [facility] [address] [place] [address] [place] [address] Enrike Arvizu, [address] [address] Palpitations; Bradycardia; Chest pain, unspecified type Social History Tobacco Use Types Packs/Day Years Used Date Smoking Tobacco: Never Assessed Comments Unknown Sex and Gender Information Value Date Recorded Sex Assigned at Female 02/28/2019 2:32 PM EDT Legal Sex Female 6:41 PM EST Gender Identity Female 02/28/2019 2:32 PM EDT Sexual Orientation Straight 02/28/2019 2: 32 PM EDT documented as of this encounter Plan of Treatment Not on file documented as of this encounter Results * Holter Monitor 24 Hours (07/17/2017 10:36 AM EST) Anatomical Region Laterality Modality Heart Other Narrative 07/17/2017 5:49 PM EST 24-hour Holter monitor report on Carmine Herrera Date of [address] Arvizu Indication for study chest pain palpitations Findings: Patient was monitored for 24 hours and was in sinus rhythm throughout the recording with a heart rate varying from 48 bpm to a maximum heart rate of 141 bpm. Average heart rate was 81. There was a single isolated PVCs noted during the recording. There were 79 isolated PACs and no runs of supraventricular tachycardia. There were no pauses or significant bradycardia. No patient log was included for correlation. Conclusion: entirely normal 24-hour Holter monitor showing a single isolated PVCs and rare isolated PACs. No symptoms were identified. There is no prior study for comparison. Enrike Arvizu DO [facility] ORDERABLE S Final Result documented in this encounter Visit Diagnoses Diagnosis Palpitations Bradycardia Other specified cardiac dysrhythmias Chest pain, unspecified type Palpitations Bradycardia Other specified cardiac dysrhythmias Chest pain, unspecified type documented in this encounter Additional Health Concerns Infection Onset Date Last Indicated Resolved Time CoV-Risk 06/20/2021 06/20/2021 06/30/2021 1:23 AM EST documented as of this encounter Care Teams Public Address Systems Mechanic Relationship Specialty Start Date End Date Pcp, Unknown PCP - General 07/17/17 05/29/18 Unknown, Unknown, PCP - General 05/30/18 07/25/18 Clementine Cobos MD 230 [place] [address] PCP - General Family Medicine 07/26/18 documented as of this encounter Additional Source Comments The information contained in this document represents components of the legal health record. It is not the complete legal health record.[facility]
[2025-02-13 12:35] LABS: Alanine Aminotransferase 21 U/L (0-31); Albumin Level 4.4 g/dL (3.5-5.0); Alkaline Phosphatase 57 U/L (39-117); Aspartate Amino Transferase 24 U/L (5-31); Cholesterol 240 mg/dL (<200); HDL Cholesterol 58 mg/dL (>40); Total Protein 7.2 g/dL (6.5-8.0); Triglycerides 237 mg/dL (<150)
== END 2025-02-13 08:31 | disposition home or self-care (01) ==
LOC: HO.HHCL 08:30
PROVIDERS: PCP Family Medicine; Visit Provider Family Medicine
DX: E78.5 Hyperlipidemia, unspecified (principal)
CPT/HCPCS: 36415; 80061; 80076

== ENCOUNTER 2025-03-13 09:22 | Outpatient (AMB) | payer OTHER, MEDICAID, SELFPAY ==
--- OUTSIDE RECORDS SUMMARY | 2025-03-09 15:30 | XMS_ITS | Encounter Summary ---
Author Organization [employer] Address 75 [facility] 7[address] [place] [address] Care Team Providers Care Gasket Inspector Name Role Phone [place], Clementine MORGAN Primary Care Provider [phone]- [phone] Manoj Garcia MD Unavailable Emir Medina MD Unavailable [phone] Xavi Villafuerte MD Unavailable [phone] Enrike Arvizu MD Unavailable [phone] Reason for Visit * Reason Comments [employer] Encounter Details Date Type Department Care Team (Late st Contact Info) Description 03/09/2025 3:30 PM EDT Office Visit [facility] ADULT DENTAL [address] [place], [place] [phone] Sofia Miller DDS [address] [place], [place] [phone] Full coverage crown needed for root canal-treated tooth (Primary Dx) Social History Tobacco Use Types [...] Answer Date Recorded Internet Access Q1 No 12/24/2024 Internet Access Q2 Not on file 12/24/2024 Comments No Sex and Gender Information Value Date Recorded Sex Assigned at Female 04/24/2022 10:16 AM EDT Legal Sex Female 10:16 AM EDT Gender Identity Female 04/24/2022 10:16 AM EDT Sexual Orientation Straight 04/24/2022 10 :16 AM EDT documented as of this encounter Progress Notes * Sofia Miller DDS - 03/09/2025 3:30 PM EDT Patient ID: Carmine Herrera is a 44 y.o. female. Time Out: Timeout Date: 03/09/25, Timeout Time: 1524 (Time out for crown delivery on tooth #21) Location: [facility] Tooth: #20 Procedure: [employer] delivery Verified the above with patient, legal administrative assistant, and provider. Confirmed via patient's chart, intraorally and by radiographs. Hat Model: not applicable Chief Complaint Patient presents with [employer] Medical Hx: Vitals: There were no vitals taken for this visit. Medications, Med Hx reviewed with patient and updated in chart. Consent Obtained: The risks, benefits, indications, potential complications, and alternatives were explained to the patient and informed consent was obtained with good understanding. Treatment Provided: Dental procedures in this visit D2740 - CROWN - PORCELAIN/CERAMIC 21 (Completed) Service provider: Sofia Miller DDS Billing provider: Sofia Miller DDS [id number] - INTRAORAL - PERIAPICAL FIRST RADIOGRAPHIC IMAGE (Completed) Service provider: Sofia Miller DDS Billing provider: Sofia Miller DDS [id number] - BITEWING - SINGLE RADIOGRAPHIC IMAGE (Completed) Service provider: Sofia Miller DDS Billing provider: Sofia Miller DDS [id number] - CASE PRESENTATION, DETAILED AND EXTENSIVE TREATMENT PLANNING (Completed) Service provider: Sofia Miller DDS Billing provider: Sofia Miller DDS Isolation: cotton rolls and high speed suction Removed Provisional and cleaned excess cement, pumiced tooth as needed. Tried on final mosque Verified interproximal contacts and margins BW taken to confirm margins and contacts Occlusion adjusted as needed Tooth Treatment: 37% Phosphoric Acid Etch and Manager Personnel Selection applied Cemented with: Relyx Unicem Cleaned excess cement, flossed Patient satisfied with comfort and esthetics. POI given. Patient discharged alert, oriented, and in stable condition NV: 6 mo periodic exam PAD Grinder Lap: Tracy Lam Dentist: Sofia Miller DDS documented in this encounter Plan of Treatment Upcoming Encounters Date Type Department Care Team (Late st Contact Info) Description 03/26/2025 8:00 AM EDT Office Visit [facility] ADULT DENTAL [address] [place] [address] Tianna Chandra documented as of this encounter Procedures Procedure Name Priority Date/Time Associated Diagnosis Comments INTRAORAL - PERIAPICAL FIRST RADIOGRAPHIC IMAGE Routine 03/09/2025 3:30 PM EDT Full coverage crown needed for root canal-treated tooth 21 CROWN - PORCELAIN/CERAMIC Routine 03/09/2025 3:30 PM EDT Full coverage crown needed for root canal-treated tooth CASE PRESENTATION, DETAILED AND EXTENSIVE TREATMENT PLANNING Routine 03/09/2025 3:30 PM EDT Full coverage crown needed for root canal-treated tooth BITEWING - SINGLE RADIOGRAPHIC IMAGE Routine 03/09/2025 3:30 PM EDT Full coverage crown needed for root canal-treated tooth documented in this encounter Visit Diagnoses Diagnosis Full coverage crown needed for root canal-treated tooth- Primary documented in this encounter Additional Health Concerns Assessment Noted Time PHQ-9 Depression Total Score: 0 10/09/19 25 10:30 AM EDT documented as of this encounter Care Teams Gasket Inspector Relationship Specialty Start Date End Date Clementine Cobos MD [address] [place] [address] PCP - General Family Medicine 06/25/18 Manoj Garcia MD [address] [place] [address] Obstetrics and Gynecology 07/22/24 Emir Medina MD [address] [place] [address] [address] [place] [address] Bariatrics 10/08/24 Xavi Villafuerte MD [address] [place] [address] 3rd [place] [address] Gastroenterology 10/08/24 Enrike Arvizu MD [address] [place] [address] Cardiology 10/08/24 documented as of this encounter
--- OUTSIDE RECORDS SUMMARY | 2025-03-12 15:00 | XMS_ITS | Encounter Summary ---
Author Organization [employer] Address 75 [facility] 7[address] [place] [address] Care Team Providers Care Patent Prosecution Attorney Name Role Phone Clementine Cobos MD Primary Care Provider [phone] Manoj Garcia MD Unavailable Emir Medina MD Unavailable [phone] Xavi Villafuerte MD Unavailable [phone] Enrike Arvizu MD Unavailable [phone] Reason for Visit * Reason Comments Sinusitis Encounter Details Date Type Department Care Team (Late st Contact Info) Description 03/12/2025 3:00 PM EDT Office Visit [facility] 230 [place], [place] [phone] Clementine Cobos MD [address] [place], [place] [phone] Acute bacterial sinusitis (Primary Dx); Sinus symptom Social History Tobacco Use Types Packs/Day Years [...] Sign Reading Time Taken Comments Blood Pressure 130/80 03/12/2025 3:11 PM EDT Pulse 90 03/12/2025 2:37 PM EDT Temperature 36.7 C (98.1 F) 03/12/2025 2:37 PM EDT Respiratory Rate 18 03/12/2025 2:37 PM EDT Oxygen Saturation 99% 03/12/2025 2:37 PM EDT Inhaled Oxygen Concentration - - Weight 80.3 kg (177 lb) 03/12/2025 2:37 PM EDT Height - - Body Mass Index 30.38 02/19/2025 9:29 AM EDT documented in this encounter Progress Notes * Brooke Nolen - 03/12/2025 3:00 PM EDT Subjective History was provided by the patient. Carmine Herrera is a 44 y.o. female with past medical history of asthma, GERD, anemia and hx of gastric sleeve surgery 2018 who presents for evaluation of possible sinusitis. Symptoms include cough, congestion, sinus pain, and headaches. Onset of symptoms was a few days ago, unchanged since that time. Pt reports she recently had COVID-19 and since has had worsening congestion, headaches and rhinorrhea. Associated negative symptoms include fever, sore throat, nausea, and vomiting. Evaluation to date: 02/03/25 DX with COVID. Treatment to date: none. Objective Visit Vitals BP 130/80 Pulse 90 Temp 98.1 ??F (36.7 ??C) (Temporal) Resp 18 Physical Exam Constitutional: Appearance: Normal appearance. HENT: Right Ear: Tympanic membrane normal. Left Ear: Tympanic membrane normal. Nose: Congestion and rhinorrhea present. Mouth/Throat: Pharynx: Oropharynx is clear. No oropharyngeal exudate. Eyes: Conjunctiva/sclera: Conjunctivae normal. Cardiovascular: Rate and Rhythm: Normal rate and regular rhythm. Heart sounds: Normal heart sounds. Pulmonary: Effort: Pulmonary effort is normal. Breath sounds: Normal breath sounds. Musculoskeletal: Cervical back: Normal range of motion. No rigidity or tenderness. Neurological: Mental Status: She is alert. Psychiatric: Behavior: Behavior normal. Office Visit on 03/12/2025 Component Date Value Ref Range Status Influenza A 03/12/2025 Negative Negative, Indeterminate Final Influenza B 03/12/2025 Negative Negative, Indeterminate Final Rapid COVID Ag 03/12/2025 Negative Final Assessment & Plan Sinus symptom Swabs negative, suspect sinusitis based on exam and symptoms. Orders: Influenza A (ID NOW Rapid Molecular) Influenza B (ID NOW Rapid Molecular) POCT Rapid COVID Ag Acute bacterial sinusitis -Suspect acute sinusitis. Symptoms moderate. -Will treat with abx. -ER precautions discussed. -Seek medical attention for worsening symptoms. Orders: amoxicillin-clavulanate (Augmentin) 875-125 MG tablet; Take 1 tablet by mouth 2 times daily for 10 days. Future Appointments Date Time Provider Department Center 03/26/2025 8:00 AM Tianna OWENS [facility] IBrooke, am serving as a scribe to document services personally performed by Dr. Brown, based on the patient's response to questions by provider and providers statements to me. documented in this encounter Plan of Treatment Upcoming Encounters Date Type Department Care Team (Late st Contact Info) Description 03/26/2025 8:00 AM EDT Office Visit [facility] ADULT DENTAL [address] [place] [address] Tianna Chandra documented as of this encounter Procedures Procedure Name Priority Date/Time Associated Diagnosis Comments POCT INFLUENZA B (ID NOW RAPID MOLECULAR) Routine 03/12/2025 2:41 PM EDT Sinus symptom POCT INFLUENZA A (ID NOW RAPID MOLECULAR) Routine 03/12/2025 2:41 PM EDT Sinus symptom POCT RAPID COVID ANTIGEN Routine 03/12/2025 2:41 PM EDT Sinus symptom documented in this encounter Results * POCT Rapid COVID Ag (03/12/2025 2:41 PM EDT) Pathologist [facility] Rapid COVID Ag Negative Swab 03/12/2025 2:41 PM EDT Clementine Cobos MD POINT OF CARE TEST ENTER/E DIT ORDERABLES Final Result * Influenza B (ID NOW Rapid Molecular) (03/12/2025 2:41 PM EDT) [facility] Influenza B Negative Negative, Indeterminate [facility] Swab 03/12/2025 2:41 PM EDT Clementine Cobos MD POINT OF CARE TEST ENTER/E DIT ORDERABLES Final Result [facility] [address] [place] [address] [phone] * Influenza A (ID NOW Rapid Molecular) (03/12/2025 2:41 PM EDT) [facility] Influenza A Negative Negative, Indeterminate [facility] Swab 03/12/2025 2:41 PM EDT Clementine Cobos MD POINT OF CARE TEST ENTER/E DIT ORDERABLES Final Result [facility] [address] [place] [address] [phone] documented in this encounter Visit Diagnoses Diagnosis Acute bacterial sinusitis- Primary Acute sinusitis, unspecified Sinus symptom documented in this encounter Additional Health Concerns Assessment Noted Time PHQ-9 Depression Total Score: 0 10/09/19 10:30 AM EDT documented as of this encounter Care Teams Patent Prosecution Attorney Relationship Specialty Start Date End Date Clementine Cobos MD [address] [place] [address] PCP - General Family Medicine 06/25/18 Manoj Garcia MD [address] [address] Obstetrics and Gynecology 07/22/24 Emir Medina MD [address] [place] [address] Bariatrics 10/08/24 Xavi Villafuerte MD [address] 3rd [place] [address] Gastroenterology 10/08/24 Enrike Arvizu MD [address] [place] [address] Cardiology 10/08/24 documented as of this encounter
--- NOTE | 2025-03-13 09:28 | A.OFFVIS_ITS ---
Vital Signs 03/13/25 09:31 Height 5 ft 4 in Weight 176 lb 8 oz BMI 30.3 BP 138/77 Blood Pressure Location Rt brachial Position Sitting Pulse 63 Pulse Source Pulse Oximeter Pulse Oximetry (%) 100 Oxygen Delivery Method Room Air Intake Visit Reasons: Thoracic back pain Intake Note: Pain today 12/02 Hose Mender Required: No Accompanied by: Self / Same As Patient Allergies No Known Allergies Allergy (Verified 03/13/25 09:32) HPI Comments Details: The patient is a 44-year-old female presenting with persistent pain in the anterior right upper abdomen and posterior right mid back pain. The pain began following a COVID infection in 2019 and has worsened since 2022. The patient describes the pain as a constant pressure, aching, sharp and tingling sensations with occasional numbness radiating under the breast and around the ribcage. The patient underwent several rounds of physical therapy in 2021, which did not result in improvement, and she has continued home exercises since then with minimal relief. She has used various treatments including massages, Biofreeze, Flexeril and baclofen, Tylenol, lidocaine patches, and both heat and ice, but reports no new interventions. The patient reports that the only effective relief was from an injection that lasted for a year. Denies any recent cough, cold, infection, fever or any significant changes in medical history since last office visit except reports a current sinus infection for which she has been prescribed Augmentin. She has not yet started the medication. - Onset: Pain began after COVID infection in 2019 and worsened in 2022 - Quality: Described as constant pressure with occasional numbness - Location: Right mid back back radiating under the right breast and around the ribcage - Exacerbating factors: Breathing in, nighttime - Relieving factors: Coughing, certain movements - Affect: Patient bears with the pain and does not regularly take medication, stopped muscle relaxants - Analgesia: Uses Tylenol and ibuprofen when pain is severe; previously had relief from T4-T5 intercostal neuroplaque injection - Adverse Effects: No adverse effects from current medications reported - Activities of Daily Living: Pain affects nighttime comfort and breathing - Aberrant Drug Related Behaviors: No signs of medication misuse reported PRIOR 04/26/23: Patient is status post right diagnostic/therapeutic T4-T5 intercostal nerve blocks, US guided on 04/20/[address] Brown for intercostal neuralgia. Patient reports 100% ongoing pain relief of anterior right upper abdomen and posterior right mid back pain, but continues to have sharp, stabbing pain in small area in the projection of right posterior axillary and scapular line. Pain is rated at 5/10 and can be easily aggravated in higher intensities with inspiration, lifting, pulling or turning. Massaging area helps. She has not tried gabapentin as she recalls significant depression with gabapentin use in the past. Flexeril at bedtime for moderate to severe pain and spasms has been helpful. Patient is interested to undergo chiropractic adjustment and baclofen trial. If no relief, we will consider trigger point injection in the next follow up visit as patient recently received steroid injection last week. Denies any recent cough, cold, infection, fever, shortness of breath, dyspnea, chest pain, abdominal pain or other significant changes in medical history since last office visit. Past Procedures: 04/20/23: Right diagnostic/therapeutic T4-T5 intercostal nerve blocks, US guided-100% pain relief, except as noted above PRIOR: Patient is a pleasant 42 years old female with history of cholecystecomy, GERD, gastric bypass, asthma, seasonal allergies, recent gastritis symptoms with ER visit on 12/2022 presents today with right upper quadrant under the rib pain with radiations to her mid back. Pain started since COVID illness in October 2021. Patient denies abdominal pain and states it is her rib radiating to her back which increases with inspiration or expiration but cleaning her throat will slightly alleviate her symptoms. She has yet to follow up with GI provider. Pain is constant and rated 6-7/10 on average for the past month. There is a localized tenderness to palpation along the ribs in the T4-T5 distribution. 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 Patient denies any fever, malaise, unintentional weight loss, dizziness, hemoptysis, shortness of breath, chest pain, chest wall pain, abdominal or low back pain, weakness, bowel or bladder incontinence or saddle anesthesia. Location RUQ under the rib radiating to the back Duration Pain since COVID illness 10/2019 Characteristics of symptom or complaint Numbness (back), dull, stabbing, sharp, tingling Aggravating or associated factors Stress, turning, lifting right arm, breathing Relieving factors Massage (helpful), Biofreeze, Flexeril, Tylenol, lidocaine patches Treatment PT for rib cage pain 2021-no improvement PFSH Medical History Renal calculi Urinary incontinence UTI (urinary tract infection) Pain PONV (postoperative nausea and vomiting) Abdominal pain GERD (gastroesophageal reflux disease) Carpal tunnel syndrome Endometriosis Seasonal allergies Asthma Surgical History Ventral hernia (03/06/24) H/O abdominal surgery History of carpal tunnel surgery of right wrist History of esophagogastroduodenoscopy (EGD) H/O gastric bypass Hx of cholecystectomy H/O tubal ligation H/O eye surgery Social History Household Members: Children Are you a primary director of patient care to a significant other at home: No Do you presently have visiting nurse or other home services: No Alcohol intake: never Patient Tobacco Use Status: Never used Tobacco Female Reproductive History Menstrual Age of Menarche: 8 Review of Systems Const Details: - Musculoskeletal: Reports constant pressure pain in mid back, right ribcage, numbness under the breast - Respiratory: Reports pain exacerbated by inspiration - Neurological: Reports numbness and tingling in the ribcage area - Infectious Disease: Reports current sinus infection All systems reviewed & are unremarkable except as noted in HPI and below Physical Exam General: Appears afebrile. Alert and oriented. Mood and affect appropriate. Follows and participates in conversation appropriately. Respiratory effort is unlabored. Able to transition from sit to stand unassisted. Ambulates with bilaterally normal heel strike and toe off. Chest Chest palpation & inspection: normal inspection of the chest, normal palpation of entire chest wall, no crepitus and tenderness rib right posterior-axillary line involving the 4th rib and involving the 5th rib Resp Effort & Inspection: normal respiratory effort, able to speak in complete sentences, no audible wheezes, no cough, no respiratory distress, no retractions, no use of accessory muscles and symmetric chest movement Back/Spine/Pelvis Cervical Spine: cervical ROM normal, cervical muscular tenderness and No Cervical spine tenderness Thoracic/Lumbar Spine: thoracic and lumbar spine normal to inspection, paraspinal muscle tenderness on the right in the upper thoracic and in the mid thoracic, No thoracic spinal tenderness and No lumbar spinal tenderness Results Reviewed Results Reviewed: XR CHEST 01/10/23 CLINICAL INFORMATION: Right-sided pain. COMPARISON: Chest radiograph 07/08/2022. FINDINGS: Normal appearance of the cardiomediastinal silhouette. Stable mild asymmetric elevation of the right hemidiaphragm. No focal airspace opacity, pleural effusion or pneumothorax. Right upper quadrant surgical clips. No acute osseous findings. IMPRESSION: No acute cardiopulmonary findings. XR THORACIC SPINE 02/17/21 CLINICAL INFORMATION: Back pain FINDINGS: Bone alignment is normal. No fracture or dislocation is seen. There is mild degenerative spondylosis and disc space narrowing of the mid thoracic spine. Paraspinal soft tissues are normal. IMPRESSION: No fracture seen. Mild degenerative changes. 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 She does not like to take many medications, and has declined gabapentin trial as previous Right therapeutic T4-T5 intercostal nerve block injection provided her 1 year of pain relief. Schedule for Right Therapeutic T4-T5 Intercostal Nerve Block with local and US guidance. Expectations, risks and benefits were reviewed. Patient is aware she will be contacted to schedule this procedure. All questions were answered and the patient is in agreement of plan. Follow-up after injections and sooner as needed. Patient Instructions: - Continue using heat and ice, Biofreeze, lidocaine patches for pain management. - Use Tylenol or ibuprofen as needed for severe pain. - Consider tumeric and harika for its anti-inflammatory and pain relief propert ies, magnesium rich foods or supplements to calm overactive nerves and muscles, Epsom salts bath, gentle stretching exercises, avoid sudden bending or twisting and heavy lifting, maintain good posture especially when sitting, use mind-body techniques such as breathing exercises and meditation, and use supportive pillows at night. - Await contact for scheduling the injection once insurance approval is obtained. Patient was informed and verbally consented to the use of an ambient scribe for clinic note documentation during this visit. Coding Level of Care Code Est Pt Level 4 (21047) Complex EM visit Add On G2211 Diagnoses Intercostal neuralgia G58.8 Rib pain on right side R07.81 Chronic pain syndrome G89.4
[2025-03-13 09:31] VITALS: BP 138/77; PULSE 63; O2SAT 100; BMI 30.3
--- OUTSIDE RECORDS SUMMARY | 2025-03-13 09:56 | XMS_ITS | Encounter Summary ---
Author Organization [facility] Address [address] [place] [phone] Phone Care Team Providers Care Development Technician Name Role Phone Pcp, Unknown Primary Care Provider Unavailabl e Unknown, Unknown Primary Care Provider Clementine Antonio MD Primary Care Provi ching Encounter Details Date Type Department Care Team (Latest Contact Info) Description 07/17/2017 Ancillary Orders [facility] [address] [place] [address] [place] [address] Enrike Arvizu, [address] [address] Palpitations; Bradycardia; Chest pain, unspecified type Social [...] documented as of this encounter Care Teams Development Technician Relationship Specialty Start Date End Date Pcp, Unknown PCP - General 07/17/17 05/29/18 Unknown, Unknown, PCP - General 05/30/18 07/25/18 Clementine Cobos MD [address] [place] [address] PCP - General Family Medicine 07/26/18 documented as of this encounter Additional Source Comments The information contained in this document represents components of the legal health record. It is not the complete legal health record.[facility]
--- OUTSIDE RECORDS SUMMARY | 2025-03-13 09:56 | XMS_ITS | Encounter Summary ---
Author Organization [employer] Address [address] [place] [address] [address], [place] [address] Care Team Providers Care Circus Agent Name Role Phone GregoryClementine frey MD Primary Care Provider + [phone] Manoj Garcia MD Unavailable Emir Medina MD Unavailable [phone] Xavi Villafuerte MD Unavailable [phone] Enrike rAvizu MD Unavailable [phone] Encounter Details Date Type Department Care Team (Latest Contact Info) Description 09/23/2018 Abstract [facility] Dental, Provider, DDS Social History [...] Description 03/26/2025 8:00 AM EDT Office Visit [facility] ADULT [facility]ENT[facility] [address] [place], [place] [phone] Tianna Chandra documented as of this encounter Visit Diagnoses Not on filedocumented in this encounter Care Teams Circus Agent Relationship Specialty Start Date End Date Clementine Cobos MD [address] [place], [place] [phone] PCP - General Family Medicine 06/25/18 Manoj Gacria MD [address] [place] [address] Obstetrics and Gynecology 07/22/24 Emir Medina MD [address] [facility] [address] [place] [address] Bariatrics 10/08/24 Xavi Villafuerte MD [address] [place] [address] [address] [place] [address] Gastroenterology 10/08/24 Enrike Arvizu MD [address] [place] [address] Cardiology 10/08/24 documented as of this encounter
--- OUTSIDE RECORDS SUMMARY | 2025-03-13 09:56 | XMS_ITS | Encounter Summary ---
Author Organization [employer] Address [address] [facility] 7t [place] [address] Care Team Providers Care Rat Exterminator Name Role Phone Clementine Cobos MD Primary Care Provider [phone] Manoj Garcia MD Unavailable Emir Medina MD Unavailable [phone] Xavi Villafuerte MD Unavailable [phone] Enrike Arvizu MD Unavailable [phone] Reason for Visit * Reason Comments Med Change Request Encounter Details Date Type Department Care Team (Late st Contact Info) Description 07/27/2023 Refill [facility] [address] [place], [place] [phone] Clementine Cobos MD [address] [place], [place] [phone] Social History Tobacco Use Types Packs/Day Years [...] Description 03/26/2025 8:00 AM EDT Office Visit [facility] [address] [place] [address] Tianna Chandra documented as of this encounter Visit Diagnoses Not on filedocumented in this encounter Additional Health Concerns Assessment Noted Time PHQ-9 Depression Total Score: 0 09/12/19 10:19 AM EDT documented as of this encounter Care Teams Rat Exterminator Relationship Specialty Start Date End Date Clementine Cobos MD [address] [place] [address] PCP - General Family Medicine 06/25/18 Manoj Garcia MD [address] [place] [address] Obstetrics and Gynecology 07/22/24 Emir Medina MD [address] [place] [address] Bariatrics 10/08/24 Xavi Villafuerte MD [address] [place] [address] Drive 3rd [place] [address] Gastroenterology 10/08/24 Enrike Arvizu MD [address] [place] [address] Cardiology 10/08/24 documented as of this encounter
--- OUTSIDE RECORDS SUMMARY | 2025-03-13 09:56 | XMS_ITS | Encounter Summary ---
Author Organization [employer] Address [address] [facility] 7t [place] [address] Care Team Providers Care Scarf And Anneal Operator Name Role Phone [place], Clementine MORGAN Primary Care Provider [phone] Manoj Garcia MD Unavailable Emir Medina MD Unavailable [phone] Xavi Villafuerte MD Unavailable [phone] Enrike Arvizu MD Unavailable [phone] Encounter Details Date Type Department Care Team (Latest Contact Info) Description 03/12/2025 Travel Social History Tobacco Use Types Packs/Day [...] Description 03/26/2025 8:00 AM EDT Office Visit [facility] ADULT DENT[facility] [address] [place] [address] Tianna Chandra documented as of this encounter Visit Diagnoses Not on filedocumented in this encounter Additional Health Concerns Assessment Noted Time PHQ-9 Depression Total Score: 0 10/09/19 25 10:30 AM EDT documented as of this encounter Care Teams Scarf And Anneal Operator Relationship Specialty Start Date End Date Clementine Cobos MD [address] [place] [address] PCP - General Family Medicine 06/25/18 Manoj Garcia MD [address] [place] [address] [address] [place] [address] Obstetrics and Gynecology 07/22/24 Emir Medina MD [address] [place] [address] Bariatrics 10/08/24 Xavi Villafuerte MD [address] [place] [address] Gastroenterology 10/08/24 Enrike Arvizu MD [address] [place] [address] Cardiology 10/08/24 documented as of this encounter
--- OUTSIDE RECORDS SUMMARY | 2025-03-13 09:56 | XMS_ITS | Encounter Summary ---
Author Organization [employer] Address [address] [facility] [address] [place] [address] Care Team Providers Care Ship Harbor Pilot Name Role Phone Clementine Cobos MD Primary Care Provider [phone] Manoj Garcia MD Unavailable Emir Medina MD Unavailable [phone] Xavi Villafuerte MD Unavailable [phone] Enrike Arvizu MD Unavailable [phone] Encounter Details Date Type Department Care Team (Late st Contact Info) Description 11/17/2022 Abstract [facility] [address] [place], [place] [phone] Clementine Cobos MD [address] [place], [place] [phone] Social History Tobacco Use Types Packs/Day Years [...] Description 03/26/2025 8:00 AM EDT Office Visit [facility] ADULT [facility] [address] [place], [place] [phone] Chandra, Tianna documented as of this encounter Visit Diagnoses Not on filedocumented in this encounter Additional Health Concerns Assessment Noted Time PHQ-9 Depression Total Score: 0 09/12/19 23 10:19 AM EDT documented as of this encounter Care Teams Ship Harbor Pilot Relationship Specialty Start Date End Date Clementine Cobos MD [address] [place] [address] PCP - General Family Medicine 06/25/18 Manoj Garcia MD [address] [place] [address] Obstetrics and Gynecology 07/22/24 Emir Medina MD [address] [place] [address] Bariatrics 10/08/24 Xavi Villafuerte MD [address] [place] [address] 3rd [place] [address] Gastroenterology 10/08/24 Enrike Arvizu MD [address] [place] [address] Cardiology 10/08/24 documented as of this encounter
--- OUTSIDE RECORDS SUMMARY | 2025-03-13 09:56 | XMS_ITS | Clinical Summary ---
Author Organization [facility] Address [address] [place] [phone] Phone Care Team Providers Care Guidance Director Name Role Phone Clementine Cobos MD Primary Care Provi ching Allergies No known active allergies Medications methylPREDNISolone (MEDROL DOSEPACK) 4 mg tabletIndications: Rash and other nonspecific skin eruption follow package directions 21 tablet 9 Active triamcinolone acetonide 0.1 % ointmentIndication s:Rash and other nonspecific skin eruption Apply topically 2 (two) times a day. 30 g 9 Active PAIN RELIEF EXTRA STRENGTH 500 mg tablet TAKE 2 TABLETS BY MOUTH EVERY 8 HOURS 0 9 Active cholecalciferol (VITAMIN D3) 5,000 unit capsule Take by mouth daily. 6 9 Active clarithromycin (BIAXIN) 250 MG tablet TAKE 1 TABLET BY MOUTH TWICE A DAY FOR 2 WEEKS 0 9 Active DULoxetine (CYMBALTA) 20 MG capsule Take by mouth daily. 5 9 Active lisinopril (PRINIVIL,ZESTRIL) 10 MG tablet Take 10 mg by mouth daily. 5 9 Active metroNIDAZOLE (FLAGYL) 500 MG tablet TAKE 1 TAB BY MOUTH 3 TIMES DAILY FOR 14 DAYS. 0 9 Active omeprazole (PRILOSEC) 20 MG capsule TAKE 1 CAP BY MOUTH 2 TIMES DAILY FOR 28 DAYS. 0 9 Active ondansetron (ZOFRAN-ODT) 4 MG disintegrating tablet DISSOLVE 1 TABLET BY MOUTH EVERY 8 HOURS NEEDED 0 9 Active oxyCODONE 5 MG immediate release tablet TAKE 1 OR 2 TABLETS BY MOUTH EVERY 4 HOURS NEEDED 0 9 Active simethicone (MYLICON) 80 mg chewable tablet CHEW AND SWALLOW 1 TABLET BY MOUTH EVERY 6 HOURS NEEDED 0 9 Active Active Problems No known active problems Immunizations Immunization Administration Dates Next Due COVID-19 (Pre-04/16) Moderna Vaccine, mRNA, PF 0 10/21/2020,09/23/2020 Hepatitis B Adult 11/29/1998,10/29/1998 Influenza, Unspecified Formulation 03/10/2021, MMR 10/03/1979 Social History Tobacco Use Types Packs/Day Years Used Date Smoking Tobacco: Never Smokeless Tobacco: Never Education Answer Date Recorded Are you interested in more education? Not on godfrey e 10/21/2022 Are you concerned about learning? Not on file 10/21/2022 No 10/21/2022 No 10/21/2022 Digital Access Answer Date Recorded No 11/17/2022 No 11/17/2022 No 11/17/2022 Reliable internet access at home? Not on file 11/17/2022 Device with a working camera? Not on file Comments No Sex and Gender Information Value Date Recorded Sex Assigned at Female 02/28/2019 2:32 PM EDT Legal Sex Female 6:41 PM EST Gender Identity Female 02/28/2019 2:32 PM EDT Sexual Orientation Straight 02/28/2019 2: 32 PM EDT Last Filed Vital Signs Vital Sign Reading Time Taken Comments Blood Pressure 118/78 05/08/2019 1:00 PM EST Pulse 58 05/08/2019 1:00 PM EST Temperature 36.7 C (98.1 F) 05/08/2019 1:00 PM EST Respiratory Rate - - Oxygen Saturation 98% 05/08/2019 1:00 PM EST Inhaled Oxygen Concentration - - Weight 68 kg (150 lb) 05/08/2019 1:00 PM EST Height 162.6 cm (5' 4 ) 05/08/2019 1:00 PM EST Body Mass Index 25.75 05/08/2019 1:00 PM EST Plan of Treatment Health Maintenance Due Date Last Done Comments CREATININE LEVEL 1978 LIPID PANEL 1978 POTASSIUM LEVEL 1978 DEPRESSION SCREENING 1990 HEPATITIS C SCREENING 1996 HIV ONE-TIME SCREENING (18-65 YEARS) 1996 PAP SMEAR 08/14/2000 08/14/1997, 12/01/1996 MAMMOGRAM 2018 Adult Td,Tdap Booster 08/07/2022 08/07/2012 COLOGUARD 2023 COLONOSCOPY 2023 COLORECTAL CANCER SCREENING 2023 FIT TEST 2023 FOBT 2023 SIGMOIDOSCOPY 2023 VIRTUAL COLONOSCOPY 2023 INFLUENZA VACCINE (#1) 2025 , 03/10/2020, 03/07/2019, Additional history exists COVID-19 VACCINE ( season) 2025 05/06/2021, 10/21/2020, 09/23/2020 PNEUMOCOCCAL VACCINES (0-49 years) Aged Out 06/06/2014 No longer eligible based on patient's age to complete this topic SMOKING STATUS SCREENING (Once After 26 Yrs) Completed 05/08/2019 HEPATITIS A VACCINES Aged Out No long er eligible based on patient's age to complete this topic HIB VACCINES Aged Out No longer eligi ble based on patient's age to complete this topic MENINGOCOCCAL VACCINES (ACWY) Aged Out No longer eligible based on patient's age to complete this topic MENINGOCOCCAL VACCINES (B) Aged Out N o longer eligible based on patient's age to complete this topic Medical Devices Not on file Procedures Procedure Name Priority Date/Time Associated Diagnosis Comments PAP TEST Routine 08/14/1997 12:00 AM EST from Last 3 Months or Most Recently Relevant to Health Maintenance Results * Pap Smear (08/14/1997 12:00 AM EST) 08/14/1997 Narrative [facility] - 08/20/1997 5:12 PM EST Accession Number: [id number] Report Status: Final Type: Cytology Cytology Report [id number] DIAGNOSTIC PAP Accessioned On: 08/15/97 CHRISTOPHER WHITE OI CLINICAL DATA: Routine.FINAL CYTOLOGIC DIAGNOSIS: ENDOCERVICAL BRUSH & CERVICAL SCRAPE: Satisfactory for evaluation. WITHIN NORMAL LIMITS. us Conversion Provider Not In Sys CYTOLOGY ORDERABL ES Final Result [facility] [address] [id number] from Last 3 Months or Most Recently Relevant to Health Maintenance Insurance [facility] Member Subscriber Plan / Payer (Ef fective 2016-Present) Name:Herrera Dacasty D Relation to Subscriber:Self Name:Herrera Dacasty D Payer ID:Not on file Type:O Address: [place] [id number] [facility] Member Subscriber Plan / Payer (Ef fective 2016-Present) Name:Herrera Dacasty D Relation to Subscriber:Self Name:Herrera Dacasty D Payer ID:Not on file Type:O Address: [place] [id number] [place] [facility] Member Subscriber Plan / Payer (Ef fective 2016-Present) Name:Herrera, Dacasty D Relation to Subscriber:Self Name:Herrera Dacasty D Payer ID:Not on file Type[place] Address: [place] [id number] [place] [facility] [place] [facility] H[facility] Member Subscriber Plan / Payer (Ef fective 2016-Present) Name:Herrera Dacasty D Relation to Subscriber:Self Name:Herrera Dacasty D Payer ID:Not on file Type:[facility] Address: [place] [id number] [facility] [place] [facility] INSURANCE Care Teams Guidance Director Relationship Specialty Start Date End Date Chandrika, Clementine Langston MD [address] [place] [phone] PCP - General Family Medicine 07/26/18 Additional Source Comments The information contained in this document represents components of the legal health record. It is not the complete legal health record.[facility]
--- OUTSIDE RECORDS SUMMARY | 2025-03-13 09:56 | XMS_ITS | Clinical Summary ---
Author Organization [address] [facility] Address [address] [place] [address] Phone Care Team Providers Care Supervisor Backfilling Name Role Phone Clementine Cobos MD Primary Care Provider [phone] Allergies No known active allergies Medications fluticasone HFA (Flovent HFA) 110 mcg/actuation inhaler as needed, Refills 0, Maintenance, 01/17/16 12:10:21 EDT 6 Active cholecalciferol (VITAMIN D-3) 50 mcg (2,000 unit) capsule Take 1 capsule (2,000 Units total) by mouth 1 (one) time each day. Active fluticasone propionate (Flonase Allergy Relief) 50 mcg/actuation nasal spray Administer into affected nostril(s). 1 Active montelukast (Singulair) 10 mg tablet Take 1 tablet (10 mg total) by mouth. 2 Active tirzepatide, weight loss, (Zepbound) 2.5 mg/0.5 mL injectionIndicatio ns:Overweight (BMI 25.0-29.9),History of sleeve gastrectomy,Hyperl ipidemia, unspecified hyperlipidemia type Inject 0.5 mL (2.5 mg total) under the skin every 7 (seven) days. 2 mL 5 Active Active Problems Problem Noted Date Diagnosed Date Asthma 02/18/2025 Dysesthesia 02/18/2025 Chronic GERD 02/18/2025 Nasal polyp, unspecified 01/29/2025 Dyslipidemia 10/09/2024 Overview (02/18/2025): Lab Results Component Value Date CHOL 220 (H) 12/17/2024 CHOL 252 (H) 10/09/2024 CHOL 252 (H) 12/24/2023 TRIG 223 (H) 12/17/2024 TRIG 200 (H) 10/09/2024 TRIG 160 (H) 12/24/2023 HDL 58 12/17/2024 HDL 61 10/09/2024 HDL 76 12/24/2023 LDLCHOLCAL 118 (H) 12/17/2024 LDLCHOLCAL 151 (H) 10/09/2024 LDLCHOLCAL 144 (H) 12/24/2023 -continue lifestyle modification -fish oil started 10/09/24 -atorvastatin 20mg started 12/24/24 Dizziness 09/04/2024 Overview (02/18/2025): Seen in Er 09/04/24 CT/CT angio head [...] abnormality. Patent portal and dural venous sinuses. Anemia 12/24/2023 Overview (02/18/2025): -Hx of decreasing HGB over 3 months starting from Jan 2023 Lab Results Component Value Date FERRITIN 13 12/17/2024 FERRITIN 7 (L) 10/09/2024 HGB 11.5 (L) 12/17/2024 HGB 10.8 (L) 10/09/2024 HGB 12.9 08/05/2021 HGB 13.3 04/15/2021 HEMATOCRIT 39.2 08/05/2021 HEMATOCRIT 39.8 04/15/2021 -ferrous sulfate 320 bid started 10/09/24 with aggressive bowel regimen given hx constipation with iron -recheck labs 6 weeks Dysphagia 12/24/2023 Overview (02/18/2025): -Episodes of dryness and trouble swallowing certain foods. -Had Barium Swallow Study done, will request records 12/24/23 -Placed ENT referral 12/24/23 Ventral hernia without obstruction or gangrene 0 12/24/2023 Overview (02/18/2025): -Pt reports umbilical pain and feeling her hernia move when she bends down -Seen by Eric Benjamin MD 01/01/24, scheduled for surgery Abnormal uterine bleeding 06/20/2023 Overview (02/18/2025): Acute on chronic with worsening hemoglobin over [...] (order placed) and a follow-up appointment . Mixed stress and urge urinary incontinence 06/29 Seasonal allergies 08/04/2021 Vitamin D deficiency 08/04/2021 Overview (02/18/2025): Lab Results Component Value Date [id number] 31.0 12/17/2024 [id number] 28.8 (L) 10/09/2024 [id number] 41.2 12/24/2023 -Vit D3 2000IU started 10/09/24 Abdominal pannus 04/13/2020 Rectus diastasis 04/13/2020 Over weight 10/17/2018 Intestinal malabsorption following gastrectomy 0 10/17/2018 H. pylori infection 12/19/2017 Heart palpitations 07/16/2012 Overview (02/18/2025): 06/04 echo revealed mild LVH, normal LVSF with EF 65-70%, possible presence of intracardiac shunt which needs to be evaluated after her 06/04 Holter monitor revealed baseline NSR with no pauses, frequent isolated PAC's occasional PVC's no pt reported events Encounters Date Type Department Care Team Description 02/17/2025 8:00 AM EDT Office Visit Bariatric Surgery - [address] [place] [address] Merna Anderson PA Overweight (BMI 25.0-29.9) (Primary Dx); History of sleeve gastrectomy; Hyperlipidemia, unspecified hyperlipidemia type from Last 3 Months Surgical History Surgery Date Site/Laterality Comments CHOLECYSTECTOMY [...] Sign Reading Time Taken Comments Blood Pressure 112/71 02/17/2025 8:13 AM EDT Pulse 72 02/17/2025 8:13 AM EDT Temperature - - Respiratory Rate - - Oxygen Saturation - - Inhaled Oxygen Concentration - - Weight 77.7 kg (171 lb 6.4 oz) 02/17/2025 8:13 A M EDT Height 162.6 cm (5' 4 ) 02/17/2025 8:13 AM EDT Body Mass Index 29.42 02/17/2025 8:13 AM EDT Plan of Treatment Upcoming Encounters Date Type Department Care Team (Late st Contact Info) Description 07/08/2025 1:15 PM EST Office Visit Bariatric Surgery - [place] [address] [facility] [address] [place] [address] Merna Anderson PA [address] [place] [phone] Health Maintenance Due Date Last Done Comments Breast Cancer Screening 1980 Colorectal Cancer Screening: Colonoscopy 06/03/2022 Social Influencers of Health Screening 06/03/2022 Depression Screening 06/25/2024 Cervical Cancer Screening: Pap Smear 09/09/2024 09/09/2021 COVID-19 Vaccine ( season) 2025 07/03/2022, 05/06/2021, 10/21/2020, Additional history exists Influenza Vaccine (#1) 2025 , 03/15/2023, 03/09/2022, Additional history exists Cholesterol Screening (Lipid Panel) 02/13/2030 02/13/2025, 12/17/2024 DTaP,Tdap,and Td Vaccines (4 - Td or Tdap) 08/29/2032 08/29/2022, 04/08/2014, 08/07/2012 RSV Immunization Adult Patients (1 - 1-dose 75+ series) 2053 MMR Vaccines Completed 05/08/1990, 10/03/1979 Hepatitis B Vaccines Completed 03/10/2019, 04/29/1999, 11/29/1998, Additional history exists Pneumococcal Vaccine: Pediatrics (0 to 5 Years) and At-Risk Patients (6 to 49 Years) Completed 02/01/2023, 06/06/2014 HIV Screening Completed 04/25/2023 Hepatitis C Screening Completed 04/25/2023 HIB Vaccines Aged Out No longer eligi [...] to complete this topic RSV Immunization Patients Under 20 months Aged Out No longer eligible based on patient's age to complete this topic Varicella Vaccines Aged Out No longer eligible based on patient's age to complete this topic Insurance [place] - [place] [facility] [address] [place] [address] Care Teams Supervisor Backfilling Relationship Specialty Start Date End Date Jackson, MD Clementine [address] [place] [address] [place] Garcia [phone] PCP - General Internal Medicine 12/18/12
--- OUTSIDE RECORDS SUMMARY | 2025-03-13 09:56 | XMS_ITS | Encounter Summary ---
Author Organization [employer] Address [address] [facility] [address] [place] [address] Care Team Providers Care Computational Linguist Name Role Phone Clementine Cobos MD Primary Care Provider [phone]- [phone] Manoj Garcia MD Unavailable Emir Medina MD Unavailable [phone] Xavi Villafuerte MD Unavailable [phone] Enrike Arvizu MD Unavailable [phone] Encounter Details Date Type Department Care Team (Late st Contact Info) Description 06/27/2023 Orders Only [facility] [address] [place], [place] [phone] Clementine Cobos MD [address] [place], [place] [phone] Social History Tobacco Use Types Packs/Day Years [...] Description 03/26/2025 8:00 AM EDT Office Visit [facility] [address] [place] [address] Tianna Chandra documented as of this encounter Visit Diagnoses Not on filedocumented in this encounter Additional Health Concerns Assessment Noted Time PHQ-9 Depression Total Score: 0 09/12/19 10:19 AM EDT documented as of this encounter Care Teams Computational Linguist Relationship Specialty Start Date End Date Clementine Cobos MD [address] [place] [address] PCP - General Family Medicine 06/25/18 Manoj Garcia MD [address] [place] [address] Obstetrics and Gynecology 07/22/24 Emir Medina MD [address] [place] [address] Bariatrics 10/08/24 Xavi Villafuerte MD [address]rd [place] [address] Gastroenterology 10/08/24 Enrike Arvizu MD [address] [place] [address] Cardiology 10/08/24 documented as of this encounter
--- OUTSIDE RECORDS SUMMARY | 2025-03-13 09:56 | XMS_ITS | Encounter Summary ---
Author Organization [employer] Address [address] [facility] [address] [place] [address] Care Team Providers Care Terminal System Operator Name Role Phone Clementine Cobos MD Primary Care Provider [phone] Manoj Garcia MD Unavailable Emir Medina MD Unavailable [phone] Xavi Villafuerte MD Unavailable [phone] Enrike Arvizu MD Unavailable [phone] Reason for Visit * Reason Comments Med Refill Encounter Details Date Type Department Care Team (Late st Contact Info) Description 01/02/2025 Refill [facility] [address] [place], [place] [phone] Clementine Cobos MD [address] [place], [place] [phone] Iron deficiency anemia, unspecified iron deficiency anemia type Social History Tobacco Use Types Packs/Day [...] Description 03/26/2025 8:00 AM EDT Office Visit [facility] [address] [place] [address] Tianna Chandra documented as of this encounter Visit Diagnoses Diagnosis Iron deficiency anemia, unspecified iron deficiency anemia type documented in this encounter Additional Health Concerns Assessment Noted Time PHQ-9 Depression Total Score: 0 10/09/19 25 10:30 AM EDT documented as of this encounter Care Teams Terminal System Operator Relationship Specialty Start Date End Date Clementine Cobos MD [address] [place] [address] PCP - General Family Medicine 06/25/18 Manoj Garcia MD [address] [place] [address] [place] [address] Obstetrics and Gynecology 07/22/24 Emir Medina MD [address] [place] [address] [address] [place] [address] Bariatrics 10/08/24 Xavi Villafuerte MD [address] [place] [address] 3rd [place] [address] Gastroenterology 10/08/24 Enrike Arvizu MD [address] [place] [address] Cardiology 10/08/24 documented as of this encounter
--- OUTSIDE RECORDS SUMMARY | 2025-03-13 09:56 | XMS_ITS | Clinical Summary ---
Author Organization [employer] Address [address] [place] [address] [address] [place] [address] Care Team Providers Care Butt Sawyer Name Role Phone Clementine Cobos MD Primary Care Provider [phone] Manoj Garcia MD Unavailable Emir Medina MD Unavailable [phone] Xavi Villafuerte MD Unavailable [phone] Enrike Arvizu MD Unavailable [phone] Allergies Active Allergy Reactions Criticality Noted Date Comments Levonorgest-Eth Estrad 91-Day 2022 Medications albuterol 108 (90 Base) MCG/ACT inhalerIndicati ons:Mild intermittent asthma without complication Inhale 2 puffs every 6 (six) hours if needed for wheezing. 18 g 11 10/09/19 25 2025 Active polyethylene glycol, PEG, 3350 (MiraLax) 17 GM/SCOOP powderIndicatio ns:Iron deficiency anemia, unspecified iron deficiency anemia type 17 grams in 8-12 oz fluid like water at bedtime prn constipation 527 g 2 10/10/19 25 Active Additional Information Patient not taking.Reported on 12/03/2024 fish oil (Cory-3) 500 MG capsuleIndicati ons:Dyslipidemi a Take 1 capsule (500 mg) by mouth Once per day. 60 capsule 3 10/10/19 25 Active ferrous sulfate (Fe Tabs) 325 (65 Fe) MG EC tabletIndicatio ns:Iron deficiency anemia, unspecified iron deficiency anemia type Take 1 tab po bid with food. Do not crush, chew, or split. 60 tablet 2 10/15/19 25 Active cholecalciferol (Vitamin D-3) 50 MCG (2000 UT) capsuleIndicati ons:Vitamin D deficiency Take 1 capsule (50 mcg) by mouth Once per day. 90 capsule 10/15/19 25 Active fluticasone furoate (Arnuity Ellipta) 200 MCG/ACT inhalerIndicati ons:Mild intermittent asthma without complication Inhale 1 puff Once per day. Rinse mouth with water after use to reduce aftertaste and incidence of candidiasis. Do not swallow. 1 each 02/20/20 25 Active albuterol 108 (90 Base) MCG/ACT inhalerIndicati ons:Mild intermittent asthma without complication Inhale 2 puffs every 4 (four) hours if needed for wheezing. 18 g 02/20/202025 Active montelukast (Singulair) 10 MG tabletIndicatio ns:Mild intermittent asthma without complication Take 1 tablet (10 mg) by mouth Once per day. 90 tablet 02/20/202024 Active cetirizine (ZyrTEC) 10 MG tabletIndicatio ns:Seasonal allergies Take 1 tablet (10 mg) by mouth Once per day. 90 tablet 02/20/20 25 Active amoxicillin-cla vulanate (Augmentin) 875-125 MG tabletIndicatio ns:Acute bacterial sinusitis Take 1 tablet by mouth 2 times daily for 10 days. 20 tablet 03/12/202024 Active omeprazole (PriLOSEC) [address] capsuleIndicati ons:Gastroesoph ageal reflux disease with esophagitis, unspecified whether hemorrhage TAKE 1 CAPSULE BY MOUTH BEFORE BREAKFAST AND EVENING MEAL. 60 capsule 10/10/192024 Discontinued atorvastatin (Lipitor) 20 MG tabletIndicatio ns:Dyslipidemia Take 1 tablet (20 mg) by mouth Once per day. 30 tablet 12/25/192024 Discontinued acetaminophen (Tylenol) 500 MG tablet Take 2 tablets (1,000 mg) by mouth every 6 (six) hours if needed for moderate pain or fever for up to 25 doses. 50 tablet 02/04/20 25 2024 Discontinued Nirmatrelvir&Ri tonavir 300/100 (Paxlovid, 300/100,) 20 x 150 MG & 10 x 100MG tablet therapy pack Take 300 mg by mouth 2 times daily. Take 3 tablets 2x/day for 5 days 30 each 02/04/202024 Discontinued Active Problems Problem Noted Date Diagnosed Date Dyslipidemia 10/09/2024 Overview (02/19/2025): Lab Results Component Value Date CHOL 240 (H) 02/13/2025 CHOL 220 (H) 12/17/2024 CHOL 252 (H) 10/09/2024 TRIG 237 (H) 02/13/2025 TRIG 223 (H) 12/17/2024 TRIG 200 (H) 10/09/2024 HDL 58 02/13/2025 HDL 58 12/17/2024 HDL 61 10/09/2024 LDLCHOLCAL 135 (H) 02/13/2025 LDLCHOLCAL 118 (H) 12/17/2024 LDLCHOLCAL 151 (H) 10/09/2024 -continue lifestyle modification -continue fish oil, started 10/09/24 -atorvastatin 20mg started 12/24/24, self-discontinued. -ordered repeat lipid panel 02/19/25 Assessment & Plan (02/19/2025 10:54 AM EDT): Lab Results Component Value Date CHOL 240 (H) 02/13/2025 CHOL 220 (H) 12/17/2024 CHOL 252 (H) 10/09/2024 TRIG 237 (H) 02/13/2025 TRIG 223 (H) 12/17/2024 TRIG 200 (H) 10/09/2024 HDL 58 02/13/2025 HDL 58 12/17/2024 HDL 61 10/09/2024 LDLCHOLCAL 135 (H) 02/13/2025 LDLCHOLCAL 118 (H) 12/17/2024 LDLCHOLCAL 151 (H) 10/09/2024 -continue lifestyle modification -continue fish oil, started 10/09/24 -atorvastatin 20mg started 12/24/24, self-discontinued. -ordered repeat lipid panel 02/19/25 Orders: Lipid Panel, Standard; Future Dizziness 09/04/2024 Overview (09/04/2024): Seen in Er [...] -Placed ENT referral 12/24/23 Anemia 12/24/2023 Overview (01/28/2025): -Hx of decreasing HGB over 3 months starting from Jan 2023 Lab Results Component Value Date FERRITIN 13 12/17/2024 FERRITIN 7 (L) 10/09/2024 HGB 11.5 (L) 12/17/2024 HGB 10.8 (L) 10/09/2024 HGB 12.9 08/05/2021 HGB 13.3 04/15/2021 HEMATOCRIT 39.2 08/05/2021 HEMATOCRIT 39.8 04/15/2021 -ferrous sulfate 320 bid started 10/09/24 with aggressive bowel regimen given hx constipation with iron -recheck labs 6 weeks Assessment & Plan (12/24/2023 11:23 AM EDT): -Hx of decreasing HGB over 3 months starting from Jan 2023 -Ordered labs to reevaluate 12/24/23 Total body pain 12/24/2023 Overview (12/24/2023): -Likely correlated to john paul-menopausal sxs -Ordered labs 12/24/23 -Discussed starting Estrogen supplementation after appt. with Service Establishment Attendant for Lindy placement. Assessment & Plan (12/24/2023 11:21 AM EDT): -Likely correlated to john paul-menopausal sxs -Ordered labs 12/24/23 -Discussed starting Estrogen supplementation after appt. with Service Establishment Attendant for Lindy placement. Ventral hernia without obstruction [...] letter. 10/24/2023 Colon cancer screening 06/29/2023 Overview (02/19/2025): -Referral done to GI 06/22/23 -Gave pt number to call 12/24/23 -Offered ColoGuard, pt declined says she wants colonoscopy, pt agrees to call to make appt 07/16/24 -has upcoming appt. In Feb 2025 Assessment & Plan (02/19/2025 10:54 AM EDT): -Referral done to GI 06/22/23 -Gave pt number to call 12/24/23 -Offered ColoGuard, pt declined says she wants colonoscopy, pt agrees to call to make appt 07/16/24 -has upcoming appt. In Feb 2025 Assessment & Plan (07/16/2024 3:39 PM EST): [...] previously controlled by Lupron but discontinued by vending service technician due to length of use. -Referred to another vending service technician by Dr. Garcia but that Studio Operator did not do hysterectomies -US done 06/15/2023 at [facility], results pending as of 06/20/23 -pt to call Dr. Garcia for referral for hysterectomy Assessment & Plan (06/20/2023 4:29 PM EST): -current present since Jan 2023, previously controlled by Lupron but discontinued by vending service technician due to length of use. -Referred to another vending service technician by Dr. Garcia but that Studio Operator did not do hysterectomies -US done 06/15/2023 at [facility], results pending as of 06/20/23 -pt to [...] 06/20/23 Other specified health status 01/31/2023 Overview (01/28/2025): -next comprehensive annual evaluation due after 10/08/25 -eye care facilitated by every 2 years -dental home is [facility] -health care proxy filed 08/18/2023 Assessment & Plan (06/28/2023 9:35 AM EST): -next physical exam due after 04/23/2024 -eye care facilitated by every 2 years -dental home is [facility] Assessment & Plan (04/23/2023 9:18 AM EDT): -next physical exam due after 04/23/2024 -eye care facilitated by every 2 years -dental home is [facility] Hx of gastric bypass 09/06/2022 Overview (02/26/2025): Follows with weight clinic and braider operator. Note from 02/18/25 reviewed, medical weight management with GLP 1 started Assessment & Plan (02/19/2025 10:54 AM EDT): Follows with weight clinic and braider operator. Gastroesophageal reflux disease 06/29/2022 Overview (10/08/2024): -check [...] urinary incontinence 06/29 Thoracic radiculopathy 08/04/2021 Overview (02/19/2025): -present since right after her covid infection [...] 06/20/2023 -MRI of thoracic spine ordered 06/22/23 -referred back to [facility] orthopedics for inions that pt has had much relief from in he past 02/19/25 Assessment & Plan (02/19/2025 10:54 AM EDT): -present since right after her covid infection [...] 06/20/2023 -MRI of thoracic spine ordered 06/22/23 -referred back to [facility] orth[facility]ics for inions that pt has had much relief from in he past 02/19/25 Orders: Referral to Pain Medicine; Future Assessment & Plan (06/29/2023 9:29 AM EST): [...] Controlled with occasional cyclobenzaprine. Seasonal allergies 08/04/2021 Overview (02/19/2025): -continue cetirizine (ZyrTEC) 10 MG PRN -continue fluticasone furoate (Arnuity Ellipta) 200 MCG/ACT inhaler Assessment & Plan (02/19/2025 10:54 AM EDT): -continue cetirizine (ZyrTEC) 10 MG PRN -continue fluticasone furoate (Arnuity Ellipta) 200 MCG/ACT inhaler Orders: cetirizine (ZyrTEC) 10 MG tablet; Take 1 tablet (10 mg) by mouth Once per day. Ureteropelvic junction (UPJ) obstruction 022 Vitamin D deficiency 08/04/2021 Overview (01/28/2025): Lab Results Component Value Date [id number] 31.0 12/17/2024 [id number] 28.8 (L) 10/09/2024 [id number] 41.2 12/24/2023 -Vit D3 2000IU started 10/09/24 Rectus diastasis 04/13/2020 Mild intermittent asthma 09/05/2018 Overview (02/19/2025): -Well controlled -continue albuterol 108 (90 Base) MCG/ACT inhaler -continue fluticasone furoate (Arnuity Ellipta) 200 MCG/ACT inhaler -continue montelukast (Singulair) 10 MG Assessment & Plan (02/19/2025 10:54 AM EDT): -Well controlled -continue albuterol 108 (90 Base) MCG/ACT inhaler -continue fluticasone furoate (Arnuity Ellipta) 200 MCG/ACT inhaler -continue montelukast (Singulair) 10 MG Orders: fluticasone furoate (Arnuity Ellipta) 200 MCG/ACT inhaler; Inhale 1 puff Once per day. Rinse mouth with water after use to reduce aftertaste and incidence of candidiasis. Do not swallow. albuterol 108 (90 Base) MCG/ACT inhaler; Inhale 2 puffs every 4 (four) hours if needed for wheezing. montelukast (Singulair) 10 MG tablet; Take 1 tablet (10 mg) by mouth Once per day. Assessment & Plan (10/08/2024 10:41 AM EDT): [...] worsening symptoms. Candidiasis of skin 09/11/2022 09/03/19 25 Assessment & Plan (09/11/2022 9:41 AM EDT): Recurrent. Being evaluated for panniculectomy. Low back pain with radiation , unspecified laterality 09/11/2022 10/09/2024 Overview (06/20/2023): Assessment & Plan (06/20/2023 9:53 [...] 9:37 AM EDT): Referral to PT 09/11/22. Asthma 06/29/2022 09/06/2022 Chronic pelvic pain in [...] Encounters Date Type Department Care Team Description 03/12/2025 3:00 PM EDT Office Visit [facility] [address] [place] [phone] Clementine Cobos MD Acute bacterial sinusitis (Primary Dx); Sinus symptom 03/12/2025 Travel 03/09/2025 3:30 PM EDT Office Visit [facility] [address] [place] [address] Otoole-Mercado , Sofia, DDS Full coverage crown needed for root canal-treated tooth (Primary Dx) 02/25/2025 8:30 AM EDT Office Visit [facility] [address] [place] [address] Otoole-Mercado , Sofia, DDS Full coverage crown needed for root canal-treated tooth (Primary Dx) 02/19/2025 10:45 AM EDT Office Visit [facility] [address] [place] [address] Clementine Cobos MD Dyslipidemia (Primary Dx); Thoracic radiculopathy; Mild intermittent asthma without complication; Seasonal allergies; Colon cancer screening; Hx of gastric bypass; Class 1 obesity due to excess calories with body mass index (BMI) of 30.0 to 30.9 in adult, unspecified whether serious comorbidity present; Dietary counseling; Exercise counseling; Screening mammogram for breast cancer 02/19/2025 Travel 02/11/2025 Travel 02/10/2025 8:00 AM EDT Office Visit [facility] [address] [place] [phone] Sofia Miller DDS Dental caries (Primary Dx); Full coverage crown needed for root canal-treated tooth 02/03/2025 8:40 AM EDT Office Visit [facility] [address] [place] [phone] Rhett Alvarado MD COVID-19 (Primary Dx); Mild intermittent asthma with acute exacerbation 02/03/2025 Travel 01/27/2025 Telephone [facility] [address] [place] [phone] Clementine Cobos MD chart prep 01/20/2025 Patient Outreach [address] [phone] Clementine Cobos MD Pre-visit Planning ([facility] screening was completed on 10/08/2024) 01/02/2025 Refill [facility] [address] [place] [phone] Clementine Cobos MD Iron deficiency anemia, unspecified iron deficiency anemia type 12/24/2024 Orders Only [address] [address] Clementine Cobos MD Dyslipidemia (Primary Dx) from Last 3 Months Immunizations Immunization Administration Dates Next Due Hep B, adult [...] (177 lb) 03/12/2025 2:37 PM EDT Height 162.6 cm (5' 4 ) 02/19/2025 9:29 AM EDT Body Mass Index 30.38 02/19/2025 9:29 AM EDT Plan of Treatment Upcoming Encounters Date Type Department Care Team (Late st Contact Info) Description 03/26/2025 8:00 AM EDT Office Visit [facility] [address] [place] [address] Tianna Chandra Health Maintenance Due Date Last Done Comments CT Colonography 1978 Colonoscopy 1978 Colorectal Cancer Screening 1978 FIT DNA/Cologuard 1978 FIT 1978 FOBT 1978 Sigmoidoscopy 1978 COVID-19 Vaccine ( season) 2025 07/03/2022, 05/06/2021, 10/21/2020, Additional history exists Influenza Vaccine (#1) 2025 , 03/15/2023, 03/09/2022, Additional history exists Mammogram 03/17/2025 03/17/2023, 02/23, 03/10/2022, Additional history exists Dental Oral Exam 03/20/2025 09/16/2024, , 01/03/2023 Dental Prophylaxis 03/20/2025 09/16/2024, 0 03/13/2024, 01/03/2023 Family Planning (PISQ) 07/16/2025 07/16/2024 Alcohol/Substance Use Screening 10/08/2025 10/08/2024 Depression Screening 10/08/2025 10/08/2024, 10/09/19 SDOH Screening 10/08/2025 10/08/2024 Dental X-Ray: Full Mouth 01/04/2026 01/03/2023 Disability Screening 02/19/2026 02/19/2025 Dental X-Ray: Bitewings 03/10/2026 03/09/20, 10/31/2024, 03/13/2024, Additional history exists Tobacco Screening 03/12/2026 03/12/2025 Cervical Cancer Screening 09/09/2026 HPV/Cotest 09/09/2026 09/09/2021, 08/23, 06/26/2019 Pap Smear 09/09/2026 09/09/2021, 09/09/2021 Zoster Vaccines (1 of 2) 2028 Lipid Panel 02/13/2030 02/13/2025, 11/24, 10/09/2024, Additional history exists DTaP/Tdap/Td Vaccines (4 - Td or Tdap) 08/29/2032 08/29/2022, 04/08/2014, 08/07/2012 RSV Patients and Patients Aged 60 years or older (1 - 1-dose 75+ series) 2053 Hepatitis B Vaccines Completed 03/10/2019, 04/29/1999, 11/29/1998, Additional history exists Pneumococcal Vaccine: Pediatrics (0 to 5 Years) and At-Risk Patients (6 to 49) Years Completed 02/01/2023, 06/06/2014 HIV Screening Completed 04/25/2023, 07/26, 06/26/2019 Hepatitis C Screening Completed 04/25/2023 , 06/26/2019, 06/26/2019 HIB Vaccines Aged Out No longer eligi [...] Name Priority Date/Time Associated Diagnosis Comments POCT RAPID COVID ANTIGEN Routine 03/12/2025 2:41 PM EDT Sinus symptom POCT INFLUENZA B (ID NOW RAPID MOLECULAR) Routine 03/12/2025 2:41 PM EDT Sinus symptom POCT INFLUENZA A (ID NOW RAPID MOLECULAR) Routine 03/12/2025 2:41 PM EDT Sinus symptom CASE PRESENTATION, DETAILED AND EXTENSIVE TREATMENT PLANNING Routine 03/09/2025 3:30 PM EDT Full coverage crown needed for root canal-treated tooth BITEWING - SINGLE RADIOGRAPHIC IMAGE Routine 03/09/2025 3:30 PM EDT Full coverage crown needed for root canal-treated tooth INTRAORAL - PERIAPICAL FIRST RADIOGRAPHIC IMAGE Routine 03/09/2025 3:30 PM EDT Full coverage crown needed for root canal-treated tooth 21 CROWN - PORCELAIN/CERAMIC Routine 03/09/2025 3:30 PM EDT Full coverage crown needed for root canal-treated tooth CROWN PREP Routine 02/25/2025 8:30 AM EDT Full coverage crown needed for root canal-treated tooth HEPATIC FUNCTION PANEL Routine 8:34 AM EDT Dyslipidemia LIPID PANEL, STANDARD Routine 02/13/2025 8:34 AM EDT Dyslipidemia CASE PRESENTATION, DETAILED AND EXTENSIVE TREATMENT PLANNING Routine 02/10/2025 8:00 AM EDT Dental caries Full coverage crown needed for root canal-treated tooth INTRAORAL - PERIAPICAL FIRST RADIOGRAPHIC IMAGE Routine 02/10/2025 8:00 AM EDT Dental caries Full coverage crown needed for root canal-treated tooth CROWN PREP Routine 02/10/2025 8:00 AM EDT Dental caries Full coverage crown needed for root canal-treated tooth 21 PREFABRICATED POST AND CORE IN ADDITION TO CROWN Routine 02/10/2025 8:00 AM EDT Dental caries Full coverage crown needed for root canal-treated tooth POCT INFLUENZA B (ID NOW RAPID MOLECULAR) Routine 02/03/2025 8:53 AM EDT COVID-19 POCT INFLUENZA A (ID NOW RAPID MOLECULAR) Routine 02/03/2025 8:53 AM EDT COVID-19 POCT RAPID STREP A Routine 02/03/2025 8: 53 AM EDT COVID-19 POCT RAPID COVID ANTIGEN Routine 02/03/2025 8:53 AM EDT COVID-19 LIPID PANEL, STANDARD Routine 12/17/2024 8:34 AM EDT Dyslipidemia IRON AND TOTAL IRON BINDING CAPACITY Routine 12/17/2024 8:34 AM EDT Iron deficiency anemia, unspecified iron deficiency anemia type FERRITIN Routine 12/17/2024 8:34 AM EDT Iron deficiency anemia, unspecified iron deficiency anemia type CBC WITH AUTO DIFFERENTIAL Routine 12/17/2024 8:34 AM EDT Iron deficiency anemia, unspecified iron deficiency anemia type VITAMIN D,25-OH,TOTAL,IA Routine 12/17/2024 8:34 AM EDT Vitamin D deficiency PROPHYLAXIS - ADULT Routine 09/16/2024 7 :45 AM EDT PERIODIC ORAL EVALUATION - ESTABLISHED PATIENT Routine 09/16/2024 7:45 AM EDT Encounter for dental examination Dental plaque Teeth missing HEPATITIS C AB W/REFL TO HCV RNA, [...] Recently Relevant to Health Maintenance Results * Influenza B (ID NOW Rapid Molecular) (03/12/2025 2:41 PM EDT) Only the most recent of2 resultswithin the time period is included. Pathologist [facility] Influenza B Negative Negative, Indeterminate [facility] Swab 03/12/2025 2:41 PM EDT Clementine Cobos MD POINT OF CARE TEST ENTER/E DIT ORDERABLES Final Result Performing Organization Address [facility] Co de Phone Number [facility] [address] [place] [address] [phone] * Influenza A (ID NOW Rapid Molecular) (03/12/2025 2:41 PM EDT) Only the most recent of2 resultswithin the time period is included. Pathologist [facility] Influenza A Negative Negative, Indeterminate [facility] Swab 03/12/2025 2:41 PM EDT Clementine Cobos MD POINT OF CARE TEST ENTER/E DIT ORDERABLES Final Result Performing Organization Address [facility]/ZIP Co de Phone Number [facility] [address] [place] [phone] * POCT Rapid COVID Ag (03/12/2025 2:41 PM EDT) Only the most recent of2 resultswithin the time period is included. Rapid COVID Ag Negative Swab 03/12/2025 2:41 PM EDT Clementine Cobos MD POINT OF CARE TEST ENTER/E DIT ORDERABLES Final Result * Hepatic Function Panel (02/13/2025 8:34 AM EDT) Bilirubin, Total 0.3 0.0 - 1.0 mg/dL [facility] Bilirubin, Direct 0.1 0.0 - 0.5 mg/dL [facility] Aspartate Amino Transferase 24 5 - 31 U/L [facility] Alanine Aminotransferase 21 0 - 31 U/L [facility] Total Protein 7.2 6.5 - 8.0 g/dL [facility] Albumin Level 4.4 3.5 - 5.0 g/dL [facility] Alkaline Phosphatase 57 39 - 117 U/L [facility] Blood Venous blood specimen / Unknown 02/13/2025 8:34 AM EDT 02/13/2025 11:54 AM EDT Clementine Cobos MD LAB BLOOD ORDERABLES Final Result [facility] [address] [place] [phone] * (ABNORMAL) Lipid Panel, Standard (02/13/2025 8:34 AM EDT) Only the most recent of2 resultswithin the time period is included. Triglycerides 237(H) <150 mg/dL [facility] Comment:Desirable Triglyceri de: less than 150 mg/dLBorderline High Triglyceride 150-199 mg/dLHigh Triglyceride: 200-499 mg/dLVery High Triglyceride: greater than or equal to 5OO mg/dL Cholesterol 240(H) <200 mg/dL [facility] Comment:Desirable Cholestero l: less than 200 mg/dLBorderline High Cholesterol: 200-239 mg/dLHigh Cholesterol: greater than 239 mg/dL LDL Cholesterol Calculated 135(H) <100 mg/dL [facility] Comment:Desirable LDL: less than 100 mg/dLNear Optimal/Above Optimal LDL: 110- 129 mg/dLBorderline High LDL: 130-159 mg/dLHigh LDL: 160-189 mg/dLVery High LDL: greater than or equal to 190 mg/dL HDL Cholesterol 58 >40 mg/dL [facility] Comment:Desirable HDL: great er than 40 mg/dL Note: This HDL assay may give artificially low results in patients with liver disease. Blood Venous blood specimen / Unknown 02/13/2025 8:34 AM EDT 02/13/2025 11:54 AM EDT Clementine Cobos MD LAB BLOOD ORDERABLES Final Result Performing Organization Address [facility]/ZIP Co de Phone Number [facility] [address] [place] [phone] * POCT rapid strep A manually resulted (02/03/2025 8:53 AM EDT) Pathologist [facility] Rapid Strep A Screen Negative Negative, None Detected [facility] Swab 02/03/2025 8:53 AM EDT Rhett Alvarado MD POINT OF CARE TEST ENTER/EDIT OR DERABLES Final Result Performing Organization Address [facility] Co de Phone Number [facility] [address] [place] [phone] * Vitamin D, 25-Hydroxy, Total, Immunoassay (12/17/2024 8:34 AM EDT) Pathologist [facility] Vitamin D 25-OH Total 31.0 >30 ng/mL [facility] Comment: Health Based Reference Values*< 20 ng/mL Utzgulapx97-26 ng/mL Insufficient> 30 ng/mL Sufficient*Sindy STARKEY. N Engl J Med. 2007;357:266-280There is no well-established upper level of normal vitamin Dlevels. Some laboratories use 50 ng/mL as an upper limit ofnormal. However, toxicity is patient-dependent and may occurat any level. Careful correlation with the patient'spresentation is necessary and, if there is concern forvitamin D toxicity, treatment should be consideredirrespective of the serum level.Care must be taken in interpreting Vitamin D results fromdifferent laboratories and methodologies. Published datademonstrated that results from patients undergoinghemodialysis may show a negative bias when tested withvarious automated 25-OH vitamin D assays when compared toLC-MS/MS.When testing samples from patients whose predominant form ofVitamin D is Vitamin D2, such as patients receiving VitaminD2 supplementation, results that are subtherapeutic shouldbe confirmed with another method such as LC-MS/MS. Blood Venous blood specimen / Unknown 12/17/2024 8:34 AM EDT 12/17/2024 11:05 AM EDT us Clementine Cobos MD LAB BLOOD ORDERABLES Final Result [facility] [address] [place] [phone] * (ABNORMAL) CBC auto differential (12/17/2024 8:34 AM EDT) White Blood Count 8.0 4.8 - 10.8 X10*3/uL [facility] Red Blood Count 4.62 4.20 - 5.50 X10*6/uL [facility] Hemoglobin 11.5(L) 12.0 - 16.0 g/dl [facility] Hematocrit 36.3(L) 37.0 - 47.0 % [facility] Mean Corpuscular Volume 78.6(L) 80.0 - 98.0 fL [facility] Mean Corpuscular Hemoglobin 24.9(L) 27.0 - 33.0 pg [facility] Mean Corpuscular HGB Conc 31.7 31.0 - 35.0 g/dl [facility] Red Cell Distribution Width 17.2(H) 11.0 - 16.0 % [facility] Platelet Count 283 160 - 400 X10*3/uL [facility] Mean Platelet Volume 9.9 9.4 - 12.3 fL [facility] Neutrophils Percent Auto 57.0 45 - 73 % [facility] Imm Gran Pct Auto 0.3 0.0 - 0.4 % [facility] Lymphocytes Percent Auto 32.2 20 - 40 % [facility] Monocytes Percent Auto 7.4 2 - 11 % [facility] Eosinophils Percent Auto 2.5 0 - 4 % [facility] Basophils Percent Auto 0.6 0 - 2 % [facility] NRBC Pct Auto 0.0 0.0 - 0.2 /100WBC [facility] Neutrophils Absolute Auto 4.5 2.0 - 8.3 x10*3/uL [facility] Imm Gran Abs Auto 0.02 0.00 - 0.03 X10*3/uL [facility] Lymphocytes Absolute Auto 2.6 1.2 - 4.9 X10*3/uL [facility] Monocytes Absolute Auto 0.6 0.1 - 1.2 X10*3/uL [facility] Eosinophils Absolute Auto 0.2 0.0 - 0.4 X10*3/uL [facility] Basophils Absolute Auto 0.1 0.0 - 0.2 X10*3/uL [facility] NRBC Abs Auto 0.000 0.0 - 0.012 X10*3/uL [facility] Blood Venous blood specimen / Unknown 12/17/2024 8:34 AM EDT 12/17/2024 11:05 AM EDT us Clementine Cobos MD LAB BLOOD ORDERABLES Final Result [facility] [address] [place] [address] [phone] * Iron And Total Iron Binding Capacity (12/17/2024 8:34 AM EDT) Iron 60 30 - 160 mcg/dL [facility] Total Iron Binding Capacity 367 228 - 428 mcg/dL [facility] Percent Iron Saturation 16 15 - 50 % [facility] Unsaturated Iron Binding 307 ug/dL [facility] Blood Venous blood specimen / Unknown 12/17/2024 8:34 AM EDT 12/17/2024 11:05 AM EDT Clementine Cobos MD LAB BLOOD ORDERABLES Final Result Performing Organization Address [facility] Co de Phone Number [facility] [address] [place] [phone] * Ferritin (12/17/2024 8:34 AM EDT) Ferritin 13 10 - 250 ng/mL [facility] Blood Venous blood specimen / Unknown 12/17/2024 8:34 AM EDT 12/17/2024 11:05 AM EDT Clementine Cobos MD LAB BLOOD ORDERABLES Final Result Performing Organization Address [facility] de Phone Number [facility] [address] [place] [phone] * Hepatitis C Antibody with Reflex to HCV, RNA, Quantitative, Real-Time PCR (04/25/2023 8:18 AM EDT) Pathologist [facility] Hepatitis C Antibody Nonreactive Nonreactive [facility] Comment:Antibodies to HCV no t detected; does not exclude early acuteHCV infection. Blood Venous blood specimen / Unknown 04/25/2023 8:18 AM EDT 04/25/2023 11:32 AM EDT Clementine Cobos MD LAB BLOOD ORDERABLES Final Result Performing Organization Address [facility] Co de Phone Number [facility] [address] [place] [phone] * HIV-1/2 Antigen and Antibodies, Fourth Generation, with Reflexes (04/25/2023 8:18 AM EDT) HIV AB/AG Nonreactive Nonreactive [facility] Comment:HIV-1 p24 Ag and/or HIV-1/HIV-2 Ab not detected.A test result that is nonreactive does not exclude thepossibility of exposure to or infection with HIV-1 and/orHIV-2. Nonreactive results in this assay for individualswith prior exposure to HIV-1 and/or HIV-2 may be due toantigen and antibody levels that are below the limit ofdetection of this assay.The [employer] HIV Ag/Ab Combo assay result andsupplemental assay results should be interpreted inconjunction with the patient's clinical presentation,history and other laboratory results. If the results areinconsistent with clinical evidence, additional testing issuggested to confirm the result. Blood Venous blood specimen / Unknown 04/25/2023 8:18 AM EDT 04/25/2023 11:32 AM EDT Clementine Cobos MD LAB BLOOD ORDERABLES Final Result Performing Organization Address City/State/[facility] Co de Phone Number [facility] [address] [place] [phone] * BI Mammogram Screening Tomosynthesis Bilateral (03/17/2023 7:45 AM EDT) Anatomical Region Laterality Modality Breast Bilateral Mammography 03/17/2023 7:45 AM EDT Narrative 03/24/2023 9:33 PM EDT [address] [place] [address] Mammography Report Signed Patient: Carmine Herrera MR#: [id number] 11 : 1980 Acct:[id number] Age/Sex: 42 / F ADM Date: 03/17/23 Loc: HO.MAMMO Attending Dr: Clementine Cobos MD Ordering Physician: Clementine Cobos MD Results: 1N egative Date of Service: 03/17/23 Follow Up: 1 Year From Orig ina Mammogram Procedure(s): MM tomosynthesis screening BI Accession Number(s): [id number] cc: Clementine Cobos MD EXAMINATION: MM SCREENING [...] MD in OV> 03/24/232128 DD/ 4 TD/TT: Forklift Truck Mechanic: Procedure Note Donotuseinterpreter, Image - 03/24/2023 [facility] [address] [place] [address] Mammography Report Signed Patient: Carmine Herrera DMR#: [id number] 11 : 1980Acct:[id number] Age/Sex: 42 / FADM Date: 03/17/23 Loc: HO.MAMMO Attending Dr: Clementine Cobos MD Ordering Physician: Clementine Cobos MDResults: 1N egative Date of Service: 03/17/23Follow Up: 1 Year From [facility] Mammogram Procedure(s): MM tomosynthesis screening BI Accession Number(s): [id number] cc: Clementine Cobos MD EXAMINATION: MM SCREENING [...] Castillo MD in OV> 03/24/232128 DD/ TD/TT: Forklift Truck Mechanic: Clementine Cobos MD IMG BI PROCEDURES Edited R esult - Final * HPV High Risk PCR (09/09/2021) Swab Cervical swab / Unknown 09/09/2021 Clementine Cobos MD LAB MICROBIOLOGY - GENERAL ORDERABLES Final Result * Pap Smear (09/09/2021) Swab 09/09/2021 Clementine Cobos MD LAB CYTOLOGY ORDERABLES Fi nal Result from Last 3 Months or Most Recently Relevant to Health Maintenance Insurance [facility] [id number] [place] [address] , [address] [place] [address] [facility] MEDICAID STAND ADULT Advance Directives Documents on File Type Date Recorded 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 Advance Directives and Living Will 12/24/2023 Health Care Proxy 12/24/23 Care Teams Butt Sawyer Relationship Specialty Start Date End Date [place], MD Clementine [address] [place] [phone] PCP - General Family Medicine 06/25/18 Manoj Garcia MD [address] [place] [address] [address] [place] [address] Obstetrics and Gynecology 07/22/24 Emir Medina MD [address] [place] [address] [address] [place] [address] Bariatrics 10/08/24 Xavi Villafuerte MD [address] [place] [address] 3rd [place] [address] Gastroenterology 10/08/24 Enrike Arvizu MD [address] [place] [address] Cardiology 10/08/24
--- OUTSIDE RECORDS SUMMARY | 2025-03-13 09:56 | XMS_ITS | Encounter Summary ---
Author Organization [employer] Address [address] [facility] [address] [place] [address] Care Team Providers Care Radiology Transporter Name Role Phone Clementine Cobos MD Primary Care Provider [phone] Manoj Garcia MD Unavailable Emir Medina MD Unavailable [phone] Xavi Villafuerte MD Unavailable [phone] Enrike Arvizu MD Unavailable [phone] Reason for Referral * Imaging (Routine) - Closed Specialty Diagnoses / Procedures Referred By Contac t Referred To Contact Radiology Diagnoses Pleuritic pain Thoracic radiculopathy Procedures CT Chest w/ Contrast Clementine Cobos MD [address] [place] [address] Phone: tel: fax: [facility] [address] [place], [place] Phone: tel: fax: Referral ID Status Reason Start Date Expiration Date Visits Re quested Visits Authorized [id number] Closed 06/28/2023 06/27/2024 1 1 Encounter Details Date Type Department Care Team (Late st Contact Info) Description 06/28/2023 Orders Only [facility] [address] [place] [address] Clementine Cobos MD [address] [place], [place] [phone] Pleuritic pain (Primary Dx); Thoracic radiculopathy Social [...] Description 03/26/2025 8:00 AM EDT Office Visit [facility] [address] [place] [address] Tianna Chandra Scheduled Orders Name Type Priority [...] documented as of this encounter Care Teams Radiology Transporter Relationship Specialty Start Date End Date Clementine Cobos MD [address] [place] [address] PCP - General Family Medicine 06/25/18 Manoj [place] MD [address] [place] [address] Obstetrics and Gynecology 07/22/24 Emir Medina MD [address] [place] [address] Bariatrics 10/08/24 Xavi Villafuerte MD [address] [place] [address] 3rd [place] [address] Gastroenterology 10/08/24 Enrike Arvizu MD [address] [place] [address] Cardiology 10/08/24 documented as of this encounter
--- OUTSIDE RECORDS SUMMARY | 2025-03-13 09:56 | XMS_ITS | Encounter Summary ---
Author Organization [employer] Address 75 [facility] 7[address] [place] [address] Care Team Providers Care Cow Tender Name Role Phone Clementine Cobos MD Primary Care Provider [phone] Manoj [place] MD Unavailable Emir Medina MD Unavailable [phone] Xavi Villafuerte MD Unavailable [phone] Enrike Arvizu MD Unavailable [phone] Encounter Details Date Type Department Care Team (Late st Contact Info) Description 03/07/2023 Orders Only [facility] [address] [place], [place] [phone] Clementine Cobos MD [address] [place], [place] [phone] Social History Tobacco Use Types Packs/Day Years [...] Description 03/26/2025 8:00 AM EDT Office Visit [facility] [address] [place], [place] [phone] Tianna Chandra documented as of this encounter Procedures Procedure Name Priority Date/Time Associated Diagnosis Comments BI MAMMOGRAM SCREENING TOMOSYNTHESIS BILATERAL Routine 03/17/2023 7:45 AM EDT documented in this encounter Results * BI Mammogram Screening Tomosynthesis Bilateral (03/17/2023 7:45 AM EDT) Anatomical Region Laterality Modality Breast Bilateral Mammography 03/17/2023 7:45 AM EDT Narrative 03/24/2023 9:33 PM EDT [facility] [address] [place] [address] Mammography Report Signed Patient: Carmine Herrera MR#: [id number] 11 : 1980 Acct:[id number] Age/Sex: 42 / F ADM Date: 03/17/23 Loc: HO.MAMMO Attending Dr: Clementine Cobos MD Ordering Physician: Clementine Cobos MD Results: 1N egative Date of Service: 03/17/23 Follow Up: 1 Year From Orig ina Mammogram Procedure(s): MM tomosynthesis screening BI Accession Number(s): [id number] cc: Clementine Cobos MD EXAMINATION: MM SCREENING [...] Castillo MD in OV> 03/24/232128 DD/ TD/TT: Filler Sifter Machine: Procedure Note Donotlindseyinterpreter, Image - 03/24/2023 [facility] [address] [place], [place] [address] Mammography Report Signed Patient: Carmine Herrera DMR#: [id number] 11 : 1980Acct:[id number] Age/Sex: 42 / FADM Date: 03/17/23 Loc: HO.MAMMO Attending Dr: Clementine Cobos MD Ordering Physician: Clementine Cobos MDResults: 1N egative Date of Service: 03/17/23Follow Up: 1 Year From Orig inal Mammogram Procedure(s): MM tomosynthesis screening BI Accession Number(s): [id number] cc: Clementine Cobos MD EXAMINATION: MM SCREENING [...] Castillo MD in OV> 03/24/232128 DD/ TD/TT: Filler Sifter Machine: Clementine Cobos MD IMG BI PROCEDURES Edited R esult - Final documented in this encounter Visit Diagnoses Not on filedocumented in this encounter Additional Health Concerns Assessment Noted Time PHQ-9 Depression Total Score: 0 09/12/19 23 10:19 AM EDT documented as of this encounter Care Teams Cow Tender Relationship Specialty Start Date End Date Clementine Cobos MD [address] [place] [address] PCP - General Family Medicine 06/25/18 Manoj [place] MD [address] [place] [address] Obstetrics and Gynecology 07/22/24 Emir Medina MD [address] [place] [address] Bariatrics 10/08/24 Xavi Villafuerte MD [address] [place] [address] 3rd [place] [address] Gastroenterology 10/08/24 Enrike Arvizu MD [address] [place] [address] Cardiology 10/08/24 documented as of this encounter
--- OUTSIDE RECORDS SUMMARY | 2025-03-13 09:56 | XMS_ITS | Encounter Summary ---
Author Organization [employer] Address 75 [facility] 7t [place] [address] Care Team Providers Care Oil Rag Washer Name Role Phone Clementine Cobos MD Primary Care Provider [phone] Manoj [place] MD Unavailable Emir Medina MD Unavailable [phone] Xavi Villafuerte MD Unavailable [phone] Enrike Arvizu MD Unavailable [phone] Reason for Visit * Reason Comments Med Change Request Encounter Details Date Type Department Care Team (Late st Contact Info) Description 07/27/2023 Refill [facility] [address] [place], [place] [phone] Clementine Cobos MD [address] [place], [place] [phone] Social History Tobacco Use Types Packs/Day Years [...] Description 03/26/2025 8:00 AM EDT Office Visit [facility] [address] [place] [address] Tianna Chandra documented as of this encounter Visit Diagnoses Not on filedocumented in this encounter Additional Health Concerns Assessment Noted Time PHQ-9 Depression Total Score: 0 09/12/19 10:19 AM EDT documented as of this encounter Care Teams Oil Rag Washer Relationship Specialty Start Date End Date Clementine Cobos MD [address] [place] [address] PCP - General Family Medicine 06/25/18 Manoj [place] MD [address] [place] [address] Obstetrics and Gynecology 07/22/24 Emir Medina MD [address] [place] [address] Bariatrics 10/08/24 Xavi Villafuerte MD [address] [place] [address] Drive 3rd [place] [address] Gastroenterology 10/08/24 Enrike Arvizu MD [address] [facility] [place] [address] Cardiology 10/08/24 documented as of this encounter
--- OUTSIDE RECORDS SUMMARY | 2025-03-13 09:56 | XMS_ITS | Encounter Summary ---
Author Organization [employer] Address [address] [place] [address] [place] [address] Care Team Providers Care Child Care Development Specialist Name Role Phone Clementine Cobos MD Primary Care Provider + [phone] Manoj Garcia MD Unavailable Emir Medina MD Unavailable [phone] Xavi Villafuerte MD Unavailable [phone] Enrike Arvizu MD Unavailable [phone] Encounter Details Date Type Department Care Team (Latest Contact Info) Description 11/18/2021 Abstract [facility] Dental, Provider, DDS Social History Tobacco [...] Description 03/26/2025 8:00 AM EDT Office Visit [facility] ADULT DENTAL [address] [place], [place] [phone] Tianna Chandra documented as of this encounter Visit Diagnoses Not on filedocumented in this encounter Care Teams Child Care Development Specialist Relationship Specialty Start Date End Date Clementine Cobos MD 230 [place], [place] [phone] PCP - General Family Medicine 06/25/18 Manoj [place] MD [address] [place] [address] Obstetrics and Gynecology 07/22/24 Emir Medina MD 175 [facility] [address] [place] [address] Bariatrics 10/08/24 Xavi Villafuerte MD [address] [place] [address] 3rd [place] [address] Gastroenterology 10/08/24 Enrike Arvizu MD [address] [place] [address] Cardiology 10/08/24 documented as of this encounter
--- OUTSIDE RECORDS SUMMARY | 2025-03-13 09:56 | XMS_ITS | Encounter Summary ---
Author Organization [employer] Address 75 [facility] 7t [place] [address] Care Team Providers Care Wool Hat Hydraulicker Name Role Phone [place], Clementine MORGAN Primary Care Provider [phone] Manoj Garcia MD Unavailable Emir Medina MD Unavailable [phone] Xavi Villafuerte MD Unavailable [phone] Enrike Arvizu MD Unavailable [phone] Reason for Visit * Reason Comments Med Change Request Encounter Details Date Type Department Care Team (Late st Contact Info) Description 04/28/2023 Refill [facility] [address] [place], [place] [phone] Kaitlin Vallejo MD [address] [place], [place] [phone] Seasonal allergies (Primary Dx) Social History Tobacco [...] 8:00 AM EDT Office Visit [facility] [address] [place] [address] Tianna Chandra documented as of this encounter Visit Diagnoses Diagnosis Seasonal allergies- Primary Allergic rhinitis, cause unspecified documented in this encounter Additional Health Concerns Assessment Noted Time PHQ-9 Depression Total Score: 0 09/12/19 10:19 AM EDT documented as of this encounter Care Teams Wool Hat Hydraulicker Relationship Specialty Start Date End Date Clementine Cobos MD 230 [place] [address] PCP - General Family Medicine 06/25/18 Manoj [place] MD [address] [place] [address] Obstetrics and Gynecology 07/22/24 Emir Medina MD [address] [place] [address] Bariatrics 10/08/24 Xavi Villafuerte MD [address] [place] [address] 3rd [place] [address] Gastroenterology 10/08/24 Enrike Arvizu MD [address] [place] [address] Cardiology 10/08/24 documented as of this encounter
== END 2025-03-13 09:44 | disposition home or self-care (01) ==
LOC: HO.PMC 09:22
PROVIDERS: PCP Family Medicine; Visit Provider Nurse Practitioner Family
DX: G58.8 Other specified mononeuropathies (principal); R07.81 Pleurodynia; G89.4 Chronic pain syndrome
CPT/HCPCS: 99214; G2211

== ENCOUNTER 2025-04-09 07:47 | Outpatient (REF) | payer OTHER, MEDICAID, SELFPAY ==
--- OUTSIDE RECORDS SUMMARY | 2025-04-09 07:49 | XMS_ITS | Encounter Summary ---
Author Organization [facility] Address [address] [place] [address] Care Team Providers Care Sheet Metal Erector Name Role Phone [place], Clementine MORGAN Primary Care Provider [phone] Reason for Visit * Reason Onset Date Comments Advice Only 03/31/2025 Zebpound approva l Encounter Details Date Type Department Care Team (Late Contact Info) Description 03/31/2025 Telephone Bariatric Surgery [address] [phone] Merna Anderson PA [address] [place] [phone] Social History Tobacco Use Types Packs/Day Years Used Date Smoking Tobacco: Never Smokeless Tobacco: Never Alcohol Use Standard Drinks/Week Comments Yes 0 (1 standard drink = 0.6 oz pur e alcohol) Comments Unknown Sex and Gender Information Value Date Recorded Sex Assigned at Not on file Legal Sex Female 2:54 AM EST Gender Identity Not on file Sexual Orientation Not on file documented as of this encounter Progress Notes * Ynes Dave - 03/31/2025 12:29 PM EDT Patient received an approval for Zepbound and needs new script to be sent to her pharmacy. documented in this encounter Plan of Treatment Upcoming Encounters Date Type Department Care Team ([facility] Contact Info) Description 07/08/2025 1:15 PM EST Office Visit Bariatric Surgery [address] [phone] Merna Anderson PA [address] [place] [phone] documented as of this encounter Visit Diagnoses Not on filedocumented in this encounter Care Teams Sheet Metal Erector Relationship Specialty Start Date End Date Clementine Cobos MD [address] [place] [phone] PCP - General Internal Medicine 12/18/12 documented as of this encounter
--- OUTSIDE RECORDS SUMMARY | 2025-04-09 07:49 | XMS_ITS | Clinical Summary ---
Author Organization [facility] Address [address] [place] [address] Phone Care Team Providers Care Venetian Blind Installer Name Role Phone Clementine Cobos MD Primary Care Provider [phone] Allergies No known active allergies Medications fluticasone HFA (Flovent HFA) 110 mcg/actuation inhaler as needed, Refills 0, Maintenance, 01/17/16 12:10:21 EDT 01/17/20 16 Active cholecalciferol (VITAMIN D-3) 50 mcg (2,000 unit) capsule Take 1 capsule (2,000 Units total) by mouth 1 (one) time each day. Active fluticasone propionate (Flonase Allergy Relief) 50 mcg/actuation nasal spray Administer into affected nostril(s). 03/15/20 21 Active montelukast (Singulair) 10 mg tablet Take 1 tablet (10 mg total) by mouth. 08/03/19 22 Active tirzepatide, weight loss, (Zepbound) 2.5 mg/0.5 mL injectionIndicatio ns:Overweight (BMI 25.0-29.9),History of sleeve gastrectomy,Hyperl ipidemia, unspecified hyperlipidemia type Inject 0.5 mL (2.5 mg total) under the skin every 7 (seven) days. 2 mL 04/01/20 25 Active tirzepatide, weight loss, (Zepbound) 2.5 mg/0.5 mL injectionIndicatio ns:Overweight (BMI 25.0-29.9),History of sleeve gastrectomy,Hyperl ipidemia, unspecified hyperlipidemia type Inject 0.5 mL (2.5 mg total) under the skin every 7 (seven) days. 2 mL 02/18/20 025 Discontin ued(Cost of medicatio n) Active Problems Problem Noted Date Diagnosed Date [...] Overview (02/18/2025): Lab Results Component Value Date [id number] 31.0 12/17/2024 [id number] 28.8 (L) 10/09/2024 [id number] 41.2 12/24/2023 -Vit D3 2000IU started 10/09/24 [...] Encounters Date Type Department Care Team Description 03/31/2025 Telephone Bariatric Surgery [address] [phone] Merna Anderson PA 03/17/2025 Telephone Bariatric Surgery [address] [phone] Merna Anderson PA 02/17/2025 8:00 AM EDT Office Visit Bariatric Surgery [address] [phone] Merna Anderson PA Overweight (BMI 25.0-29.9) (Primary [...] PM EST Office Visit Bariatric Surgery - [address] [place] [address] Merna Anderson, PA [address] [place] [phone] Health Maintenance Due Date Last Done Comments Breast Cancer Screening 1980 Colorectal Cancer Screening: Colonoscopy 1980 Social Influencers of Health Screening 06/03/2022 Depression Screening 06/25/2024 Cervical Cancer Screening: Pap Smear 09/09/2024 09/09/2021 COVID-19 Vaccine ( season) 2025 07/03/2022, 05/06/2021, 10/21/2020, Additional history exists Influenza Vaccine (#1) 2025 , 03/15/2023, 03/09/2022, Additional history exists Cholesterol Screening (Lipid Panel) 02/13/2030 02/13/2025, 12/17/2024, 10/09/2024 DTaP,Tdap,and Td Vaccines (4 - Td or [...] complete this topic Insurance MEDICAID - [place] [facility] Care Teams Venetian Blind Installer Relationship Specialty Start Date End Date [place], MD Clementine [address] [place] [phone] PCP - General Internal Medicine 12/18/12
--- OUTSIDE RECORDS SUMMARY | 2025-04-09 07:49 | XMS_ITS | Encounter Summary ---
Author Organization [facility] Address [address] [place] [address] [place] [phone] Phone Care Team Providers Care Clinic Assistant Name Role Phone Chandrika, Clementine Langston MD Primary Care Provi ching Encounter Details Date Type Department Care Team (Late st Contact Info) Description 03/30/2025 Orders Only [facility] Gastroenterology Clinic [address] [place] [address] Enio Escobedo MD [address] [address] [email or web address] Social History Tobacco Use Types Packs/Day Years [...] on file documented as of this encounter Procedures Procedure Name Priority Date/Time Associated Diagnosis Comments COLONOSCOPY FOR RESULT ENTRY ONLY Routine 03/24/2025 3:32 PM EDT documented in this encounter Results * HM COLONOSCOPY FOR RESULT ENTRY ONLY (03/24/2025 3:32 PM EDT) nEio Escobedo MD HEALTH MAINTENANCE Final Resu lt documented in this encounter Visit Diagnoses Not on filedocumented in this encounter Care Teams Clinic Assistant Relationship Specialty Start Date End Date [place], Clementine Langston MD [address] [place] [address] PCP - General Family Medicine 07/26/18 documented as of this encounter Additional Source Comments The information contained in this document represents components of the legal health record. It is not the complete legal health record.[facility]
--- OUTSIDE RECORDS SUMMARY | 2025-04-09 07:49 | XMS_ITS | Encounter Summary ---
Author Organization [facility] Address [address] [place] [phone] Phone Care Team Providers Care Body Maker Machine Setter Name Role Phone Pcp, Unknown Primary Care Provider Unavailabl e Unknown, Unknown Primary Care Provider Clementine Antonio MD Primary Care Provi ching Encounter Details Date Type Department Care Team (Latest Contact Info) Description 07/17/2017 Ancillary Orders [facility] [address] [place] [address] [place] [address] Enrike Arvizu, DO [address] [place] [phone] Palpitations; Bradycardia; Chest pain, unspecified type Social [...] documented as of this encounter Care Teams Body Maker Machine Setter Relationship Specialty Start Date End Date Pcp, Unknown PCP - General 07/17/17 05/29/18 Unknown, Unknown, PCP - General 05/30/18 07/25/18 Clementine Cobos MD [address] [place] [address] PCP - General Family Medicine 07/26/18 documented as of this encounter Additional Source Comments The information contained in this document represents components of the legal health record. It is not the complete legal health record.[facility]
== END 2025-04-09 07:48 | disposition home or self-care (01) ==
LOC: HO.MAMMO 07:47
PROVIDERS: PCP Family Medicine; Visit Provider Family Medicine
DX: Z12.31 Encounter for screening mammogram for malignant neoplasm of breast (principal)
CPT/HCPCS: 77063; 77067

== ENCOUNTER → 2025-04-09 08:00 | Outpatient (BNV) | payer OTHER, MEDICAID, SELFPAY | PROVIDERS: PCP Family Medicine; Visit Provider Radiology Body Imaging | DX: Z12.31 Encounter for screening mammogram for malignant neoplasm of breast (principal) | CPT/HCPCS: 77063; 77067 ==

== ENCOUNTER 2025-04-20 14:15 | Outpatient (AMB) | payer OTHER, MEDICAID, SELFPAY ==
--- NOTE | 2025-04-20 14:25 | MHC.OFFVIS ---
Vital Signs 04/20/25 14:27 Height 5 ft 4 in Weight 174 lb 2.643 oz BMI 29.9 BP 124/58 L Blood Pressure Location Lt brachial Position Sitting Pulse 55 Intake Visit Reasons: l/s 2020 GERD Intake Note: Dacasty presents in the office as a follow up for GERD. CC: States pains in the stomach and has nausea. She states she has been eating and the pain in the stomach gets so bad she has to vomit. No irregular bowel movements. Banking Officer Required: No Allergies No Known Allergies Allergy (Verified 04/20/25 14:27) HPI HPI l/s 2020 GERD: Details: 44 y/o woman here for follow-up RECAP: had hx of sleeve gastrectomy 2018 CT 2016--s/p cholecystectomy, borderline splenomegaly pelvic [id number], cyst EGD: 2020: LA grade C esophagitis - h pylori pos INTERIM: she had 2 months of severe epigastric pain worse with food she had x 2 courses of ABx for h plyori no check for cure so far she started pepcid and helped a lot, 20 gm bID she deies nsaids, or alcohol she denies rectal bleeding no dsyphagia she took iron and had dark stools but not now EXAM: GENERAL: The patient is well developed and nontoxic. VITAL SIGNS:see workflow HEENT: Nonicteric sclerae, PERRLA, EOMI. Oropharynx clear. Moist mucous membranes. Conjunctivae appear well perfused. No thyroid mass. CHEST: Chest wall is nontender. HEART: Regular rate and rhythm without murmurs. LUNGS: Clear to auscultation bilaterally. ABDOMEN: Soft, positive bowel sounds, mildly tender epigastrium, no organomegaly.no flank tenderness SKIN: No rash, no excessive bruising, petechiae, or purpura. NEUROLOGIC: Cranial nerves II-XII intact without motor/sensory deficit. Psych: normal affect A/P: 1/ Epigastric pain, better with Pepcid ? PUD, gastritis--H pylori in past PLAN: 1/ HP breath test 2/ EGD with possible cultures and sens for HP 3/ cont with pepcid stop for 3 d before EGD [facility] Medical History Renal calculi Urinary incontinence UTI (urinary tract infection) Pain PONV (postoperative nausea and vomiting) Abdominal pain GERD (gastroesophageal reflux disease) Carpal tunnel syndrome Endometriosis Seasonal allergies Asthma Surgical History Ventral hernia (03/06/24) H/O abdominal surgery History of carpal tunnel surgery of right wrist History of esophagogastroduodenoscopy (EGD) H/O gastric bypass Hx of cholecystectomy H/O tubal ligation H/O eye surgery Social History Household Members: Children Are you a primary rn managed care to a significant other at home: No Do you presently have visiting nurse or other home services: No Alcohol intake: never Patient Tobacco Use Status: Never used Tobacco Female Reproductive History Menstrual Age of Menarche: 8 Physical Exam Vital Signs: Last Vital Signs Pulse 55 04/20/25 14:27 BP 124/58 L 04/20/25 14:27 BMI result Body Mass Index 29.9 Assessment & Plan Assessment & Plan (1) Abdominal pain: Code(s): R10.9 - Unspecified abdominal pain Category: Medical Plan: as above Coding Level of Care Code Est Pt Level 4 (89723) Diagnoses Abdominal pain R10.9
[2025-04-20 14:27] VITALS: BP 124/58; PULSE 55; BMI 29.9
--- OUTSIDE RECORDS SUMMARY | 2025-04-20 17:53 | XMS_ITS | Encounter Summary ---
Author Organization [facility] Address [address] [place] [address] Phone Care Team Providers Care Auxiliary Engineer Name Role Phone Pcp, Unknown Primary Care Provider Unavailabl e Unknown, Unknown Primary Care Provider Clementine Antonio MD Primary Care Provi ching Encounter Details Date Type Department Care Team (Latest Contact Info) Description 07/17/2017 Ancillary Orders [facility] [address] [place] [address] [place] [address] Enrike Arvizu, DO [address] [place] [phone] Palpitations; Bradycardia; Chest pain, unspecified type Social [...] documented as of this encounter Care Teams Auxiliary Engineer Relationship Specialty Start Date End Date Pcp, Unknown PCP - General 07/17/17 05/29/18 Unknown, Unknown, PCP - General 05/30/18 07/25/18 Clementine Cobos MD [address] [place] [address] PCP - General Family Medicine 07/26/18 documented as of this encounter Additional Source Comments The information contained in this document represents components of the legal health record. It is not the complete legal health record.[facility]
--- OUTSIDE RECORDS SUMMARY | 2025-04-20 17:53 | XMS_ITS | Data Portability ---
Author Organization [place] [facility] Address [address] [place] [phone] Care Team Providers Care Assistant Nurse Manager Name Role Phone TAI, RASHEED Primary Care Provider Assessment Encounter Date Assessment Date Assessment LastModified by Organization Details LastModified Time 01/29/2025 01/29/2025 Assessment: - Nasal polyps, status post surgical removal in 07/2001. - Foul smell in nostrils. - Seasonal allergies. Plan: The patient was reassured that no polyps were observed during the nasal endoscopy. Postoperative changes were noted on the right side, but no abnormalities requiring intervention were identified. She was advised to use salt water rinses twice daily to irrigate and clean her nasal passages, particularly due to the scar tissue and postoperative changes that may capture debris more easily. No imaging, antibiotics, or revision surgery are indicated at this time. She was educated on nasal hygiene and the importance of maintaining clean nasal passages. Follow-up was recommended if she experiences separate issues or worsening symptoms. Procedure Documentation: - Nasal endoscopy performed during the visit. [email or web address] Not available 01/29/2025 14:00:21 Plan of Treatment Reminders Order Date Submit Date Provider Last Modified By Organization Details Last Modified Time Details Appointments Establish ed 15 2024 02:15P M GRICELDA ROJAS MD Not available Not available Not available Lab None recorded. Referral None recorded. Procedures None recorded. Surgeries None recorded. Imaging None recorded. Medication Orders None recorded. Patient TargetsNo targets recorded. Patient Instructions Encounter Date Encounter Id Patient Instructions Last Modified By Organization Details Last Modified Time 01/29/2025 [id number] - Use salt water rinses twice daily to irrigate nasal passages. - Maintain nasal hygiene. - Follow up if separate issues or worsening symptoms occur. [email or web address] Not available 01/29/2025 14:00:20 Please note: Parts of this encounter note have been generated by AI based on audio conversation. Patient consent was required prior to utilizing this technology. Content review was required prior to finalizing the note. [email or web address] Not available 01/29/2025 14:00:21 Reason for Referral None Reported. Problems Name Problem SNOMED Code Status Onset Date Resolution Date Notes Provider Name and Address Organization Details Recorded Time Polyp of nasal cavity and/or nasal sinus 519536753 Active 025 GRICELDA ROJAS MD [address] [facility], [place], [phone], [facility] 14:00:30 Dysphagia 25288886 Active 025 GRICELDA ROJAS MD [address] [facility], [place], [phone], [facility] 14:00:37 Problem Notes None recorded. Procedures Surgical History Date Name Laterality Status Provider Name and Address Organization Details Recorded Time 01/29/2025 NasalEndos copy_DP completed GRICELDA ROJAS MD [address], [address], [facility] 01/29/2025 14:00:24 Imaging Results None recorded. Procedure Notes None recorded. Medical Equipment None Reported. Medications Name Sig Start Date Stop Date Status Note LastModified by Organization Details LastModified Time tetracyclin e 500 mg capsule TAKE 1 CAPSULE BY MOUTH FOUR TIMES A DAY X14 DAYS 01/29 completed Not Available Not Available Not Available cyclobenzap rine 10 mg tablet TAKE 1 TABLET BY MOUTH AT BEDTIME NEEDED FOR PAIN OF MUSCLES, DO NOT DRIVE WITH MEDICAION active Not Available Not Available No t Available doxycycline hyclate 100 mg capsule TAKE 1 CAPSULE ORALLY 2 TIMES A DAY FOR 7 DAYS 01/29 completed Not Available Not Available Not Available azithromyci n 250 mg tablet TAKE 2 TABLETS BY MOUTH TODAY, THEN TAKE 1 TABLET DAILY FOR 4 DAYS DIRECTED 01/29 completed Not Available Not Available Not Available ibuprofen 800 mg tablet TAKE 1 TABLET BY MOUTH EVERY 8 HOURS NEEDED FOR MILD PAIN FOR UP TO 10 DAYS active Not Available Not Available No t Available fluconazole 150 mg tablet TAKE 1 TABLET BY MOUTH ONCE, MAY REPEAT 1 TIME AFTER 72 HOURS IS SYMPTOMAT IC active Not Available Not Available No t Available prednisone 20 mg tablet TAKE 2 TABLETS BY MOUTH EVERY DAY FOR 5 DAYS active Not Available Not Available No t Available metronidazo le 250 mg tablet TAKE 1 TABLET BY MOUTH FOUR TIMES A DAY FOR 14 DAYS 01/29 completed Not Available Not Available Not Available meclizine 25 mg tablet TAKE 1 TABLET BY MOUTH THREE TIMES A DAY NEEDED FOR DIZZINESS FOR 10 DAYS active Not Available Not Available No t Available benzonatate 100 mg capsule TAKE 1 CAPSULE BY MOUTH IF NEEDED IN THE MORNING , AT NOON AND BEDTIME FOR COUGH DO NOT CRUSH/GLENIS W active Not Available Not Available No t Available cephalexin 500 mg capsule TAKE 1 CAPSULE BY MOUTH FOUR TIMES A DAY FOR 7 DAYS 01/29 completed Not Available Not Available Not Available oseltamivir 75 mg capsule TAKE 1 CAPSULE ORALLY EVERY 12 HOURS FOR 5 DAYS active Not Available Not Available No t Available bismuth subsalicyla te 262 mg chewable tablet TAKE 1 TABLET BY MOUTH FOUR TIMES A DAY X14 DAYS active Not Available Not Available No t Available omeprazole 20 mg capsule,del ayed release TAKE 1 CAPSULE BY MOUTH BEFORE BREAKFAST AND EVENING MEAL. active Not Available Not Available No t Available codeine 10 mg-guaifene sin 100 mg/5 mL oral liquid TAKE 5 ML BY MOUTH IF NEEDED IN THE MORNING, AT NOON, AND AT BEDTIME FOR COUGH FOR UP TO 5 DAYS active Not Available Not Available No t Available albuterol sulfate HFA 90 mcg/actuati on aerosol inhaler INHALE 2 PUFFS EVERY 6 HOURS IF NEEDED FOR WHEEZING. active Not Available Not Available No t Available ferrous sulfate 325 mg (65 mg iron) tablet,maximino yed release TAKE 1 TABLET BY MOUTH TWICE DAILY WITH FOOD, DO NOT BREAK, CRUSH, DISSOLVE OR CHEW active Not Available Not Available No t Available Gavilax 17 gram/dose oral powder MIX 17 GRAMS IN 8-12 OZ FLUID LIKE WATER AT BEDTIME NEEDED FOR CONSTIPAT ION active Not Available Not Available No t Available Vitamin D3 50 mcg (2,000 unit) capsule TAKE 1 CAPSULE BY MOUTH EVERY DAY active Not Available Not Available No t Available Asmanex HFA 100 mcg/actuati on aerosol inhaler INHALE 1 ACTUATION ONCE DAILY active Not Available Not Available No t Available Paxlovid 300 mg (150 mg x 2)-100 mg tablets in a dose pack TAKE 2 TABLETS (300 MG) OF NIRMATREL VIR & 1 TABLET (100 MG) OF RITONAVIR BY MOUTH TWICE DAILY FOR 5 DAYS active Not Available Not Available No t Available Vitals Date Recorded Body height Body mass index (BMI) Body weight Provider Name and Address Organization Details Last Updated DateTime 01/29/2025 162.56 cm 28.3 kg/m2 63735.74 g Maria Luisa Ruiz [place] [facility] 01/29/2025 13:48:48 Social History None recorded. Functional Status None recorded. Mental Status None recorded. Family History Nothing Reported. Medical History No medical history recorded. Gynecological HistoryNo gynecological history recorded. Obstetrics History GPAL:G 0 P 0 0 0 0 Past Encounters Encounter ID Performer Location Encounter Start Date Encounter Closed Date Diagnosis/Indication Diagnosis SNOMED-CT Code Diagnosis ICD10 Code Diagnosis IMO Codes Diagnosis Note [id number] GRICELDA ROJAS MD [facility] [address] [address] 01/29/2025 13:31:27 01/29/2025 14:01:11 Polyp of nasal cavity and/or nasal sinus 218497306 J33.9 77781 Dysphagia 18451341 R13.1 4 348252 Health Concerns Section Related Observation LastModified by Organization Detai ls LastModified Time None Recorded Concern Status LastModified by Organization Details LastModified Time None Recorded Advance Directives Directive None Recorded Payers Insurance Date Sequence Insurance Name Policy Number Policy Jaimes Covered Member ID Jaimes Member ID Guarantor Name 01/29/2025 1 [facility] ([facility]) [id number] Dacasty D Herrera [id number] Dacasty D Herrera 01/29/2025 2 [place] [facility] Dacasty D Herrera [id number] Dacasty D Herrera Notes Date Note Type Note Provider Name and Address Organization Details Recorded Time 01/29/2025 text/html nasal polyps Dacasty D Javier is a 44-year-old female who presents for nasal symptoms. She reports a history of nasal polyps that were surgically removed in 07/2001 in [place]. She is now experiencing similar symptoms, including a foul smell localized to her nostrils, which she describes as rotten and disgusting. She denies drainage or thick mucus and notes that her nostrils remain dry. She has not undergone recent imaging of her sinuses and has not been treated with antibiotics recently. She also reports seasonal allergies but avoids using allergy medications as she feels they exacerbate her nasal symptoms by causing congestion without drainage. She works in [employer] and is in a clean, air-conditioned environment. She has not had any recent evaluations of her nose by her primary care physician. GRICELDA ROJAS MD [address] [place] [address], [phone] 01/29/2025 14:01:49 OBGyn Episode No OBEpisode recorded.
--- OUTSIDE RECORDS SUMMARY | 2025-04-20 17:53 | XMS_ITS | Encounter Summary ---
Author Organization [facility] Address [address] [place] [address] Care Team Providers Care Per Diem Registered Nurse Name Role Phone [place], Clementine MORGAN Primary Care Provider [phone]- [phone] Reason for Visit * Reason Onset Date Comments Advice Only 03/31/2025 Zebpound approva l Encounter Details Date Type Department Care Team (Late Contact Info) Description 03/31/2025 Telephone Bariatric Surgery [address] [phone] Merna Anderson PA [address] [place] [phone] Social History Tobacco Use Types Packs/Day Years [...] Upcoming Encounters Date Type Department Care Team ([facility] Contact Info) Description 07/08/2025 1:15 PM EST Office Visit Bariatric Surgery [address] [phone] Merna Anderson PA [address] [place] [phone] documented as of this encounter Visit Diagnoses Not on filedocumented in this encounter Care Teams Per Diem Registered Nurse Relationship Specialty Start Date End Date Clementine Cobos MD [address] [place] [phone] PCP - General Internal Medicine 12/18/12 documented as of this encounter
--- OUTSIDE RECORDS SUMMARY | 2025-04-20 17:53 | XMS_ITS | Encounter Summary ---
Author Organization [facility] Address [address] [place] [address] [phone] Phone Care Team Providers Care Research And Evaluation Manager Name Role Phone Chandrika, Clementine Langston MD Primary Care Provi ching Encounter Details Date Type Department Care Team (Late st Contact Info) Description 03/30/2025 Orders Only [facility] [address] [place] [address] Enio Escobedo MD [address] [address] [email or web address] Social History Tobacco Use Types Packs/Day Years [...] RESULT ENTRY ONLY (03/24/2025 3:32 PM EDT) Enio Escobedo MD HEALTH MAINTENANCE Final Resu lt documented in this encounter Visit Diagnoses Not on filedocumented in this encounter Care Teams Research And Evaluation Manager Relationship Specialty Start Date End Date [place], Clementine Langston MD [address] [place] [phone] PCP - General Family Medicine 07/26/18 documented as of this encounter Additional Source Comments The information contained in this document represents components of the legal health record. It is not the complete legal health record.[facility]
--- OUTSIDE RECORDS SUMMARY | 2025-04-20 17:54 | XMS_ITS | Clinical Summary ---
Author Organization [facility] Address [address] [place] [address] Phone Care Team Providers Care Enterprise Systems Administrator Name Role Phone Clementine Cobos MD Primary [...] Active Active Problems No known active problems Encounters Date Type Department Care Team Description 03/30/2025 Orders Only [facility] [address] [place] [address] Enio Escobedo MD from Last 3 Months Immunizations Immunization Administration Dates Next Due COVID-19 [...] Adult Td,Tdap Booster 08/07/2022 08/07/2012 COLOGUARD 2023 FIT TEST 2023 FOBT 2023 SIGMOIDOSCOPY 2023 VIRTUAL COLONOSCOPY 2023 INFLUENZA VACCINE (#1) 2025 , 03/10/2020, 03/07/2019, Additional history exists COVID-19 VACCINE (2024- season) 2025 05/06/2021, 10/21/2020, 09/23/2020 COLONOSCOPY 03/24/2035 03/24/2025 COLORECTAL CANCER SCREENING 03/24/2035 PNEUMOCOCCAL VACCINES (0-49 years) Aged Out 06/06/2014 [...] Procedure Name Priority Date/Time Associated Diagnosis Comments HM COLONOSCOPY FOR RESULT ENTRY ONLY Routine 03/24/2025 3:32 PM EDT PAP TEST Routine 08/14/1997 12:00 AM EST from Last 3 Months or Most Recently Relevant to Health Maintenance Results * COLONOSCOPY FOR RESULT ENTRY ONLY (03/24/2025 3:32 PM EDT) us Enio Escobedo MD HEALTH MAINTENANCE Final Resu lt * Pap Smear (08/14/1997 12:00 AM EST) 08/14/1997 Narrative [facility] - 08/20/1997 5:12 PM EST Accession Number: [id number] Report Status: Final Type: Cytology Cytology Report [id number] DIAGNOSTIC PAP Accessioned On: 08/15/97 CHRISTOPHER WHITE OI CLINICAL DATA: Routine.FINAL CYTOLOGIC DIAGNOSIS: ENDOCERVICAL BRUSH & CERVICAL SCRAPE: Satisfactory for evaluation. WITHIN NORMAL LIMITS. us Conversion Provider Not In Sys CYTOLOGY ORDERABL ES Final Result Performing Organization Address City/State/[facility] Co de Phone Number [address] [address] from Last 3 Months or Most Recently Relevant to Health Maintenance Insurance [facility] Address: [address] [address] [facility] Address: [address] [address] [facility] Address[facility] [address] [address] [facility] Address: [place] [id number] [facility] Address[facility] [place] [id number] [facility] Address[facility] [address] [address] [facility] Address: [address] [address] [facility] Address: [address] [facility] Address: [address] [address] [facility] Address[facility] [address] [address] [facility] Address: [address] [address] [facility] Care Teams Enterprise Systems Administrator Relationship Specialty Start Date End Date Chandrika, Clementine Langston MD [address] [place] [phone] PCP - General Family Medicine 07/26/18 Additional Source Comments The information contained in this document represents components of the legal health record. It is not the complete legal health record.[facility]
--- OUTSIDE RECORDS SUMMARY | 2025-04-20 17:54 | XMS_ITS | Clinical Summary ---
Author Organization [facility] Address [address] [place] [address] Phone Care Team Providers Care Armature Straightener Name Role Phone Clementine Cobos MD Primary Care Provider +1- [phone] Allergies No known active allergies Medications fluticasone [...] Overview (02/18/2025): Lab Results Component Value Date [id number] 31.0 12/17/2024 [id number] 28.8 (L) 10/09/2024 [id number] 41.2 12/24/2023 -Vit D3 2000IU started 10/09/24 [...] Care Team Description 03/31/2025 Telephone Bariatric Surgery [address] [phone] Merna Anderson PA 03/17/2025 Telephone Bariatric Surgery [address] [phone] Merna Anderson PA 02/17/2025 8:00 AM EDT Office Visit Bariatric Surgery [address] [phone] Merna Anderson PA Overweight (BMI 25.0-29.9) (Primary [...] PM EST Office Visit Bariatric Surgery - [address] [place] [phone] Merna Anderson, PA [address] [place] [phone] Health Maintenance Due Date Last Done [...] this topic Insurance [place]ICAID - [place] [facility] Care Teams Armature Straightener Relationship Specialty Start Date End Date Kimble, MD Clementine [address] [place] [phone] PCP - General Internal Medicine 12/18/12
== END 2025-04-20 14:50 | disposition home or self-care (01) ==
LOC: HO.HGI 14:16
PROVIDERS: PCP Family Medicine; Visit Provider Internal Medicine Gastroenterology
DX: R10.9 Unspecified abdominal pain (principal)
CPT/HCPCS: 99214

== ENCOUNTER 2025-05-06 14:00 | Outpatient (AMB) | payer OTHER, MEDICAID, SELFPAY ==
--- NOTE | 2025-05-06 14:20 | AM.OFFVISNUR ---
Intake Visit Reasons: H Pylori Intake Note: Pt presents for H Pylori BT. Protocols reviewed with pt. All protocols were followed - however; pt did have a piece of gum which she had only chewed for a matter of a few minutes. It was promptly thrown away and pt ensured she had no other intake. She expressed interest in proceeding with the test despite this situation. Pt advised of instructions for the test and began testing at 1420. Testing was concluded at 1435. No questions or additional concerns per pt at the end of testing. Advised pt that we will contact them with results when they are obtained. Peanut Sorter Required: No Accompanied by: Self / Same As Patient Allergies No Known Allergies Allergy (Verified 04/20/25 14:27) Assessment & Plan Assessment & Plan (1) GERD (gastroesophageal reflux disease): Code(s): K21.9 - Gastro-esophageal reflux disease without esophagitis Category: Medical (2) Abdominal pain: Code(s): R10.9 - Unspecified abdominal pain Category: Medical Coding Level of Care Code Established Pt Procedure Only Patient Type Established Diagnoses GERD (gastroesophageal reflux disease) K21.9 Abdominal pain R10.9
--- OUTSIDE RECORDS SUMMARY | 2025-05-06 17:17 | XMS_ITS | Data Portability ---
Author Organization [facility], Allergy Address [address] [place] [address] Care Team Providers Care Pararescue Manager Name Role Phone TAI, RASHEED Primary [...] By Organization Details Last Modified Time 01/29/2025 36213 - Use salt water rinses twice daily [...] Polyp of nasal cavity and/or nasal sinus 232364390 Active 025 GRICELDA ROJAS MD 100 [facility] 100, [place], [address], [facility] 14:00:30 Dysphagia 87765606 Active 025 GRICELDA ROJAS MD 100 [facility] 100, [place], [address], [facility] 14:00:37 Problem Notes None recorded. Procedures Surgical History Date Name Laterality Status Provider Name and Address Organization Details Recorded Time 01/29/2025 NasalEndos copy_DP completed GRICELDA ROJAS MD [address], [address], [facility] 01/29/2025 14:00:24 Imaging Results None recorded. Procedure [...] Updated DateTime 01/29/2025 162.56 cm 28.3 kg/m2 93080.74 g Maria Luisa Ruiz [place] - [facility] 01/29/2025 13:48:48 Social History None recorded. Functional Status None recorded. Mental Status None recorded. Family History Nothing Reported. Medical History No medical history recorded. Gynecological HistoryNo gynecological history recorded. Obstetrics History GPAL:G 0 P 0 0 0 0 Past Encounters Encounter ID Performer Location Encounter Start Date Encounter Closed Date Diagnosis/Indication Diagnosis SNOMED-CT Code Diagnosis ICD10 Code Diagnosis IMO Codes Diagnosis Note [id number] GRICELDA ROJAS MD [facility] [address] [address] 01/29/2025 13:31:27 01/29/2025 14:01:11 Polyp of nasal cavity and/or nasal sinus 580545968 J33.9 36864 Dysphagia 99429173 R13.1 4 262831 Health Concerns Section Related Observation LastModified by Organization Detai ls LastModified Time None Recorded Concern Status LastModified by Organization Details LastModified Time None Recorded Advance Directives Directive None Recorded Payers Insurance Date Sequence Insurance Name Policy Number Policy Jaimes Covered Member ID Jaimes Member ID Guarantor Name 01/29/2025 1 [facility] (O) [id number] Dacasty D Herrera [id number] Dacasty D Herrera 01/29/2025 2 [place] [facility] Dacasty D Herrera [id number] Dacasty D Herrera Notes Date Note Type Note Provider Name and Address Organization Details Recorded Time 01/29/2025 text/html nasal polyps Dacasty D Javier is a 44-year-old female who presents for nasal symptoms. She reports a history of nasal polyps that were surgically removed in 07/2001 in [place]. She is now experiencing similar symptoms, including [...] causing congestion without drainage. She works in [employer] and is in a clean, air-conditioned environment. She has not had any recent evaluations of her nose by her primary care physician. GRICELDA ROJAS MD [address] [place] [address], [phone] - [facility] 01/29/2025 14:01:49 OBGyn Episode No OBEpisode recorded.
--- OUTSIDE RECORDS SUMMARY | 2025-05-06 17:17 | XMS_ITS | Encounter Summary ---
Author Organization [employer] Address [address] [place] [address] [place], [place] [address] Care Team Providers Care Booking Prizer Name Role Phone Clementine Cobos MD Primary Care Provider + [phone] Manoj Garcia MD Unavailable Emir Medina MD Unavailable [phone] Xavi Villafuerte MD Unavailable [phone] Enrike Arvizu MD Unavailable [phone] Encounter Details Date Type Department Care Team (Latest Contact Info) Description 09/23/2018 Abstract [facility] CONVERSIONS Dental, Provider, DDS Social History [...] Care Team (Late st Contact Info) Description 06/15/2025 9:00 AM EST Office Visit [facility] MEDICINE 230 [place] [address] Clementine Cobos MD 230 [place], [place] [phone] documented as of this encounter Visit Diagnoses Not on filedocumented in this encounter Care Teams Booking Prizer Relationship Specialty Start Date End Date Clementine Cobos MD 230 [place], [place] [phone] PCP - General Family Medicine 06/25/18 Manoj Garcia MD [address] [place] [address] Obstetrics and Gynecology 07/22/24 Emir Medina MD 175 [facility] [address] [place] [address] Bariatrics 10/08/24 Xavi Villafuerte MD [address] [facility] [address] 3rd [place] [address] Gastroenterology 10/08/24 Enrike Arvizu MD 596 [place] [address] Cardiology 10/08/24 documented as of this encounter
--- OUTSIDE RECORDS SUMMARY | 2025-05-06 17:17 | XMS_ITS | Encounter Summary ---
Author Organization [employer] Address 75 [facility] 7[address] [place] [address] Care Team Providers Care Development Spec Name Role Phone Clementine Cobos MD Primary Care Provider [phone] Manoj Garcia MD Unavailable Emir Medina MD Unavailable [phone] Xavi Villafuerte MD Unavailable [phone] Enrike Arvizu MD Unavailable [phone] Encounter Details Date Type Department Care Team (Late st Contact Info) Description 03/07/2023 Orders Only [facility] MEDICINE [address] [place] [address] [phone] Clementine Cobos MD 230 [place], [place] [phone] Social History Tobacco Use Types Packs/Day Years [...] Description 06/15/2025 9:00 AM EST Office Visit [facility] MEDICINE 230 [place], [place] [phone] Clementine Cobos MD 230 [facility] [place] [address] documented as of this encounter Procedures Procedure Name Priority Date/Time Associated Diagnosis Comments BI MAMMOGRAM SCREENING TOMOSYNTHESIS BILATERAL Routine 03/17/2023 7:45 AM EDT documented in this encounter Results * BI Mammogram Screening Tomosynthesis Bilateral (03/17/2023 7:45 AM EDT) Anatomical Region Laterality Modality Breast Bilateral Mammography 03/17/2023 7:45 AM EDT Narrative 03/24/2023 9:33 PM EDT [address] [place] [address] Mammography Report Signed Patient: Carmine Herrera MR#: [id number] 11 : 1980 Acct:[id number] Age/Sex: 42 / F ADM Date: 03/17/23 Loc: HO.MAMMO Attending Dr: Clementine Cobos MD Ordering Physician: Clementine Cobos MD Results: 1N egative Date of Service: 03/17/23 Follow Up: 1 Year From Orig inal Mammogram Procedure(s): MM tomosynthesis screening BI Accession Number(s): [id number] cc: Clementine Cobos MD EXAMINATION: MM SCREENING [...] MD in OV> 03/24/232128 DD/ 4 TD/TT: Manager Research: Procedure Note Donotuseinterpreter, Image - 03/24/2023 [facility] [address] [place] [address] Mammography Report Signed Patient: Carmine Herrera DMR#: [id number] 11 : 1980Acct:[id number] Age/Sex: 42 / FADM Date: 03/17/23 Loc: VALERIO Attending Dr: Clementine Cobos MD Ordering Physician: Clementine Cobos MDResults: 1N egative Date of Service: 03/17/23Follow Up: 1 Year From Orig inal Mammogram Procedure(s): MM tomosynthesis screening BI Accession Number(s): [id number] cc: Clementine Cobos MD EXAMINATION: MM SCREENING [...] MD in OV> 03/24/232128 DD/ 4 TD/TT: Manager Research: Clementine Cobos MD IMG BI PROCEDURES Edited R esult - Final documented in this encounter Visit Diagnoses Not on filedocumented in this encounter Additional Health Concerns Assessment Noted Time PHQ-9 Depression Total Score: 0 09/12/19 23 10:19 AM EDT documented as of this encounter Care Teams Development Spec Relationship Specialty Start Date End Date Clementine Cobos MD [address] [place] [address] PCP - General Family Medicine 06/25/18 Manoj Garcia MD [address] [place] [address] [place] [address] Obstetrics and Gynecology 07/22/24 Emir Medina MD [address] [place] [address] Bariatrics 10/08/24 Xavi Villafuerte MD [address] [place] [address] 3rd [place] [address] Gastroenterology 10/08/24 Enrike Arvizu MD [address] [place] [address] Cardiology 10/08/24 documented as of this encounter
--- OUTSIDE RECORDS SUMMARY | 2025-05-06 17:17 | XMS_ITS | Encounter Summary ---
Author Organization [facility] Address [address] [place] [address] Care Team Providers Care User Experience Architect Name Role Phone Chandrika, Clementine MORGAN Primary Care Provider [phone]- [phone] Reason for Visit * Reason Comments Med Refill Encounter Details Date Type Department Care Team (Late Contact Info) Description 04/27/2025 Telephone Bariatric Surgery [address] [address] Merna Anderson PA [address] [place] [phone] Social History Tobacco Use Types Packs/Day Years [...] encounter Progress Notes * Ynes Dave - 04/27/2025 9:42 AM EST Patient did well on Zepbound 2.5 mgs and would like a refill with titration. If appropriate, please send script for Zepbound 5 mgs to their pharmacy. The patient does have a follow up in 07/08/2025 documented in this encounter Plan of Treatment Upcoming Encounters Date Type Department Care Team (Late Contact Info) Description 07/08/2025 1:15 PM EST Office Visit Bariatric Surgery [address] [address] Merna Anderson PA [address] [place] [phone] documented as of this encounter Visit Diagnoses Diagnosis Overweight (BMI 25.0-29.9) Overweight History of sleeve gastrectomy Hyperlipidemia, unspecified hyperlipidemia type documented in this encounter Care Teams User Experience Architect Relationship Specialty Start Date End Date Clementine Cobos MD [address] [place] [phone] PCP - General Internal Medicine 12/18/12 documented as of this encounter
--- OUTSIDE RECORDS SUMMARY | 2025-05-06 17:17 | XMS_ITS | Encounter Summary ---
Author Organization [facility] Address [address] [place] [address] Care Team Providers Care Top Lift Nailer Name Role Phone Chandrika, Clementine MORGAN Primary Care Provider [phone]- [phone] Reason for Visit * Reason Onset Date Comments Advice Only 03/31/2025 Zebpound approva l Encounter Details Date Type Department Care Team (Late Contact Info) Description 03/31/2025 Telephone Bariatric Surgery [address] [phone] Merna Anderson PA 230 [place] [phone] Social History Tobacco Use Types Packs/Day Years [...] Upcoming Encounters Date Type Department Care Team ([facility] Contact Info) Description 07/08/2025 1:15 PM EST Office Visit Bariatric Surgery [address] [phone] Merna Anderson PA [address] [place] [phone] documented as of this encounter Visit Diagnoses Not on filedocumented in this encounter Care Teams Top Lift Nailer Relationship Specialty Start Date End Date Clementine Cobos MD [address] [place] [phone] PCP - General Internal Medicine 12/18/12 documented as of this encounter
--- OUTSIDE RECORDS SUMMARY | 2025-05-06 17:17 | XMS_ITS | Encounter Summary ---
Author Organization [employer] Address [address] [place] [address] [address] [place] [address] Care Team Providers Care Coin Collector Name Role Phone Clementine Cobos MD Primary Care Provider [phone] Manoj Garcia MD Unavailable Emir Medina MD Unavailable [phone] Xavi Villafuerte MD Unavailable [phone] Enrike Arvizu MD Unavailable [phone] Encounter Details Date Type Department Care Team (Late st Contact Info) Description 11/17/2022 Abstract [facility] MEDICINE [address] [place] [phone] Clementine Cobos MD [address] [place] [phone] Social History Tobacco Use Types Packs/Day Years [...] Description 06/15/2025 9:00 AM EST Office Visit [facility] MEDICINE 230 [place], [place] [phone] Clementine Cobos MD 230 [place] [address] documented as of this encounter Visit Diagnoses Not on filedocumented in this encounter Additional Health Concerns Assessment Noted Time PHQ-9 Depression Total Score: 0 09/12/19 23 10:19 AM EDT documented as of this encounter Care Teams Coin Collector Relationship Specialty Start Date End Date Clementine Cobos MD 230 [place] [address] PCP - General Family Medicine 06/25/18 Manoj Garcia MD [address] [place] [address] Obstetrics and Gynecology 07/22/24 Emir Medina MD [address] [place] [address] Bariatrics 10/08/24 Xavi Villafuerte MD [address] [facility] [address] 3rd [place] [address] Gastroenterology 10/08/24 Enrike Arvizu MD [address] [place] [address] Cardiology 10/08/24 documented as of this encounter
--- OUTSIDE RECORDS SUMMARY | 2025-05-06 17:17 | XMS_ITS | Encounter Summary ---
Author Organization [facility] Address [address] [place] [address] Phone Care Team Providers Care Manager Of Change Name Role Phone Pcp, Unknown Primary Care Provider Unavailabl e Unknown, Unknown Primary Care Provider Clementine Antonio MD Primary Care Provi ching Encounter Details Date Type Department Care Team (Latest Contact Info) Description 07/17/2017 Ancillary Orders [facility] [address] [place] [address] [place] [address] Enrike Arvizu, DO [address] [place] [address] Palpitations; Bradycardia; Chest pain, unspecified type Social [...] documented as of this encounter Care Teams Manager Of Change Relationship Specialty Start Date End Date Pcp, Unknown PCP - General 07/17/17 05/29/18 Unknown, Unknown, PCP - General 05/30/18 07/25/18 Clementine Cobos MD 230 [place] [address] PCP - General Family Medicine 07/26/18 documented as of this encounter Additional Source Comments The information contained in this document represents components of the legal health record. It is not the complete legal health record.[facility]
--- OUTSIDE RECORDS SUMMARY | 2025-05-06 17:17 | XMS_ITS | Encounter Summary ---
Author Organization [employer] Address [address] [place] [address] [address] Care Team Providers Care Food Service Lead Name Role Phone Clementine Cobos MD Primary Care Provider + [phone] Manoj Garcia MD Unavailable Emir Medina MD Unavailable [phone] Xavi Villafuerte MD Unavailable [phone] Enrike Arvizu MD Unavailable [phone] Encounter Details Date Type Department Care Team (Latest Contact Info) Description 11/18/2021 Abstract [facility] CONVERSIONS Dental, Provider, DDS Social History Tobacco [...] Description 06/15/2025 9:00 AM EST Office Visit [facility] MEDICINE 230 [place] [address] Clementine Cobos MD 230 [place], [place] [phone] documented as of this encounter Visit Diagnoses Not on filedocumented in this encounter Care Teams Food Service Lead Relationship Specialty Start Date End Date Clementine Cobos MD 230 [place], [place] [phone] PCP - General Family Medicine 06/25/18 Manoj Garcia MD [address] [place] [address] Obstetrics and Gynecology 07/22/24 Emir Medina MD 175 [facility] [address] [place] [address] Bariatrics 10/08/24 Xavi Villafuerte MD [address] 3rd [place] [address] Gastroenterology 10/08/24 Enrike Arvizu MD [address]96 [place] [address] Cardiology 10/08/24 documented as of this encounter
--- OUTSIDE RECORDS SUMMARY | 2025-05-06 17:17 | XMS_ITS | Encounter Summary ---
Author Organization [employer] Address 75 [facility] 7[address] [place] [address] Care Team Providers Care Health And Safety Manager Name Role Phone Clementine Cobos MD Primary Care Provider [phone] Manoj Garcia MD Unavailable Emir Medina MD Unavailable [phone] Xavi Villafuerte MD Unavailable [phone] Enrike Arvizu MD Unavailable [phone] Reason for Referral * Imaging (Routine) - Closed Specialty Diagnoses / Procedures Referred By Contac t Referred To Contact Radiology Diagnoses Pleuritic pain Thoracic radiculopathy Procedures CT Chest w/ Contrast Clementine Cobos MD 230 [place] [address] Phone: tel: fax: [facility] [address] [place], [place] Phone: tel: fax: Referral ID Status Reason Start Date Expiration Date Visits Re quested Visits Authorized [id number] Closed 06/28/2023 06/27/2024 1 1 Encounter Details Date Type Department Care Team (Late st Contact Info) Description 06/28/2023 Orders Only [facility] MEDICINE 230 [place] [address] Clementine Cobos MD 230 [place], [place] [phone] Pleuritic pain (Primary Dx); Thoracic radiculopathy Social [...] Description 06/15/2025 9:00 AM EST Office Visit [facility] MEDICINE 230 [place] [address] Clementine Cobos MD 230 [place] [address] Scheduled Orders Name Type Priority Associated Diagnoses [...] documented as of this encounter Care Teams Health And Safety Manager Relationship Specialty Start Date End Date Clementine Cobos MD [address] [place] [address] PCP - General Family Medicine 06/25/18 Manoj Garcia MD [address] [place] [address] [place] [address] Obstetrics and Gynecology 07/22/24 Emir Medina MD [address] [place] [address] Bariatrics 10/08/24 Xavi Villafuerte MD [address] 3rd [place] [address] Gastroenterology 10/08/24 Enrike Arvizu MD [address] [place] [address] Cardiology 10/08/24 documented as of this encounter
--- OUTSIDE RECORDS SUMMARY | 2025-05-06 17:17 | XMS_ITS | Encounter Summary ---
Author Organization [employer] Address 75 [facility] 7t [place] [address] Care Team Providers Care Cloth Winder Machine Operator Name Role Phone Chandrika, Clementine MORGAN Primary Care Provider [phone] Manoj Garcia MD Unavailable Emir Medina MD Unavailable [phone] Xavi Villafuerte MD Unavailable [phone] Enrike Arvizu MD Unavailable [phone] Reason for Visit * Reason Comments Med Change Request Encounter Details Date Type Department Care Team (Late st Contact Info) Description 04/28/2023 Refill [facility] MEDICINE 230 [place], [place] [phone] Kaitlin Vallejo MD 230 [place], [place] [phone] Seasonal allergies (Primary Dx) Social History Tobacco [...] Description 06/15/2025 9:00 AM EST Office Visit [facility] MEDICINE 230 [place] [address] Clementine oCbos MD 230 [place] [address] documented as of this encounter Visit Diagnoses Diagnosis Seasonal allergies- Primary Allergic rhinitis, cause unspecified documented in this encounter Additional Health Concerns Assessment Noted Time PHQ-9 Depression Total Score: 0 09/12/19 10:19 AM EDT documented as of this encounter Care Teams Cloth Winder Machine Operator Relationship Specialty Start Date End Date Clementine Cobos MD 230 [place] [address] PCP - General Family Medicine 06/25/18 Manoj Garcia MD [address] [place] [address] Obstetrics and Gynecology 07/22/24 Emir Medina MD [address] [place] [address] Bariatrics 10/08/24 Xavi Villafuerte MD [address] [place] [address] Drive 3rd [place] [address] Gastroenterology 10/08/24 Enrike Arvizu MD 596 [place] [address] Cardiology 10/08/24 documented as of this encounter
--- OUTSIDE RECORDS SUMMARY | 2025-05-06 17:18 | XMS_ITS | Encounter Summary ---
Author Organization [facility] Address 75 [facility] 7t [place] [address] Care Team Providers Care Metal Machine Operator Name Role Phone Clementine Cobos MD Primary Care Provider [phone] Manoj Garcia MD Unavailable Emir Medina MD Unavailable [phone] Xavi Villafuerte MD Unavailable [phone] Enrike Arvizu MD Unavailable [phone] Encounter Details Date Type Department Care Team (Late st Contact Info) Description 06/27/2023 Orders Only [facility] 230 [place], [place] [phone] Clementine Cobos MD 230 [place], [place] [phone] Social History Tobacco Use Types Packs/Day Years [...] Description 06/15/2025 9:00 AM EST Office Visit [facility] MEDICINE 230 [place] [address] Clementine Cobos MD 230 [place] [address] documented as of this encounter Visit Diagnoses Not on filedocumented in this encounter Additional Health Concerns Assessment Noted Time PHQ-9 Depression Total Score: 0 09/12/19 10:19 AM EDT documented as of this encounter Care Teams Metal Machine Operator Relationship Specialty Start Date End Date Clementine Cobos MD 230 [place] [address] PCP - General Family Medicine 06/25/18 Manoj Garcia MD [address] [place] [address] Obstetrics and Gynecology 07/22/24 Emir Medina MD [address] [place] [address] Bariatrics 10/08/24 Xavi Villafuerte MD [address] [place] [address] Drive 3rd [place] [address] Gastroenterology 10/08/24 Enrike Arvizu MD [address] [place] [address] Cardiology 10/08/24 documented as of this encounter
--- OUTSIDE RECORDS SUMMARY | 2025-05-06 17:18 | XMS_ITS | Encounter Summary ---
Author Organization [employer] Address [address] [place] [address] Care Team Providers Care Metal Drill Operator Name Role Phone Clementine Cobos MD Primary Care Provider [phone] Manoj Garcia MD Unavailable Emir Medina MD Unavailable [phone] Xavi Villafuerte MD Unavailable [phone] Enrike Arvizu MD Unavailable [phone] Reason for Visit * Reason Comments Med Change Request Encounter Details Date Type Department Care Team (Late st Contact Info) Description 07/27/2023 Refill [facility] [address] [place], [place] [phone] Clementine Cobos MD [address] [place], [place] [phone] Social History Tobacco Use Types Packs/Day Years [...] Description 06/15/2025 9:00 AM EST Office Visit [facility] [address] [place] [address] Clementine Cobos MD [address] [place] [address] documented as of this encounter Visit Diagnoses Not on filedocumented in this encounter Additional Health Concerns Assessment Noted Time PHQ-9 Depression Total Score: 0 09/12/19 10:19 AM EDT documented as of this encounter Care Teams Metal Drill Operator Relationship Specialty Start Date End Date Clementine Cobos MD [address] [place] [address] PCP - General Family Medicine 06/25/18 Manoj Garcia MD [address] [place] [address] Obstetrics and Gynecology 07/22/24 Emir Medina MD [address] [place] [address] Bariatrics 10/08/24 Xavi Villafuerte MD [address] [place] [address] [address] [place] [address] Gastroenterology 10/08/24 Enrike Arvizu MD [address] [place] [address] Cardiology 10/08/24 documented as of this encounter
--- OUTSIDE RECORDS SUMMARY | 2025-05-06 17:18 | XMS_ITS | Encounter Summary ---
Author Organization [employer] Address [address] [facility] [address] [place] [address] Care Team Providers Care Chemical Analyst Name Role Phone Clementine Cobos MD Primary Care Provider [phone] Manoj Garcia MD Unavailable Emir Medina MD Unavailable [phone] Xavi Villafuerte MD Unavailable [phone] Enrike Arvizu MD Unavailable [phone] Reason for Visit * Reason Comments Med Change Request Encounter Details Date Type Department Care Team (Late st Contact Info) Description 07/27/2023 Refill [facility] [address] [place], [place] [phone] Clementine Cobos MD [address] [place], [place] [phone] Social History Tobacco Use Types Packs/Day Years [...] Description 06/15/2025 9:00 AM EST Office Visit [facility] [address] [place] [address] Clementine Cobos MD [address] [place] [address] documented as of this encounter Visit Diagnoses Not on filedocumented in this encounter Additional Health Concerns Assessment Noted Time PHQ-9 Depression Total Score: 0 09/12/19 10:19 AM EDT documented as of this encounter Care Teams Chemical Analyst Relationship Specialty Start Date End Date Clementine Cobos MD [address] [place] [address] PCP - General Family Medicine 06/25/18 Manoj Garcia MD [address] [place] [address] Obstetrics and Gynecology 07/22/24 Emir Medina MD [address] [place] [address] Bariatrics 10/08/24 Xavi Villafuerte MD [address] [place] [address] [address] [place] [address] Gastroenterology 10/08/24 Enrike Arvizu MD [address] [place] [address] Cardiology 10/08/24 documented as of this encounter
--- OUTSIDE RECORDS SUMMARY | 2025-05-06 17:18 | XMS_ITS | Clinical Summary ---
Author Organization [employer] Address [address] [place] [address] [address] [place] [address] Care Team Providers Care Antenna Design Engineer Name Role Phone Clementine Cobos MD Primary Care Provider [phone] Manoj Garcia MD Unavailable Emir Medina MD Unavailable [phone] Xavi Villafuerte MD Unavailable [phone] Enrike Arvizu MD Unavailable [phone] Allergies Active Allergy Reactions Criticality Noted Date Comments Levonorgest-Eth Estrad 91-Day 2022 Medications albuterol 108 (90 Base) MCG/ACT inhalerIndicati ons:Mild intermittent asthma without complication Inhale 2 puffs every 6 (six) hours if needed for wheezing. 18 g 11 025 2025 Active polyethylene glycol, PEG, 3350 (MiraLax) 17 GM/SCOOP powderIndicatio ns:Iron deficiency anemia, unspecified iron deficiency anemia type 17 grams in 8-12 oz fluid like water at bedtime prn constipation 527 g 2 025 Active Additional Information Patient not taking.Reported on 12/03/2024 fish oil ([place]-3) 500 MG capsuleIndicati ons:Dyslipidemi a Take 1 capsule (500 mg) by mouth Once per day. 60 capsule 3 025 Active ferrous sulfate (Fe Tabs) 325 (65 Fe) MG EC tabletIndicatio ns:Iron deficiency anemia, unspecified iron deficiency anemia type Take 1 tab po bid with food. Do not crush, chew, or split. 60 tablet 2 04/22/2 025 Active cholecalciferol (Vitamin D-3) 50 MCG (2000 UT) capsuleIndicati ons:Vitamin D deficiency Take 1 capsule (50 mcg) by mouth Once per day. 90 capsule 3 Active fluticasone furoate (Arnuity Ellipta) 200 MCG/ACT inhalerIndicati ons:Mild intermittent asthma without complication Inhale 1 puff Once per day. Rinse mouth with water after use to reduce aftertaste and incidence of candidiasis. Do not swallow. 1 each Active albuterol 108 (90 Base) MCG/ACT inhalerIndicati ons:Mild intermittent asthma without complication Inhale 2 puffs every 4 (four) hours if needed for wheezing. 18 g 1 025 2025 Active montelukast (Singulair) 10 MG tabletIndicatio ns:Mild intermittent asthma without complication Take 1 tablet (10 mg) by mouth Once per day. 90 tablet 3 025 2024 Active cetirizine (ZyrTEC) 10 MG tabletIndicatio ns:Seasonal allergies Take 1 tablet (10 mg) by mouth Once per day. 90 tablet 3 Active famotidine (Pepcid) 20 MG tabletIndicatio ns:Epigastric pain TAKE 1 TABLET BY MOUTH TWICE A DAY 180 tablet Active fluticasone (Flonase) 50 MCG/ACT nasal sprayIndication s:Acute maxillary sinusitis, recurrence not specified SPRAY 1 TO 2 SPRAYS INTO EACH NOSTRIL ONCE PER DAY. SHAKE GENTLY. BEFORE FIRST USE, PRIME PUMP. AFTER USE, CLEAN TIP AND REPLACE CAP. 16 g Active famotidine (Pepcid) 20 MG tabletIndicatio ns:Epigastric pain Take 1 tablet (20 mg) by mouth 2 times daily. 60 tablet 2024 Discontinued fluticasone (Flonase) 50 MCG/ACT nasal sprayIndication s:Acute maxillary sinusitis, recurrence not specified Administer 1-2 sprays into each nostril Once per day. Shake gently. Before first use, prime pump. After use, clean tip and replace cap. 16 g 025 2024 Discontinued(R eorder (will not trigger notification to Pharmacy)) fluconazole (Diflucan) 150 MG tabletIndicatio ns:Vulvovaginal Candidiasis Take 1 tablet (150 mg) by mouth 1 (one) time per week for 14 days. 2 tablet 025 2024 Active Problems Problem Noted Date Diagnosed Date Epigastric pain 03/27/2025 Assessment & Plan (03/27/2025 12:31 PM EDT): I advise patient to avoid NSAIDs, spicy and acid food, I advise to eat at the same time every day, I advise to elevate the head of the bed and take medications as prescribe I prescribed for her famotidine 20 mg twice daily and advised to take it while she is taking the antibiotic Acute maxillary sinusitis 03/27/2025 Assessment & Plan (03/27/2025 12:31 PM EDT): I will prescribe for her again antibiotics at this time doxycycline 100 mg twice a day and also prescribe some Flonase that she can use for her symptoms Dyslipidemia 10/09/2024 Overview (02/19/2025): Lab Results Component [...] -Discussed starting Estrogen supplementation after appt. with Tellers Supervisor for Lindy placement. Assessment & Plan (12/24/2023 11:21 AM EDT): -Likely correlated to john paul-menopausal sxs -Ordered labs 12/24/23 -Discussed starting Estrogen supplementation after appt. with [employer] Supervisor for Lindy placement. Ventral hernia without [...] previously controlled by Lupron but discontinued by medical accounting clerk due to length of use. -Referred to another medical accounting clerk by Dr. Garcia but that Quantitative Analyst Developer did not do hysterectomies -US done 06/15/2023 at [facility], results pending as of 06/20/23 -pt to call Dr. Garcia for referral for hysterectomy Assessment & Plan (06/20/2023 4:29 PM EST): -current present since Jan 2023, previously controlled by Lupron but discontinued by medical accounting clerk due to length of use. -Referred to another medical accounting clerk by Dr. Garcia but that Quantitative Analyst Developer did not do hysterectomies -US done 06/15/2023 at [facility], results pending as of 06/20/23 -pt to [...] by every 2 years -dental home is [facility] -health care proxy filed 08/18/2023 Assessment & Plan (06/28/2023 9:35 AM EST): -next physical exam due after 04/23/2024 -eye care facilitated by every 2 years -dental home is [facility] Assessment & Plan (04/23/2023 9:18 AM EDT): -next physical exam due after 04/23/2024 -eye care facilitated by every 2 years -dental home is [facility] Hx of gastric bypass 09/06/2022 Overview (02/26/2025): Follows with weight clinic and travel registered nurse icu. Note from 02/18/25 reviewed, medical weight management with GLP 1 started Assessment & Plan (02/19/2025 10:54 AM EDT): Follows with weight clinic and travel registered nurse icu. Gastroesophageal reflux disease 06/29/2022 Overview (04/23/2025): -check H.pylori breath test was positive 08/2024 and symptoms still present. She took about 10 of 14 days of treatment -hx gastric sleeve 2018 -dietary changes discussed, sami eliminating coffee -no improvement despite omeprazole 20 since 08/2024 -note from Dr. Villafuerte 04/20/25 reviewed Epigastric pain, better with Pepcid ? PUD, gastritis--H pylori in past , Plan: 1/ HP breath test 2/ EGD with possible cultures and sens for HP 3/ cont with pepcid stop for 3 d before EGD Assessment & Plan (10/08/2024 10:40 AM EDT): [...] thoracic spine ordered 06/22/23 -referred back to [facility] orthopedics for inions that pt has had [...] thoracic spine ordered 06/22/23 -referred back to [facility] orthopedics for inions that pt has had [...] Overview (01/28/2025): Lab Results Component Value Date [id number] 31.0 12/17/2024 [id number] 28.8 (L) 10/09/2024 [id number] 41.2 12/24/2023 -Vit D3 2000IU started 10/09/24 [...] Encounters Date Type Department Care Team Description 04/19/2025 Refill [facility] [address] [place] [address] Analisa Malave MD Epigastric pain; Acute maxillary sinusitis, recurrence not specified 04/18/2025 Refill [facility] [address] [place] [address] Analisa Malave MD Acute maxillary sinusitis, recurrence not specified 04/17/2025 1:50 PM EDT Immunization [facility] [address] [place] [address] Ashlyn Donnelly RN Encounter for immunization 04/17/2025 Travel 04/03/[address] [address] Clementine Cobos MD May Recalls 04/03/2025 Travel 04/02/2025 9:20 AM EDT [facility] [address] [address] Zaire Kumar MD Other subacute sinusitis (Primary Dx); Vaginal candidiasis 04/02/2025 Travel 03/27/2025 9:20 AM EDT [facility] [address] [address] Analisa Malave MD Epigastric pain; Acute maxillary sinusitis, recurrence not specified 03/27/2025 Travel 03/12/2025 3:00 PM EDT Office Visit [facility] [address] [address] Clementine Cobos MD Acute bacterial sinusitis (Primary Dx); Sinus symptom 03/12/2025 Travel 03/09/2025 3:30 PM EDT Office Visit [facility] [address] [place] [phone] Sofia Miller DDS Full coverage crown needed for root canal-treated tooth (Primary Dx) 02/25/2025 8:30 AM EDT Office Visit [facility] [address] [place] [address] Sofia Miller DDS Full coverage crown needed for root canal-treated tooth (Primary Dx) 02/19/2025 10:45 AM EDT Office Visit [facility] [address] [place] [address] Clementine Cobos MD Dyslipidemia (Primary Dx); Thoracic [...] Travel 02/10/2025 8:00 AM EDT Office Visit [facility] [address] [place] [phone] Sofia Miller DDS Dental caries (Primary Dx); Full coverage crown needed for root canal-treated tooth 02/03/2025 8:40 AM EDT Office Visit [facility] [address] [place] [phone] Rhett Alvarado MD COVID-19 (Primary Dx); Mild intermittent asthma with acute exacerbation 02/03/2025 Travel from Last 3 Months Immunizations Immunization Administration Dates Next Due Hep B, adult 03/10/2019, 9,11/29/1998,10/29 Influenza Injectable Quadriv alant Preservative Free IIV4 MDCK 03/15/2023,03/09/2022,03/10/2021,03/10 Influenza injectable quadriv alent preservative free 03/07/2019,05/24/2018,03/11/2015 Influenza, IIV3, injectable 03/06/2012, 1 Influenza, seasonal, injecta ble, preservative free 04/17/2025,03/21/2024 MMR 05/08/1990,10/03/1979 Moderna Covid-19 Vaccine 12+ 05/06/2021,10/22/19 [...] Sign Reading Time Taken Comments Blood Pressure 142/70 04/02/2025 9:12 AM EDT Pulse 86 04/02/2025 9:12 AM EDT Temperature 36.8 C (98.3 F) 04/02/2025 9:12 AM EDT Respiratory Rate 18 04/02/2025 9:12 AM EDT Oxygen Saturation 100% 04/02/2025 9:12 AM EDT Inhaled Oxygen Concentration - - Weight 79.4 kg (175 lb) 04/02/2025 9:12 AM EDT Height 162.6 cm (5' 4 ) 02/19/2025 9:29 AM EDT Body Mass Index 30.04 02/19/2025 9:29 AM EDT Plan of Treatment Upcoming Encounters Date Type Department Care Team (Late st Contact Info) Description 06/15/2025 9:00 AM EST Office Visit [facility] [address] [place] [address] Clementine Cobos MD [address] [place] [address] Health Maintenance Due Date Last Done Comments CT Colonography 1978 FIT DNA/Cologuard 1978 FIT 1978 FOBT 1980 Sigmoidoscopy 1978 COVID-19 Vaccine ( season) 2025 07/03/2022, 05/06/2021, 10/21/2020, Additional history exists Dental Oral Exam 03/20/2025 09/16/2024, , 01/03/2023 Dental Prophylaxis 03/20/2025 09/16/2024, 0 03/13/2024, 01/03/2023 Diagnostic Breast Imaging 05/20/2025 Family Planning (PISQ) 07/16/2025 07/16/2024 Alcohol/Substance Use Screening 10/08/2025 10/08/2024 Depression Screening 10/08/2025 10/08/2024, 10/09/19 SDOH Screening 10/08/2025 10/08/2024 Dental X-Ray: Full Mouth 01/04/2026 01/03/2023 Disability Screening 02/19/2026 02/19/2025 Dental X-Ray: Bitewings 03/10/2026 03/09/20 25, 10/31/2024, 03/13/2024, Additional history exists Tobacco Screening 04/02/2026 04/02/2025 Cervical Cancer Screening 09/09/2026 HPV/Cotest 09/09/2026 09/09/2021, 08/23, 06/26/2019 Pap Smear 09/09/2026 09/09/2021, 09/09/2021 Zoster Vaccines (1 of 2) 2028 Lipid Panel 02/13/2030 02/13/2025, 11/24, 10/09/2024, Additional history exists DTaP/Tdap/Td Vaccines (4 - Td or Tdap) 08/29/2032 08/29/2022, 04/08/2014, 08/07/2012 Colonoscopy 03/24/2035 03/24/2025 Colorectal Cancer Screening 03/24/2035 RSV Patients and Patients Aged 60 years or older (1 - 1-dose 75+ series) 2053 Hepatitis B Vaccines Completed 03/10/2019, 04/29/1999, 11/29/1998, Additional history exists Pneumococcal Vaccine: Pediatrics (0 to 5 Years) and At-Risk Patients (6 to 49) Years Completed 02/01/2023, 06/06/2014 HIV Screening Completed 04/25/2023, 07/26, 06/26/2019 Hepatitis C Screening Completed 04/25/2023 , 06/26/2019, 06/26/2019 Influenza Vaccine Completed 04/17/2025, , 03/15/2023, Additional history exists HIB Vaccines Aged Out [...] Comments BI MAMMOGRAM SCREENING TOMOSYNTHESIS BILATERAL Routine 04/09/2025 8:00 AM EDT Screening mammogram for breast cancer POCT INFLUENZA A (ID NOW RAPID MOLECULAR) Routine 04/02/2025 9:36 AM EDT Other subacute sinusitis POCT RAPID COVID ANTIGEN Routine 025 9:35 AM EDT Other subacute sinusitis POCT INFLUENZA B (ID NOW RAPID MOLECULAR) Routine 04/02/2025 9:35 AM EDT Other subacute sinusitis HM COLONOSCOPY Routine 03/24/2025 AMB REFERRAL TO GASTROENTEROLOGY Routine 03/24/2025 Colon cancer screening POCT RAPID COVID ANTIGEN Routine 025 2:41 PM EDT Sinus symptom POCT INFLUENZA [...] EDT COVID-19 POCT RAPID COVID ANTIGEN Routine 8:53 AM EDT COVID-19 PROPHYLAXIS - ADULT Routine 09/16/2024 7 :45 [...] Routine screening for STI (sexually transmitted infection) INTRAORAL - COMPLETE SERIES OF RADIOGRAPHIC IMAGES Routine 01/03/2023 8:00 AM EDT HPV HIGH RISK PCR Routine 09/09/2021 PAP SMEAR Routine 09/09/2021 from Last 3 Months or Most Recently Relevant to Health Maintenance Results * BI Mammogram Screening Tomosynthesis Bilateral (04/09/2025 8:00 AM EDT) Anatomical Region Laterality Modality Breast Bilateral Mammography 04/09/2025 8:00 AM EDT Narrative 04/12/2025 9:01 AM EDT [facility]'[address] [place] [address] Mammography Report Signed Patient: Carmine Herrera MR#: [id number] 11 : 1980 Acct:[id number] Age/Sex: 44 / F ADM Date: 04/09/25 Loc: HO.MAMMO Attending Dr: Clementine Cobos MD Ordering Physician: Clementine Cobos MD Results: 0I ncomplete- Need Additional Imaging Evaluation Date of Service: 04/09/25 Follow Up: Additional Imagi ng Procedure(s): MM tomosynthesis screening BI Accession Number(s): [id number] cc: Clementine Cobos MD Reason For Exam: SCREENING EXAMINATION: MM SCREENING DIGITAL BREAST TOMOSYNTHESIS, BILATERAL CLINICAL INFORMATION: Screening. Asymptomatic. COMPARISON: Comparison made to multiple prior, most recent March 17, 2023, and most remote June 22, 2018. TECHNIQUE: Digital breast tomosynthesis is performed in mediolateral oblique and craniocaudal views along with computer-aided detection (CAD). Synthesized 2D images are generated from the tomosynthesis. FINDINGS: BREAST COMPOSITION: There are scattered areas of fibroglandular density. RIGHT BREAST: No significant masses, suspicious calcifications or other abnormalities are seen. LEFT BREAST: Asymmetry in the retroareolar plane posterior depth at about 10.5 cm from the nipple on the MLO view, without definite correlate on the CC view; this is best seen on the MLO , which localizes it in the lateral breast. No suspicious calcifications or other abnormalities are seen. MM/MM tomosynthesis screening BI IMPRESSION: RIGHT BREAST: Negative, no mammographic evidence of malignancy. Normal interval follow-up is recommended in 12 months. LEFT BREAST: Asymmetry in the retroareolar plane posterior depth on the MLO view. ASSESSMENT: BI-RADS: Category 0: Incomplete - Need additional Imaging Evaluation RECOMMENDATION: 1. Additional views of the left breast 2. Targeted ultrasound if warranted after review of the additional views. 3. Radiology department staff will contact the patient for additional imaging. FOLLOW-UP: Additional Imaging required This examination should not preclude the clinical evaluation of a suspicious palpable abnormality. This patient's information was entered into a reminder system with a target due date for their next mammogram. Electronically signed by: Shirin Kumar MD 04/12/2025 08:57 AM EDT Dictated By: Shirin Kumar MD Signed By: <Electronically signed by Shirin Kumar MD in OV> 04/12/2557 DD/ 9 TD/TT: 04/09/25805 Director Data Architecture: Procedure Note Donotuseinterpreter, Image - 04/12/2025 [facility] [address] [place] [address] Mammography Report Signed Patient: Carmine Herrera DMR#: [id number] 11 : 1980Acct:[id number] Age/Sex: 44 / FADM Date: 04/09/25 Loc: HO.MAMMO Attending Dr: Clementine Cobos MD Ordering Physician: Clementine Cobos MDResults: 0I ncomplete- Need Additional Imaging Evaluation Date of Service: 04/09/25Follow Up: Additional Imagi ng Procedure(s): MM tomosynthesis screening BI Accession Number(s): [id number] cc: Clementine Cobos MD Reason For Exam: SCREENING EXAMINATION: MM SCREENING DIGITAL BREAST TOMOSYNTHESIS, BILATERAL CLINICAL INFORMATION: Screening. Asymptomatic. COMPARISON: Comparison made to multiple prior, most recent March 17, 2023, and most remote June 22, 2018. TECHNIQUE: Digital breast tomosynthesis is performed in mediolateral oblique and craniocaudal views along with computer-aided detection (CAD). Synthesized 2D images are generated from the tomosynthesis. FINDINGS: BREAST COMPOSITION: There are scattered areas of fibroglandular density. RIGHT BREAST: No significant masses, suspicious calcifications or other abnormalities are seen. LEFT BREAST: Asymmetry in the retroareolar plane posterior depth at about 10.5 cm from the nipple on the MLO view, without definite correlate on the CC view; this is best seen on the MLO , which localizes it in the lateral breast. No suspicious calcifications or other abnormalities are seen. MM/MM tomosynthesis screening BI IMPRESSION: RIGHT BREAST: Negative, no mammographic evidence of malignancy. Normal interval follow-up is recommended in 12 months. LEFT BREAST: Asymmetry in the retroareolar plane posterior depth on the MLO view. ASSESSMENT: BI-RADS: Category 0: Incomplete - Need additional Imaging Evaluation RECOMMENDATION: 1. Additional views of the left breast 2. Targeted ultrasound if warranted after review of the additional views. 3. Radiology department staff will contact the patient for additional imaging. FOLLOW-UP: Additional Imaging required This examination should not preclude the clinical evaluation of a suspicious palpable abnormality. This patient's information was entered into a reminder system with a target due date for their next mammogram. Electronically signed by: Shirin Kumar MD 04/12/2025 08:57 AM EDT Dictated By: Shirin Kumar MD Signed By: <Electronically signed by Shirin Kumar MD in OV> 04/12/25 0857 DD/ 08 TD/TT: 04/09/25 0806 Director Data Architecture: Clementine Cobos MD IMG BI PROCEDURES Final Re sult * Influenza A (ID NOW Rapid Molecular) (04/02/2025 9:36 AM EDT) Only the most recent of3 resultswithin the time period is included. Influenza A Negative Negative, Indeterminate [facility] Swab 04/02/2025 9:36 AM EDT us Zaire Kumar MD POINT OF CARE TEST ENTER/EDIT OR DERABLES Final Result [facility] [address] [place] [phone] * Influenza B (ID NOW Rapid Molecular) (04/02/2025 9:35 AM EDT) Only the most recent of3 resultswithin the time period is included. Influenza B Negative Negative, Indeterminate [facility] Swab 04/02/2025 9:35 AM EDT Zaire Kumar MD POINT OF CARE TEST ENTER/EDIT OR DERABLES Final Result [facility] [address] [place] [phone] * POCT Rapid COVID Ag (04/02/2025 9:35 AM EDT) Only the most recent of3 resultswithin the time period is included. Pathologist [facility] Rapid COVID Ag Negative Swab 04/02/2025 9:35 AM EDT Zaire Kumar MD POINT OF CARE TEST ENTER/EDIT OR DERABLES Final Result * Hm Colonoscopy (03/24/2025) [facility] Colonoscopy Normal Normal Comment:with Dr. Enio pimentel MD at [facility] Jamila Arciniega MD HEALTH MAINTENANCE Final Result * Referral to Gastroenterology (03/24/2025) Clementine Cobos MD OUTPATIENT REFERRAL ORDERA BLES Final Result * Hepatic Function Panel (02/13/2025 8:34 AM EDT) Pathologist [facility] Bilirubin, Total 0.3 0.0 - 1.0 mg/dL [facility] Bilirubin, Direct 0.1 0.0 - 0.5 mg/dL [facility] Aspartate Amino Transferase 24 5 - 31 U/L [facility] Alanine Aminotransferase 21 0 - 31 U/L [facility] Total Protein 7.2 6.5 - 8.0 g/dL [facility] Albumin Level 4.4 3.5 - 5.0 g/dL [facility] Alkaline Phosphatase 57 39 - 117 U/L [facility] Blood Venous blood specimen / Unknown 02/13/2025 8:34 AM EDT 02/13/2025 11:54 AM EDT Clementine Cobos MD LAB BLOOD ORDERABLES Final Result Performing Organization Address [facility] Co de Phone Number [facility] [address] [place] [phone] * (ABNORMAL) Lipid Panel, Standard (02/13/2025 8:34 AM EDT) Triglycerides 237(H) <150 mg/dL [facility] Comment:Desirable Triglyceri de: less than 150 mg/dLBorderline High Triglyceride 150-199 mg/dLHigh Triglyceride: 200-499 mg/dLVery High Triglyceride: greater than or equal to 5OO mg/dL Cholesterol 240(H) <200 mg/dL [facility] Comment:Desirable Cholestero l: less than 200 mg/dLBorderline High Cholesterol: 200-239 mg/dLHigh Cholesterol: greater than 239 mg/dL LDL Cholesterol Calculated 135(H) <100 mg/dL [facility] Comment:Desirable LDL: less than 100 mg/dLNear Optimal/Above Optimal LDL: 110- 129 mg/dLBorderline High LDL: 130-159 mg/dLHigh LDL: 160-189 mg/dLVery High LDL: greater than or equal to 190 mg/dL HDL Cholesterol 58 >40 mg/dL [facility] Comment:Desirable HDL: great er than 40 mg/dL Note: This HDL assay may give artificially low results in patients with liver disease. Blood Venous blood specimen / Unknown 02/13/2025 8:34 AM EDT 02/13/2025 11:54 AM EDT Clementine Cobos MD LAB BLOOD ORDERABLES Final Result Performing Organization Address [facility]/ZIP Co de Phone Number [facility] [address] [place] [phone] * POCT rapid strep A manually resulted (02/03/2025 8:53 AM EDT) Pathologist [facility] Rapid Strep A Screen Negative Negative, None Detected [facility] Swab 02/03/2025 8:53 AM EDT Rhett Alvarado MD POINT OF CARE TEST ENTER/EDIT OR DERABLES Final Result Performing Organization Address [facility]/ZIP Co de Phone Number [facility] [address] [place] [phone] * Hepatitis C Antibody with Reflex to HCV, RNA, Quantitative, Real-Time PCR (04/25/2023 8:18 AM EDT) [facility] Hepatitis C Antibody Nonreactive Nonreactive [facility] Comment:Antibodies to HCV no t detected; does not exclude early acuteHCV infection. Blood Venous blood specimen / Unknown 04/25/2023 8:18 AM EDT 04/25/2023 11:32 AM EDT Clementine Cobos MD LAB BLOOD ORDERABLES Final Result Performing Organization Address [facility] Co de Phone Number [facility] [address] [place] [phone] * HIV-1/2 Antigen and Antibodies, Fourth Generation, with Reflexes (04/25/2023 8:18 AM EDT) [facility] HIV AB/AG Nonreactive Nonreactive [facility] Comment:HIV-1 p24 Ag and/or HIV-1/HIV-2 Ab not detected.A test result that is nonreactive does not exclude thepossibility of exposure to or infection with HIV-1 and/orHIV-2. Nonreactive results in this assay for individualswith prior exposure to HIV-1 and/or HIV-2 may be due toantigen and antibody levels that are below the limit ofdetection of this assay.The [facility] HIV Ag/Ab Combo assay result andsupplemental assay results should be interpreted inconjunction with the patient's clinical presentation,history and other laboratory results. If the results areinconsistent with clinical evidence, additional testing issuggested to confirm the result. Blood Venous blood specimen / Unknown 04/25/2023 8:18 AM EDT 04/25/2023 11:32 AM EDT Clementine Cobos MD LAB BLOOD ORDERABLES Final Result [facility] [address] [place] [phone] * HPV High Risk PCR (09/09/2021) Swab Cervical swab / Unknown 09/09/2021 Clementine Cobos MD LAB MICROBIOLOGY - GENERAL ORDERABLES Final Result * Pap Smear (09/09/2021) Swab 09/09/2021 Clementine Coobs MD LAB CYTOLOGY ORDERABLES Fi nal Result from Last 3 Months or Most Recently Relevant to Health Maintenance Insurance 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 Advance Directives and Living Will 12/24/2023 Health Care Proxy 12/24/23 Care Teams Antenna Design Engineer Relationship Specialty Start Date End Date Chandrika, MD Clementine [address] [place] [address] PCP - General Family Medicine 06/25/18 Manoj Garcia MD [address] [place] [address] Obstetrics and Gynecology 07/22/24 Emir Medina MD [address] [place] [address] Bariatrics 10/08/24 Xavi Villafuerte MD [address] [place] [address] 3rd [place] [address] Gastroenterology 10/08/24 Enrike Arvizu MD [address] [place] [address] Cardiology 10/08/24
--- OUTSIDE RECORDS SUMMARY | 2025-05-06 17:18 | XMS_ITS | Clinical Summary ---
Author Organization [facility] Address [address] [place] [address] Phone Care Team Providers Care Packing Machine Inspector Name Role Phone Clementine Cobos MD [...] Department Care Team Description 03/30/2025 Orders Only [facility] 10 [place] [address] Enio Escobedo MD from Last 3 Months [...] Smear (08/14/1997 12:00 AM EST) 08/14/1997 Narrative [facility] - 08/20/1997 5:12 PM EST Accession Number: [id number] Report Status: Final Type: Cytology Cytology Report [id number] DIAGNOSTIC PAP Accessioned On: 08/15/97 CHRISTOPHER WHITE OI CLINICAL DATA: Routine.FINAL CYTOLOGIC DIAGNOSIS: ENDOCERVICAL BRUSH & CERVICAL SCRAPE: Satisfactory for evaluation. WITHIN NORMAL LIMITS. us Conversion Provider Not In Sys CYTOLOGY ORDERABL ES Final Result Performing Organization Address City/State/[facility] Co de Phone Number [address] [address] from Last 3 Months or Most Recently Relevant to Health Maintenance [facility] Address: [address] [address] [facility] Address: [address] [address] [facility] Address: [address] [address] [facility] Address: [place] [id number] [facility] Address: [place] [id number] [facility] Address: [address] [address] [facility] Address: [address] [address] [facility] Address: [address] [facility] Address: [address] [address] [facility] Address[facility] [address] [address] [facility] Address: [address] [address] [facility] INSURANCE Care Teams Packing Machine Inspector Relationship Specialty Start Date End Date Chandrika, Clementine Langston MD [address] [place] [address] PCP - General Family Medicine 07/26/18 Additional Source Comments The information contained in this document represents components of the legal health record. It is not the complete legal health record.[facility]
--- OUTSIDE RECORDS SUMMARY | 2025-05-06 17:18 | XMS_ITS | Clinical Summary ---
Author Organization [facility] Address 175 [place] [address] Phone Care Team Providers Care Geoscience Technician Name Role Phone Clementine Cobos MD Primary Care Provider +1- [phone] Allergies No known active allergies Medications fluticasone [...] 7 (seven) days. 2 mL 5 Active tirzepatide, weight loss, (Zepbound) 5 mg/0.5 mL injection Inject 0.5 mL (5 mg total) under the skin every 7 (seven) days for 28 days. 2 mL 5 025 Active Active Problems Problem Noted Date Diagnosed [...] Overview (02/18/2025): Lab Results Component Value Date [id number] 31.0 12/17/2024 [id number] 28.8 (L) 10/09/2024 [id number] 41.2 12/24/2023 -Vit D3 2000IU started 10/09/24 [...] Encounters Date Type Department Care Team Description 04/27/2025 Telephone Bariatric Surgery [address] [address] Merna Anderson PA 03/31/2025 Telephone Bariatric Surgery [address] [address] Merna Anderson PA 03/17/2025 Telephone Bariatric Surgery [address] [address] Merna Anderson PA 02/17/2025 8:00 AM EDT Office Visit Bariatric Surgery [address] [address] Merna Anderson PA Overweight (BMI 25.0-29.9) (Primary [...] PM EST Office Visit Bariatric Surgery - [address] [place] [address] Merna Anderson, PA [address] [place] [address] Health Maintenance Due Date Last Done [...] complete this topic Insurance [place] - [place] [facility] Care Teams Geoscience Technician Relationship Specialty Start Date End Date [place], MD Clementine [address] [place] [phone] PCP - General Internal Medicine 12/18/12
--- OUTSIDE RECORDS SUMMARY | 2025-05-06 17:18 | XMS_ITS | Encounter Summary ---
Author Organization [employer] Address [address] [facility] 7t [place] [address] Care Team Providers Care Sanding Supervisor Name Role Phone Clementine Cboos MD Primary Care Provider +[phone]- [phone] Manoj Garcia MD Unavailable Emir Medina MD Unavailable [phone] Xavi Villafuerte MD Unavailable [phone] Enrike Arvizu MD Unavailable [phone] Reason for Visit * Reason Comments Med Refill Encounter Details Date Type Department Care Team (Late st Contact Info) Description 01/02/2025 Refill [facility] [address] [place], [place] [phone] Clementine Cobos MD 230 [place], [place] [phone] Iron deficiency anemia, unspecified iron deficiency anemia [...] Description 06/15/2025 9:00 AM EST Office Visit [facility] [address] [place] [address] Clementine Cobos MD [address] [place] [address] documented as of this encounter Visit Diagnoses Diagnosis Iron deficiency anemia, unspecified iron deficiency anemia type documented in this encounter Additional Health Concerns Assessment Noted Time PHQ-9 Depression Total Score: 0 10/09/19 25 10:30 AM EDT documented as of this encounter Care Teams Sanding Supervisor Relationship Specialty Start Date End Date Clementine Cobos MD [address] [place] [address] PCP - General Family Medicine 06/25/18 Manoj Garcia MD [address] [place] [address] [place] [address] Obstetrics and Gynecology 07/22/24 Emir Medina MD [address] [place] [address] 120 [place] [address] Bariatrics 10/08/24 Xavi Villafuerte MD [address] [place] [address] 3rd [place] [address] Gastroenterology 10/08/24 Enrike Arvizu MD [address] [place] [address] Cardiology 10/08/24 documented as of this encounter
== END 2025-05-06 14:46 | disposition home or self-care (01) ==
LOC: HO.HGI 14:01
PROVIDERS: PCP Family Medicine; Visit Provider Internal Medicine Gastroenterology
DX: K21.9 Gastro-esophageal reflux disease without esophagitis (principal); R10.9 Unspecified abdominal pain

== ENCOUNTER → 2025-05-06 14:00 | Outpatient (BNVA) | payer OTHER, MEDICAID, SELFPAY | PROVIDERS: PCP Family Medicine; Visit Provider Internal Medicine Gastroenterology | DX: K21.9 Gastro-esophageal reflux disease without esophagitis (principal); R10.9 Unspecified abdominal pain | CPT/HCPCS: 99211 ==

== ENCOUNTER 2025-05-07 08:09 | Outpatient (REF) | payer OTHER, MEDICAID, SELFPAY ==
--- OUTSIDE RECORDS SUMMARY | 2025-05-07 08:22 | XMS_ITS | Clinical Summary ---
Author Organization [facility] Address [address] [place] [address] Phone Care Team Providers Care Machine Feed Operator Name Role Phone Clementine Cobos MD [...] Department Care Team Description 03/30/2025 Orders Only [facility] Gastroenterology [facility] 10 [place] [address] Eino Escobedo MD from Last 3 Months Immunizations [...] patient's age to complete this topic IPV VACCINES Aged Out No longer eligi ble [...] Smear (08/14/1997 12:00 AM EST) 08/14/1997 Narrative [facility] - 08/20/1997 5:12 PM EST Accession Number: [id number] Report Status: Final Type: Cytology Cytology Report [id number] DIAGNOSTIC PAP Accessioned On: 08/15/97 HCRISTOPHER WHITE OI CLINICAL DATA: Routine.FINAL CYTOLOGIC DIAGNOSIS: ENDOCERVICAL BRUSH & CERVICAL SCRAPE: Satisfactory for evaluation. WITHIN NORMAL LIMITS. us Conversion Provider Not In Sys CYTOLOGY ORDERABL ES Final Result [address] [address] from Last 3 Months or Most Recently Relevant to Health Maintenance Insurance [facility] Address[facility] [address] [facility] Address: [address] [facility] Address[facility] [address] [address] [facility] Address: [address] [address] [facility] Address[facility] [address] [address] [facility] Address: [address] [address] [facility] Address: [address] [address] [facility] Address: [place] [phone] [facility] Address: [address] [address] [facility] Address: [place] [phone] [facility] [address] [place] [address] [facility] Address: [address] [address] [facility] INSURANCE Care Teams Machine Feed Operator Relationship Specialty Start Date End Date [place], Clementine Langston MD [address] [place] [address] PCP - General Family Medicine 07/26/18 Additional Source Comments The information contained in this document represents components of the legal health record. It is not the complete legal health record.[facility]
--- OUTSIDE RECORDS SUMMARY | 2025-05-07 08:22 | XMS_ITS | Encounter Summary ---
Author Organization [employer] Address [address] [place] [address] 7t [place] [address] Care Team Providers Care Chain Carrier Name Role Phone Clementine Cobos MD Primary Care Provider [phone] Manoj Garcia MD Unavailable Emir Medina MD Unavailable [phone] Xavi Villafuerte MD Unavailable [phone] Enrike Arvizu MD Unavailable [phone] Encounter Details Date Type Department Care Team (Late st Contact Info) Description 03/07/2023 Orders Only [facility] [address] [place] [address] [phone] Clementine Cobos MD 230 [place], [place] [phone] Social History Tobacco Use Types Packs/Day Years [...] Description 06/15/2025 9:00 AM EST Office Visit [facility] 230 [place], [place] [phone] Clementine Cobos MD 230 [facility] [place] [address] documented as of this encounter Procedures Procedure Name Priority Date/Time Associated Diagnosis Comments BI MAMMOGRAM SCREENING TOMOSYNTHESIS BILATERAL Routine 03/17/2023 7:45 AM EDT documented in this encounter Results * BI Mammogram Screening Tomosynthesis Bilateral (03/17/2023 7:45 AM EDT) Anatomical Region Laterality Modality Breast Bilateral Mammography 03/17/2023 7:45 AM EDT Narrative 03/24/2023 9:33 PM EDT [address] [place] [address] Mammography Report Signed Patient: Carmine Herrera MR#: [id number] 11 : 1980 Acct:[id number] Age/Sex: 42 / F ADM Date: 03/17/23 Loc: HO.MAMMO Attending Dr: Clementine Cobos MD Ordering Physician: Clementine Cobos MD Results: 1N egative Date of Service: 03/17/23 Follow Up: 1 Year From Orig inal Mammogram Procedure(s): MM tomosynthesis screening BI Accession Number(s): [id number] cc: Clementine Cobos MD EXAMINATION: MM SCREENING [...] MD in OV> 03/24/232128 DD/ 4 TD/TT: Square Cutter: Procedure Note Donotuseinterpreter, Image - 03/24/2023 [facility] [address] [place] [address] Mammography Report Signed Patient: Carmine Herrera DMR#: [id number] 11 : 1980Acct:[id number] Age/Sex: 42 / FADM Date: 03/17/23 Loc: VAL[facility]IO Attending Dr: Clementine Cobos MD Ordering Physician: Clementine Cobos MDResults: 1N egative Date of Service: 03/17/23Follow Up: 1 Year From Orig inal Mammogram Procedure(s): MM tomosynthesis screening BI Accession Number(s): [id number] cc: Clementine Cobos MD EXAMINATION: MM SCREENING [...] MD in OV> 03/24/232128 DD/ 4 TD/TT: Square Cutter: Clementine Cobos MD IMG BI PROCEDURES Edited R esult - Final documented in this encounter Visit Diagnoses Not on filedocumented in this encounter Additional Health Concerns Assessment Noted Time PHQ-9 Depression Total Score: 0 09/12/19 23 10:19 AM EDT documented as of this encounter Care Teams Chain Carrier Relationship Specialty Start Date End Date Clementine Cobos MD [address] [place] [address] PCP - General Family Medicine 06/25/18 Manoj Garcia MD [address] [place] [address] [place] [address] Obstetrics and Gynecology 07/22/24 Emir Medina MD [address] [place] [address] Bariatrics 10/08/24 Xavi Villafuerte MD [address] [place] [address] 3rd [place] [address] Gastroenterology 10/08/24 Enrike Arvizu MD [address] [place] [address] Cardiology 10/08/24 documented as of this encounter
--- OUTSIDE RECORDS SUMMARY | 2025-05-07 08:22 | XMS_ITS | Encounter Summary ---
Author Organization [employer] Address [address] [facility] 7t [place] [address] Care Team Providers Care Refrigerator Car Icer Name Role Phone Clementine Cobos MD Primary Care Provider [phone] Manoj Garcia MD Unavailable Emir Medina MD Unavailable [phone] Xavi Villafuerte MD Unavailable [phone] Enrike Arvizu MD Unavailable [phone] Reason for Referral * Imaging (Routine) - Closed Specialty Diagnoses / Procedures Referred By Contac t Referred To Contact Radiology Diagnoses Pleuritic pain Thoracic radiculopathy Procedures CT Chest w/ Contrast Clementine Cobos MD 230 [place] [address] Phone: tel: fax: [facility] [address] [place], [place] Phone: tel: fax: Referral ID Status Reason Start Date Expiration Date Visits Re quested Visits Authorized [id number] Closed 06/28/2023 06/27/2024 1 1 Encounter Details Date Type Department Care Team (Late st Contact Info) Description 06/28/2023 Orders Only [facility] 230 [place] [address] Clementine Cobos MD 230 [place], [place] [phone] Pleuritic pain (Primary Dx); Thoracic radiculopathy Social [...] Description 06/15/2025 9:00 AM EST Office Visit [facility] [address] [place] [address] Clementine Cobos MD 230 [place] [address] Scheduled Orders Name Type Priority Associated Diagnoses [...] documented as of this encounter Care Teams Refrigerator Car Icer Relationship Specialty Start Date End Date Clementine Cobos MD [address] [place] [address] PCP - General Family Medicine 06/25/18 Manoj Garcia MD [address] [place] [address] [place] [address] Obstetrics and Gynecology 07/22/24 Emir Mednia MD [address] [place] [address] Bariatrics 10/08/24 Xavi Villafuerte MD [address] 3rd [place] [address] Gastroenterology 10/08/24 Enrike Arvizu MD [address] [place] [address] Cardiology 10/08/24 documented as of this encounter
--- OUTSIDE RECORDS SUMMARY | 2025-05-07 08:22 | XMS_ITS | Encounter Summary ---
Author Organization [employer] Address [address] [place] [address] [place] [address] Care Team Providers Care Staff Field Engineer Name Role Phone Clementine Cobos MD Primary Care Provider + [phone] Manoj Garcia MD Unavailable Emir Medina MD Unavailable [phone] Xavi Villafuerte MD Unavailable [phone] Enrike Arvizu MD Unavailable [phone] Encounter Details Date Type Department Care Team (Latest Contact Info) Description 09/23/2018 Abstract [facility] CONVERSIONS Dental, Provider, DDS Social History [...] Description 06/15/2025 9:00 AM EST Office Visit [facility] [address] [place] [address] Clementine Cobos MD 230 [place], [place] [phone] documented as of this encounter Visit Diagnoses Not on filedocumented in this encounter Care Teams Staff Field Engineer Relationship Specialty Start Date End Date Clementine Cobos MD 230 [place], [place] [phone] PCP - General Family Medicine 06/25/18 Manoj Garcia MD [address] [place] [address] Obstetrics and Gynecology 07/22/24 Emir Medina MD 175 [facility] [address] [place] [address] Bariatrics 10/08/24 Xavi Villafuerte MD [address] 3rd [place] [address] Gastroenterology 10/08/24 Enrike Arvizu MD 596 [place] [address] Cardiology 10/08/24 documented as of this encounter
--- OUTSIDE RECORDS SUMMARY | 2025-05-07 08:22 | XMS_ITS | Encounter Summary ---
Author Organization [facility] Address [address] [place] [address] Phone Care Team Providers Care Slate Roofer Helper Name Role Phone Pcp, Unknown Primary Care Provider Unavailabl e Unknown, Unknown Primary Care Provider Clementine Antonio MD Primary Care Provi ching Encounter Details Date Type Department Care Team (Latest Contact Info) Description 07/17/2017 Ancillary Orders [facility] [address] [place] [address] [place] [address] Enrike Arvizu, DO [address] [place] [address] Palpitations; Bradycardia; Chest pain, unspecified type Social [...] documented as of this encounter Care Teams Slate Roofer Helper Relationship Specialty Start Date End Date Pcp, Unknown PCP - General 07/17/17 05/29/18 Unknown, Unknown, PCP - General 05/30/18 07/25/18 Clementine Cobos MD 230 [place] [address] PCP - General Family Medicine 07/26/18 documented as of this encounter Additional Source Comments The information contained in this document represents components of the legal health record. It is not the complete legal health record.[facility]
--- OUTSIDE RECORDS SUMMARY | 2025-05-07 08:22 | XMS_ITS | Encounter Summary ---
Author Organization [employer] Address 75 [facility] 7t [place] [address] Care Team Providers Care Sawmill Moulder Operator Name Role Phone Clementine Cobos MD Primary Care Provider [phone] Manoj Garcia MD Unavailable Emir Medina MD Unavailable [phone] Xavi Villafuerte MD Unavailable [phone] Enrike Arvizu MD Unavailable [phone] Encounter Details Date Type Department Care Team (Late st Contact Info) Description 06/27/2023 Orders Only [facility] 230 [place], [place] [phone] Clementine Cobos MD 230 [place], [place] [phone] Social History Tobacco Use Types Packs/Day Years [...] Description 06/15/2025 9:00 AM EST Office Visit [facility] 230 [place] [address] Clementine Cobos MD 230 [place] [address] documented as of this encounter Visit Diagnoses Not on filedocumented in this encounter Additional Health Concerns Assessment Noted Time PHQ-9 Depression Total Score: 0 09/12/19 10:19 AM EDT documented as of this encounter Care Teams Sawmill Moulder Operator Relationship Specialty Start Date End Date Clementine Cobos MD 230 [place] [address] PCP - General Family Medicine 06/25/18 Manoj Garcia MD [address] [place] [address] Obstetrics and Gynecology 07/22/24 Emir Medina MD [address] [place] [address] Bariatrics 10/08/24 Xavi Villafuerte MD [address] [place] [address] Drive 3rd [place] [address] Gastroenterology 10/08/24 Enrike Arvizu MD [address] [place] [address] Cardiology 10/08/24 documented as of this encounter
--- OUTSIDE RECORDS SUMMARY | 2025-05-07 08:22 | XMS_ITS | Encounter Summary ---
Author Organization [employer] Address [address] [facility] 7t [place] [address] Care Team Providers Care Cop Breaker Name Role Phone Clementine Cobos MD Primary Care Provider [phone] Manoj Garcia MD Unavailable Emir Medina MD Unavailable [phone] Xavi Villafuerte MD Unavailable [phone] Enrike Arvizu MD Unavailable [phone] Reason for Visit * Reason Comments Med Change Request Encounter Details Date Type Department Care Team (Late st Contact Info) Description 07/27/2023 Refill [facility] 230 [place], [place] [phone] Clementine Cobos MD 230 [place], [place] [phone] Social History Tobacco Use Types Packs/Day Years [...] 06/15/2025 9:00 AM EST Office Visit [facility] 230 [place] [address] Clementine Cobos MD 230 [place] [address] documented as of this encounter Visit Diagnoses Not on filedocumented in this encounter Additional Health Concerns Assessment Noted Time PHQ-9 Depression Total Score: 0 09/12/19 10:19 AM EDT documented as of this encounter Care Teams Cop Breaker Relationship Specialty Start Date End Date Clementine Cobos MD 230 [place] [address] PCP - General Family Medicine 06/25/18 Manoj Garcia MD [address] [place] [address] Obstetrics and Gynecology 07/22/24 Emir Medina MD [address] [place] [address] Bariatrics 10/08/24 Xavi Villafuerte MD [address] [place] [address] 3[address] [place] [address] Gastroenterology 10/08/24 Enrike Arvizu MD 596 [place] [address] Cardiology 10/08/24 documented as of this encounter
--- OUTSIDE RECORDS SUMMARY | 2025-05-07 08:22 | XMS_ITS | Clinical Summary ---
Author Organization [facility] Address [address] [place] [address] 7t [place] [address] Care Team Providers Care Help Desk Technician Name Role Phone Clementine Cobos MD Primary Care Provider [phone] Manoj Garcia MD Unavailable Emir Medina MD Unavailable [phone] Xavi Villafuerte MD Unavailable [phone] Enrike Arvizu MD Unavailable [phone] Allergies Active Allergy Reactions Criticality Noted [...] Patient not taking.Reported on 12/03/2024 fish oil (Dahlgren-3) 500 MG capsuleIndicati ons:Dyslipidemi a Take 1 [...] -Discussed starting Estrogen supplementation after appt. with Rental Management Trainee for Lindy placement. Assessment & Plan (12/24/2023 11:21 AM EDT): -Likely correlated to john paul-menopausal sxs -Ordered labs 12/24/23 -Discussed starting Estrogen supplementation after appt. with Rental Management Trainee for Lindy placement. Ventral hernia without obstruction [...] previously controlled by Lupron but discontinued by special needs nanny due to length of use. -Referred to another special needs nanny by Dr. Garcia but that Lead Operator did not do hysterectomies -US done 06/15/2023 at [facility], results pending as of 06/20/23 -pt to call Dr. Garcia for referral for hysterectomy Assessment & Plan (06/20/2023 4:29 PM EST): -current present since Jan 2023, previously controlled by Lupron but discontinued by special needs nanny due to length of use. -Referred to another special needs nanny by Dr. Garcia but that Lead Operator did not do hysterectomies -US done 06/15/2023 at [facility], results pending as of 06/20/23 [...] by every 2 years -dental home is [facility] -health care proxy filed 08/18/2023 Assessment & Plan (06/28/2023 9:35 AM EST): -next physical exam due after 04/23/2024 -eye care facilitated by every 2 years -dental home is [facility] Assessment & Plan (04/23/2023 9:18 AM EDT): -next physical exam due after 04/23/2024 -eye care facilitated by every 2 years -dental home is [facility] Hx of gastric bypass 09/06/2022 Overview (02/26/2025): Follows with weight clinic and nurse transplant. Note from 02/18/25 reviewed, medical weight management with GLP 1 started Assessment & Plan (02/19/2025 10:54 AM EDT): Follows with weight clinic and nurse transplant. Gastroesophageal reflux disease 06/29/2022 Overview (04/23/2025): -check [...] thoracic spine ordered 06/22/23 -referred back to [facility] orthopedics for inions that pt has had [...] thoracic spine ordered 06/22/23 -referred back to [facility] orthopedics for inions that pt has had [...] Overview (01/28/2025): Lab Results Component Value Date [id number] 31.0 12/17/2024 [id number] 28.8 (L) 10/09/2024 [id number] 41.2 12/24/2023 -Vit D3 2000IU started 10/09/24 [...] Type Department Care Team Description 04/19/2025 Refill [facility] [address] [place] [address] Analisa Malave MD Epigastric pain; Acute maxillary sinusitis, recurrence not specified 04/18/2025 Refill [facility] [address] [place] [address] Analisa Malave MD Acute maxillary sinusitis, recurrence not specified 04/17/2025 1:50 PM EDT Immunization [facility] [address] [place] [address] Ashlyn Donnelly RN Encounter for immunization 04/17/2025 Travel 04/03/[address] [address] Clementine Cobos MD May Recalls 04/03/2025 Travel 04/02/2025 9:20 AM EDT [facility] [address] [address] Zaire Kumar MD Other subacute sinusitis (Primary Dx); Vaginal candidiasis 04/02/2025 Travel 03/27/2025 9:20 AM EDT [facility] [address] [address] Analisa Malave MD Epigastric pain; Acute maxillary sinusitis, recurrence not specified 03/27/2025 Travel 03/12/2025 3:00 PM EDT Office Visit [facility] [address] [address] Clementine Cobos MD Acute bacterial sinusitis (Primary Dx); Sinus symptom 03/12/2025 Travel 03/09/2025 3:30 PM EDT Office Visit [facility] [address] [place] [address] Soifa Miller DDS Full coverage crown needed for root canal-treated tooth (Primary Dx) 02/25/2025 8:30 AM EDT Office Visit [facility] [address] [place] [address] Sofia Miller DDS Full coverage crown needed for root canal-treated tooth (Primary Dx) 02/19/2025 10:45 AM EDT Office Visit [facility] [address] [place] [address] Clementine Cobos MD Dyslipidemia (Primary Dx); Thoracic [...] Travel 02/10/2025 8:00 AM EDT Office Visit [facility] [address] [place] [address] Sofia Miller DDS Dental caries (Primary Dx); Full coverage crown needed for root canal-treated tooth from Last 3 Months Immunizations Immunization Administration [...] Description 06/15/2025 9:00 AM EST Office Visit [facility] [address] [place] [address] Clementine Cobos MD [address] [place], [place] [phone] Health Maintenance Due Date Last Done Comments CT Colonography 1978 FIT DNA/Cologuard 1978 FIT 1978 FOBT 1978 Sigmoidoscopy 1978 COVID-19 Vaccine ( season) 2025 07/03/2022, 05/06/2021, 10/21/2020, Additional history exists Dental Oral Exam 03/20/2025 09/16/2024, , 01/03/2023 Dental Prophylaxis 03/20/2025 09/16/2024, 0 03/13/2024, 01/03/2023 Diagnostic Breast Imaging 05/20/2025 Family Planning (PISQ) 07/16/2025 07/16/2024 Alcohol/Substance Use Screening 10/08/2025 10/08/2024 Depression Screening 10/08/2025 10/08/2024, 10/09/19 25 SDOH Screening 10/08/2025 10/08/2024 Dental X-Ray: Full [...] coverage crown needed for root canal-treated tooth PROPHYLAXIS - ADULT Routine 09/16/2024 7 :45 [...] AM EDT Narrative 04/12/2025 9:01 AM EDT [facility] [address] Garcia, [place] [address] Mammography Report Signed Patient: Carmine Herrera MR#: [id number] [birth year] : 1980 Acct:[id number] Age/Sex: 44 / F ADM Date: 04/09/25 Loc: HO.MAMMO Attending Dr: Clementine Cobos MD Ordering Physician: Clementine Cobos MD Results: 0I ncomplete- Need Additional Imaging Evaluation Date of Service: 04/09/25 Follow Up: Additional Imagi ng Procedure(s): MM tomosynthesis screening BI Accession Number(s): [id number] cc: Clementine Cobos MD Reason For Exam: [...] 04/12/25 0857 DD/ 08 TD/TT: 04/09/25 0806 Matrix Worker: Procedure Note Donotuseinterpreter, Image - 04/12/2025 [facility] [address] [place] [address] Mammography Report Signed Patient: Carmine Herrera DMR#: [id number] 11 : 1980Acct:[id number] Age/Sex: 44 / FADM Date: 04/09/25 Loc: HO.MAMMO Attending Dr: Clementine Cobos MD Ordering Physician: Clementine Cobos MDResults: 0I ncomplete- Need Additional Imaging Evaluation Date of Service: 04/09/25Follow Up: Additional Imagi ng Procedure(s): MM tomosynthesis screening BI Accession Number(s): [id number] cc: Clementine Cobos MD Reason For Exam: [...] Shirin Kumar MD 04/12/2025 08:57 AM EDT RP Dictated By: Shirin Kumar MD Signed By: <Electronically signed by Shirin Kumar MD in OV> 04/12/25 0857 DD/ 0800 TD/TT: 04/09/25 0806 Matrix Worker: Clementine Cobos MD IMG BI PROCEDURES Final Re sult * Influenza A (ID NOW Rapid Molecular) (04/02/2025 9:36 AM EDT) Only the most recent of2 resultswithin the time period is included. Pathologist [facility] Influenza A Negative Negative, Indeterminate [facility] Swab 04/02/2025 9:36 AM EDT Zaire Kumar MD POINT OF CARE TEST ENTER/EDIT OR DERABLES Final Result Performing Organization Address [facility] Co de Phone Number [facility] [address] [place] [phone] * Influenza B (ID NOW Rapid Molecular) (04/02/2025 9:35 AM EDT) Only the most recent of2 resultswithin the time period is included. [facility] Influenza B Negative Negative, Indeterminate [facility] Swab 04/02/2025 9:35 AM EDT Zaire Kumar MD POINT OF CARE TEST ENTER/EDIT OR DERABLES Final Result Performing Organization Address [facility] Co de Phone Number [facility] [address] [place] [phone] * POCT Rapid COVID Ag (04/02/2025 9:35 AM EDT) Only the most recent of2 resultswithin the time period is included. Rapid COVID Ag Negative Swab 04/02/2025 9:35 AM EDT Zaire Kumar MD POINT OF CARE TEST ENTER/EDIT OR DERABLES Final Result * Hm Colonoscopy (03/24/2025) Pathologist [facility] Colonoscopy Normal Normal Comment:with Dr. Enio pimentel MD at [facility] Jamila Arciniega MD HEALTH MAINTENANCE Final Result * Referral to Gastroenterology (03/24/2025) Clementine Cobos MD OUTPATIENT REFERRAL ORDERA BLES Final Result * Hepatic Function Panel (02/13/2025 8:34 AM EDT) [facility] Bilirubin, Total 0.3 0.0 - 1.0 mg/dL [facility] Bilirubin, Direct 0.1 0.0 - 0.5 mg/dL [facility] Aspartate Amino Transferase 24 5 - 31 U/L [facility] Alanine Aminotransferase 21 0 - 31 U/L [facility] Total Protein 7.2 6.5 - 8.0 g/dL [facility] Albumin Level 4.4 3.5 - 5.0 g/dL [facility] Alkaline Phosphatase 57 39 - 117 U/L [facility] Blood Venous blood specimen / Unknown 02/13/2025 8:34 AM EDT 02/13/2025 11:54 AM EDT Clementine Cobos MD LAB BLOOD ORDERABLES Final Result [facility] [address] [place] [address] [phone] * (ABNORMAL) Lipid Panel, Standard (02/13/2025 8:34 AM EDT) Triglycerides 237(H) <150 mg/dL [facility] Comment:Desirable Triglyceri de: less than 150 mg/dLBorderline High Triglyceride 150-199 mg/dLHigh Triglyceride: 200-499 mg/dLVery High Triglyceride: greater than or equal to 5OO mg/dL Cholesterol 240(H) <200 mg/dL [facility] Comment:Desirable Cholestero l: less than 200 mg/dLBorderline High Cholesterol: 200-239 mg/dLHigh Cholesterol: greater than 239 mg/dL LDL Cholesterol Calculated 135(H) <100 mg/dL [facility] Comment:Desirable LDL: less than 100 mg/dLNear Optimal/Above Optimal LDL: 110- 129 mg/dLBorderline High LDL: 130-159 mg/dLHigh LDL: 160-189 mg/dLVery High LDL: greater than or equal to 190 mg/dL HDL Cholesterol 58 >40 mg/dL [facility] Comment:Desirable HDL: great er than 40 mg/dL Note: This HDL assay may give artificially low results in patients with liver disease. Blood Venous blood specimen / Unknown 02/13/2025 8:34 AM EDT 02/13/2025 11:54 AM EDT Clementine Cobos MD LAB BLOOD ORDERABLES Final Result Performing Organization Address City/[facility]/ZIP Co de Phone Number [facility] [address] [place] [phone] * Hepatitis C Antibody with Reflex to HCV, RNA, Quantitative, Real-Time PCR (04/25/2023 8:18 AM EDT) Pathologist [facility] Hepatitis C Antibody Nonreactive Nonreactive [facility] Comment:Antibodies to HCV no t detected; does not exclude early acuteHCV infection. Blood Venous blood specimen / Unknown 04/25/2023 8:18 AM EDT 04/25/2023 11:32 AM EDT Clementine Cobos MD LAB BLOOD ORDERABLES Final Result Performing Organization Address [facility]/ZIP Co de Phone Number [facility] [address] [place] [phone] * HIV-1/2 Antigen and Antibodies, Fourth Generation, with Reflexes (04/25/2023 8:18 AM EDT) HIV AB/AG Nonreactive Nonreactive [facility] Comment:HIV-1 p24 Ag and/or HIV-1/HIV-2 Ab not detected.A test result that is nonreactive does not exclude thepossibility of exposure to or infection with HIV-1 and/orHIV-2. Nonreactive results in this assay for individualswith prior exposure to HIV-1 and/or HIV-2 may be due toantigen and antibody levels that are below the limit ofdetection of this assay.The [employer] HIV Ag/Ab Combo assay result andsupplemental assay results should be interpreted inconjunction with the patient's clinical presentation,history and other laboratory results. If the results areinconsistent with clinical evidence, additional testing issuggested to confirm the result. Blood Venous blood specimen / Unknown 04/25/2023 8:18 AM EDT 04/25/2023 11:32 AM EDT Clementine Cobos MD LAB BLOOD ORDERABLES Final Result [facility] [address] [place] [address] [phone] * HPV High Risk PCR (09/09/2021) Swab Cervical swab / Unknown 09/09/2021 Clementine Cobos MD LAB MICROBIOLOGY - GENERAL ORDERABLES Final Result * Pap Smear (09/09/2021) Swab 09/09/2021 Clementine Cobos MD LAB CYTOLOGY ORDERABLES Fi nal Result from Last 3 Months or Most Recently Relevant to Health Maintenance Insurance [facility] STANDARD [facility] MEDICAID [facility] [place] [id number] Advance Directives Documents on File Type Date Recorded Patient Marketing Segment Manager Expl anation Advance Directives and Living Will 12/24/2023 Health Care Proxy 12/24/23 Care Teams Help Desk Technician Relationship Specialty Start Date End Date Chandrika, MD Clementine [address] [place] [address] PCP - General Family Medicine 06/25/18 Manoj Garcia MD [address] [place] [address] Obstetrics and Gynecology 07/22/24 Emri Medina MD [address] [place] [address] Bariatrics 10/08/24 Xavi Villafuerte MD [address] [place] [address] 3rd [place] [address] Gastroenterology 10/08/24 Enrike Arvizu MD [address] [place] [address] Cardiology 10/08/24
--- OUTSIDE RECORDS SUMMARY | 2025-05-07 08:22 | XMS_ITS | Encounter Summary ---
Author Organization [employer] Address [address] [place] [address] [address] [address] Care Team Providers Care Merchant Police Name Role Phone Clementine Cobos MD Primary Care Provider [phone] Manoj Garcia MD Unavailable Emir Medina MD Unavailable [phone] Xavi Villafuerte MD Unavailable [phone] Enrike Arvizu MD Unavailable [phone] Encounter Details Date Type Department Care Team (Latest Contact Info) Description 11/18/2021 Abstract [facility] CONVERSIONS Dental, Provider, DDS Social History [...] Description 06/15/2025 9:00 AM EST Office Visit [facility] [address] [place] [address] Clementine Cobos MD [address] [place], [place] [phone] documented as of this encounter Visit Diagnoses Not on filedocumented in this encounter Care Teams Merchant Police Relationship Specialty Start Date End Date Clementine Cobos MD [address] [place], [place] [phone] PCP - General Family Medicine 06/25/18 Manoj Garcia MD [address] [place] [address] Obstetrics and Gynecology 07/22/24 Emir Medina MD 175 [facility] [address] [place] [address] Bariatrics 10/08/24 Xavi Villafuerte MD [address] 3rd [place] [address] Gastroenterology 10/08/24 Enrike Arvizu MD [address] [place] [address] Cardiology 10/08/24 documented as of this encounter
--- OUTSIDE RECORDS SUMMARY | 2025-05-07 08:22 | XMS_ITS | Encounter Summary ---
Author Organization [employer] Address [address] [facility] 7t [place] [address] Care Team Providers Care Digestion Operator Name Role Phone Chandrika, Clementine MORGAN Primary Care Provider [phone] Manoj Garcia MD Unavailable Emir Medina MD Unavailable [phone] Xavi Villafuerte MD Unavailable [phone] Enrike Arvizu MD Unavailable [phone] Reason for Visit * Reason Comments Med Change Request Encounter Details Date Type Department Care Team (Late st Contact Info) Description 04/28/2023 Refill [facility] [address] [place], [place] [phone] Kaitlin Vallejo MD [address] [place], [place] [phone] Seasonal allergies (Primary Dx) Social History Tobacco [...] Description 06/15/2025 9:00 AM EST Office Visit [facility] [address] [place] [address] Clementine Cobos MD [address] [place] [address] documented as of this encounter Visit Diagnoses Diagnosis Seasonal allergies- Primary Allergic rhinitis, cause unspecified documented in this encounter Additional Health Concerns Assessment Noted Time PHQ-9 Depression Total Score: 0 09/12/19 10:19 AM EDT documented as of this encounter Care Teams Digestion Operator Relationship Specialty Start Date End Date Clementine Cobos MD [address] [place] [address] PCP - General Family Medicine 06/25/18 Manoj Garcia MD [address] [place] [address] Obstetrics and Gynecology 07/22/24 Emir Medina MD [address] [place] [address] Bariatrics 10/08/24 Xavi Villafuerte MD [address] [place] [address] Drive 3rd [place] [address] Gastroenterology 10/08/24 Enrike Arvizu MD [address] [place] [address] Cardiology 10/08/24 documented as of this encounter
--- OUTSIDE RECORDS SUMMARY | 2025-05-07 08:22 | XMS_ITS | Encounter Summary ---
Author Organization [employer] Address [address] [place] [address] [address] [place] [address] Care Team Providers Care Powder Room Attendant Name Role Phone Clementine Cobos MD Primary Care Provider [phone] Manoj Garcia MD Unavailable Emir Medina MD Unavailable [phone] Xavi Villafuerte MD Unavailable [phone] Enrike Arvizu MD Unavailable [phone] Encounter Details Date Type Department Care Team (Late st Contact Info) Description 11/17/2022 Abstract [facility] [address] [place], [place] [phone] Clementine Cobos MD [address] [place] [address] [phone] Social History Tobacco Use Types Packs/Day Years [...] Description 06/15/2025 9:00 AM EST Office Visit [facility] [address] [place], [place] [phone] Clementine Cobos MD [address] [place] [address] documented as of this encounter Visit Diagnoses Not on filedocumented in this encounter Additional Health Concerns Assessment Noted Time PHQ-9 Depression Total Score: 0 09/12/19 23 10:19 AM EDT documented as of this encounter Care Teams Powder Room Attendant Relationship Specialty Start Date End Date Clementine Cobos MD [address] [place] [address] PCP - General Family Medicine 06/25/18 Manoj Garcia MD [address] [place] [address] Obstetrics and Gynecology 07/22/24 Emir Medina MD [address] [place] [address] Bariatrics 10/08/24 Xavi Villafuerte MD [address] 3rd [place] [address] Gastroenterology 10/08/24 Enrike Arvizu MD [address] [place] [address] Cardiology 10/08/24 documented as of this encounter
--- OUTSIDE RECORDS SUMMARY | 2025-05-07 08:22 | XMS_ITS | Encounter Summary ---
Author Organization [employer] Address [address] [facility] 7t [place] [address] Care Team Providers Care Route Delivery Driver Name Role Phone Clementine Cobos MD Primary Care Provider [phone] Manoj Garcia MD Unavailable Emir Medina MD Unavailable Xavi Villafuerte MD Unavailable [phone] Enrike Arvizu MD Unavailable [phone] Reason for Visit * Reason Comments Med Change Request Encounter Details Date Type Department Care Team (Late st Contact Info) Description 07/27/2023 Refill [facility] [address] [place], [place] [phone] Clementine Cobos MD [address] [place], [place] [phone] Social History Tobacco Use Types Packs/Day Years [...] Description 06/15/2025 9:00 AM EST Office Visit [facility] [address] [place] [address] Clementine Cobos MD [address] [place] [address] documented as of this encounter Visit Diagnoses Not on filedocumented in this encounter Additional Health Concerns Assessment Noted Time PHQ-9 Depression Total Score: 0 09/12/19 10:19 AM EDT documented as of this encounter Care Teams Route Delivery Driver Relationship Specialty Start Date End Date Clementine Cobos MD [address] [place] [address] PCP - General Family Medicine 06/25/18 Manoj Garcia MD [address] [place] [address] Obstetrics and Gynecology 07/22/24 Emir Medina MD [address] [place] [address] Bariatrics 10/08/24 Xavi Villafuerte MD [address] [place] [address] 3[address] [place] [address] Gastroenterology 10/08/24 Enrike Arvizu MD [address] [place] [address] Cardiology 10/08/24 documented as of this encounter
--- OUTSIDE RECORDS SUMMARY | 2025-05-07 08:22 | XMS_ITS | Encounter Summary ---
Author Organization [employer] Address [address] [facility] 7[address] [place] [address] Care Team Providers Care Reception Specialist Name Role Phone Clementine Cobos MD Primary Care Provider [phone] Manoj Garcia MD Unavailable Emir Medina MD Unavailable [phone] Xavi Villafuerte MD Unavailable [phone] Enrike Arvizu MD Unavailable [phone] Reason for Visit * Reason Comments Med Refill Encounter Details Date Type Department Care Team (Late st Contact Info) Description 01/02/2025 Refill [facility] [address] [place], [place] [phone] Clementine Cobos MD [address] [place], [place] [phone] Iron deficiency anemia, unspecified iron deficiency anemia [...] Description 06/15/2025 9:00 AM EST Office Visit [facility] [address] [place] [address] Clementine Cobos MD [address] [place] [address] documented as of this encounter Visit Diagnoses Diagnosis Iron deficiency anemia, unspecified iron deficiency anemia type documented in this encounter Additional Health Concerns Assessment Noted Time PHQ-9 Depression Total Score: 0 10/09/19 25 10:30 AM EDT documented as of this encounter Care Teams Reception Specialist Relationship Specialty Start Date End Date Clementine Cobos MD [address] [place] [address] PCP - General Family Medicine 06/25/18 Manoj Garcia MD [address] [place] [address] [place] [address] Obstetrics and Gynecology 07/22/24 Emir Medina MD [address] [place] [address] [address] [place] [address] Bariatrics 10/08/24 Xavi Villafuerte MD [address] [place] [address] 3rd [place] [address] Gastroenterology 10/08/24 Enrike Arvizu MD [address] [place] [address] Cardiology 10/08/24 documented as of this encounter
--- OUTSIDE RECORDS SUMMARY | 2025-05-07 08:22 | XMS_ITS | Encounter Summary ---
Author Organization [facility] Address [address] [place] [address] Care Team Providers Care Agricultural Commodities Grader Name Role Phone Chandrika, Clementine MORGAN Primary Care Provider [phone] Reason for Visit * Reason Comments Med Refill Encounter Details Date Type Department Care Team (Late Contact Info) Description 04/27/2025 Telephone Bariatric Surgery [address] [address] Merna Anderson PA [address] [place] [phone] Social History Tobacco Use Types Packs/Day [...] 1:15 PM EST Office Visit Bariatric Surgery [address] [address] Merna Anderson PA [address] [place] [phone] documented as of this encounter Visit Diagnoses Diagnosis Overweight (BMI 25.0-29.9) Overweight History of sleeve gastrectomy Hyperlipidemia, unspecified hyperlipidemia type documented in this encounter Care Teams Agricultural Commodities Grader Relationship Specialty Start Date End Date Clementine Cobos MD [address] [place] [phone] PCP - General Internal Medicine 12/18/12 documented as of this encounter
--- OUTSIDE RECORDS SUMMARY | 2025-05-07 08:22 | XMS_ITS | Clinical Summary ---
Author Organization 175 [facility] Address [address] [place] [address] Phone Care Team Providers Care Manager Neonatal Name Role Phone Clementine Cobos MD Primary Care Provider +1- [phone] Allergies No known active allergies Medications fluticasone [...] Overview (02/18/2025): Lab Results Component Value Date [id number] 31.0 12/17/2024 [id number] 28.8 (L) 10/09/2024 [id number] 41.2 12/24/2023 -Vit D3 2000IU started 10/09/24 [...] Care Team Description 04/27/2025 Telephone Bariatric Surgery [address] [address] Merna Anderson PA 03/31/2025 Telephone Bariatric Surgery [address] [address] Merna Anderson PA 03/17/2025 Telephone Bariatric Surgery [address] [address] Merna Anderson PA 02/17/2025 8:00 AM EDT Office Visit Bariatric Surgery [address] [address] Merna Anderson PA Overweight (BMI 25.0-29.9) (Primary [...] PM EST Office Visit Bariatric Surgery - [address] [place] [address] Merna Anderson, PA [address] [place] [phone] Health Maintenance Due Date Last Done [...] complete this topic Insurance [place] - [place] [facility] Care Teams Manager Neonatal Relationship Specialty Start Date End Date [place], MD Clementine [address] [place] [phone] PCP - General Internal Medicine 12/18/12
== END 2025-05-07 08:10 | disposition home or self-care (01) ==
LOC: HO.LNP 08:09
PROVIDERS: Visit Provider Internal Medicine Gastroenterology
DX: K21.9 Gastro-esophageal reflux disease without esophagitis (principal); R10.9 Unspecified abdominal pain
CPT/HCPCS: 83013

== ENCOUNTER 2025-06-04 06:37 | Outpatient (REF) | payer OTHER, MEDICAID, SELFPAY ==
--- OUTSIDE RECORDS SUMMARY | 2025-06-04 06:41 | XMS_ITS | Data Portability ---
Author Organization [place] [facility], Allergy Address [address] [place] [address] Care Team Providers Care Merchant Mariner Name Role Phone TAI, RASHEED Primary Care [...] Organization Details Last Modified Time Details Appointments None record ed. Lab None record ed. Referral None record ed. Procedures None record ed. Surgeries None record ed. Imaging None record ed. Medication Orders None record ed. Patient TargetsNo targets recorded. 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 - [facility] 14:00:30 Dysphagia 60316361 Active 025 GRICELDA ROJAS MD [address] [place] [address], [place], [phone], [facility] 14:00:37 Problem Notes None recorded. Procedures Surgical History Date Name Laterality Status Provider Name and Address Organization Details Recorded Time 01/29/2025 NasalEndos copy_DP completed GRICELDA ROJAS MD [address] [place] [address], [phone], [facility] 01/29/2025 14:00:24 Imaging Results None recorded. [...] completed Not Available Not Available Not Available cetirizine 10 mg tablet TAKE 1 TABLET (10 MG) BY MOUTH ONCE PER DAY. active Not Available Not Available No t Available azithromyci n 250 mg tablet TAKE [...] fluconazole 150 mg tablet TAKE 1 TABLET (150 MG) BY MOUTH 1 (ONE) TIME PER WEEK FOR 14 DAYS. active Not Available Not Available No t Available prednisone 20 mg tablet TAKE 2 TABLETS BY MOUTH EVERY DAY FOR 5 DAYS active Not Available Not Available No t Available metronidazo le 250 mg tablet TAKE 1 TABLET BY MOUTH FOUR TIMES A DAY FOR 14 DAYS 01/29 completed Not Available Not Available Not Available famotidine 20 mg tablet TAKE 1 TABLET BY MOUTH TWICE A DAY active Not Available Not Available No t Available meclizine 25 mg tablet TAKE 1 [...] Not Available Not Available No t Available montelukast 10 mg tablet TAKE 1 TABLET BY MOUTH EVERY DAY active Not Available Not Available No t Available codeine 10 mg-guaifene sin 100 mg/5 mL oral liquid TAKE 5 ML BY MOUTH IF NEEDED IN THE MORNING, AT NOON, AND AT BEDTIME FOR COUGH FOR UP TO 5 DAYS active Not Available Not Available No t Available albuterol sulfate HFA 90 mcg/actuati on aerosol inhaler INHALE 2 PUFFS EVERY 4 HOURS IF NEEDED FOR WHEEZING. active Not Available Not Available No t Available ferrous sulfate 325 mg (65 mg iron) tablet,maximino yed release TAKE 1 TABLET BY MOUTH TWICE DAILY WITH FOOD, DO NOT BREAK, CRUSH, DISSOLVE OR CHEW active Not Available Not Available No t Available fluticasone propionate 50 mcg/actuati on nasal spray,suspe nsion PLEASE SEE ATTACHED FOR DETAILED DIRECTION S active Not Available Not Available No t Available doxycycline hyclate 100 mg tablet TAKE 1 TAB 2 TIMES DAILY X7 DAYS W/FULL GLASS OF WATER, DO NOT LIE DOWN FOR AT LEAST 30 MINS AFTER 05/12 completed Not Available Not Available Not Available amoxicillin 875 mg-potassiu m clavulanate 125 mg tablet TAKE 1 TABLET BY MOUTH TWICE A DAY FOR 10 DAYS 05/12 completed Not Available Not Available Not Available Laxative (bisacodyl) 5 mg tablet,maximino yed release TAKE 4 TABLETS BY MOUTH DIRECTED. PT HAS INSTRUCTI ONS active Not Available Not Available No t Available GaviLyte-G 236 gram-22.74 gram-6.74 gram-5.86 gram oral solution TAKE 4000ML BY MOUTH DIRECTED. PT HAS INSTRUCTI ONS active Not Available Not Available No t [...] Not Available Not Available No t Available fluticasone furoate 200 mcg/actuati on blister powder for inhalation PLEASE SEE ATTACHED FOR DETAILED DIRECTION S active Not Available Not Available No t Available Paxlovid 300 mg (150 mg x 2)-100 mg tablets in a dose pack TAKE 2 TABLETS (300 MG) OF NIRMATREL VIR & 1 TABLET (100 MG) OF RITONAVIR BY MOUTH TWICE DAILY FOR 5 DAYS active Not Available Not Available No t Available Zepbound 5 mg/0.5 mL subcutaneou s pen injector INJECT 1 PEN SUBCUTANE OUSLY ONCE A WEEK FOR 4 WEEKS active Not Available Not Available No t Available Vitals Date Recorded Body height Body mass index (BMI) Body weight Provider Name and Address Organization Details Last Updated DateTime 01/29/2025 162.56 cm 28.3 kg/m2 70812.74 g Maria Luisa Ruiz [place] - [facility] 01/29/2025 13:48:48 Social History None recorded. Functional Status None recorded. Mental Status None recorded. Family History Nothing Reported. Medical History No medical history recorded. Gynecological HistoryNo gynecological history recorded. 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 071868757 J33.9 09017 Dysphagia 72583705 R13.1 4 248858 Health Concerns Section Related Observation LastModified by Organization Detai ls LastModified Time None Recorded Concern Status LastModified by Organization Details LastModified Time None Recorded Advance Directives Directive None Recorded Payers Insurance Date Sequence Insurance Name Policy Number Policy Jaimes Covered Member ID Jaimes Member ID Guarantor Name 06/02/2025 1 [facility] [id number] Dacasty D Herrera [id number] Dacasty D Herrera 06/02/2025 2 [place] [facility] Dacasty D Herrera [id number] Dacasty D Herrera Notes Date Note Type Note Provider Name and Address Organization Details Recorded Time 01/29/2025 text/html nasal polyps Dacasty Yissel Herrera is a 44-year-old female who presents for nasal symptoms. She reports a history of nasal polyps that were surgically removed in 07/2001 in [place]. She is now experiencing similar symptoms, including [...] causing congestion without drainage. 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 She has not had any recent evaluations of her nose by her primary care physician. GRICELDA ROJAS MD [address] [place] [address], [phone], [facility] - [facility] 01/29/2025 14:01:49 OBGyn Episode No OBEpisode recorded.
--- OUTSIDE RECORDS SUMMARY | 2025-06-04 06:41 | XMS_ITS | Clinical Summary ---
Author Organization 175 [facility] Address [address] [place] [address] Phone Care Team Providers Care Jalousies Installer Name Role Phone Clementine Cobos MD Primary Care Provider +1- [phone] Allergies No known active allergies Medications fluticasone HFA (Flovent HFA) 110 mcg/actuation inhaler as needed, Refills 0, Maintenance, 01/17/16 12:10:21 EDT 016 Active cholecalciferol (VITAMIN D-3) 50 mcg (2,000 unit) capsule Take 1 capsule (2,000 Units total) by mouth 1 (one) time each day. Active fluticasone propionate (Flonase Allergy Relief) 50 mcg/actuation nasal spray Administer into affected nostril(s). 021 Active montelukast (Singulair) 10 mg tablet Take 1 tablet (10 mg total) by mouth. 022 Active tirzepatide, weight loss, (Zepbound) 5 mg/0.5 mL injection Inject 0.5 mL (5 mg total) under the skin every 7 (seven) days. 2 mL 025 2025 Active tirzepatide, weight loss, (Zepbound) 2.5 mg/0.5 mL injectionIndicati ons:Overweight (BMI 25.0-29.9),Histor y of sleeve gastrectomy,Hyper lipidemia, unspecified hyperlipidemia type Inject 0.5 mL (2.5 mg total) under the skin every 7 (seven) days. 2 mL 025 2024 Discontinued tirzepatide, weight loss, (Zepbound) 5 mg/0.5 mL injection Inject 0.5 mL (5 mg total) under the skin every 7 (seven) days for 28 days. 2 mL 025 2024 Discontinued tirzepatide, weight loss, (Zepbound) 5 mg/0.5 mL injection INJECT 1 PEN SUBCUTANEOUSLY ONCE A WEEK FOR 4 WEEKS 2 mL 025 2024 Discontinued Active Problems Problem Noted [...] Overview (02/18/2025): Lab Results Component Value Date [id number] 31.0 12/17/2024 [id number] 28.8 (L) 10/09/2024 [id number] 41.2 12/24/2023 -Vit D3 2000IU started 10/09/24 [...] Encounters Date Type Department Care Team Description 05/26/2025 Telephone Bariatric Surgery [address] [address] Merna Anderson PA 04/27/2025 Telephone Bariatric Surgery [address] [address] Merna Anderson PA 03/31/2025 Telephone Bariatric Surgery [address] [phone] Merna Anderson PA 03/17/2025 Telephone Bariatric Surgery - [address] [address] Merna Anderson PA from Last 3 Months Surgical History Surgery [...] on file Sexual Orientation Not on file Last Filed Vital Signs Vital Sign Reading [...] 1:15 PM EST Office Visit Bariatric Surgery [address] [address] Merna Anderson PA [address] [place] [phone] Health Maintenance Due Date Last Done [...] patient's age to complete this topic Insurance Joy MEND[place], [place] [id number] [place] [facility] [address] [place] [address] Care Teams Jalousies Installer Relationship Specialty Start Date End Date Clementine Cobos MD [address] [place] [phone] PCP - General Internal Medicine 12/18/12
--- OUTSIDE RECORDS SUMMARY | 2025-06-04 06:41 | XMS_ITS | Encounter Summary ---
Author Organization [facility] Address [address] [place] [address] Phone Care Team Providers Care Slab Tripper Name Role Phone Pcp, Unknown Primary Care Provider Unavailabl e Unknown, Unknown Primary Care Provider Clementine Antonio MD Primary Care Provi ching Encounter Details Date Type Department Care Team (Latest Contact Info) Description 07/17/2017 Ancillary Orders [facility] [address] [place] [address] [place] [address] Enrike Arvizu, DO [address] [place] [phone] Palpitations; Bradycardia; Chest pain, unspecified type Social [...] documented as of this encounter Care Teams Slab Tripper Relationship Specialty Start Date End Date Pcp, Unknown PCP - General 07/17/17 05/29/18 Unknown, Unknown, PCP - General 05/30/18 07/25/18 Clementine Cobos MD [address] [place] [address] PCP - General Family Medicine 07/26/18 documented as of this encounter Additional Source Comments The information contained in this document represents components of the legal health record. It is not the complete legal health record.[facility]
--- OUTSIDE RECORDS SUMMARY | 2025-06-04 06:41 | XMS_ITS | Clinical Summary ---
Author Organization [facility] Address [address] [place] [address] Phone Care Team Providers Care Instructor Kindergarten Name Role Phone Clementine Cobos MD Primary [...] Department Care Team Description 03/30/2025 Orders Only [facility] [address] [place] [address] Enio Escobedo MD from Last 3 Months [...] Smear (08/14/1997 12:00 AM EST) 08/14/1997 Narrative [facility] - 08/20/1997 5:12 PM EST Accession Number: [id number] Report Status: Final Type: Cytology Cytology Report [id number] DIAGNOSTIC PAP Accessioned On: 08/15/97 CHRISTOPHER WHITE OI CLINICAL DATA: Routine.FINAL CYTOLOGIC DIAGNOSIS: ENDOCERVICAL BRUSH & CERVICAL SCRAPE: Satisfactory for evaluation. WITHIN NORMAL LIMITS. us Conversion Provider Not In Sys CYTOLOGY ORDERABL ES Final Result Performing Organization Address City/State/[facility] Co de Phone Number [address] [address] from Last 3 Months or Most Recently Relevant to Health Maintenance Insurance [facility] Member Subscriber Plan / Payer (Ef fective 2016-Present) Name:Herrera Dacasty D Relation to Subscriber:Self Name:Herrera Dacasty D Payer ID:Not on file [place] Address: [place] [id number] [facility] Member Subscriber Plan / Payer (Ef fective 2016-Present) Name:Herrera, Dacasty D Relation to Subscriber:Self Name:Herrera Dacasty D Payer ID:Not on file [place] Address: [place] [id number] [facility] Member Subscriber Plan / Payer (Ef fective 2016-Present) Name:Herrera Dacasty D Relation to Subscriber:Self Name:Herrera Dacasty D Payer ID:Not on file [place] Address: [address] [facility] INSURANCE Care Teams Instructor Kindergarten Relationship Specialty Start Date End Date Chandrika, Clementine Langston MD [address] [place] [address] PCP - General Family Medicine 07/26/18 Additional Source Comments The information contained in this document represents components of the legal health record. It is not the complete legal health record.[facility]
== END 2025-06-04 06:38 | disposition home or self-care (01) ==
LOC: CF 06:37
PROVIDERS: Visit Provider Internal Medicine
DX: G58.8 Other specified mononeuropathies (principal)
CPT/HCPCS: 64420; 64421; J2795; J3301

== ENCOUNTER 2025-06-04 13:34 | Outpatient (AMB) | payer OTHER, MEDICAID, SELFPAY ==
[2025-06-04 13:36] VITALS: BP 102/82; PULSE 67; RESP 16; O2SAT 100
--- NOTE | 2025-06-04 13:36 | MHC.OFFVIS ---
Vital Signs 06/04/25 13:36 BP 102/82 Blood Pressure Location Lt brachial Position Sitting Respiration 16 Pulse 67 Pulse Source Pulse Oximeter Pulse Oximetry (%) 100 Oxygen Delivery Method Room Air Intake Visit Reasons: Right Therapeutic T4-T5 Intercostal Nerve Block Radiation Safety Officer Required: No Allergies No Known Allergies Allergy (Verified 06/04/25 13:37) Medication List - Last Reconciled 06/04/25 by Kathy Hopkins LPN albuterol sulfate 90 mcg/actuation 0 mcg inhalation NEEDED PRN baclofen 10 mg PO TID PRN cetirizine 10 mg PO DAILY PRN cholecalciferol (vitamin D3) (Vitamin D3) 50 mcg PO DAILY famotidine 10 mg PO BID ferrous sulfate 325 mg PO BID fluticasone propionate 50 mcg/actuation 1 spray intranasal DAILY ibuprofen 800 mg PO Q8H PRN meclizine 25 mg PO TID PRN 10 days montelukast 10 mg PO DAILY tirzepatide (weight loss) (Zepbound) 2.5 mg subcut QWEEK HPI HPI Right Therapeutic T4-T5 Intercostal Nerve Block: Details: Patient presents for scheduled procedure. Denies any recent cough, cold, infection, fever or other significant changes in medical history since last office visit. [facility] Medical History Renal calculi Urinary incontinence UTI (urinary tract infection) Pain PONV (postoperative nausea and vomiting) Abdominal pain GERD (gastroesophageal reflux disease) Carpal tunnel syndrome Endometriosis Seasonal allergies Asthma Surgical History Ventral hernia (03/06/24) H/O abdominal surgery History of carpal tunnel surgery of right wrist History of esophagogastroduodenoscopy (EGD) H/O gastric bypass Hx of cholecystectomy H/O tubal ligation H/O eye surgery Social History Household Members: Children Are you a primary healthcare consulting manager to a significant other at home: No Do you presently have visiting nurse or other home services: No Alcohol intake: never Patient Tobacco Use Status: Never used Tobacco Female Reproductive History Menstrual Age of Menarche: 8 Physical Exam Vital Signs: Last Vital Signs Pulse 67 06/04/25 13:36 Resp 16 06/04/25 13:36 BP 102/82 06/04/25 13:36 Pulse Ox 100 06/04/25 13:36 Oxygen Delivery Method Room Air 06/04/25 13:36 Office Procedures Nerve Block Details: Right T4-T5 intercostal nerve blocks, US guided. After obtaining written consent, pre-procedure time-out was completed. The patient was placed in prone position. The relevant levels of the intercostal nerves were physically palpated corresponding to the patient's pain and marked. Using ultrasound, the appropriate landmarks including the rib, intercostal muscles and pleura were identified. The skin was anesthetized with 1% lidocaine. A 21-gauge 80 mm echostim needle was advanced under sonographic guidance in proximity to each of the intercostal nerves. Aspiration was negative for heme and air. 5 cc of ropivacaine 0.5% mixed with 10 mg Kenalog was injected around each of the targeted nerves. The needle was removed, skin cleansed and a sterile bandage was applied. The patient tolerated the procedure well and no complications were encountered. Following the procedure, the patient's vital signs and respiration were stable. The patient was discharged home in good condition with post-procedural instructions. Time Out: Immediately prior to the procedure, the following was verbally confirmed that there is a signed consent form and that the correct patient, planned procedure, site and side are consistent with documentation and that necessary equipment and/or blood products are available prior to the start of the case. Complications: none EBL: <1 cc Note: An ultrasound image of the injection was taken and stored in the permanent record. 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 Patient tolerated procedure well and was discharged home in stable condition with discharge instructions. All questions were answered. We will follow-up via telephone or in clinic to assess response to therapy. A follow-up appointment was made during today's visit. Coding Level of Care Code Procedure Only Diagnoses Intercostal neuralgia G58.8
--- OUTSIDE RECORDS SUMMARY | 2025-06-04 20:46 | XMS_ITS | Encounter Summary ---
Author Organization [employer] Address [address] [place] [address] [address], [place] [address] Care Team Providers Care Millwright Instructor Name Role Phone Clementine Cobos MD Primary Care Provider + [phone] Manoj Garcia MD Unavailable Emir Medina MD Unavailable [phone] Xavi Villafuerte MD Unavailable [phone] Enrike Arvizu MD Unavailable [phone] Encounter Details Date Type Department Care Team (Latest Contact Info) Description 11/18/2021 Abstract [facility] Dental, Provider, DDS Social History Tobacco [...] Description 06/15/2025 9:00 AM EST Office Visit [facility] [address] [place] [address] Clementine Cobos MD [address] [place], [place] [phone] documented as of this encounter Visit Diagnoses Not on filedocumented in this encounter Care Teams Millwright Instructor Relationship Specialty Start Date End Date Clementine Cobos MD [address] [place], [place] [phone] PCP - General Family Medicine 06/25/18 Manoj Garcia MD [address] [place] [address] Obstetrics and Gynecology 07/22/24 Emir Medina MD [address] [facility] [address] [place] [address] Bariatrics 10/08/24 Xavi Villafuerte MD [address] [place] [address] Gastroenterology 10/08/24 Enrike Arvizu MD [address] [place] [address] Cardiology 10/08/24 documented as of this encounter
--- OUTSIDE RECORDS SUMMARY | 2025-06-04 20:46 | XMS_ITS | Encounter Summary ---
Author Organization [employer] Address [address] [facility] [address] [place] [address] Care Team Providers Care Wrapper Leaf Inspector Name Role Phone Clementine Cobos MD Primary Care Provider [phone] Manoj Garcia MD Unavailable Emir Medina MD Unavailable [phone] Xavi Villafuerte MD Unavailable [phone] Enrike Arvizu MD Unavailable [phone] Reason for Visit * Reason Comments Med Change Request Encounter Details Date Type Department Care Team (Late st Contact Info) Description 07/27/2023 Refill [facility] [address] [place], [place] [phone] Clementine Cobos MD [address] [place], [place] [phone] Social History Tobacco Use Types Packs/Day Years [...] Description 06/15/2025 9:00 AM EST Office Visit [facility] [address] [place] [address] Clementine Cobos MD [address] [place] [address] documented as of this encounter Visit Diagnoses Not on filedocumented in this encounter Additional Health Concerns Assessment Noted Time PHQ-9 Depression Total Score: 0 09/12/19 10:19 AM EDT documented as of this encounter Care Teams Wrapper Leaf Inspector Relationship Specialty Start Date End Date Clementine Cobos MD [address] [place] [address] PCP - General Family Medicine 06/25/18 Manoj Garcia MD [address] [place] [address] Obstetrics and Gynecology 07/22/24 Emir Medina MD [address] [place] [address] Bariatrics 10/08/24 Xavi Villafuerte MD [address] [place] [address] [address] [place] [address] Gastroenterology 10/08/24 Enrike Arvizu MD [address] [place] [address] Cardiology 10/08/24 documented as of this encounter
--- OUTSIDE RECORDS SUMMARY | 2025-06-04 20:46 | XMS_ITS | Encounter Summary ---
Author Organization [employer] Address [address] [facility] 7t [place] [address] Care Team Providers Care Interior Paneler Name Role Phone Chandrika, Clementine MORGAN Primary Care Provider +[phone]- [phone] Manoj Garcia MD Unavailable Emir Medina MD Unavailable [phone] Xavi Villafuerte MD Unavailable [phone] Enrike Arvizu MD Unavailable [phone] Reason for Visit * Reason Comments Med Change Request Encounter Details Date Type Department Care Team (Late st Contact Info) Description 04/28/2023 Refill [facility] MED[facility]INE [address] [place], [place] [phone] Kaitlin Vallejo MD 230 [place], [place] [phone] Seasonal allergies (Primary Dx) Social History Tobacco [...] 9:00 AM EST Office Visit [facility] [address] [place] [address] Clementine Cobos MD [address] [place] [address] documented as of this encounter Visit Diagnoses Diagnosis Seasonal allergies- Primary Allergic rhinitis, cause unspecified documented in this encounter Additional Health Concerns Assessment Noted Time PHQ-9 Depression Total Score: 0 09/12/19 10:19 AM EDT documented as of this encounter Care Teams Interior Paneler Relationship Specialty Start Date End Date Clementine Cobos MD 230 [place] [address] PCP - General Family Medicine 06/25/18 Manoj Garcia MD [address] [place] [address] Obstetrics and Gynecology 07/22/24 Emir Medina MD [address] [place] [address] Bariatrics 10/08/24 Xavi Villafuerte MD [address] [place] [address] Drive 3rd [place] [address] Gastroenterology 10/08/24 Enrike Arvizu MD 596 [place] [address] Cardiology 10/08/24 documented as of this encounter
--- OUTSIDE RECORDS SUMMARY | 2025-06-04 20:46 | XMS_ITS | Encounter Summary ---
Author Organization [employer] Address [address] [place] [address] 7[address] [place] [address] Care Team Providers Care Patient Relations Liaison Name Role Phone Clementine Cobos MD Primary Care Provider [phone]- [phone] Manoj Garcia MD Unavailable Emir Medina MD Unavailable [phone] Xavi Villafuerte MD Unavailable [phone] Enrike Arvizu MD Unavailable [phone] Encounter Details Date Type Department Care Team (Late st Contact Info) Description 11/17/2022 Abstract [facility] [address] [place], [place] [phone] Clementine Cobos MD [address] [place] [address] [phone] Social History Tobacco Use Types Packs/Day Years [...] Description 06/15/2025 9:00 AM EST Office Visit [facility] 230 [place], [place] [phone] Clementine Cobos MD 230 [place] [address] documented as of this encounter Visit Diagnoses Not on filedocumented in this encounter Additional Health Concerns Assessment Noted Time PHQ-9 Depression Total Score: 0 09/12/19 23 10:19 AM EDT documented as of this encounter Care Teams Patient Relations Liaison Relationship Specialty Start Date End Date Clementine Cobos MD 230 [place] [address] PCP - General Family Medicine 06/25/18 Manoj Garcia MD [address] [place] [address] Obstetrics and Gynecology 07/22/24 Emir Medina MD [address] [place] [address] Bariatrics 10/08/24 Xavi Villafuerte MD [address] [facility] [address] 3rd [place] [address] Gastroenterology 10/08/24 Enrike Arvizu MD [address] [place] [address] Cardiology 10/08/24 documented as of this encounter
--- OUTSIDE RECORDS SUMMARY | 2025-06-04 20:46 | XMS_ITS | Data Portability ---
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 Procedures Surgical History Date Name Laterality Status Provider Name and Address Organization Details Recorded Time 01/29/2025 NasalEndos copy_DP completed GRICELDA ROJAS MD [address] [place] [address], [phone], [facility] 01/29/2025 14:00:24 Imaging Results None recorded. Procedure [...] Updated DateTime 01/29/2025 162.56 cm 28.3 kg/m2 45409.74 g Maria Luisa Ruiz MD - [facility] 01/29/2025 13:48:48 Social History None recorded. Functional Status None recorded. Mental Status None recorded. Family History Nothing Reported. Medical History No medical history recorded. Gynecological HistoryNo gynecological history recorded. Obstetrics History GPAL:G 0 P 0 0 0 0 Past Encounters Encounter ID Performer Location Encounter Start Date Encounter Closed Date Diagnosis/Indication Diagnosis SNOMED-CT Code Diagnosis ICD10 Code Diagnosis IMO Codes Diagnosis Note [id number] GRICELDA ROJAS MD [facility] [address] [place] [address] 01/29/2025 13:31:27 01/29/2025 14:01:11 Polyp of nasal cavity and/or nasal sinus 949172818 J33.9 33528 Dysphagia 88809153 R13.1 4 249658 Health Concerns Section Related Observation LastModified by Organization Detai ls LastModified Time None Recorded Concern Status LastModified by Organization Details LastModified Time None Recorded Advance Directives Directive None Recorded Payers Insurance Date Sequence Insurance Name Policy Number Policy Jaimes Covered Member ID Jaimes Member ID Guarantor Name 06/02/2025 1 [facility] [id number] Dacasty D Herrera [id number] Dacasty D Herrera 06/02/2025 2 [place] [facility] Dacasty D Herrera [id number] Dacasty D Herrera Notes Date Note Type Note Provider Name and Address Organization Details Recorded Time 01/29/2025 text/html nasal polyps Dacasty Yissel Herrera is a 44-year-old female who presents for nasal symptoms. She reports a history of nasal polyps that were surgically removed in 07/2001 in [place]. She is now experiencing similar symptoms, including [...] her primary care physician. GRICELDA ROJAS MD [address] [place] [address], [phone], [facility] - [facility] 01/29/2025 14:01:49 OBGyn Episode No OBEpisode recorded.
--- OUTSIDE RECORDS SUMMARY | 2025-06-04 20:46 | XMS_ITS | Clinical Summary ---
Author Organization [facility] Address [address] [place] [address] Phone Care Team Providers Care Bleacher Lard Name Role Phone Clementine Cobos MD Primary [...] Department Care Team Description 03/30/2025 Orders Only [facility] Gastroenterology Clinic [address] [place] [address] Enio Escobedo MD from Last 3 Months [...] Smear (08/14/1997 12:00 AM EST) 08/14/1997 Narrative [facility] - 08/20/1997 5:12 PM EST Accession Number: [id number] Report Status: Final Type: Cytology Cytology Report [id number] [id number] DIAGNOSTIC PAP Accessioned On: 08/15/97 CHRISTOPHER WHITE OI CLINICAL DATA: Routine.FINAL CYTOLOGIC DIAGNOSIS: ENDOCERVICAL BRUSH & CERVICAL SCRAPE: Satisfactory for evaluation. WITHIN NORMAL LIMITS. us Conversion Provider Not In Sys CYTOLOGY ORDERABL ES Final Result Performing Organization Address City/State/[facility] Co de Phone Number [address] [address] from Last 3 Months or Most Recently Relevant to Health Maintenance [facility] Address: [address] [address] [facility] Address: [address] [address] [facility] Address[facility] [address] [address] [facility] Address: [place] [id number] [facility] Address[facility] [place] [id number] [facility] Address[facility] [address] [address] [facility] Address: [address] [address] [facility] Address: [address] [facility] Address[facility] [address] [address] [facility] Address[facility] [address] [address] [facility] Address: [address] [address] [facility] Care Teams Bleacher Lard Relationship Specialty Start Date End Date Chandrika, Clementine Langston MD [address] [place] [address] PCP - General Family Medicine 07/26/18 Additional Source Comments The information contained in this document represents components of the legal health record. It is not the complete legal health record.[facility]
--- OUTSIDE RECORDS SUMMARY | 2025-06-04 20:46 | XMS_ITS | Encounter Summary ---
Author Organization [employer] Address [address] [place] [address] 7t [place] [address] Care Team Providers Care Customs Entry Writer Name Role Phone Clementine Cobos MD Primary Care Provider [phone] Manoj Garcia MD Unavailable Emir Medina MD Unavailable [phone] Xavi Villafuerte MD Unavailable [phone] Enrike Arvizu MD Unavailable [phone] Encounter Details Date Type Department Care Team (Late st Contact Info) Description 03/07/2023 Orders Only [facility] MEDICINE [address] [place] [phone] Clementine Cobos MD 230 [place], [place] [phone] Social History Tobacco Use Types Packs/Day Years [...] 06/15/2025 9:00 AM EST Office Visit [facility] MEDICINE [address] [place], [place] [phone] Clementine Cobos MD 230 [facility] [place] [address] documented as of this encounter Procedures Procedure Name Priority Date/Time Associated Diagnosis Comments BI MAMMOGRAM SCREENING TOMOSYNTHESIS BILATERAL Routine 03/17/2023 7:45 AM EDT documented in this encounter Results * BI Mammogram Screening Tomosynthesis Bilateral (03/17/2023 7:45 AM EDT) Anatomical Region Laterality Modality Breast Bilateral Mammography 03/17/2023 7:45 AM EDT Narrative 03/24/2023 9:33 PM EDT [address] [place] [address] Mammography Report Signed Patient: Carmine Herrera MR#: [id number] 11 : 1980 Acct:[id number] Age/Sex: 42 / F ADM Date: 03/17/23 Loc: HO.MAMMO Attending Dr: Clementine Cobos MD Ordering Physician: Clementine Cobos MD Results: 1N egative Date of Service: 03/17/23 Follow Up: 1 Year From Orig inal Mammogram Procedure(s): MM tomosynthesis screening BI Accession Number(s): [id number] cc: Clementine Cobos MD EXAMINATION: MM SCREENING [...] MD in OV> 03/24/232128 DD/ 4 TD/TT: Muffler Hand: Procedure Note Donotuseinterpreter, Image - 03/24/2023 [facility] [address] [place] [address] Mammography Report Signed Patient: Carmine Herrera DMR#: [id number] 11 : 1980Acct:[id number] Age/Sex: 42 / FADM Date: 03/17/23 Loc: [facility] Attending Dr: Clementine Cobos MD Ordering Physician: Clementine Cobos MDResults: 1N egative Date of Service: 03/17/23Follow Up: 1 Year From Orig inal Mammogram Procedure(s): MM tomosynthesis screening BI Accession Number(s): [id number] cc: Clementine Cobos MD EXAMINATION: MM SCREENING [...] MD in OV> 03/24/232128 DD/ 4 TD/TT: Muffler Hand: Clementine Cobos MD IMG BI PROCEDURES Edited R esult - Final documented in this encounter Visit Diagnoses Not on filedocumented in this encounter Additional Health Concerns Assessment Noted Time PHQ-9 Depression Total Score: 0 09/12/19 23 10:19 AM EDT documented as of this encounter Care Teams Customs Entry Writer Relationship Specialty Start Date End Date Clementine Cobos MD [address] [place] [address] PCP - General Family Medicine 06/25/18 Manoj Garcia MD [address] [place] [address] [place] [address] Obstetrics and Gynecology 07/22/24 Emir Medina MD [address] [place] [address] Bariatrics 10/08/24 Xavi Villafuerte MD [address] [place] [address] 3rd [place] [address] Gastroenterology 10/08/24 Enrike Arvizu MD [address] [place] [address] Cardiology 10/08/24 documented as of this encounter
--- OUTSIDE RECORDS SUMMARY | 2025-06-04 20:46 | XMS_ITS | Encounter Summary ---
Author Organization [employer] Address [address] [facility] 7t [place] [address] Care Team Providers Care French Binding Folder Name Role Phone Clementine Cobos MD Primary Care Provider [phone]- [phone] Manoj Garcia MD Unavailable Emir Medina MD Unavailable [phone] Xavi Villafuerte MD Unavailable [phone] Enrike Arvizu MD Unavailable [phone] Reason for Visit * Reason Comments Med Change Request Encounter Details Date Type Department Care Team (Late st Contact Info) Description 07/27/2023 Refill [facility] [address] [place], [place] [phone] Clementine Cobos MD [address] [place], [place] [phone] Social History Tobacco Use Types Packs/Day Years Used Date Smoking Tobacco: Never Passive Smoke Exposure: Never Smokeless Tobacco: Never Alcohol Use Standard Drinks/Week Comments Yes 0 (1 standard drink = 0.6 oz pur e alcohol) occasional drinking Depression Answer Date Recorded Patient Health Questionnaire-9 Score 0 09/11/2022 Housing Stability Answer Date Recorded What is your housing situation today? I have chicawia collins 04/16/[address] you [...] Description 06/15/2025 9:00 AM EST Office Visit [facility] MEDICINE [address] [place] [address] Clementine Cobos MD [address] [place] [address] documented as of this encounter Visit Diagnoses Not on filedocumented in this encounter Additional Health Concerns Assessment Noted Time PHQ-9 Depression Total Score: 0 09/12/19 10:19 AM EDT documented as of this encounter Care Teams French Binding Folder Relationship Specialty Start Date End Date Clementine Cobos MD [address] [place] [address] PCP - General Family Medicine 06/25/18 Manoj Garcia MD [address] [place] [address] Obstetrics and Gynecology 07/22/24 Emir Medina MD [address] [place] [address] Bariatrics 10/08/24 Xavi Villafuerte MD [address] [place] [address] 3rd [place] [address] Gastroenterology 10/08/24 Enrike Arvizu MD 596 [place] [address] Cardiology 10/08/24 documented as of this encounter
--- OUTSIDE RECORDS SUMMARY | 2025-06-04 20:46 | XMS_ITS | Encounter Summary ---
Author Organization [employer] Address [address] [place] [address] [place] [address] Care Team Providers Care Nutrition Director Name Role Phone Clementine Cobos MD Primary Care Provider + [phone] Manoj Garcia MD Unavailable Emir Medina MD Unavailable [phone] Xavi Villafuerte MD Unavailable [phone] Enrike Arvizu MD Unavailable [phone] Encounter Details Date Type Department Care [...] 06/15/2025 9:00 AM EST Office Visit [facility] MEDICINE 230 [place] [address] Clementine Cobos MD 230 [place], [place] [phone] documented as of this encounter Visit Diagnoses Not on filedocumented in this encounter Care Teams Nutrition Director Relationship Specialty Start Date End Date Clementine Cobos MD 230 [place], [place] [phone] PCP - General Family Medicine 06/25/18 Manoj Garcia MD [address] [place] [address] Obstetrics and Gynecology 07/22/24 Emir Medina MD 175 [facility] [address] [place] [address] Bariatrics 10/08/24 Xavi Villafuerte MD [address] 3rd [place] [address] Gastroenterology 10/08/24 Enrike Arvizu MD 596 [place] [address] Cardiology 10/08/24 documented as of this encounter
--- OUTSIDE RECORDS SUMMARY | 2025-06-04 20:46 | XMS_ITS | Encounter Summary ---
Author Organization [facility] Address [address] [place] [address] Phone Care Team Providers Care Resort Manager Name Role Phone Pcp, Unknown Primary Care Provider Unavailabl e Unknown, Unknown Primary Care Provider Clementine Antonio MD Primary Care Provi ching Encounter Details Date Type Department Care Team (Latest Contact Info) Description 07/17/2017 Ancillary Orders [facility] [address] [place] [address] [place] [address] Enrike Arvizu, DO [address] [place] [address] Palpitations; Bradycardia; Chest pain, unspecified type Social [...] documented as of this encounter Care Teams Resort Manager Relationship Specialty Start Date End Date Pcp, Unknown PCP - General 07/17/17 05/29/18 Unknown, Unknown, PCP - General 05/30/18 07/25/18 Clementine Cobos MD 230 [place] [address] PCP - General Family Medicine 07/26/18 documented as of this encounter Additional Source Comments The information contained in this document represents components of the legal health record. It is not the complete legal health record.[facility]
--- OUTSIDE RECORDS SUMMARY | 2025-06-04 20:46 | XMS_ITS | Encounter Summary ---
Author Organization [employer] Address 75 [facility] 7t [place] [address] Care Team Providers Care Wallpaper Hanger Name Role Phone Clementine Cobos MD Primary Care Provider [phone] Manoj Garcia MD Unavailable Emir Medina MD Unavailable [phone] Xavi Villafuerte MD Unavailable [phone] Enrike Arvizu MD Unavailable [phone] Reason for Referral * Imaging (Routine) - Closed Specialty Diagnoses / Procedures Referred By Contac t Referred To Contact Radiology Diagnoses Pleuritic pain Thoracic radiculopathy Procedures CT Chest w/ Contrast Clementine Cobos MD [address] [place] [address] Phone: tel: fax: [facility] [address] [place], [place] Phone: tel: fax: Referral ID Status Reason Start Date Expiration Date Visits Re quested Visits Authorized [id number] Closed 06/28/2023 06/27/2024 1 1 Encounter Details Date Type Department Care Team (Late st Contact Info) Description 06/28/2023 Orders Only [facility] MEDICINE 230 [place] [address] Clementine Cobos MD [address] [place], [place] [phone] Pleuritic pain (Primary Dx); Thoracic radiculopathy Social [...] Description 06/15/2025 9:00 AM EST Office Visit [facility] MEDICINE [address] [place] [address] Clementine Cobos MD [address] [place] [address] Scheduled Orders Name Type Priority Associated Diagnoses [...] documented as of this encounter Care Teams Wallpaper Hanger Relationship Specialty Start Date End Date Clementine Cobos MD [address] [place] [address] PCP - General Family Medicine 06/25/18 Manoj Garcia MD [address] [place] [address] [place] [address] Obstetrics and Gynecology 07/22/24 Emir Medina MD [address] [place] [address] Bariatrics 10/08/24 Xavi Villafuerte MD [address] 3rd [place] [address] Gastroenterology 10/08/24 Enrike Arvizu MD [address] [place] [address] Cardiology 10/08/24 documented as of this encounter
--- OUTSIDE RECORDS SUMMARY | 2025-06-04 20:47 | XMS_ITS | Clinical Summary ---
Author Organization [facility] Address 175 [place] [address] Phone Care Team Providers Care Hat Marker Name Role Phone Clementine Cobos MD Primary Care Provider [phone] Allergies No known active allergies Medications fluticasone [...] Overview (02/18/2025): Lab Results Component Value Date [id number] 31.0 12/17/2024 [id number] 28.8 (L) 10/09/2024 [id number] 41.2 12/24/2023 -Vit D3 2000IU started 10/09/24 [...] Care Team Description 05/26/2025 Telephone Bariatric Surgery [address] [address] Merna Anderson PA 04/27/2025 Telephone Bariatric Surgery [address] [address] Merna Anderson PA 03/31/2025 Telephone Bariatric Surgery [address] [phone] Merna Anderson PA 03/17/2025 Telephone Bariatric Surgery - [address] [address] Merna Anderson PA from Last [...] 1:15 PM EST Office Visit Bariatric Surgery [address] [address] Merna Anderson PA [address] [place] [phone] Health Maintenance Due Date Last Done [...] complete this topic Insurance Joy [place], [place] [id number] [place] [facility] [address] [place] [address] Care Teams Hat Marker Relationship Specialty Start Date End Date Clementine Cobos MD [address] [place] [phone] PCP - General Internal Medicine 12/18/12
--- OUTSIDE RECORDS SUMMARY | 2025-06-04 20:47 | XMS_ITS | Encounter Summary ---
Author Organization [employer] Address 75 [facility] 7t [place] [address] Care Team Providers Care Lacquer Mixer Name Role Phone Clementine Cobos MD Primary Care Provider [phone] Manoj Garcia MD Unavailable Emir Medina MD Unavailable [phone] Xavi Villafuerte MD Unavailable [phone] Enrike Arvizu MD Unavailable [phone] Encounter Details Date Type Department Care Team (Late st Contact Info) Description 06/27/2023 Orders Only [facility] [address] [place], [place] [phone] Clementine Cobos MD 230 [place], [place] [phone] Social History Tobacco Use Types Packs/Day Years [...] 9:00 AM EST Office Visit [facility] MEDICINE [address] [place] [address] Clementine Cobos MD 230 [place] [address] documented as of this encounter Visit Diagnoses Not on filedocumented in this encounter Additional Health Concerns Assessment Noted Time PHQ-9 Depression Total Score: 0 09/12/19 10:19 AM EDT documented as of this encounter Care Teams Lacquer Mixer Relationship Specialty Start Date End Date Clementine Cobos MD 230 [place] [address] PCP - General Family Medicine 06/25/18 Manoj Garcia MD [address] [place] [address] Obstetrics and Gynecology 07/22/24 Emir Medina MD [address] [place] [address] Bariatrics 10/08/24 Xavi Villafuerte MD [address] [place] [address] Drive 3rd [place] [address] Gastroenterology 10/08/24 Enrike Arvizu MD [address] [place] [address] Cardiology 10/08/24 documented as of this encounter
--- OUTSIDE RECORDS SUMMARY | 2025-06-04 20:47 | XMS_ITS | Encounter Summary ---
Author Organization [employer] Address [address] [facility] [address] [place] [address] Care Team Providers Care Hydraulic Engineer Name Role Phone Clementine Cobos MD Primary Care Provider [phone] Manjo Garcia MD Unavailable Emir Medina MD Unavailable [phone] Xavi Villafuerte MD Unavailable [phone] Enrike Arvizu MD Unavailable [phone] Reason for Visit * Reason Comments Med Refill Encounter Details Date Type Department Care Team (Late st Contact Info) Description 01/02/[address] [facility] [address] [place], [place] [phone] Clementine Cobos MD [address] [place], [place] [phone] Iron deficiency anemia, unspecified iron deficiency anemia [...] Description 06/15/2025 9:00 AM EST Office Visit [facility] [address] [place] [address] Clementine Cobos MD [address] [place] [phone] documented as of this encounter Visit Diagnoses Diagnosis Iron deficiency anemia, unspecified iron deficiency anemia type documented in this encounter Additional Health Concerns Assessment Noted Time PHQ-9 Depression Total Score: 0 10/09/19 25 10:30 AM EDT documented as of this encounter Care Teams Hydraulic Engineer Relationship Specialty Start Date End Date Clementine Cobos MD [address] [place] [address] PCP - General Family Medicine 06/25/18 Manoj Garcia MD [address] [place] [address] [place] [address] Obstetrics and Gynecology 07/22/24 Emir Medina MD [address] [place] [address] [address] [place] [address] Bariatrics 10/08/24 Xavi Villafuerte MD [address] [place] [address] 3rd [place] [address] Gastroenterology 10/08/24 Enrike Arvizu MD [address] [place] [address] Cardiology 10/08/24 documented as of this encounter
--- OUTSIDE RECORDS SUMMARY | 2025-06-04 20:47 | XMS_ITS | Clinical Summary ---
Author Organization [employer] Address [address] [place] [address] [address] [place] [address] Care Team Providers Care Cryptographic Technician Name Role Phone Clementine Cobos MD Primary Care Provider [phone] Manoj Garcia MD Unavailable Emir Medina MD Unavailable Xavi Villafuerte MD Unavailable [phone] Enrike Arvizu MD Unavailable [phone] Allergies Active Allergy Reactions Criticality Noted [...] Patient not taking.Reported on 12/03/2024 fish oil (Aurelia-3) 500 MG capsuleIndicati ons:Dyslipidemi a Take 1 [...] mouth Once per day. 90 capsule 3 10/15/19 25 Active fluticasone furoate (Arnuity Ellipta) [...] if needed for wheezing. 18 g 1 02/20/20 25 2025 Active montelukast (Singulair) 10 MG tabletIndicatio ns:Mild intermittent asthma without complication Take 1 tablet (10 mg) by mouth Once per day. 90 tablet 3 02/20/20 25 Active cetirizine (ZyrTEC) 10 MG tabletIndicatio ns:Seasonal allergies Take 1 tablet (10 mg) by mouth Once per day. 90 tablet 3 02/20/20 25 Active famotidine (Pepcid) 20 MG tabletIndicatio ns:Epigastric pain TAKE 1 TABLET BY MOUTH TWICE A DAY 180 tablet 04/20/20 25 Active fluticasone (Flonase) 50 MCG/ACT nasal sprayIndication s:Acute maxillary sinusitis, recurrence not specified SPRAY 1 TO 2 SPRAYS INTO EACH NOSTRIL ONCE PER DAY. SHAKE GENTLY. BEFORE FIRST USE, PRIME PUMP. AFTER USE, CLEAN TIP AND REPLACE CAP. 48 mL 05/25/20 25 Active fluticasone (Flonase) 50 MCG/ACT nasal sprayIndication s:Acute maxillary sinusitis, recurrence not specified SPRAY 1 TO 2 SPRAYS INTO EACH NOSTRIL ONCE PER DAY. SHAKE GENTLY. BEFORE FIRST USE, PRIME PUMP. AFTER USE, CLEAN TIP AND REPLACE CAP. 16 g 04/20/20 25 2024 Discontinued Active Problems Problem Noted [...] -Discussed starting Estrogen supplementation after appt. with Application Security Developer for Lindy placement. Assessment & Plan (12/24/2023 11:21 AM EDT): -Likely correlated to john paul-menopausal sxs -Ordered labs 12/24/23 -Discussed starting Estrogen supplementation after appt. with Application Security Developer for Lindy placement. Ventral hernia without obstruction [...] previously controlled by Lupron but discontinued by nurse practical due to length of use. -Referred to another nurse practical by Dr. Garcia but that [facility] did not do hysterectomies -US done 06/15/2023 at [facility], results pending as of 06/20/23 -pt to call Dr. Garcia for referral for hysterectomy Assessment & Plan (06/20/2023 4:29 PM EST): -current present since Jan 2023, previously controlled by Lupron but discontinued by nurse practical due to length of use. -Referred to another nurse practical by Dr. Garcia but that Answerer did not do hysterectomies -US done 06/15/2023 at [facility], results pending as of 06/20/23 [...] by every 2 years -dental home is [facility] -health care proxy filed 08/18/2023 Assessment & Plan (06/28/2023 9:35 AM EST): -next physical exam due after 04/23/2024 -eye care facilitated by every 2 years -dental home is [facility] Assessment & Plan (04/23/2023 9:18 AM EDT): -next physical exam due after 04/23/2024 -eye care facilitated by every 2 years -dental home is [facility] Hx of gastric bypass 09/06/2022 Overview (02/26/2025): Follows with weight clinic and gravity prospecting observer helper. Note from 02/18/25 reviewed, medical weight management with GLP 1 started Assessment & Plan (02/19/2025 10:54 AM EDT): Follows with weight clinic and gravity prospecting observer helper. Gastroesophageal reflux disease 06/29/2022 Overview (04/23/2025): -check [...] thoracic spine ordered 06/22/23 -referred back to [facility] orthopedics for inions that pt [...] thoracic spine ordered 06/22/23 -referred back to [facility] orthopedics for inions that pt [...] (04/23/2023 10:53 AM EDT): -followed by pain mgraine for RUQ pain that radiates to the [...] Overview (01/28/2025): Lab Results Component Value Date [id number] 31.0 12/17/2024 [id number] 28.8 (L) 10/09/2024 [id number] 41.2 12/24/2023 -Vit D3 2000IU started 10/09/24 [...] Encounters Date Type Department Care Team Description 05/24/2025 Refill [facility] [address] [place] [address] Clementine Cobos MD Acute maxillary sinusitis, recurrence not specified 04/19/2025 Refill [facility] [address] [place] [address] Analisa Malave MD Epigastric pain; Acute maxillary sinusitis, recurrence not specified 04/18/2025 Refill [facility] [address] [place] [address] Analisa Malave MD Acute maxillary sinusitis, recurrence not specified 04/17/2025 1:50 PM EDT Immunization [facility] [address] [place] [phone] Ashlyn Donnelly RN Encounter for immunization 04/17/2025 Travel 04/03/2025 Telephone [facility] [address] [place] [address] Clementine Cobos MD May Recalls 04/03/2025 Travel 04/02/2025 9:20 AM EDT Office Visit [facility] [address] [address] Zaire Kumar MD Other subacute sinusitis (Primary Dx); Vaginal candidiasis 04/02/2025 Travel 03/27/2025 9:20 AM EDT [facility] [address] [address] Analisa Malave MD Epigastric pain; Acute maxillary sinusitis, recurrence not specified 03/27/2025 Travel 03/12/2025 3:00 PM EDT [facility] [address] [phone] Clementine Cobos MD Acute bacterial sinusitis (Primary Dx); Sinus symptom 03/12/2025 Travel 03/09/2025 3:30 PM EDT Office Visit [facility] ADULT DENTAL [address] [place] [phone] Sofia Miller DDS Full coverage crown needed for root canal-treated tooth (Primary Dx) from Last 3 Months Immunizations [...] 9:00 AM EST Office Visit [facility] [address] [place] [address] Clementine Cobos MD [address] [place] [address] Health Maintenance Due Date Last Done Comments [...] 04/02/2025 9:35 AM EDT Other subacute sinusitis COLONOSCOPY Routine 03/24/2025 AMB REFERRAL TO GASTROENTEROLOGY [...] coverage crown needed for root canal-treated tooth LIPID PANEL, STANDARD Routine 02/13/2025 8:34 AM EDT Dyslipidemia PROPHYLAXIS - ADULT Routine 09/16/2024 7 :45 [...] AM EDT Narrative 04/12/2025 9:01 AM EDT [facility] [address] [place] [address] Mammography Report Signed Patient: Carmine Herrera MR#: [id number] 11 : 1980 Acct:[id number] Age/Sex: 44 / F ADM Date: 04/09/25 Loc: MAMMO Attending Dr: Clementine Cobos MD Ordering Physician: Clementine Cobos MD Results: 0I ncomplete- Need Additional Imaging Evaluation Date of Service: 04/09/25 Follow Up: Additional Imagi ng Procedure(s): MM tomosynthesis screening BI Accession Number(s): [id number] cc: Clementine Cobos MD Reason For Exam: [...] in OV> 04/12/2557 DD/ 9 TD/TT: 04/09/25805 Government Professor: Procedure Note Donotuseinterpreter, Image - 04/12/[facility] [address] [place] [address] Mammography Report Signed Patient: Carmine Herrera DMR#: [id number] 11 : 1980Acct:[id number] Age/Sex: 44 / FADM Date: 04/09/25 Loc: HO.MAMMO Attending Dr: Clementine Cobos MD Ordering Physician: Clementine Cobos MDResults: 0I ncomplete- Need Additional Imaging Evaluation Date of Service: 04/09/25Follow Up: Additional Imagi ng Procedure(s): MM tomosynthesis screening BI Accession Number(s): [id number] cc: Clementine Cobos MD Reason For Exam: [...] signed by Shirin Kumar MD in OV> 04/12/25856 DD/ 08 TD/TT: 04/09/25 0806 Government Professor: Clementine Cobos MD IMG BI PROCEDURES Final Re sult * Influenza A (ID NOW Rapid Molecular) (04/02/2025 9:36 AM EDT) Only the most recent of2 resultswithin the time period is included. [facility] Influenza A Negative Negative, Indeterminate [facility] Swab 04/02/2025 9:36 AM EDT Zaire Kumar MD POINT OF CARE TEST ENTER/EDIT OR DERABLES Final Result Performing Organization Address [facility] Co de Phone Number [facility] [address] [place] [phone] * Influenza B (ID NOW Rapid Molecular) (04/02/2025 9:35 AM EDT) Only the most recent of2 resultswithin the time period is included. [facility] Influenza B Negative Negative, Indeterminate [facility] Swab 04/02/2025 9:35 AM EDT Zaire Kumar MD POINT OF CARE TEST ENTER/EDIT OR DERABLES Final Result Performing Organization Address City/[facility]/ZIP Co de Phone Number [facility] [address] [place] [phone] * POCT Rapid COVID Ag (04/02/2025 9:35 AM EDT) Only the most recent of2 resultswithin the time period is included. [facility] Rapid COVID Ag Negative Swab 04/02/2025 9:35 AM EDT Zaire Kumar MD POINT OF CARE TEST ENTER/EDIT OR DERABLES Final Result * Hm Colonoscopy (03/24/2025) Colonoscopy Normal Normal Comment:with Dr. Enio pimentel MD at [facility] Jamila Arciniega MD HEALTH MAINTENANCE Final Result * Referral to Gastroenterology (03/24/2025) us Clementine Cobos MD OUTPATIENT REFERRAL ORDERA BLES Final Result * (ABNORMAL) Lipid Panel, Standard (02/13/2025 8:34 AM EDT) Triglycerides 237(H) <150 mg/dL [facility] Comment:Desirable Triglyceri de: less than 150 mg/dLBorderline High Triglyceride 150-199 mg/dLHigh Triglyceride: 200-499 mg/dLVery High Triglyceride: greater than or equal to 5OO mg/dL Cholesterol 240(H) <200 mg/dL [facility] Comment:Desirable Cholestero l: less than 200 mg/dLBorderline High Cholesterol: 200-239 mg/dLHigh Cholesterol: greater than 239 mg/dL LDL Cholesterol Calculated 135(H) <100 mg/dL [facility] Comment:Desirable LDL: less than 100 mg/dLNear Optimal/Above Optimal LDL: 110- 129 mg/dLBorderline High LDL: 130-159 mg/dLHigh LDL: 160-189 mg/dLVery High LDL: greater than or equal to 190 mg/dL HDL Cholesterol 58 >40 mg/dL [facility] Comment:Desirable HDL: great er than 40 mg/dL Note: This HDL assay may give artificially low results in patients with liver disease. Blood Venous blood specimen / Unknown 02/13/2025 8:34 AM EDT 02/13/2025 11:54 AM EDT us Clementine Cobos MD LAB BLOOD ORDERABLES Final Result [facility] [address] [place] [phone] * Hepatitis C Antibody with Reflex to HCV, RNA, Quantitative, Real-Time PCR (04/25/2023 8:18 AM EDT) Hepatitis C Antibody Nonreactive Nonreactive [facility] Comment:Antibodies to HCV no t detected; does not exclude early acuteHCV infection. Blood Venous blood specimen / Unknown 04/25/2023 8:18 AM EDT 04/25/2023 11:32 AM EDT Clementine Cobos MD LAB BLOOD ORDERABLES Final Result Performing Organization Address [facility]/ZIP Co de Phone Number [facility] [address] [place] [phone] * HIV-1/2 Antigen and Antibodies, Fourth Generation, with Reflexes (04/25/2023 8:18 AM EDT) HIV AB/AG Nonreactive Nonreactive [facility] Comment:HIV-1 p24 Ag and/or HIV-1/HIV-2 Ab not detected.A test result that is nonreactive does not exclude thepossibility of exposure to or infection with HIV-1 and/orHIV-2. Nonreactive results in this assay for individualswith prior exposure to HIV-1 and/or HIV-2 may be due toantigen and antibody levels that are below the limit ofdetection of this assay.The [employer] HIV Ag/Ab Combo assay result andsupplemental assay results should be interpreted inconjunction with the patient's clinical presentation,history and other laboratory results. If the results areinconsistent with clinical evidence, additional testing issuggested to confirm the result. Blood Venous blood specimen / Unknown 04/25/2023 8:18 AM EDT 04/25/2023 11:32 AM EDT Clementine Cobos MD LAB BLOOD ORDERABLES Final Result Performing Organization Address [facility]/ZIP Co de Phone Number [facility] [address] [place] [phone] * HPV High Risk PCR (09/09/2021) Swab Cervical swab / Unknown 09/09/2021 Clementine Cobos MD LAB MICROBIOLOGY - GENERAL ORDERABLES Final Result * Pap Smear (09/09/2021) Swab 09/09/2021 Clementine Cobos MD LAB CYTOLOGY ORDERABLES Fi nal Result from Last 3 Months or Most Recently Relevant to Health Maintenance Insurance [facility] STANDARD Member Subscriber Plan / Payer (Ef fective 2022-Present) Name:HerreraCarmine Relation to Subscriber:Self Name:HerreraCarmine Payer ID:Not on file Group ID:Not on file Type:Medicaid Address: [phone] , [address] [place] [address] [place] [address] DENTAL-[facility] MEDICAID STAND ADULT Advance Directives Documents on File Type Date Recorded Patient Health And Wellness Advisor Expl anation Advance Directives and Living Will 12/24/2023 Health Care Proxy 12/24/23 Care Teams Cryptographic Technician Relationship Specialty Start Date End Date Rock, MD Clementine [address] [place] [phone] PCP - General Family Medicine 06/25/18 Manoj Garcia MD [address] [place] [address] [address] [place] [address] Obstetrics and Gynecology 07/22/24 Emir Medina MD [address] [place] [address] [address] [place] [address] Bariatrics 10/08/24 Xavi Villafuerte MD [address] 3rd [place] [address] Gastroenterology 10/08/24 Enrike Arvizu MD [address] [place] [address] Cardiology 10/08/24
== END 2025-06-04 14:01 | disposition home or self-care (01) ==
LOC: HO.PMCPRC 13:34
PROVIDERS: PCP Family Medicine; Visit Provider Internal Medicine
DX: G58.8 Other specified mononeuropathies (principal)
CPT/HCPCS: 64420; 64421; 76942

== ENCOUNTER 2025-06-08 09:57 | Outpatient (REF) | payer OTHER, MEDICAID, SELFPAY ==
--- NOTE | ~2025-06-08 | MM_ITS ---
EXAMINATION(S): MM DIAGNOSTIC DIGITAL BREAST TOMOSYNTHESIS, LEFT CLINICAL INFORMATION: Callback from screening for left breast asymmetry in the retroareolar plane posterior depth on MLO view COMPARISON: Comparison made to multiple prior, most recent April 09, 2025, and most remote June 22, 2018. TECHNIQUE: Digital breast tomosynthesis is performed in full field ML 90 degrees along with computer-aided detection (CAD). Synthesized 2D images are generated from the tomosynthesis. Spot compression tomosynthesis were obtained. FINDINGS: BREAST COMPOSITION: There are scattered areas of fibroglandular density. LEFT BREAST: Previously suggested asymmetry on the MLO view presses out with spot compression and most likely represented overlapping fibroglandular breast tissue. Local parenchyma is similar to multiple prior studies as far back as 2018. No significant masses or other abnormalities are seen. MM/MM tomosynthesis added views L IMPRESSION: LEFT BREAST: Negative, no mammographic evidence of malignancy. Normal interval follow-up is recommended in 12 months. ASSESSMENT: BI-RADS: Category 1: Negative RECOMMENDATION: 1 year F/U Results were provided to the patient at time of visit by the technologist. This patient's information was entered into a reminder system with a target due date for their next mammogram. Electronically signed by: Shirin Kumar MD 06/08/2025 10:42 AM ISSAC
== END 2025-06-08 09:58 | disposition home or self-care (01) ==
LOC: HO.MAMMO 09:57
PROVIDERS: PCP Family Medicine; Visit Provider Family Medicine
DX: N64.89 Other specified disorders of breast (principal)
CPT/HCPCS: 77061; 77065

== ENCOUNTER → 2025-06-08 10:00 | Outpatient (BNV) | payer OTHER, MEDICAID, SELFPAY | PROVIDERS: PCP Family Medicine; Visit Provider Radiology Body Imaging | DX: R92.8 Other abnormal and inconclusive findings on diagnostic imaging of breast (principal) | CPT/HCPCS: 77061; 77065 ==